=== PATIENT | female | born 1950 | race African-American/Black ===

== ENCOUNTER 2019-04-12 15:33 | Observation (INO) | payer OTHER, SELFPAY ==
--- NOTE | ~2019-04-12 | MR_ITS ---
EXAMINATION: MR brain/brain stem wo/w con EXAM DATE: 04/13/2019 15:36 INDICATION: Unresponsive episodes, slurred speech. TECHNIQUE: Magnetic resonance imaging (MRI) of the brain/brain stem obtained without contrast. Sagit ronda T1, axial diffusion, gradient echo (T2*), T1, T2, FLAIR sequences obtained. Patient was then inj ected with 13 cc intravenous Multihance contrast. Axial and coronal postcontrast T1 weighted sequence s obtained. Comparison is made to prior examination from 09/29/2017. FINDINGS: There are no areas of restricted diffusion to suggest acute infarction. There is no acute hemorrhage seen on the T2*, a hemosiderin sensitive sequence. No intraparenchymal brain mass lesion. There is mild periventricular and subcortical T2/FLAIR signal hyperintensity, nonspecific but probab ly related to small vessel ischemic disease (microangiopathy). There is mild prominence of the sulc i and ventricles related to cerebral atrophy. There are no extra-axial collections. Flow voids are seen in the cerebral arteries on the T2-weighted sequences consistent with their expected patency. The orbits are unremarkable. Soft tissue is unremarkable. IMPRESSION: 1. No acute intracranial findings. 2. Mild age related findings. Reviewed, dictated and finalized at location A.
--- NOTE | ~2019-04-12 | XR_ITS ---
EXAMINATION: XR chest 1V portable EXAM DATE: 04/12/2019 17:54 INDICATION: Cough. TECHNIQUE: Portable AP frontal chest x-ray was obtained. Comparison is made to prior examination from 05/27/2015. FINDINGS: There is some right-sided volume loss with well-defined increased density in the right lowe r lung zone, airspace disease or collapse of the right middle lobe. Please clinically correlate. Can patient stand for PA/lateral projections? This is new compared to 2016. Left lung is clear. No pneumo thorax or pleural effusion. Cardiomediastinal silhouette is normal. There are bony degenerative rizo es. IMPRESSION: New well-defined right basilar density with clear interface to normal lung, could indica te consolidation and/or atelectasis of the right middle lobe. Clinical correlation. Consider PA/later al chest x-ray if possible. Reviewed, dictated and finalized at location A. ENRICHMENT MANAGER IMPRESSION: New well-defined right basilar density with clear interface to nor mal lung, could indicate consolidation and/or atelectasis of the right middle l obe. Clinical correlation. Consider PA/lateral chest x-ray if possible.
--- NOTE | ~2019-04-12 | XR_ITS ---
EXAMINATION: XR ankle LT min 3V EXAM DATE: 04/12/2019 16:43 INDICATION: No known recent injury provided at this time. Pain of the left ankle. TECHNIQUE: Left ankle frontal, lateral and oblique projections obtained and reviewed. There is no pr ior study for comparison. FINDINGS: The left ankle mortise appears intact. Bones are osteopenic. There are no acute fracture s or dislocations identified. There is no subcutaneous gas. Probable small joint effusion. There a re no radiopaque foreign bodies. There is soft tissue swelling over the ankle. IMPRESSION: Left ankle small joint effusion and soft tissue swelling. Osteopenia. Reviewed, dictated and finalized at location A. GROUND MONITOR IMPRESSION: Left ankle small joint effusion and soft tissue swelling. Fausto todd
--- NOTE | ~2019-04-12 | CT_ITS ---
EXAMINATION: CT brain wo con EXAM DATE: 04/12/2019 18:01 INDICATION: Slurred speech. TECHNIQUE: Spiral CT of the head was performed without contrast. Axial, coronal and sagittal images were reviewed. The dose-length product (DLP) for this examination was 605.33 mGy-cm. The exposure w as tailored according to patient size, and iterative reconstruction (ASIR) was used as additional dos e reduction technique. Comparison is made to prior examination from 09/29/2017. FINDINGS: There is no acute intraparenchymal hemorrhage. No evidence of intraparenchymal brain mass lesion. No evidence of acute infarction. Please note that initial head CT has limited sensitivity f or small or acute infarctions. There is mild periventricular and subcortical hypodensity, nonspecific but probably related to small vessel ischemic disease. There is moderate prominence of the sulci a nd ventricles related to cerebral atrophy. There is intracranial carotid arteriosclerosis. There a re no extra-axial collections. There is no mass effect or midline shift. The orbits are unremarkabl e. Soft tissue is unremarkable. Small left sphenoid mucous retention cyst. IMPRESSION: 1. No acute intracranial findings. 2. Chronic age related findings. Reviewed, dictated and finalized at location A. CAR WHACKER
[2019-04-12 15:41] VITALS: BP 113/93; PULSE 104; RESP 18; TEMP 36.7; O2SAT 100
--- NOTE | 2019-04-12 17:37 | ED.GENADULT ---
HPI - General Adult General Chief complaint: Unspecified Stated complaint: slurring, leaning to the right for unknown time Time Seen by Provider: 04/12/19 17:34 Source: patient and family Mode of arrival: ambulatory Limitations: no limitations History of Present Illness HPI narrative: The pt is a 68 y/o female who presents to the ED c/o mobility issues onset 2 months ago. Pt's family states that her mobility has been declining for the past couple of months, with her having difficulty walking at all. Pt states that she has experienced LLE pain for the past two days. Pt notes that the pain is in the lower leg. Her family states that when she was getting ready to take the pt from her halfway to her home to spend the night, the pain was so bad that she was yelling while her shoes were put on. She also notes that the pt has been listing to the right, as well as slurring her speech. MD complaint: Mobility issues Onset (ago): month(s) (2) Location: lower extremity Associated symptoms: other (LLE pain (lower leg), listing to the right, slurred speech, difficulty walking ) Related Data Home Medications Medication Instructions Recorded Confirmed Unable to Obtain Home Medications 04/12/19 04/12/19 Allergies Allergy/AdvReac Type Severity Reaction Status Date / Time No Known Allergies Allergy Verified 04/12/19 18:16 Review of Systems Review of Systems: All systems reviewed & are unremarkable except as noted in HPI and below Musculoskeletal: Musculoskeletal: Reports other (LLE pain (Lower leg), difficulty walking ) Neurologic: Reports Abnormal speech present (Slurred speech) and Reports other (Listing to the right) [facility] Past Medical History Medical History (Updated 04/12/19 @ 21:18 by Rick Russo DO) Anemia Angina at rest Anxiety Arthritis Bipolar disorder CVA (cerebral vascular accident) Depression Diabetes Finger fracture, left Finger fracture, right GERD (gastroesophageal reflux disease) HLD (hyperlipidemia) HTN (hypertension) Left cataract Leg fracture, left Pneumonia Surgical History Surgical History (Updated 04/12/19 @ 18:22 by Quan Wang) No history of previous surgery Social History Social History (Updated 04/12/19 @ 18:23 by Quan Wang) Smoking status: Never smoker Exam Narrative: Exam Narrative: APPEARANCE: No acute distress, nontoxic, resting in bed EYES: PERRL HEENT: Normocephalic, atraumatic, OMM RESPIRATORY: No respiratory distress Clear to auscultation bilaterally with no rhonchi wheezing or rales. CARDIOVASCULAR: Regular rate and rhythm without murmurs rubs or gallops. ABDOMINAL: Soft, nontender, nondistended, no rebound or guarding MUSCULOSKELETAl: No clubbing, cyanosis nontender to the right lower extremity, the left lower extremity has no tenderness in the left hip or knee left ankle is diffusely tender to palpation with mild swelling there is no overlying erythema or ecchymosis, no tenderness of the foot dorsalis pedis pulse 2+, neurovascular intact. NEURO: Awake and alert x 2. Following commands, speech normal, no focal deficits muscle strength 5 out of 5 in the bilateral upper extremities and 5 out of 5 in the right lower extremity 4 out of 5 in the left lower extremity SKIN:: Warm, dry. No rashes lesions or abrasions PSYCHIATRIC: Normal affect/mood, Course Course Emergency Course: Daughter is present states patient has been leaning to the right as well as having some slurred speech over the past day. No known trauma to the ankle. : Discussed Dr. Fulton chest x-ray. At this time states possible pneumonia. The. Patient is currently asymptomatic with no cough and no white count. I discussed with CARA Barger and at this time will hold antibiotics Discussed with patient and family results of workup and diagnosis. Discussed need for admission. Patient and family understand and agree to current treatment plan Consultations Consultation #1: Discussed case with David
--- NOTE | 2019-04-12 17:46 | ECG_ITS ---
Measurements Intervals [place] Rate: 94 P: 51 NH: 124 QRS: 124 QRSD: 90 T: 31 QT: 370 QTc: 465 Interpretive Statements SINUS RHYTHM RIGHT AXIS DEVIATION LOW QRS VOLTAGE IN PRECORDIAL LEADS BASELINE ARTIFACT- V5 BORDERLINE ECG Electronically Signed On 04-13-2019 8:19:53 CDT by Skinny Dumont D.O.
[2019-04-12 18:45] LABS: Basophils Percent Auto 0.4 % (0.2-1.2); Eosinophils Absolute Auto 0.3 K/mm3 (0-0.3); Eosinophils Percent Auto 4.9 % (0-4.4); Hematocrit 32.3 % (37.0-47.0); Hemoglobin 9.9 g/dL (12.0-15.0); Immature Granulocyte Absolute 0.03 K/mm3 (0.00-0.031); Immature Granulocyte Percent A 0.5 % (0-0.5); Lymphocytes Absolute Auto 2.53 K/mm3 (0.9-3.2); Lymphocytes Percent Auto 44.5 % (18.3-44.2); Mean Corpuscular HGB Conc 30.7 g/dl (32-36); Mean Corpuscular Hemoglobin 27.8 pg (26-34); Mean Corpuscular Volume 90.7 fl (80-100); Mean Platelet Volume 9.6 fl (7.4-10.4); Monocytes Absolute Auto 0.4 K/mm3 (0.1-0.6); Monocytes Percent Auto 7.2 % (2.6-8.5); Neutrophils Absolute Auto 2.4 K/mm3 (1.3-6.7); Neutrophils Percent Auto 42.5 % (45.5-73.1); Platelet Count Result 297 k/mm3 (150-375); Red Blood Count 3.56 M/mm3 (4.2-5.4); Red Cell Distribution Width 13.5 % (11.5-14.5); White Blood Count 5.7 K/mm3 (4.5-10.0)
[2019-04-12 18:54] LABS: Prothrombin Time 13.3 Seconds (11.1-14.7)
[2019-04-12 18:55] LABS: Partial Thromboplastin Time 26.4 SECONDS (22.3-36.8)
[2019-04-12 18:58] VITALS: BP 127/67; PULSE 95; RESP 17; O2SAT 100
[2019-04-12 18:59] LABS: Alanine Aminotransferase 13 U/L (4-35); Albumin Level 4.1 g/dL (3.5-5.1); Alkaline Phosphatase 73 U/L (38-126); Aspartate Amino Transferase 19 U/L (14-36); Bilirubin,Total 0.2 mg/dL (0.2-1.3); Blood Urea Nitrogen 6 mg/dL (7-17); CRP 1.4 mg/dL (<1.0); Carbon Dioxide 25 mmol/L (22-30); Chloride 103 mmol/L (98-107); Estimated CRCL calculation 88 ml/min; Estimated Glomerular Filt Rate > 60; Glucose 97 mg/dL (65-105); Potassium 3.8 mmol/L (3.4-5.0); Sodium 139 mmol/L (137-145); Uric Acid 3.4 mg/dL (2.5-7.5)
[2019-04-12 19:08] LABS: Troponin I < 0.012 ng/mL (0.000-0.034)
[2019-04-12 19:09] LABS: Erythrocyte Sedimentation Rate 24 mm/hr (0-20)
[2019-04-12 19:20] LABS: Add Urine Microscopic? YES; Appearance Urine Cloudy (Clear); Bacteria Urine 3+ /hpf; Bilirubin Urine Negative (Negative); Blood Urine Negative (Negative); Color Urine Yellow (Yellow); Glucose Urine UA Negative (Negative); Ketones Urine Trace mg/dL (Negative); Leukocyte Esterase Ur 1+ LEU/UL (Negative); Mucus Urine Heavy /lpf; Nitrate Urine Negative (Negative); Protein Urine 1+ mg/dL (Negative); RBC Urine 0-2 /hpf (0-2); Squamous Epithelial Cell Urine Few /hpf (Few); WBC Urine 21-30 /hpf
[2019-04-12 20:06] VITALS: BP 129/76; PULSE 100; RESP 18; O2SAT 97
[2019-04-12 20:20] VITALS: BP 128/60; PULSE 98; RESP 16; TEMP 36.3; O2SAT 100; BMI 28.8
--- NOTE | 2019-04-12 21:34 | ADMGEN ---
This patient, Paxton Altman, was admitted to [facility] Surg Room 323-02. Patient/family oriented to hospital policies and general routines including ID bracelet, bed and alarms, visiting hours, pain management, procedures, bathroom and other care routines, personal items, smoking policy, room service/diet, and visiting hours. Valuables list has been completed. Information on how to activate the Rapid Response Team has been discussed. Patient/Family are encouraged to report perceived risks to care and to ask questions if they do not understand what they are told or what they should do.
[2019-04-12] MEDS: SODIUM CHLORIDE 0.9% IV 1,000 ML 80 ML IV CONT (21:37)
[2019-04-12 22:00] VITALS: BP 115/61; PULSE 88; RESP 14; TEMP 35.9; O2SAT 99
[2019-04-12 22:10] LABS: Alveolar/Arterial O2 Gradient 17.1 mmHg; Base Excess ABG 0.4 mEq/l (+/-2.0); Fractional Inspired Oxygen 21 %; HCO3 ABG 25.6 mEq/l (22.0-26.0); Oxygen Content ABG 13.6 %vol (16.0-22.0); Oxygen Saturation ABG 95.7 % (95.0-100.0); Oxyhemoglobin 93.1 % THb (90.0-100.0); PCO2 ABG 43.8 mmHg (35.0-45.0); PO2 ABG 80.2 mmHg (80.0-100.0); PO2 FiO2 Ratio Arterial Blood 3.82 %; Total Hemoglobin 10.3 g/dL (12.0-18.0); pH ABG 7.385 (7.350-7.450)
[2019-04-12 22:11] LABS: Modified Allen's Test Pass; Site Drawn LEFT RADIAL
[2019-04-12 22:12] LABS: Device ROOM AIR
[2019-04-12 22:12] LABS: Glucose Point of Care 103 (65-105)
[2019-04-12 22:14] LABS: Troponin I < 0.012 ng/mL (0.000-0.034)
[2019-04-12 22:15] VITALS: BP 136/68; PULSE 82; RESP 16; O2SAT 99
--- NOTE | 2019-04-12 23:52 | PM.IMHP ---
H&P: HPI History of Present Illness Chief complaint: Metabolic encephalopathy, UTI, Slurred speech Narrative: Paxton Altman is a 68-year-old female with history of stroke with residual right-sided weakness and gait instability, hypertension, diabetes, DVT, and history of polio as a child who presented to the emergency department earlier this evening because she was ?not acting right.? I 1st see the patient after rapid response was called shortly after she was brought up to the floor. She was unresponsive when I walked into the room, even to deep sternal rub. Vital signs and glucose were stable. Within a couple of minutes, she did open her eyes and attempt to talk and follow commands. She does not however talk in full sentences nor she able to provide much of a history. As such, most of this history is obtained via a review of her electronic medical records. Reportedly her mobility has been declining over the last several months, much worse over the past 2 days in which she has been complaining of left leg pain. Family members were bring her home to spend the night with them today, when she began screaming in pain while staff or putting her shoes on. They then decided to bring her into the emergency department for evaluation. As an aside, daughter also notes that the patient seems to be leaning to the right and her speech is more slurred. Apparently this has been ongoing for the entire day, far > 3 hours. Lab studies emergency department were relatively unremarkable. Chest x-ray showed a new well-defined right basilar density which could be a consolidation and/or atelectasis in the right middle lobe. Family members deny that the patient has had any symptoms of pneumonia. The patient herself has no complaints at the time my evaluation, but again is just coming to after an unresponsive episode. 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 Depression GERD (gastroesophageal reflux disease) History of DVT (deep vein thrombosis) HLD (hyperlipidemia) HTN (hypertension) Insulin dependent type 2 diabetes mellitus Polio Patient had polio as a child that is left her with left lower leg weakness. Surgical History Surgical History No history of previous surgery Family History Family History (Updated 04/13/19 @ 00:05 by Karoline Barger PA-C) Other Acute myocardial infarction Congestive heart failure Diabetes mellitus Hypertension Social History Social History (Updated 04/13/19 @ 00:06 by Karoline Barger PA-C) Social History: Apparently she is currently at a senior living. She ambulates with a walker. No alcohol, tobacco, or drug abuse. Daughter Portia Altman is her emergency contact and she is listed as a full code. Smoking status: Never smoker Alcohol intake: never Substance use: never Gender identity (if verbalized by the patient): Female Spiritual care concerns: No Agree to blood products: Yes Meds Home Medications and Allergies Home Medications Medication Instructions Recorded Confirmed Type Basaglar KwikPen U-100 Insulin 15 unit SUBCUT BID 04/13/19 04/13/19 History acetaminophen [Tylenol] 650 mg PO Q6H PRN 04/13/19 04/13/19 History amlodipine 10 mg PO DAILY 04/13/19 04/13/19 History atorvastatin 40 mg PO HS 04/13/19 04/13/19 History benztropine 1 mg PO BID 04/13/19 04/13/19 History clopidogrel 75 mg PO DAILY 04/13/19 04/13/19 History divalproex [Depakote ER] 250 mg PO BID 04/13/19 04/13/19 History haloperidol 5 mg PO BID 04/13/19 04/13/19 History insulin lispro [
[2019-04-13] VITALS (7 sets, daily range): BP systolic 120–135; BP diastolic 65–74; PULSE 87–886; RESP 16; TEMP 36.6–36.7; O2SAT 96–100
[2019-04-13 03:01] LABS: Troponin I < 0.012 ng/mL (0.000-0.034)
--- NOTE | 2019-04-13 03:41 | PC.NURSE ---
Daylight Savings Time For Daylight Savings Time Ending in the Fall - Clocks are moved back. For Daylight Savings Time Beginning in the Spring - Clocks are moved ahead. For [facility], the time of change occurs at 0200 hrs. Time is taken from the service observer chief. This entry on the patient's chart recognizes the change in time reflected during documentation. Example: 2 entries for vital signs may be charted for 0200 hrs.
[2019-04-13 06:44] LABS: Basophils Percent Auto 0.4 % (0.2-1.2); Eosinophils Absolute Auto 0.3 K/mm3 (0-0.3); Eosinophils Percent Auto 6.4 % (0-4.4); Hematocrit 32.1 % (37.0-47.0); Hemoglobin 9.8 g/dL (12.0-15.0); Immature Granulocyte Absolute 0.01 K/mm3 (0.00-0.031); Immature Granulocyte Percent A 0.2 % (0-0.5); Lymphocytes Absolute Auto 2.03 K/mm3 (0.9-3.2); Lymphocytes Percent Auto 45.1 % (18.3-44.2); Mean Corpuscular HGB Conc 30.5 g/dl (32-36); Mean Corpuscular Hemoglobin 27.5 pg (26-34); Mean Corpuscular Volume 89.9 fl (80-100); Mean Platelet Volume 9.4 fl (7.4-10.4); Monocytes Absolute Auto 0.3 K/mm3 (0.1-0.6); Monocytes Percent Auto 7.1 % (2.6-8.5); Neutrophils Absolute Auto 1.8 K/mm3 (1.3-6.7); Neutrophils Percent Auto 40.8 % (45.5-73.1); Platelet Count Result 293 k/mm3 (150-375); Red Blood Count 3.57 M/mm3 (4.2-5.4); Red Cell Distribution Width 13.4 % (11.5-14.5); White Blood Count 4.5 K/mm3 (4.5-10.0)
[2019-04-13 07:07] LABS: Uric Acid 3.4 mg/dL (2.5-7.5)
[2019-04-13 07:08] LABS: Blood Urea Nitrogen 5 mg/dL (7-17); Calcium 8.7 mg/dL (8.4-10.2); Carbon Dioxide 26 mmol/L (22-30); Chloride 106 mmol/L (98-107); Estimated CRCL calculation 91 ml/min; Estimated Glomerular Filt Rate > 60; Glucose 102 mg/dL (65-105); Potassium 3.7 mmol/L (3.4-5.0); Sodium 140 mmol/L (137-145)
[2019-04-13 08:22] LABS: Glucose Point of Care 114 (65-105)
[2019-04-13] MEDS: SODIUM CHLORIDE 0.9% IV 1,000 ML 80 ML IV CONT (12:14)
[2019-04-13 12:35] LABS: Glucose Point of Care 139 (65-105)
[2019-04-13] MEDS: INSULIN ASPART (*BKC) 100 UNITS/ML SUB-Q (17:56)
[2019-04-13 18:29] LABS: Glucose Point of Care 255 (65-105)
--- NOTE | 2019-04-13 19:01 | PM.IMPN ---
Progress Note: A&P Assessment and Plan (1) UTI (urinary tract infection): Qualifiers: Urinary tract infection type: site unspecified Hematuria presence: without hematuria Qualified Code(s): N39.0 - Urinary tract infection, site not specified Code(s): N39.0 - Urinary tract infection, site not specified Status: Acute Assessment and Plan: Day 2 ceftriaxone c/s pending (2) Acute metabolic encephalopathy: Code(s): G93.41 - Metabolic encephalopathy Status: Acute Assessment and Plan: Likely due to UTI Resolved (3) Acute left ankle pain: Code(s): M25.572 - Pain in left ankle and joints of left foot Status: Acute Assessment and Plan: Due to LLE weakness post stroke Would likely benefit from brace Subjective Date/time seen: 04/13/19 19:01 Interval history: Feels much better. Ate well at supper. Review of Systems Review of Systems: Narrative: hx unreliable ROS unobtainable: unobtainable due to mental status Exam Narrative: Exam Narrative: HEENT: EOMI, PERRL, sclerae nonicteric, pharyngeal mucosa pink and intact NECK: No JVD, adenopathy, or thyromegaly CHEST: Clear to auscultation. Normal effort. HEART: NL S1/S2, regular, no murmur ABDOMEN: BS+, soft, nontender, no mass, no bruits EXTREMITIES: No cyanosis, edema, or clubbing. Softening of left heel. NEUROLOGIC: CN intact and symmetric to inspection. MUSCULOSKELETAL: Tone and strength symmetric. Left leg with muscle wasting, foot drop PSYCH: Alert. Oriented to person, not to place, thought year was 2001. Objective Data Vital Signs Vital Signs: Vital Signs - 24 hr 04/12/19 18:58 04/12/19 20:06 04/12/19 20:20 Temperature 97.4 F L Pulse Rate 95 100 98 Respiratory Rate 17 18 16 Blood Pressure 127/67 129/76 128/60 Pulse Oximetry 100 97 100 04/12/19 22:00 04/12/19 22:15 04/13/19 00:00 Temperature 96.7 F L Pulse Rate 88 82 886 H Respiratory Rate 14 16 Blood Pressure 115/61 136/68 Pulse Oximetry 99 99 04/13/19 04:00 04/13/19 06:00 04/13/19 08:00 Temperature 97.9 F Pulse Rate 89 97 94 Respiratory Rate 16 Blood Pressure 125/71 Pulse Oximetry 100 04/13/19 12:00 04/13/19 14:00 Temperature 98.1 F Pulse Rate 92 92 Respiratory Rate 16 Blood Pressure 135/74 Pulse Oximetry 97 Intake/Output Intake/Output: Intake & Output 04/10/19 04/11/19 04/12/19 04/14/19 23:59 23:59 23:59 00:59 Intake Total 50 2640 Output Total 900 Balance 50 1740 Meds/Results Medications: Active Medications Generic Name Dose Route Start Last Admin Trade Name Freq PRN Reason Stop Dose Admin Acetaminophen 650 mg 04/13/19 18:53 Tylenol Tablet PO Q6H PRN Pain Amlodipine Besylate 10 mg 04/14/19 09:00 Norvasc PO DAILY [facility] Atorvastatin Calcium 40 mg 04/13/19 21:00 Lipitor PO HS [facility] Benztropine Mesylate 1 mg 04/14/19 09:00 Benztropine Mesylate PO BID [facility] Clopidogrel Bisulfate 75 mg 04/14/19 09:00 Plavix PO DAILY [facility] Dextrose 12.5 gm 04/13/19 00:15 Dextrose 50% Syringe IV PUSH PRN PRN Hypoglycemia Protocol Divalproex Sodium 250 mg 04/14/19 09:00 Depakote Er PO BID [facility] Glucagon 1 mg 04/13/19 00:15 Glucagon For Inj IM PRN PRN Hypoglycemia Protocol Glucose 15 gm 04/13/19 00:15 Glutose 15 PO PRN PRN Hypoglycemia Protocol Haloperidol 5 mg 04/14/19 09:00 Haldol Tablet PO BID [facility] Ceftriaxone Sodium/Dextrose 1 gm in 50 mls @ 100 mls/hr 04/13/19 18:00 04/13/19 17:56 Rocephin 1 Gm/D5w 50 Ml IVPB 100 mls/hr QPM SERGIO Administration Sodium Chloride 1,000 mls @ 80 mls/hr 04/12/19 19:30 04/13/19 12:14 Normal Saline Iv IV CONT 80 mls/hr .[id number] SERGIO Administration Dextrose 1,000 mls @ 100 mls/hr 04/13/19 00:15 Dextrose 5% 1,000 Ml IVPB PRN PRN Hypoglycemia Protocol Insulin Aspart
[2019-04-13] MEDS: INSULIN GLARGINE (*BKC) 100 UNITS/ML 17 UNITS SUB-Q (21:58)
[2019-04-13] MEDS: ATORVASTATIN 40 MG TABLET PO (22:06)
[2019-04-13] MEDS: DIVALPROEX SODIUM 250 MG TABEC PO (22:07)
[2019-04-13] MEDS: BENZTROPINE MESYLATE 1 MG TABLET PO (22:07)
[2019-04-13] MEDS: HALOPERIDOL 5 MG TABLET PO (22:08)
[2019-04-13] MEDS: QUEtiapine FUMARATE 100 MG TABLET PO (22:09)
[2019-04-13 22:56] LABS: Glucose Point of Care 103 (65-105)
[2019-04-14] MEDS: QUEtiapine FUMARATE 100 MG TABLET PO (05:30)
[2019-04-14 06:00] VITALS: BP 136/63; PULSE 81; RESP 16; TEMP 36.2; O2SAT 99
[2019-04-14 06:42] LABS: Hematocrit 31.4 % (37.0-47.0); Hemoglobin 9.6 g/dL (12.0-15.0); Immature Reticulocyte Fraction 23.4 % (3.0-15.9); Mean Corpuscular HGB Conc 30.6 g/dl (32-36); Mean Corpuscular Hemoglobin 27.7 pg (26-34); Mean Corpuscular Volume 90.5 fl (80-100); Mean Platelet Volume 9.5 fl (7.4-10.4); Platelet Count Result 282 k/mm3 (150-375); Red Blood Count 3.47 M/mm3 (4.2-5.4); Red Cell Distribution Width 13.7 % (11.5-14.5); Reticulocyte Hemoglobin Conten 30.6 pg (28.2-35.7); Reticulocyte Percent 1.81 % (0.7-4.3); Reticulocytes Absolute 0.06 B/L (32.2-175.7); White Blood Count 4.1 K/mm3 (4.5-10.0)
[2019-04-14 07:09] LABS: Blood Urea Nitrogen 4 mg/dL (7-17); Calcium 8.8 mg/dL (8.4-10.2); Carbon Dioxide 25 mmol/L (22-30); Chloride 107 mmol/L (98-107); Estimated CRCL calculation 91 ml/min; Estimated Glomerular Filt Rate > 60; Glucose 94 mg/dL (65-105); Potassium 3.8 mmol/L (3.4-5.0); Sodium 139 mmol/L (137-145)
[2019-04-14 07:48] LABS: Iron 74 ug/dL (37-170)
[2019-04-14 07:56] LABS: Percent Iron Saturation 25 % (20-50)
[2019-04-14 08:10] LABS: Folic Acid 9.2 ng/mL (2.76->20)
[2019-04-14 08:21] LABS: Glucose Point of Care 96 (65-105)
[2019-04-14] MEDS: metFORMIN HCL 500 MG TABLET 1000 MG PO (10:50)
[2019-04-14] MEDS: DIVALPROEX SODIUM 250 MG TABEC PO (10:50)
[2019-04-14] MEDS: CLOPIDOGREL BISULFATE 75 MG TABLET PO (10:51)
[2019-04-14] MEDS: LOSARTAN POTASSIUM 50 MG TABLET PO (10:51)
[2019-04-14] MEDS: POTASSIUM CHLORIDE 20 MEQ TABLET.ER PO (10:51)
[2019-04-14] MEDS: HALOPERIDOL 5 MG TABLET PO (10:51)
[2019-04-14] MEDS: AMLODIPINE BESYLATE 5 MG TABLET 10 MG PO (10:51)
[2019-04-14] MEDS: BENZTROPINE MESYLATE 1 MG TABLET PO (10:52)
[2019-04-14 13:19] LABS: Glucose Point of Care 145 (65-105)
[2019-04-14 14:15] VITALS: BP 145/72; PULSE 92; RESP 16; TEMP 36.4; O2SAT 98
--- NOTE | 2019-04-14 16:37 | PM.DS ---
DS: Diagnosis Admitting Diagnosis Admitting Diagnosis: Urinary tract infection, site not specified Discharge Diagnosis (1) UTI (urinary tract infection): Qualifiers: Hematuria presence: without hematuria Urinary tract infection type: site unspecified Qualified Code(s): N39.0 - Urinary tract infection, site not specified Code(s): N39.0 - Urinary tract infection, site not specified Status: Acute Assessment and Plan: Day 3 ceftriaxone c/s with e coli Back to [place] to complete 5 days nitrofurantoin (2) Acute metabolic encephalopathy: Code(s): G93.41 - Metabolic encephalopathy Status: Acute Assessment and Plan: Likely due to UTI Resolved (3) Acute left ankle pain: Code(s): M25.572 - Pain in left ankle and joints of left foot Status: Acute Assessment and Plan: Due to LLE weakness post stroke Would likely benefit from brace DS: Summary Hospital Course Reason for hospitalization: Confusion Hospital Course: Patient was lethargic confused at group home. Presented emergency department by EMS. Found to have urinary infection. Treated empirically ceftriaxone. Cultures grew E coli. Patient mental status returned to baseline within 24 hours. She was tolerating her diet. Vital signs stable. Alert oriented to person but not place or time. Pleasant cooperative. Return to group home in stable condition. Nonambulatory at baseline. Status at Discharge Overall status at discharge: patient is back to baseline Time Spent with Patient Time attestation: Total time spent providing and/or coordinating discharge services: Exam Narrative: Exam Narrative: HEENT: EOMI, PERRL, sclerae nonicteric, pharyngeal mucosa pink and intact NECK: No JVD, adenopathy, or thyromegaly CHEST: Clear to auscultation. Normal effort. HEART: NL S1/S2, regular, no murmur ABDOMEN: BS+, soft, nontender, no mass, no bruits EXTREMITIES: No cyanosis, edema, or clubbing. Softening of left heel. NEUROLOGIC: CN intact and symmetric to inspection. MUSCULOSKELETAL: Tone and strength symmetric. Left leg with muscle wasting, foot drop PSYCH: Alert. Oriented to person, not to place, thought year was 2001. DS: Data Data Completed and Pending Labs on day of discharge: Labs from last 24 hours 04/14/19 04/14/19 04/14/19 12:57 07:43 06:32 WBC RBC Hgb Hct MCV MCH MCHC RDW Plt Count MPV Absolute Retic Percent Retic Immature Retic Fraction Retic Hgb Content Sodium Potassium Chloride Carbon Dioxide BUN Creatinine Estim Creat Clear Calc Estimated GFR Glucose POC Capillary Glucose 145 H 96 Calcium Iron 74 TIBC 298 % Saturation 25 Vitamin B12 Folate 04/14/19 04/14/19 04/13/19 06:31 06:31 22:05 WBC 4.1 L RBC 3.47 L Hgb 9.6 L Hct 31.4 L MCV 90.5 MCH 27.7 MCHC 30.6 L RDW 13.7 Plt Count 282 MPV 9.5 Absolute Retic 0.06 L Percent Retic 1.81 Immature Retic Fraction 23.4 H Retic Hgb Content 30.6 Sodium 139 Potassium 3.8 Chloride 107 Carbon Dioxide 25 BUN 4 L Creatinine 0.40 L Estim Creat Clear Calc 91 Estimated GFR > 60 Glucose 94 POC Capillary Glucose 103 Calcium 8.8 Iron TIBC % Saturation Vitamin B12 866.0 Folate 9.2 04/13/19 17:41 WBC RBC Hgb Hct MCV MCH MCHC RDW Plt Count MPV Absolute Retic Percent Retic Immature Retic Fraction Retic Hgb Content Sodium Potassium Chloride Carbon Dioxide BUN Creatinine Estim Creat Clear Calc Estimated GFR Glucose POC Capillary Glucose 255 H Calcium Iron TIBC % Saturation Vitamin B12 Folate Preliminary micro results at discharge 04/12/19 18:36 Blood Culture - Preliminary Blood 04/12/19 18:36 Blood Culture - Preliminary Blood 04/12/19 19:10 Urine Culture - Preliminary Urine Clean C
== END 2019-04-14 19:06 ==
LOC: ANHED 17:42 → ANH3MEDSUR 20:17
PROVIDERS: Physician Assistant; Admitting Provider Internal Medicine; Emergency Provider Emergency Medicine; Visit Provider Internal Medicine
DX: N39.0 Urinary tract infection, site not specified (principal); B96.20 Unspecified Escherichia coli [E. coli] as the cause of diseases classified elsewhere; G93.41 Metabolic encephalopathy; M25.572 Pain in left ankle and joints of left foot; R29.90 Unspecified symptoms and signs involving the nervous system; E11.9 Type 2 diabetes mellitus without complications; F31.9 Bipolar disorder, unspecified; K21.9 Gastro-esophageal reflux disease without esophagitis; E78.5 Hyperlipidemia, unspecified; I10 Essential (primary) hypertension; I69.351 Hemiplegia and hemiparesis following cerebral infarction affecting right dominant side; R26.81 Unsteadiness on feet; R29.898 Other symptoms and signs involving the musculoskeletal system; B91 Sequelae of poliomyelitis; Z79.4 Long term (current) use of insulin; Z79.899 Other long term (current) drug therapy; Z86.718 Personal history of other venous thrombosis and embolism
CPT/HCPCS: 36415; 36600; 70450; 70553; 71045; 73610; 80048; 80053; 81001; 82607; 82746; 82805; 83540; 83550; 84484; 84550; 85025; 85027; 85046; 85610; 85652; 85730; 86140; 87040; 87077; 87081; 87086; 87088; 87186; 93005; 96360; 96361; 96365; 99285; A9270; A9577; G0378; G0379; J0696; J1815; J7030

== ENCOUNTER 2023-09-30 21:21 | Inpatient (IN) | payer OTHER, SELFPAY ==
--- NOTE | ~2023-09-30 | CT_ITS ---
CT of the Abdomen and Pelvis: Indication: Abdominal pain Technique: 2.5 mm axial scans were obtained through the abdomen and pelvis following intravenous adm inistration of 100 cc of Omnipaque 350. Dose reduction technique was used on this scan by utilizing a utomated exposure control and iterative reconstruction technique. The dose-length product (DLP) was 4 98.07 mGy-cm. Findings: Scans through the lung bases are unremarkable. The liver, spleen, pancreas, gallbladder, adrenals and kidneys are within normal limits. No evidence of aortic aneurysm. No retroperitoneal lymphadenopathy. There are probable circumferential wall thickening at the proximal ascending colon. There is an adjac ent 2.3 x 2.0 cm lymph node in the right lower quadrant (axial image 90). Additional shotty right low er quadrant lymph nodes are present. Images through the pelvis were performed. Urinary bladder unremarkable. No adnexal mass evident. Susp ected thrombus in the right external iliac vein (axial images 125-134). No ascites. Impression: Probable circumferential wall thickening of the proximal descending colon with adjacent lymphadenopat hy, as detailed above. Findings could reflect colonic neoplasm with local ranjeet metastatic disease. F ocal colitis with reactive lymphadenopathy would be a potential alternative consideration, though thi s is felt to be less likely given relative lack of adjacent inflammatory changes. Colonoscopy should be considered to further evaluate. Probable area of thrombus in the right external iliac vein, as detailed above. Reviewed, dictated and finalized at [facility]. Impression: Probable circumferential wall thickening of the proximal descending colon with adjacent lymphadenopathy, as detailed above. Findings could reflect colonic lamine plasm with local ranjeet metastatic disease. Focal colitis with reactive lymphade nopathy would be a potential alternative consideration, though this is felt to be less likely given relative lack of adjacent inflammatory changes. Colonoscop y should be considered to further evaluate. Probable area of thrombus in the right external iliac vein, as detailed above.
--- NOTE | ~2023-09-30 | CT_ITS ---
Clinical Indication: Colon cancer CT Scan of the Chest with Contrast: Technique: Contiguous sections were acquired throughout the chest after intravenous administration of 75 cc of Omnipaque 350. Dose reduction technique was used on this scan by utilizing automated exposu re control and iterative reconstruction technique. The dose-length product (DLP) was 316.35 mGy-cm. Findings: There is no evidence of any significant mediastinal, hilar or axillary lymphadenopathy. There is no f illing defect in the pulmonary arterial tree to suggest pulmonary embolus. There is no evidence of ao rtic dissection or aneurysm. There is no evidence of pleural or pericardial effusion. 12 mm opacity present in the superior segment left lower lobe (axial image 41). No other pulmonary no dule/consolidation seen. Images through the upper abdomen reveal no abnormalities. Impression: 12 mm opacity in the superior segment left lower lobe. Appearance is most suggestive of focal atelect asis or pneumonitis, less likely soft tissue nodule. Metastasis not completely excluded given history of colon cancer, though felt to be less likely. Consider continued follow-up/repeat exam, PET/CT, or tissue sampling as indicated. Reviewed, dictated and finalized at [facility]. Impression: 12 mm opacity in the superior segment left lower lobe. Appearance is most sugge stive of focal atelectasis or pneumonitis, less likely soft tissue nodule. [place] stasis not completely excluded given history of colon cancer, though felt to be less likely. Consider continued follow-up/repeat exam, PET/CT, or tissue sampl ing as indicated.
[2023-09-30 21:31] VITALS: BP 159/50; PULSE 103; RESP 16; O2SAT 100
[2023-10-01] VITALS (48 sets, daily range): BP systolic 105–167; BP diastolic 40–88; PULSE 88–108; RESP 13–28; TEMP 36.6–37.7; O2SAT 97–100; BMI 26.9
[2023-10-01 00:40] LABS: Basophils Absolute Auto 0.1 K/mm3 (0.0-0.1); Basophils Percent Auto 0.8 % (0.2-1.2); Eosinophils Absolute Auto 0.7 K/mm3 (0-0.3); Eosinophils Percent Auto 8.5 % (0-4.4); Immature Granulocyte Absolute 0.12 K/mm3 (0.00-0.031); Immature Granulocyte Percent A 1.4 % (0-0.5); Lymphocytes Absolute Auto 1.93 K/mm3 (0.9-3.2); Lymphocytes Percent Auto 23.1 % (18.3-44.2); Mean Corpuscular HGB Conc 23.6 g/dl (32-36); Mean Corpuscular Hemoglobin 15.2 pg (26-34); Mean Corpuscular Volume 64.4 fl (80-100); Mean Platelet Volume 8.9 fl (7.4-10.4); Monocytes Absolute Auto 0.5 K/mm3 (0.1-0.6); Monocytes Percent Auto 5.7 % (2.6-8.5); Neutrophils Percent Auto 60.5 % (45.5-73.1); Platelet Count Result 624 k/mm3 (150-375); Red Blood Count 3.03 M/mm3 (4.2-5.4); Red Cell Distribution Width 22.7 % (11.5-14.5); White Blood Count 8.4 K/mm3 (4.5-10.0)
[2023-10-01 00:45] LABS: Alanine Aminotransferase 11 U/L (6-35); Alkaline Phosphatase 153 U/L (38-126); Anion Gap 11 mmol/L (4-12); Aspartate Amino Transferase 20 U/L (14-36); Bilirubin,Total < 0.1 mg/dL (0.2-1.3); Blood Urea Nitrogen 9 mg/dL (7-17); Calcium 9.9 mg/dL (8.4-10.2); Carbon Dioxide 26 mmol/L (22-30); Chloride 100 mmol/L (98-107); Estimated CRCL calculation 59 ml/min; Estimated Glomerular Filt Rate > 60; Glucose 91 mg/dL (65-110); Lipase 44 U/L (23-300); Magnesium 1.6 mg/dL (1.6-2.3); Potassium 3.8 mmol/L (3.4-5.0); Sodium 137 mmol/L (137-145)
[2023-10-01 00:54] LABS: Hematocrit 19.5 % (37.0-47.0); Hemoglobin 4.6 g/dL (12.0-15.0)
[2023-10-01 01:04] LABS: Platelet Estimate Increased (Adequate); Poikilocytosis 2+
[2023-10-01 01:05] LABS: Anisocytosis 2+; Hypochromasia 3+; Ovalocytes 2+; Target Cells 1+
[2023-10-01 01:07] LABS: Schistocytes None Seen
--- NOTE | 2023-10-01 01:59 | PC.NURSE ---
Patients rosa maria Russell gives phone number of [phone].
[2023-10-01 02:16] LABS: Lactic Acid Reflex 2.3 mmol/L (0.7-2.0)
--- NOTE | 2023-10-01 02:48 | ED.ABDPAIN ---
HPI - Abdominal Pain General Chief Complaint: Abdominal Pain Stated Complaint: abd pain x7 days Time Seen by Provider: 10/01/23 02:06 History of Present Illness HPI narrative: Patient is a 72-year-old female who presents the emergency department this evening complaining of generalized abdominal pain on and off for the past week. Patient describes it as a constant ache throughout her entire abdomen, nonlocalized to a specific region. Patient also admits to mild nausea but denies any vomiting episodes. Denies any diarrhea, melena or hematochezia. No fevers or chills at home. No additional symptoms or concerns at this time. Related Data Home Medications Medication Instructions Recorded Confirmed acetaminophen 325 mg tablet 650 mg PO Q6H PRN Pain 04/13/19 04/13/19 (Tylenol) amlodipine 10 mg tablet 10 mg PO DAILY 04/13/19 04/13/19 atorvastatin 40 mg tablet 40 mg PO HS 04/13/19 04/13/19 benztropine 1 mg tablet 1 mg PO BID 04/13/19 04/13/19 clopidogrel 75 mg tablet 75 mg PO DAILY 04/13/19 04/13/19 divalproex 250 mg tablet,extended 250 mg PO BID 04/13/19 04/13/19 release 24 hr (Depakote ER) haloperidol 5 mg tablet 5 mg PO BID 04/13/19 04/13/19 insulin glargine 100 unit/mL (3 15 unit subcut BID 04/13/19 04/13/19 mL) subcutaneous pen (Basaglar KwikPen U-100 Insulin) insulin lispro 100 unit/mL 1 sliding scale dose subcut 04/13/19 04/13/19 subcutaneous solution (Admelog USEASDIRECTD U-100 Insulin lispro) losartan 50 mg tablet 50 mg PO DAILY 04/13/19 04/13/19 metformin 1,000 mg tablet 1,000 mg PO BID 04/13/19 04/13/19 potassium chloride 20 mEq 20 meq PO DAILY 04/13/19 04/13/19 tablet,extended release quetiapine 100 mg tablet (Seroquel) 100 mg PO TID 04/13/19 04/13/19 trazodone 50 mg tablet 75 mg PO HS 04/13/19 04/13/19 Allergies Allergy/AdvReac Type Severity Reaction Status Date / Time latex Allergy Unknown Verified 09/30/23 21:30 Review of Systems Review of Systems: All systems are reviewed and are negative unless stated otherwise in the HPI. 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 Depression GERD (gastroesophageal reflux disease) History of DVT (deep vein thrombosis) HLD (hyperlipidemia) HTN (hypertension) Insulin dependent type 2 diabetes mellitus Polio Patient had polio as a child that is left her with left lower leg weakness. Surgical History Surgical History No history of previous surgery Family History Family History Other Acute myocardial infarction Congestive heart failure Diabetes mellitus Hypertension Social History Social History Social History: Apparently she is currently at a long term. She ambulates with a walker. No alcohol, tobacco, or drug abuse. Daughter Portia Altman is her emergency contact and she is listed as a full code. Smoking status: Never smoker Alcohol intake: never Substance use: never Gender identity (if verbalized by the patient): Female Spiritual care concerns: No Agree to blood products: Yes Exam Narrative: General: Alert, awake, afebrile, in no acute distress. HEENT: PERRL, no rhinorrhea, no post nasal drip, oropharynx clear. Cardiovascular: Regular rate and rhythm, no murmurs, rubs or gallops, no peripheral edema. Respiratory: Clear to auscultation bilaterally, no tachypnea, no wheezing, no rhonchi, no rubs, no respiratory distress. Abdomen: Soft, nontender, nondistended, no rebound, no guarding, no peritoneal signs. Rectal: Exam performed with presence of female nurse jt
--- NOTE | 2023-10-01 04:47 | PC.NURSE ---
Message left for Pavel Altman to confirm pharmacy and home medication list. RN unable to complete documentation at present time.
[2023-10-01 05:00] LABS: Reflex Lactic Acid Yes or No Add Lactic
[2023-10-01] MEDS: SODIUM CHLORIDE 0.9% IV 250 ML 30 ML IV CONT (05:33)
[2023-10-01] MEDS: TUBING, BLOOD PLUM PUMP TUBING 1 EACH XX (05:33)
--- NOTE | 2023-10-01 07:29 | PM.IMHP ---
H&P: HPI History of Present Illness Date/Time: 10/01/23 07:29 Chief Complaint: Abdomen pain Narrative: 72 years old gentleman with history of hypertension, hyperlipidemia, diabetes, CVA, anxiety, present ED with chief complaint of abdomen pain. Patient has been having intermittent abdomen pain past 1 week, diffuse abdomen pain, associated with nausea and vomiting. Patient denies chest pain, headache, focal weakness, fever, chills, dysuria. Patient denies black emesis, right blood per rectum or black stools. Patient came to ED for evaluation treatment. Upon arrival to the ED, patient is afebrile, patient has a tachycardia, blood pressure stable, no O2 desaturation on room air, like showed hemoglobin of 4.6. Patient's last hemoglobin documented in our chart was from 2019 and was noted to be in 9. CT abdomen and pelvis with IV contrast revealing an abnormal in nodular thickening ascending colon suspicious for neoplasm recommending colonoscopy. Patient received 2 pack RBC in the ED, ER physician consulted conservation science teacher Dr. Ramirez, he agreed to evaluate the patient. We admit patient for further evaluation treatment. 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 Depression GERD (gastroesophageal reflux disease) History of DVT (deep vein thrombosis) HLD (hyperlipidemia) HTN (hypertension) Insulin dependent type 2 diabetes mellitus Polio Patient had polio as a child that is left her with left lower leg weakness. Surgical History Surgical History No history of previous surgery Family History Family History Other Acute myocardial infarction Congestive heart failure Diabetes mellitus Hypertension Social History Social History Social History: Apparently she is currently at a halfway. She ambulates with a walker. No alcohol, tobacco, or drug abuse. Daughter Portia Altman is her emergency contact and she is listed as a full code. Smoking status: Never smoker Alcohol intake: never Substance use: never Do You Feel Safe in your Home?: Yes Lack of Transportation: No Lack of Food: Never True Current Housing: I Have Housing Concerned About Future Housing: YES Difficulty Paying Gas/Electric Bills: No Difficulty Paying for Meds: YES Currently Unemployed: YES Education: High School Diploma/GED Difficulty w/ Childcare or Family Care: YES Gender identity (if verbalized by the patient): Female Spiritual care concerns: No Agree to blood products: Yes Meds Home Medications and Allergies Home Medications Medication Instructions Recorded Confirmed Type acetaminophen 325 mg tablet 650 mg PO Q6H PRN Pain 04/13/19 04/13/19 History (Tylenol) amlodipine 10 mg tablet 10 mg PO DAILY 04/13/19 04/13/19 History atorvastatin 40 mg tablet 40 mg PO HS 04/13/19 04/13/19 History benztropine 1 mg tablet 1 mg PO BID 04/13/19 04/13/19 History clopidogrel 75 mg tablet 75 mg PO DAILY 04/13/19 04/13/19 History divalproex 250 mg tablet,extended 250 mg PO BID 04/13/19 04/13/19 History release 24 hr (Depakote ER) haloperidol 5 mg tablet 5 mg PO BID 04/13/19 04/13/19 History insulin glargine 100 unit/mL (3 15 unit subcut BID 04/13/19 04/13/19 History mL) subcutaneous pen (Basaglar KwikPen U-100 Insulin) insulin lispro 100 unit/mL 1 sliding scale dose subcut 04/13/19 04/13/19 History subcutaneous solution (Admelog USEASDIRECTD U-100 Insulin lispro) losartan 50 mg ta
--- NOTE | 2023-10-01 08:26 | P.CONGI_ITS ---
I, Damon Miller MD, have provided a substantive portion of the care of this patient and discussed the patient with my Nurse Practitioner. I have reviewed any new relevant radiographic and laboratory results including medications. I agree with her documentation as noted below.?I personally performed the medical decision making and much of the history and exam for this encounter. briefly, here with diffuse abdominal pain and nausea, also symptomatic anemia. CT scan noted enlarged colon concerning for malignancy, hgb 5 and admitted to hospital, given blood transfusion. Plan is egd/colonoscopy, probably will need oncology consult. Keep hgb>7 Assessment and Plan Assessment and plan (1) GI bleed: Qualifiers: GI bleed type/associated pathology: unspecified gastrointestinal hemorrhage type Qualified Code(s): K92.2 - Gastrointestinal hemorrhage, unspecified Code(s): K92.2 - Gastrointestinal hemorrhage, unspecified Status: Acute (2) Severe anemia: Code(s): D64.9 - Anemia, unspecified Status: Acute (3) Generalized abdominal pain: Code(s): R10.84 - Generalized abdominal pain Status: Acute (4) Nausea and vomiting: Qualifiers: Vomiting type: unspecified Qualified Code(s): R11.2 - Nausea with vomiting, unspecified Code(s): R11.2 - Nausea with vomiting, unspecified Status: Acute (5) Abnormal digestive system diagnostic imaging: Code(s): R93.3 - Abnormal findings on diagnostic imaging of other parts of digestive tract Status: Acute Plan 1. Generalized abdominal pain/Nausea/Vomiting/abnormal imaging digestive: No recent EGD or colonoscopy available. LFTs normal except elevated alkaline ph osphatase at 153. Lipase 44. Patient reports 4-day history of generalized abdominal pain, improving with eating. Experiencing nausea and vomiting prior to admission, denies hematemesis or coffee-ground emesis. CT shows probable circumferential wall thickening of proximal descending colon with adjacent lymphadenopathy, concerning for colonic neoplasm vs. focal colitis. Patient denies any hematochezia or melena but is a somewhat poor historian and has incontinence and typically uses adult diapers. Daughter believes that the patient was on Plavix [employer] OFFIC[employer] but date of last dose is unknown. DDX: Colonic neoplasm VS Focal colitis VS ulceration * Plan for upper and lower endoscopy tomorrow * Start PPI once daily * Start bowel prep this evening * Clear liquids today * NPO after midnight * Care with NSAIDs, aspirin, or anticoagulants * Further recs to follow endoscopy 2. Severe acute blood loss anemia: On admission HGB 5, HCT 20, MCV 64. Patient denies visible blood in stool, but unable to confirm absence of melena and hematochezia. Two units PRBC's ordered. * Primary care team to continue monitoring H/H and transfuse as needed to keep Hgb >7 * Patient will need to be hemodynamically stable prior to proceeding with endoscopic evaluation tomorrow Thank you very much for allowing me to share in the care of this very nice patient. This report may have been done utilizing a voice recognition system. Attempts have been made to correct errors. However, there may be uncorrected grammatical, spelling, and recognition errors present. GI Consult Note Consult date/time: 10/01/23 08:26 Reason for consult: GI bleed HPI: This is a pleasant 72-year-old female with a past medical surgical history of HTN, HLD, diabetes, CVA, anxiety, polio as a child, GERD, bipolar disorder, and chronic anemia.
--- NOTE | 2023-10-01 08:26 | WPDGICN ---
Assessment and Plan Assessment and plan (1) GI bleed: Qualifiers: GI bleed type/associated pathology: unspecified gastrointestinal hemorrhage type Qualified Code(s): K92.2 - Gastrointestinal hemorrhage, unspecified Code(s): K92.2 - Gastrointestinal hemorrhage, unspecified Status: Acute (2) Severe anemia: Code(s): D64.9 - Anemia, unspecified Status: Acute (3) Generalized abdominal pain: Code(s): R10.84 - Generalized abdominal pain Status: Acute (4) Nausea and vomiting: Qualifiers: Vomiting type: unspecified Qualified Code(s): R11.2 - Nausea with vomiting, unspecified Code(s): R11.2 - Nausea with vomiting, unspecified Status: Acute (5) Abnormal digestive system diagnostic imaging: Code(s): R93.3 - Abnormal findings on diagnostic imaging of other parts of digestive tract Status: Acute Plan 1. Generalized abdominal pain/Nausea/Vomiting/abnormal imaging digestive: No recent EGD or colonoscopy available. LFTs normal except elevated alkaline phosphatase at 153. Lipase 44. Patient reports 4-day history of generalized abdominal pain, improving with eating. Experiencing nausea and vomiting prior to admission, denies hematemesis or coffee-ground emesis. CT shows probable circumferential wall thickening of proximal descending colon with adjacent lymphadenopathy, concerning for colonic neoplasm vs. focal colitis. Patient denies any hematochezia or melena but is a somewhat poor historian and has incontinence and typically uses adult diapers. Daughter believes that the patient was on Plavix [employer] but date of last dose is unknown. DDX: Colonic neoplasm VS Focal colitis VS ulceration Plan for upper and lower endoscopy tomorrow Start PPI once daily Start bowel prep this evening Clear liquids today NPO after midnight Care with NSAIDs, aspirin, or anticoagulants Further recs to follow endoscopy 2. Severe acute blood loss anemia: On admission HGB 5, HCT 20, MCV 64. Patient denies visible blood in stool, but unable to confirm absence of melena and hematochezia. Two units PRBC's ordered. Primary care team to continue monitoring H/H and transfuse as needed to keep Hgb >7 Patient will need to be hemodynamically stable prior to proceeding with endoscopic evaluation tomorrow Thank you very much for allowing me to share in the care of this very nice patient. This report may have been done utilizing a voice recognition system. Attempts have been made to correct errors. However, there may be uncorrected grammatical, spelling, and recognition errors present. GI Consult Note Consult date/time: 10/01/23 08:26 Reason for consult: GI bleed HPI: This is a pleasant 72-year-old female with a past medical surgical history of HTN, HLD, diabetes, CVA, anxiety, polio as a child, GERD, bipolar disorder, and chronic anemia. She presented to the ER room 10/01/2023 with complaints of generalized abdominal pain. GI consulted for GI bleed. Patient was accompanied by her daughter Hailee throughout the entire visit. She reports generalized abdominal pain for 4 days, located in the middle and top of the abdomen near the belly button. Pain improves with eating. She has been experiencing nausea and vomiting for the past few days but no episodes since admission. Denies appetite loss and early satiety and no known weight loss. Denies dysphagia or choking while eating. No heartburn reported. Patient reports that she does not have bowel movements but daughter denies any known Hx of chronic constipation or diarrhea but patient is incontinent and use an adult diaper at the [facility]. Denies blood in stool or straining to defecate. No history of colonoscopy. Patient resides in a [facility] where she has been for more than 6 years. Denies history of abdominal surgeries, hysterectomy, or . No smoking or alcohol use. Family history unknown. ENDOSCOPY HI
--- NOTE | 2023-10-01 08:53 | ADMGEN ---
This patient, Paxton Altman, was admitted to Intensive Care Unit-8. Patient/family oriented to hospital policies and general routines including ID bracelet, bed and alarms, visiting hours, pain management, procedures, bathroom and other care routines, personal items, smoking policy, room service/diet, and visiting hours. Information on how to activate the Rapid Response Team has been discussed. Patient/Family are encouraged to report perceived risks to care and to ask questions if they do not understand what they are told or what they should do.
[2023-10-01 10:21] LABS: Add Urine Microscopic? YES; Appearance Urine Clear (Clear); Bacteria Urine 2+ /hpf; Bilirubin Urine Negative (Negative); Blood Urine Negative (Negative); Color Urine Yellow (Yellow); Glucose Urine UA Negative (Negative); Ketones Urine Negative (Negative); Leukocyte Esterase Ur 2+ LEU/UL (Negative); Nitrate Urine Negative (Negative); Non Pathogenic Casts 0-2; Protein Urine Negative (Negative); RBC Urine 0-2 /hpf (0-2); Specific Grav Ur 1.017 (1.001-1.035); Squamous Epithelial Cell Urine None Seen /hpf (Few); Urobilinogen Urine 0.2 mg/dL (<2.0); pH Urine 7.5 (5.0-9.0)
[2023-10-01] MEDS: BISACODYL 5 MG TABLET EC 20 MG PO (11:08)
[2023-10-01] MEDS: oxyCODONE/ACETAMINOPHEN (*CRX) 5-325 MG TABLET 1 TABLET PO (11:10)
[2023-10-01 12:18] LABS: Glucose Point of Care 55 mg/dl (65-105)
[2023-10-01 12:18] LABS: Glucose Point of Care 63 mg/dl (65-105)
[2023-10-01 12:41] LABS: Glucose Point of Care 126 mg/dl (65-105)
[2023-10-01] MEDS: PANTOPRAZOLE SODIUM IV 40 MG VIAL IV PUSH (13:21)
[2023-10-01] MEDS: SODIUM CHLORIDE 0.9% IV 1,000 ML 100 ML IV CONT (13:21)
[2023-10-01 14:49] LABS: Hematocrit 28.3 % (37.0-47.0); Hemoglobin 7.8 g/dL (12.0-15.0)
[2023-10-01 15:30] LABS: Iron 138 ug/dL (37-170)
[2023-10-01 15:41] LABS: Immature Reticulocyte Fraction 7.4 % (3.0-15.9); Percent Iron Saturation 36 % (20-50); Reticulocyte Hemoglobin Conten 17.6 pg (28.2-36.6); Reticulocyte Percent 0.41 % (0.7-4.3); Reticulocytes Absolute 0.02 10^6/uL (0.02-0.10)
--- NOTE | 2023-10-01 15:45 | PCPTNOTE ---
On 10/01/23, the student, [Desiree Alexander], provided care and completed [facility] documentation on this patient. I have reviewed the student's documentation and agree with the findings.
[2023-10-01 16:08] LABS: Ferritin 4.93 ng/mL (11.1-264)
[2023-10-01 16:30] LABS: Glucose Point of Care 119 mg/dl (65-105)
[2023-10-01] MEDS: polyethylene glycoL 3350 238 GM BOTTLE PO (16:51)
[2023-10-01 20:17] LABS: Hematocrit 31.3 % (37.0-47.0); Hemoglobin 8.7 g/dL (12.0-15.0)
[2023-10-01] MEDS: ONDANSETRON INJ 4 MG/2 ML VIAL IV PUSH (21:00)
[2023-10-02] VITALS (19 sets, daily range): BP systolic 118–171; BP diastolic 51–74; PULSE 80–120; RESP 12–24; TEMP 36.2–37.4; O2SAT 92–100; BMI 27.5
[2023-10-02 00:41] LABS: Glucose Point of Care 392 mg/dl (65-105)
--- NOTE | 2023-10-02 01:27 | PC.NURSE ---
This RN taking of care. Report received from Caren MCCLENDON at 0120
[2023-10-02] MEDS: INSULIN HUMAN REGULAR (*BKC) 100 UNITS/ML 6 UNITS SUB-Q (01:50)
[2023-10-02] MEDS: MAGNESIUM CITRATE 300 ML BTL PO (02:28)
[2023-10-02 02:56] LABS: Hematocrit 32.7 % (37.0-47.0); Hemoglobin 8.2 g/dL (12.0-15.0)
--- NOTE | 2023-10-02 03:58 | PC.NURSE ---
Transferring patient to IMU room 202. This RN gave report to Rosa MCCLENDON at 0350.
--- NOTE | 2023-10-02 04:28 | PC.NURSE ---
Pt. moved to [place] [id number] at 0420.
[2023-10-02 04:33] LABS: IFOB Positive Control Positive; Immunochemical Fecal Occult Bl Positive (N)
[2023-10-02] MEDS: SODIUM CHLORIDE 0.9% IV 1,000 ML 100 ML IV CONT (04:54)
[2023-10-02 07:57] LABS: Glucose Point of Care 92 mg/dl (65-105)
[2023-10-02] MEDS: PANTOPRAZOLE SODIUM IV 40 MG VIAL IV PUSH (08:19)
--- NOTE | 2023-10-02 09:00 | PM.IMPN ---
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) Status: Acute (3) GI bleed: Qualifiers: GI bleed type/associated pathology: unspecified gastrointestinal hemorrhage type Qualified Code(s): K92.2 - Gastrointestinal hemorrhage, unspecified Code(s): K92.2 - Gastrointestinal hemorrhage, unspecified Status: Acute (4) Colon cancer: Code(s): C18.9 - Malignant neoplasm of colon, unspecified Status: Acute (5) Bipolar disorder: Code(s): F31.9 - Bipolar disorder, unspecified Status: Acute Plan Severe anemia, possible chronic blood-loss anemia and possible colon cancer Patient has been having intermittent abdomen pain diffuse in possible week, patient is found have severe anemia, hemoglobin is 4.6, CT suggest possible ascending colon cancer Patient received 2 pack RBC hemoglobin stable 8.2 today Follow hemoglobin q.6 hours, transfuse p.r.n. Follow-up stool guaiac positive of bleeding, iron panel, ferritin level Start normal saline IV Start Protonix 40 mg IV daily GI is consulted, appreciate GI consultation, plans EGD colonoscopy today Essential hypertension Hold oral medications during p.o. risk of hypotension Start hydralazine 10 mg q.4 hours p.r.n. with parameters History of CVA No new focal deficit Hold Plavix, resume Plavix when it is okay for GI Type 2 diabetes Hold Home metformin, patient has lactic acidosis Start insulin sliding scale a.c. q.h.s. Psychiatric disorder Stable Hold oral medications during p.o. Patient may stay more than 2 midnights in the hospital based on the evaluation of patient's conditions and assessment plans Subjective Date/time seen: 10/02/23 09:00 Interval history: I saw examined the patient. Patient feels better today, hemoglobin stable, hemoglobin 8.2 today Patient denies abdomen pain, nausea vomiting chest pain Exam Narrative: GENERAL: Pleasant, in no acute distress. Well-nourished. - EYES: EOMI. Anicteric. - HENT: Moist mucous membranes. - LUNGS: Clear to auscultation bilaterally, no wheezing, rhonchi, or rales. - CARDIOVASCULAR: Regular rate and rhythm. No murmur. No JVD. - ABDOMEN: Soft, diffuse abdominal tender and non-distended. No palpable masses. - EXTREMITIES: No edema. Peripheral pulses 2+. Non-tender. - NEUROLOGIC: No focal neurological deficits. CN II-XII grossly intact. - PSYCHIATRIC: Awake, Alert and oriented x 3. Appropriate mood and affect. - SKIN: No rashes or lesions. Warm. - LYMPH: No cervical lymphadenopathy. General weakness Objective Data Vital Signs Vital Signs: Vital Signs - 24 hr 10/01/23 09:46 10/01/23 10:03 10/01/23 10:00 Temperature 98.9 F 99 F Pulse Rate 100 96 96 Respiratory Rate 19 20 Blood Pressure 105/77 155/88 H Pulse Oximetry 97 100 Oxygen Delivery 10/01/23 12:00 10/01/23 12:00 10/01/23 12:00 Temperature 99.9 F H Pulse Rate 90 90 Respiratory Rate 18 Blood Pressure 157/61 H Pulse Oximetry 100 Oxygen Delivery Room Air 10/01/23 11:00 10/01/23 12:00 10/01/23 13:00 Temperature 99.9 F H 99.9 F H 99.8 F H Pulse Rate 96 93 96 Respiratory Rate 15 18 17 Blood Pressure 157/78 H 157/61 H 150/65 H Pulse Oximetry 100 100 100 Oxygen Delivery 10/01/23 13:09 10/01/23 14:00 10/01/23 18:00 Temperature 99.9 F H Pulse Rate 97 96 97 Respiratory Rate 20 Blood Pressure 137/53 L Pulse Oximetry 100 Oxygen Delivery 10/01/23 16:00 10/01/23 16:00 10/01/23 20:00 Temperature 99.1 F Pulse Rate 91 92 95 Respiratory Rate 16 Blood Pressure 119/52 L Pulse Oximetry 100 Oxygen Delivery 10/01/23 20:00 10/01/23 23:28 10/01/23 20:00 Temperature 99.7 F H Pulse Rate 99 Respiratory Rate 23 H Blood Pressure 167/82 H Pulse Ox
[2023-10-02 11:52] LABS: Glucose Point of Care 111 mg/dl (65-105)
[2023-10-02 12:08] LABS: Basophils Absolute Auto 0.1 K/mm3 (0.0-0.1); Basophils Percent Auto 0.6 % (0.2-1.2); Eosinophils Absolute Auto 0.8 K/mm3 (0-0.3); Eosinophils Percent Auto 9.6 % (0-4.4); Hematocrit 30.8 % (37.0-47.0); Hemoglobin 8.4 g/dL (12.0-15.0); Immature Granulocyte Absolute 0.03 K/mm3 (0.00-0.031); Immature Granulocyte Percent A 0.4 % (0-0.5); Lymphocytes Percent Auto 21.1 % (18.3-44.2); Mean Corpuscular HGB Conc 27.3 g/dl (32-36); Mean Corpuscular Hemoglobin 20.5 pg (26-34); Mean Corpuscular Volume 75.3 fl (80-100); Mean Platelet Volume 9.2 fl (7.4-10.4); Monocytes Absolute Auto 0.5 K/mm3 (0.1-0.6); Monocytes Percent Auto 5.7 % (2.6-8.5); Neutrophils Absolute Auto 5.4 K/mm3 (1.3-6.7); Neutrophils Percent Auto 62.6 % (45.5-73.1); Platelet Count Result 538 k/mm3 (150-375); Red Blood Count 4.09 M/mm3 (4.2-5.4); Red Cell Distribution Width 25.7 % (11.5-14.5); White Blood Count 8.6 K/mm3 (4.5-10.0)
[2023-10-02 12:19] LABS: Anion Gap 12 mmol/L (4-12); Blood Urea Nitrogen 3 mg/dL (7-17); Calcium 8.7 mg/dL (8.4-10.2); Carbon Dioxide 22 mmol/L (22-30); Chloride 107 mmol/L (98-107); Estimated CRCL calculation 69 ml/min; Estimated Glomerular Filt Rate > 60; Glucose 115 mg/dL (65-110); Potassium 3.8 mmol/L (3.4-5.0); Sodium 141 mmol/L (137-145)
[2023-10-02 12:33] LABS: Anisocytosis 2+; Hypochromasia 2+; Microcytosis 1+ (NORMAL); Platelet Estimate Increased (Adequate); Schistocytes None Seen
[2023-10-02 14:26] LABS: Glucose Point of Care 122 mg/dl (65-105)
[2023-10-02] MEDS: LACTATED RINGERS 1,000 ML 150 ML IV CONT (14:29)
--- NOTE | 2023-10-02 14:55 | WPDANESEPPF ---
Anes - Initial Pre Proc Eval Procedure: Operation Date: 10/02/23 16:30 Proposed Procedures p Esophagogastroduodenoscopy & Colonoscopy - Damon Miller MD Date/Time: 10/02/23 14:55 Surgeon: Kiko Wellington MD Pre Op Diagnosis: GI bleed / malignancy Patient Data Age: 72 Gender: F Height: 1.52 m Weight: 63.9 kg Last Vital Signs Temp 97.4 F L 10/02/23 14:31 Pulse 93 10/02/23 14:31 Resp 18 10/02/23 14:31 BP 141/58 H 10/02/23 14:31 Pulse Ox 97 10/02/23 14:31 O2 Del Method Room Air 10/02/23 14:31 Allergies Allergy/AdvReac Type Severity Reaction Status Date / Time latex Allergy Unknown Verified 10/01/23 04:45 Home Medications Medication Instructions Recorded Confirmed Type amlodipine 10 mg tablet 10 mg PO DAILY 04/13/19 10/01/23 History atorvastatin 40 mg tablet 40 mg PO HS 04/13/19 10/01/23 History benztropine 1 mg tablet 1 mg PO BID 04/13/19 10/01/23 History divalproex 250 mg tablet,extended 250 mg PO BID 04/13/19 10/01/23 History release 24 hr (Depakote ER) losartan 50 mg tablet 50 mg PO DAILY 04/13/19 10/01/23 History metformin 1,000 mg tablet 500 mg PO BID 04/13/19 10/01/23 History trazodone 50 mg tablet 25 mg PO HS 04/13/19 10/01/23 History cranberry 500 mg capsule 500 mg PO BID 10/01/23 10/01/23 History ferrous sulfate 325 mg (65 mg 325 mg PO DAILY 10/01/23 10/01/23 History iron) tablet insulin glargine 100 unit/mL 40 unit subcut QPM 10/01/23 10/01/23 History subcutaneous solution (Lantus U-100 Insulin) insulin glargine 100 unit/mL 42 unit subcut DAILY 10/01/23 10/01/23 History subcutaneous solution (Lantus U-100 Insulin) insulin lispro 100 unit/mL 15 unit subcut TIDWM 10/01/23 10/01/23 History subcutaneous solution (Humalog U-100 Insulin) levetiracetam 500 mg tablet 500 mg PO BID 10/01/23 10/01/23 History (Keppra) meloxicam 7.5 mg tablet 7.5 mg PO DAILY 10/01/23 10/01/23 History mirtazapine 7.5 mg tablet 7.5 mg PO DAILY 10/01/23 10/01/23 History polyethylene glycol 3350 17 gram 17 g PO DAILY PRN Constipation 10/01/23 10/01/23 History oral powder packet (Miralax) risperidone 1 mg tablet (Risperdal) 1 mg PO BID 10/01/23 10/01/23 History venlafaxine 75 mg capsule,extended 225 mg PO DAILY 10/01/23 10/01/23 History release 24 hr (Effexor XR) Laboratory Tests 10/01/23 10/01/23 10/01/23 14:43 16:28 20:10 WBC RBC Hgb 7.8 L D g/dL 8.7 L g/dL (12.0-15.0) (12.0-15.0) Hct 28.3 L % 31.3 L % (37.0-47.0) (37.0-47.0) MCV MCH MCHC RDW Plt Count MPV Immature Gran % (Auto) Neut % (Auto) Lymph % (Auto) Snyder % (Auto) Eos % (Auto) Baso % (Auto) Lymph # (Auto) Snyder # (Auto) Eos # (Auto) Baso # (Auto) Abs Immat Gran (auto) Absolute Neuts (auto) Absolute Nucleated RBC Nucleated RBC % Platelet Estimate Hypochromasia Anisocytosis Microcytosis Schistocytes Absolute Retic 0.02 10^6/uL (0.02-0.10) Percent Retic 0.41 L % (0.7-4.3) Immature Retic Fraction 7.4 % (3.0-15.9) Retic Hgb Content 17.6 L pg (28.2-36.6) Sodium Potassium Chloride Carbon Dioxide Anion Gap BUN Creatinine Estim Creat Clear Calc Estimated GFR Glucose POC Capillary Glucose 119 H mg/dl (65-105) Calcium Iron 138 ug/dL (37-170) TIBC 382 ug/dL (261-462) % Saturation 36 % (20-50) Ferritin 4.93 L ng/mL (11.1-264) Stl Occult Blood (IFOB) 10/02/23 10/02/23 10/02/23 00:38 0
--- NOTE | 2023-10-02 15:22 | SUR.OPER ---
EGD end time: 1516, Colonoscopy start time: 152
[2023-10-02 15:55] LABS: Glucose Point of Care 143 mg/dl (65-105)
[2023-10-02 16:35] LABS: Glucose Point of Care 144 mg/dl (65-105)
--- NOTE | 2023-10-02 18:12 | PM.CNGS ---
Assessment and Plan Assessment and plan (1) Colon cancer: Code(s): C18.9 - Malignant neoplasm of colon, unspecified Status: Acute (2) HTN (hypertension): Code(s): I10 - Essential (primary) hypertension Status: Acute (3) Bipolar disorder: Code(s): F31.9 - Bipolar disorder, unspecified Status: Acute (4) Insulin dependent type 2 diabetes mellitus: Code(s): E11.9 - Type 2 diabetes mellitus without complications; Z79.4 - assisted (current) use of insulin Status: Acute Plan I have reviewed the CT and discussed the findings with the patient and her daughter. She has a malignant-appearing mass in her ascending colon. CT of her abdomen and pelvis did not show any evidence of distant metastatic spread but possible enlarged lymph nodes. I discussed that this does not appear to be stage IV colon cancer, but could be stage III which would require surgical resection and chemotherapy for treatment. I have discussed proceeding with hand-assisted laparoscopic right hemicolectomy sometime soon to prevent continued blood loss and anemia. Will get CEA level and CT chest with contrast tomorrow morning. Will then look at proper timing for surgery based on OR schedule and patient's hemoglobin levels. History of Present Illness Consult details Consult date: 10/02/23 Reason for consult: other (Ascending colon mass) Requesting physician: Damon Miller MD Narrative: This is a 72-year-old woman who I am asked to see for a new finding an ascending colon mass. She presented to the emergency department yesterday with generalized abdominal pain that started about 1 week ago. She denied any hematochezia or melena.She was found to have evidence of significant anemia with a hemoglobin of 4.7. A CT of her abdomen and pelvis was performed which showed evidence of an ascending colon mass. GI was consulted and she underwent colonoscopy today. A large malignant-appearing mass was identified in the ascending colon consistent with adenocarcinoma. Patient is able to give some basic history but it is difficult to obtain full history from patient. Chart was reviewed, and I discussed the colonoscopy findings and treatment options with the patient's daughter Cher. Patient currently is denying any pain or hematochezia. She did receive 2 units of packed red blood cells in the emergency department. Her hemoglobin has been stable since the transfusion. Patient is also on clopidogrel but it is unclear when she last took this. 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 Depression GERD (gastroesophageal reflux disease) History of DVT (deep vein thrombosis) HLD (hyperlipidemia) HTN (hypertension) Insulin dependent type 2 diabetes mellitus Polio Patient had polio as a child that is left her with left lower leg weakness. Surgical History Surgical History No history of previous surgery Family History Family History Other Acute myocardial infarction Congestive heart failure Diabetes mellitus Hypertension Social History Social History Social History: Apparently she is currently at a long term. She ambulates with a walker. No alcohol, tobacco, or drug abuse. Daughter Portia Altman is her emergency contact and she is listed as a full code. Smoking status: Never smoker Alcohol intake: never Substance use: never Do You Feel Safe in your Home?: Y
[2023-10-02 20:26] LABS: Glucose Point of Care 235 mg/dl (65-105)
[2023-10-02] MEDS: INSULIN ASPART (*BKC) 100 UNITS/ML SUB-Q (20:48)
--- NOTE | 2023-10-02 21:21 | PC.NURSE ---
Attempted to call pt's daughter to obtain consent for chest CT. No answer and unable to leave voice message.
--- NOTE | 2023-10-02 22:12 | PC.NURSE ---
Notified Dr. Wellington that pt's IV infiltrated. Staff unable to obtain new IV. Ultrasound unavailable at this time. Dr. Wellington wants ultrasound notified in the morning.
[2023-10-03] VITALS (9 sets, daily range): BP systolic 148–171; BP diastolic 55–73; PULSE 91–101; RESP 16–18; TEMP 36.3–36.6; O2SAT 94–100
[2023-10-03 04:33] LABS: Basophils Absolute Auto 0.1 K/mm3 (0.0-0.1); Basophils Percent Auto 0.7 % (0.2-1.2); Eosinophils Absolute Auto 0.7 K/mm3 (0-0.3); Eosinophils Percent Auto 6.7 % (0-4.4); Immature Granulocyte Absolute 0.03 K/mm3 (0.00-0.031); Immature Granulocyte Percent A 0.3 % (0-0.5); Lymphocytes Absolute Auto 1.63 K/mm3 (0.9-3.2); Lymphocytes Percent Auto 16.2 % (18.3-44.2); Mean Corpuscular HGB Conc 27.6 g/dl (32-36); Mean Corpuscular Hemoglobin 20.5 pg (26-34); Mean Corpuscular Volume 74.4 fl (80-100); Mean Platelet Volume 9.1 fl (7.4-10.4); Monocytes Absolute Auto 0.5 K/mm3 (0.1-0.6); Neutrophils Absolute Auto 7.2 K/mm3 (1.3-6.7); Neutrophils Percent Auto 71.1 % (45.5-73.1); Platelet Count Result 475 k/mm3 (150-375); Red Cell Distribution Width 26.5 % (11.5-14.5); White Blood Count 10.1 K/mm3 (4.5-10.0)
[2023-10-03 04:43] LABS: Anion Gap 9 mmol/L (4-12); Blood Urea Nitrogen 6 mg/dL (7-17); Calcium 8.4 mg/dL (8.4-10.2); Carbon Dioxide 24 mmol/L (22-30); Chloride 105 mmol/L (98-107); Estimated CRCL calculation 69 ml/min; Estimated Glomerular Filt Rate > 60; Glucose 194 mg/dL (65-110); Potassium 3.8 mmol/L (3.4-5.0); Sodium 138 mmol/L (137-145)
[2023-10-03 05:04] LABS: Anisocytosis 2+; Hypochromasia 2+; Microcytosis 1+ (NORMAL); Platelet Estimate Increased (Adequate); Schistocytes None Seen
[2023-10-03 05:12] LABS: Carcinoembryonic Antigen 6.5 ng/mL (0.0-3.0)
[2023-10-03 05:43] LABS: Glucose Point of Care 210 mg/dl (65-105)
--- NOTE | 2023-10-03 08:56 | PM.IMPN ---
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) Status: Acute (3) GI bleed: Qualifiers: GI bleed type/associated pathology: unspecified gastrointestinal hemorrhage type Qualified Code(s): K92.2 - Gastrointestinal hemorrhage, unspecified Code(s): K92.2 - Gastrointestinal hemorrhage, unspecified Status: Acute (4) Colon cancer: Code(s): C18.9 - Malignant neoplasm of colon, unspecified Status: Acute (5) Bipolar disorder: Code(s): F31.9 - Bipolar disorder, unspecified Status: Acute Plan Severe anemia, possible chronic blood-loss anemia and possible colon cancer Patient has been having intermittent abdomen pain diffuse in possible week, patient is found have severe anemia, hemoglobin is 4.6, CT suggest possible ascending colon cancer Patient received 2 pack RBC hemoglobin stable 8.2 today Follow hemoglobin q.6 hours, transfuse p.r.n. Follow-up stool guaiac positive of bleeding, iron panel, ferritin level Start normal saline IV Start Protonix 40 mg IV daily GI is consulted, appreciate GI consultation, colonoscopy : Colonic masses and ascending colon Appreciate general surgical consultation, Appreciate general surgical consultation, plans surgical treatment Essential hypertension Hold oral medications during p.o. risk of hypotension Start hydralazine 10 mg q.4 hours p.r.n. with parameters History of CVA No new focal deficit Hold Plavix, resume Plavix when it is okay for GI Type 2 diabetes Hold Home metformin, patient has lactic acidosis Start insulin sliding scale a.c. q.h.s. Psychiatric disorder Stable Hold oral medications during p.o. Consult PT OT child care lead teacher for evaluation and assisting placement Subjective Date/time seen: 10/03/23 08:56 Interval history: I saw examined the patient. Patient feels better today, hemoglobin stable, hemoglobin 8 today Patient denies abdomen pain, nausea vomiting chest pain. Colonoscopy revealed ascending colon cancer Exam Narrative: GENERAL: Pleasant, in no acute distress. Well-nourished. - EYES: EOMI. Anicteric. - HENT: Moist mucous membranes. - LUNGS: Clear to auscultation bilaterally, no wheezing, rhonchi, or rales. - CARDIOVASCULAR: Regular rate and rhythm. No murmur. No JVD. - ABDOMEN: Soft, diffuse abdominal tender and non-distended. No palpable masses. - EXTREMITIES: No edema. Peripheral pulses 2+. Non-tender. - NEUROLOGIC: No focal neurological deficits. CN II-XII grossly intact. - PSYCHIATRIC: Awake, Alert and oriented x 3. Appropriate mood and affect. - SKIN: No rashes or lesions. Warm. - LYMPH: No cervical lymphadenopathy. General weakness Objective Data Vital Signs Vital Signs: Vital Signs - 24 hr 10/02/23 09:50 10/02/23 12:00 10/02/23 12:00 Temperature 99.4 F Pulse Rate 90 93 93 Respiratory Rate 16 Blood Pressure 150/56 H Pulse Oximetry 100 Oxygen Delivery Oxygen Flow Rate 10/02/23 12:00 10/02/23 13:50 10/02/23 14:31 Temperature 97.4 F L Pulse Rate 93 93 Respiratory Rate 18 Blood Pressure 141/58 H Pulse Oximetry 97 Oxygen Delivery Room Air Room Air Oxygen Flow Rate 10/02/23 15:35 10/02/23 15:45 10/02/23 15:55 Temperature Pulse Rate 120 H 98 98 Respiratory Rate 24 H 20 20 Blood Pressure 171/54 H 128/51 L 136/57 L Pulse Oximetry 92 98 98 Oxygen Delivery Nasal Cannula Nasal Cannula Room Air Oxygen Flow Rate 2 2 10/02/23 16:00 10/02/23 17:53 10/02/23 20:34 Temperature 98.0 F 97.8 F Pulse Rate 92 91 88 Respiratory Rate 16 16 Blood Pressure 118/51 L 156/56 H Pulse Oximetry 97 100 Oxygen Delivery Oxygen Flow Rate 10/02/23 20:00 10/02/23 20:00 10/02/23 22:00 Temperature Pulse Rate 88 90 Respiratory Rate Bl
[2023-10-03] MEDS: INSULIN ASPART (*BKC) 100 UNITS/ML SUB-Q ×4 (09:30→20:33)
--- NOTE | 2023-10-03 11:59 | PC.NURSE ---
Patient's family member phone number has changed and is currently [phone]. Admitting was updated at this time and stated that they would change the number in the computer.
--- NOTE | 2023-10-03 12:07 | PC.NURSE ---
Patient is not always cooperative. Refused medications this morning but then agreed to allow me to give insulin as blood glucose level is high. Family states that she is more with it then she is showing. She will only answer orientation questions at times, it took time for her to tell this RN her name when asked. She closed her eyes and was withdrawn. No acute distress noted at this time.
--- NOTE | 2023-10-03 12:52 | PC.NURSE ---
Patient transferred to room 315 bed 2 via wheelchair.
[2023-10-03 13:11] LABS: Glucose Point of Care 247 mg/dl (65-105)
--- NOTE | 2023-10-03 15:44 | PM.PNGS ---
Progress Note: A&P Assessment and Plan (1) Colon cancer: Qualifiers: Colon location: ascending Qualified Code(s): C18.2 - Malignant neoplasm of ascending colon Code(s): C18.9 - Malignant neoplasm of colon, unspecified Status: Acute Assessment and Plan: CT Chest shows small pulmonary nodule but unable to clearly identify as metastasis. Patient still agreeable to proceeding with surgery. Will plan for surgery during this admission unless Oncology needs this to be delayed for further testing. Will plan for bowel prep and clear liquid diet tomorrow, followed by hand-assisted laparoscopic right hemicolectomy Sunday. 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 Tolerating regular diet. No abdominal pain. Exam GI: Inspection: non-distended GI Palp: Yes Soft to palpation, No Tenderness to palpation present (GI) and No Guarding due to palpation present (GI) Auscultation: normal bowel sounds Objective Data Vital Signs Vital Signs: Vital Signs - 24 hr 10/02/23 15:45 10/02/23 15:55 10/02/23 16:00 Temperature 36.7 C Pulse Rate 98 98 92 Respiratory Rate 20 20 16 Blood Pressure 128/51 L 136/57 L 118/51 L Pulse Oximetry 98 98 97 Oxygen Delivery Nasal Cannula Room Air Oxygen Flow Rate 2 10/02/23 17:53 10/02/23 20:34 10/02/23 20:00 Temperature 36.6 C Pulse Rate 91 88 88 Respiratory Rate 16 Blood Pressure 156/56 H Pulse Oximetry 100 Oxygen Delivery Oxygen Flow Rate 10/02/23 20:00 10/02/23 22:00 10/03/23 00:00 Temperature 36.6 C Pulse Rate 90 99 Respiratory Rate 16 Blood Pressure 162/58 H Pulse Oximetry 94 Oxygen Delivery Room Air Oxygen Flow Rate 10/03/23 00:00 10/03/23 00:00 10/03/23 02:00 Temperature Pulse Rate 97 101 H Respiratory Rate Blood Pressure Pulse Oximetry Oxygen Delivery Room Air Oxygen Flow Rate 10/03/23 04:05 10/03/23 04:00 10/03/23 04:00 Temperature 36.4 C Pulse Rate 97 99 Respiratory Rate 16 Blood Pressure 148/55 H Pulse Oximetry 94 Oxygen Delivery Room Air Oxygen Flow Rate 10/03/23 07:49 10/03/23 08:00 10/03/23 08:00 Temperature 36.3 C L Pulse Rate 93 91 91 Respiratory Rate 18 18 Blood Pressure 163/67 H Pulse Oximetry 100 100 Oxygen Delivery Room Air Oxygen Flow Rate 10/03/23 10:00 10/03/23 12:16 Temperature 36.6 C Pulse Rate 91 94 Respiratory Rate 18 Blood Pressure 171/73 H Pulse Oximetry 99 Oxygen Delivery Oxygen Flow Rate Intake/Output Intake/Output: Intake & Output 09/30/23 10/01/23 10/02/23 10/03/23 23:59 23:59 23:59 23:59 Intake Total 3770 1755 240 Output Total 1300 3650 650 Balance 5111 -3845 -075 Meds/Results Medications: Active Medications Generic Name Dose Route Start Last Admin Trade Name Freq PRN Reason Stop Dose Admin Dextrose 12.5 gm 10/01/23 07:47 Dextrose 50% 25 Gm/50 Ml Syringe IV PUSH PRN PRN Hypoglycemia Protocol Glucagon 1 mg 10/01/23 07:47 Glucagon For Inj 1 Mg Vial IM PRN PRN Hypoglycemia Protocol Glucose 15 gm 10/01/23 07:47 Glucose Oral Gel 15 Gm Of Glucse In 37.5 Gm Tube PO PRN PRN Hypoglycemia Protocol Hydromorphone HCl 0.3 mg 10/01/23 09:38 Hydromorphone Hcl Inj (*Crx) 1 Mg/Ml Syr IV PUSH Q4H PRN Pain Rated 6 or Greater Sodium Chloride 1,000 mls @ 1
[2023-10-03 16:46] LABS: Glucose Point of Care 260 mg/dl (65-105)
[2023-10-03] MEDS: SODIUM CHLORIDE 0.9% IV 1,000 ML 100 ML IV CONT (16:50)
--- NOTE | 2023-10-03 16:59 | WPDGIPROGNO ---
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) Status: Acute Assessment and Plan: from malignancy monitor (3) Insulin dependent type 2 diabetes mellitus: Code(s): E11.9 - Type 2 diabetes mellitus without complications; Z79.4 - shelter (current) use of insulin Status: Acute (4) CVA (cerebral vascular accident): Code(s): I63.9 - Cerebral infarction, unspecified Status: Acute (5) Generalized abdominal pain: Code(s): R10.84 - Generalized abdominal pain Status: Acute Assessment and Plan: stable Subjective Date/time seen: 10/03/23 16:59 Interval history: colonoscopy yesterday with large mass in ascending no major changes Review of Systems Review of Systems: All systems reviewed & are unremarkable except as noted in HPI and below Exam Const: General: comfortable HENMT: Face/Nose/Sinus: Normal nares present Eyes: Sclera: sclerae normal Neck: Neck: supple Resp: Effort & Inspection: normal respiratory effort Cardio: Rate: regular rate GI: Inspection: non-distended GI Palp: Yes Soft to palpation, No Tenderness to palpation present (GI) and No Guarding due to palpation present (GI) Auscultation: normal bowel sounds Skin: General skin exam: normal color Neuro: Speech: normal speech Other: awake and alert but seems confused, poor insight Extrem: General: normal to inspection Objective Data Vital Signs Vital Signs: Vital Signs - 24 hr 10/02/23 17:53 10/02/23 20:34 10/02/23 20:00 Temperature 97.8 F Pulse Rate 91 88 88 Respiratory Rate 16 Blood Pressure 156/56 H Pulse Oximetry 100 Oxygen Delivery 10/02/23 20:00 10/02/23 22:00 10/03/23 00:00 Temperature 97.9 F Pulse Rate 90 99 Respiratory Rate 16 Blood Pressure 162/58 H Pulse Oximetry 94 Oxygen Delivery Room Air 10/03/23 00:00 10/03/23 00:00 10/03/23 02:00 Temperature Pulse Rate 97 101 H Respiratory Rate Blood Pressure Pulse Oximetry Oxygen Delivery Room Air 10/03/23 04:05 10/03/23 04:00 10/03/23 04:00 Temperature 97.6 F Pulse Rate 97 99 Respiratory Rate 16 Blood Pressure 148/55 H Pulse Oximetry 94 Oxygen Delivery Room Air 10/03/23 07:49 10/03/23 08:00 10/03/23 08:00 Temperature 97.4 F L Pulse Rate 93 91 91 Respiratory Rate 18 18 Blood Pressure 163/67 H Pulse Oximetry 100 100 Oxygen Delivery Room Air 10/03/23 10:00 10/03/23 12:16 Temperature 97.8 F Pulse Rate 91 94 Respiratory Rate 18 Blood Pressure 171/73 H Pulse Oximetry 99 Oxygen Delivery Intake/Output Intake/Output: Intake & Output 09/30/23 10/01/23 10/02/23 10/03/23 23:59 23:59 23:59 23:59 Intake Total 3770 1755 240 Output Total 1300 3650 650 Balance 5217 -6902 -552 Meds/Results Medications: Active Medications Generic Name Dose Route Start Last Admin Trade Name Freq PRN Reason Stop Dose Admin Dextrose 12.5 gm 10/01/23 07:47 Dextrose 50% 25 Gm/50 Ml Syringe IV PUSH PRN PRN Hypoglycemia Protocol Glucagon 1 mg 10/01/23 07:47 Glucagon For Inj 1 Mg Vial IM PRN PRN Hypoglycemia Protocol Glucose 15 gm 10/01/23 07:47 Glucose Oral Gel 15 Gm Of Glucse In 37.5 Gm Tube PO PRN PRN Hypoglycemia Protocol Hydromorphone HCl 0.3 mg 10/01/23 09:38 Hydromorphone Hcl Inj (*Crx) 1 Mg/Ml Syr IV PUSH Q4H PRN Pain Rated 6 or Greater Sodium Chloride 1,000 mls @ 100 mls/hr 10/01/23 07:50 10/03/23 16:50 Normal Saline Iv IV CONT 100 mls
[2023-10-03 20:35] LABS: Glucose Point of Care 230 mg/dl (65-105)
[2023-10-04 07:42] LABS: Glucose Point of Care 205 mg/dl (65-105)
--- NOTE | 2023-10-04 07:49 | PM.IMPN ---
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) Status: Acute (3) GI bleed: Qualifiers: GI bleed type/associated pathology: unspecified gastrointestinal hemorrhage type Qualified Code(s): K92.2 - Gastrointestinal hemorrhage, unspecified Code(s): K92.2 - Gastrointestinal hemorrhage, unspecified Status: Acute (4) Colon cancer: Qualifiers: Colon location: ascending Qualified Code(s): C18.2 - Malignant neoplasm of ascending colon Code(s): C18.9 - Malignant neoplasm of colon, unspecified Status: Acute (5) Bipolar disorder: Code(s): F31.9 - Bipolar disorder, unspecified Status: Acute Plan Severe anemia, possible chronic blood-loss anemia and possible colon cancer Patient has been having intermittent abdomen pain diffuse in possible week, patient is found have severe anemia, hemoglobin is 4.6, CT suggest possible ascending colon cancer Patient received 2 pack RBC hemoglobin stable 8.2 today Follow hemoglobin q.6 hours, transfuse p.r.n. Follow-up stool guaiac positive of bleeding, iron panel, ferritin level Start normal saline IV Start Protonix 40 mg IV daily GI is consulted, appreciate GI consultation, colonoscopy : Colonic masses and ascending colon Appreciate general surgical consultation, Appreciate general surgical consultation, plans surgical treatment on Sunday Essential hypertension Hold oral medications during p.o. risk of hypotension Start hydralazine 10 mg q.4 hours p.r.n. with parameters History of CVA No new focal deficit Hold Plavix, resume Plavix when it is okay for GI Type 2 diabetes Hold Home metformin, patient has lactic acidosis Start insulin sliding scale a.c. q.h.s. Psychiatric disorder Stable Hold oral medications during p.o. Consult PT OT patient care technician for evaluation and assisting placement Subjective Date/time seen: 10/04/23 07:49 Interval history: I saw examined the patient. Patient has no new issue events over the night, hemoglobin stable, hemoglobin 8.4 today Patient denies abdomen pain, nausea vomiting chest pain. Afebrile, blood pressure stable over the night Exam Narrative: GENERAL: Pleasant, in no acute distress. Well-nourished. - EYES: EOMI. Anicteric. - HENT: Moist mucous membranes. - LUNGS: Clear to auscultation bilaterally, no wheezing, rhonchi, or rales. - CARDIOVASCULAR: Regular rate and rhythm. No murmur. No JVD. - ABDOMEN: Soft, diffuse abdominal tender and non-distended. No palpable masses. - EXTREMITIES: No edema. Peripheral pulses 2+. Non-tender. - NEUROLOGIC: No focal neurological deficits. CN II-XII grossly intact. - PSYCHIATRIC: Awake, Alert and oriented x 3. Appropriate mood and affect. - SKIN: No rashes or lesions. Warm. - LYMPH: No cervical lymphadenopathy. General weakness Objective Data Vital Signs Vital Signs: Vital Signs - 24 hr 10/03/23 08:00 10/03/23 08:00 10/03/23 10:00 Temperature Pulse Rate 91 91 91 Respiratory Rate 18 Blood Pressure Pulse Oximetry 100 Oxygen Delivery Room Air 10/03/23 12:16 10/03/23 20:10 10/03/23 22:17 Temperature 97.8 F Pulse Rate 94 Respiratory Rate 18 Blood Pressure 171/73 H Pulse Oximetry 99 99 Oxygen Delivery Room Air Room Air Intake/Output Intake/Output: Intake & Output 10/01/23 10/02/23 10/03/23 10/04/23 23:59 23:59 23:59 23:59 Intake Total 3770 1755 1070 1000 Output Total 1300 3650 650 1200 Balance 8230 -8063 420 -200 Meds/Results Medications: Active Medications Generic Name Dose Route Start Last Admin Trade Name Freq PRN Reason Stop Dose Admin Dextrose 12.5 gm 10/01/23 07:47 Dextrose 50% 25 Gm/50 Ml Syringe IV PUSH PRN PRN Hypoglycemia Protocol Glucagon
[2023-10-04 08:00] VITALS: PULSE 94; RESP 18; O2SAT 99
[2023-10-04 08:39] LABS: Basophils Absolute Auto 0.1 K/mm3 (0.0-0.1); Basophils Percent Auto 0.6 % (0.2-1.2); Eosinophils Absolute Auto 0.8 K/mm3 (0-0.3); Eosinophils Percent Auto 8.1 % (0-4.4); Hematocrit 30.6 % (37.0-47.0); Hemoglobin 8.4 g/dL (12.0-15.0); Immature Granulocyte Absolute 0.04 K/mm3 (0.00-0.031); Immature Granulocyte Percent A 0.4 % (0-0.5); Lymphocytes Absolute Auto 2.09 K/mm3 (0.9-3.2); Lymphocytes Percent Auto 21.5 % (18.3-44.2); Mean Corpuscular HGB Conc 27.5 g/dl (32-36); Mean Corpuscular Hemoglobin 20.3 pg (26-34); Mean Corpuscular Volume 74.1 fl (80-100); Mean Platelet Volume 8.5 fl (7.4-10.4); Monocytes Absolute Auto 0.4 K/mm3 (0.1-0.6); Monocytes Percent Auto 4.5 % (2.6-8.5); Neutrophils Absolute Auto 6.3 K/mm3 (1.3-6.7); Neutrophils Percent Auto 64.9 % (45.5-73.1); Platelet Count Result 444 k/mm3 (150-375); Red Blood Count 4.13 M/mm3 (4.2-5.4); Red Cell Distribution Width 26.5 % (11.5-14.5); White Blood Count 9.7 K/mm3 (4.5-10.0)
[2023-10-04 09:03] LABS: Anisocytosis 1+; Hypochromasia 3+; Platelet Estimate Adequate (Adequate); Poikilocytosis 1+; Schistocytes None Seen
--- NOTE | 2023-10-04 09:34 | PCNFU ---
Nutrition Follow-Up Complete: Inadequate energy intake related to NPO status as evidenced by current diet orders Goal: Diet order Tolerance PO intake greater than 50% of meals *Pt was progressing towards goal Pt current nutrition is Clear liquids again today. Nutrition recommendation: resume diet when appropriate Last recorded weight is 63.2 kg. Bowel Motility: +BM 10/03 Labs Reviewed: Hgb:8.4, HCT:30.6 Meds Noted: novolog, protonix, zofran Skin: WNL Additional Notes: Pt had been upgraded to a diabetic diet, now back to clear liquids today, NPO tomorrow. Intake was 25-50% on diabetic consistent carb. Monitor for diet orders, intake, tolerance, wt, labs. Follow up in 3 days.
[2023-10-04 09:46] LABS: Anion Gap 11 mmol/L (4-12); Blood Urea Nitrogen 9 mg/dL (7-17); Calcium 8.6 mg/dL (8.4-10.2); Carbon Dioxide 23 mmol/L (22-30); Chloride 104 mmol/L (98-107); Estimated CRCL calculation 68 ml/min; Estimated Glomerular Filt Rate > 60; Glucose 212 mg/dL (65-110); Sodium 138 mmol/L (137-145)
[2023-10-04 11:50] LABS: Hemoglobin A1C 5.7 % (<5.7)
[2023-10-04 11:51] LABS: Glucose Point of Care 268 mg/dl (65-105)
--- NOTE | 2023-10-04 13:20 | PM.PNGS ---
Progress Note: A&P Assessment and Plan (1) Colon cancer: Qualifiers: Colon location: ascending Qualified Code(s): C18.2 - Malignant neoplasm of ascending colon Code(s): C18.9 - Malignant neoplasm of colon, unspecified Status: Acute Assessment and Plan: H/H stable. No signs of active bleeding. Will begin bowel prep today. Plan for hand assisted laparoscopic right hemicolectomy tomorrow. I have discussed the procedure, risks, benefits, and alternatives. Questions were answered. (2) Chronic blood loss anemia: Code(s): D50.0 - Iron deficiency anemia secondary to blood loss (chronic) Status: Acute (3) Insulin dependent type 2 diabetes mellitus: Code(s): E11.9 - Type 2 diabetes mellitus without complications; Z79.4 - correction (current) use of insulin Status: Acute (4) HTN (hypertension): Code(s): I10 - Essential (primary) hypertension Status: Acute (5) Bipolar disorder: Code(s): F31.9 - Bipolar disorder, unspecified Status: Acute Subjective Subjective Date/Time Seen: 10/04/23 13:20 Interval history: Tolerating clear liquids today. No signs of GI bleed and no abdominal pain. Exam GI: Inspection: non-distended GI Palp: Yes Soft to palpation, No Tenderness to palpation present (GI) and No Guarding due to palpation present (GI) Auscultation: normal bowel sounds Objective Data Vital Signs Vital Signs: Vital Signs - 24 hr 10/03/23 20:10 10/03/23 22:17 10/04/23 08:00 Pulse Rate 94 Respiratory Rate 18 Pulse Oximetry 99 99 Oxygen Delivery Room Air Room Air Room Air Intake/Output Intake/Output: Intake & Output 10/01/23 10/02/23 10/03/23 10/04/23 23:59 23:59 23:59 23:59 Intake Total 3770 1755 1070 1462 Output Total 1300 3650 650 1200 Balance 4000 -189 420 262 Meds/Results Medications: Active Medications Generic Name Dose Route Start Last Admin Trade Name Freq PRN Reason Stop Dose Admin Dextrose 12.5 gm 10/01/23 07:47 Dextrose 50% 25 Gm/50 Ml Syringe IV PUSH PRN PRN Hypoglycemia Protocol Erythromycin 1,000 mg 10/04/23 12:00 Erythromycin 250 Mg Tablet PO 10/04/23 21:01 TID@12,13,21 [facility] Glucagon 1 mg 10/01/23 07:47 Glucagon For Inj 1 Mg Vial IM PRN PRN Hypoglycemia Protocol Glucose 15 gm 10/01/23 07:47 Glucose Oral Gel 15 Gm Of Glucse In 37.5 Gm Tube PO PRN PRN Hypoglycemia Protocol Hydralazine HCl 10 mg 10/04/23 10:03 Hydralazine Hcl 20 Mg/Ml Vial IV PUSH Q8H PRN Blood Pressure - High Hydromorphone HCl 0.3 mg 10/01/23 09:38 Hydromorphone Hcl Inj (*Crx) 1 Mg/Ml Syr IV PUSH Q4H PRN Pain Rated 6 or Greater Sodium Chloride 1,000 mls @ 100 mls/hr 10/01/23 07:50 10/04/23 10:39 Normal Saline Iv IV CONT Not Given .Q10H SERGIO Dextrose 1,000 mls @ 100 mls/hr 10/01/23 07:47 Dextrose 5% 1,000 Ml IVPB PRN PRN Hypoglycemia Protocol Cefazolin Sodium 2 gm in 50 mls @ 100 mls/hr 10/05/23 11:00 Ancef 2 Gm/D5w 50 Ml IVPB 10/05/23 11:29 ONCE ONE Metronidazole 500 mg in 100 mls @ 100 mls/hr 10/05/23 11:00 Flagyl 500 Mg/Iso Soln 100 Ml IVPB 10/05/23 11:59 ONCE ONE Insulin Aspart 3 - 6 units 10/01/23 08:00 10/04/23 09:42 Insulin Aspart (*Bkc) 100 Units/Ml SUB-Q Not Given TIDWM [facility] Protocol Insulin Aspart 2 - 4 units 10/01/23 21:00 10/03/23 20:33 Insulin Aspart (*Bkc) 100 Units/Ml SUB-Q 2 units HS [facility] Administration Protocol Neomycin Sulfate 1,000 mg 10/04/23 12:00 Neomycin Sulfate 500 Mg Tab PO 10/04/23 21:01 TID@12,13,21 [facility] Ondansetron HCl 4 mg 10/01/23 23:32 10/01/23 21:00 Ondansetron Inj 4 Mg/2 Ml Vial IV PUSH 4 mg Q6H PRN Administration Nausea And Vomiting Oxycodone/Acetaminophen 1 tablet 10/01/23 09:37 08/26/24 11:10 Oxycodone/Acetaminophen (*Crx) 5-325 Mg Tablet PO 1 tablet Q4H PRN Ad
[2023-10-04 13:48] VITALS: BP 173/48; PULSE 94; RESP 24; TEMP 36.8; O2SAT 100
[2023-10-04] MEDS: NEOMYCIN SULFATE 500 MG TAB 1000 MG PO ×3 (13:48→20:05)
[2023-10-04] MEDS: ERYTHROMYCIN 250 MG TABLET 1000 MG PO ×3 (13:49→20:07)
[2023-10-04] MEDS: INSULIN ASPART (*BKC) 100 UNITS/ML SUB-Q (13:50)
[2023-10-04] MEDS: BISACODYL 5 MG TABLET EC 10 MG PO (17:24)
[2023-10-04] MEDS: polyethylene glycoL 3350 238 GM BOTTLE PO (17:25)
--- NOTE | 2023-10-04 18:04 | PDONCCN ---
HPI - Date of Consult Date/Time: 10/04/23 18:04 Requesting Physician: Kiko Wellington MD Primary Care Provider: [facility] SPECIALIST PHYSICIAN - Consult Narrative Reason for consult: Colon cancer. Narrative: Paxton Altman is a 72 year old female with history of hypertension, hyperlipidemia, diabetes, stroke and anxiety came into the ER with complain of lower and upper abdominal discomfort with intermittent nausea and vomiting. She is a poor historian. Discomfort has been going on for last 1 week duration. She denies any melena hematochezia. No diarrhea CT scan of abdomen and pelvis was performed that showed nodular thickening of the ascending colon suspicious for neoplasm. Colonoscopy was done that showed malignant appearing ascending colon mass and biopsies were taken. EGD showed hiatal hernia. The labs showed anemia with hemoglobin of 7.8 and elevated CEA of 6.5. Iron studies showed ferritin of 4.9. She has been evaluated by surgery is noted for tomorrow. 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 Depression GERD (gastroesophageal reflux disease) History of DVT (deep vein thrombosis) HLD (hyperlipidemia) HTN (hypertension) Insulin dependent type 2 diabetes mellitus Polio Patient had polio as a child that is left her with left lower leg weakness. Surgical History: Surgical History (Last Reviewed 10/01/23 @ 04:03 by Jeannette Harris MD) No history of previous surgery Family History: Family History (Last Reviewed 10/01/23 @ 04:03 by Jeannette Harris MD) Other Acute myocardial infarction Congestive heart failure Diabetes mellitus Hypertension - Social History Social History: Social History (Last Reviewed 10/01/23 @ 04:03 by Jeannette Harris MD) Gender Identity: Gender identity (if verbalized by the patient): Female Alcohol Use: Alcohol intake: never Substance Use: Substance use: never Others: Spiritual care concerns: No Agree to blood products: Yes Smoking Status: Smoking status: Never smoker Social Determinants of Health: Do You Feel Safe in your Home?: Yes Has the Lack of Transportation Kept You From Medical Appointments or From Getting Medications?: No Within the Past 12 Months, Were You Worried Whether Your Food Would Run Out Before You Got Money to Buy More?: Never True What is Your Housing Situation Today?: I Have Housing Are You Worried That in the Next 2 Months, You May Not Have Your Own Housing to Live In?: Yes Do You Have Trouble Paying Your Heating Or Electricity Bill?: No Do You Have Trouble Paying For Medicines?: Yes Are You Currently Unemployed and Looking for Work?: Yes Highest Level of Education Completed: High School Diploma/GED Do You Have Trouble With Childcare or the Care of a Family Member?: Yes Exam - Vital Signs Vital Signs - 24 hr 10/03/23 20:10 10/03/23 22:17 10/04/23 08:00 Temperature Pulse Rate 94 Respiratory Rate 18 Blood Pressure Pulse Oximetry 99 99 Oxygen Delivery Room Air Room Air Room Air 10/04/23 13:48 Temperature 36.8 C Pulse Rate 94 Respiratory Rate 24 H Blood Pressure 173/48 H Pulse Oximetry 100 Oxygen Delivery - Exam HEENT: EOMI Lungs: clear to auscultation, normal air movement Heart: no murmurs, gallops, or rubs, regular rhythm Abdomen: abdomen soft, non-distended, normal bowel sounds Extremities: normal pulses Integumentary: no abnormalities Neurological: normal speech Psychological
[2023-10-04] MEDS: ONDANSETRON INJ 4 MG/2 ML VIAL IV PUSH (19:58)
[2023-10-04] MEDS: IRON SUCROSE COMPLEX 400 MG, IRON SUCROSE COMPLEX 100 MG in SODIUM CHLORIDE 0.9% IV 250 ML 78.57 MG IVPB (19:59)
[2023-10-04] MEDS: SODIUM CHLORIDE 0.9% IV 1,000 ML 100 ML IV CONT (20:07)
--- NOTE | 2023-10-04 20:45 | PC.NURSE ---
patient aware she needs to drink bowel prep. patient drank some with her pills, and this RN has been making frequent rounding encouraging patient to drink. patient stated that's enough and swatted the cup away. BM is not clear at this time.
[2023-10-04 21:09] VITALS: BP 146/55; PULSE 80; RESP 13; TEMP 36.5; O2SAT 99
[2023-10-04 21:48] LABS: Glucose Point of Care 183 mg/dl (65-105)
--- NOTE | 2023-10-04 22:25 | PC.NURSE ---
called hospitalist to inform patient is refusing to drink bowel prep
[2023-10-04 22:39] LABS: Glucose Point of Care 186 mg/dl (65-105)
[2023-10-05] VITALS (12 sets, daily range): BP systolic 137–159; BP diastolic 41–82; PULSE 76–97; RESP 14–21; TEMP 36.4–37.9; O2SAT 94–100
[2023-10-05 05:44] LABS: Glucose Point of Care 183 mg/dl (65-105)
[2023-10-05] MEDS: ONDANSETRON INJ 4 MG/2 ML VIAL IV PUSH ×2 (06:30→14:39)
--- NOTE | 2023-10-05 07:29 | WPDANESEPPF ---
Anes - Initial Pre Proc Eval Procedure: Operation Date: 10/05/23 12:30 Proposed Procedures p Hand Assisted Laparoscopic Right Hemicolectomy - Jcarlos Bardales DO Date/Time: 10/05/23 07:29 Surgeon: Kiko Wellington MD Pre Op Diagnosis: GI bleed / malignancy Patient Data Age: 72 Gender: F Height: 1.52 m Weight: 57 kg Last Vital Signs Temp 36.7 C 10/05/23 05:57 Pulse 76 10/05/23 05:57 Resp 14 10/05/23 05:57 BP 141/41 H 10/05/23 05:57 Pulse Ox 99 10/05/23 05:57 O2 Del Method Room Air 10/04/23 20:00 O2 Flow Rate 2 10/02/23 15:45 Allergies Allergy/AdvReac Type Severity Reaction Status Date / Time latex Allergy Unknown Verified 10/01/23 04:45 Home Medications Medication Instructions Recorded Confirmed Type amlodipine 10 mg tablet 10 mg PO DAILY 04/13/19 10/01/23 History atorvastatin 40 mg tablet 40 mg PO HS 04/13/19 10/01/23 History benztropine 1 mg tablet 1 mg PO BID 04/13/19 10/01/23 History divalproex 250 mg tablet,extended 250 mg PO BID 04/13/19 10/01/23 History release 24 hr (Depakote ER) losartan 50 mg tablet 50 mg PO DAILY 04/13/19 10/01/23 History metformin 1,000 mg tablet 500 mg PO BID 04/13/19 10/01/23 History trazodone 50 mg tablet 25 mg PO HS 04/13/19 10/01/23 History cranberry 500 mg capsule 500 mg PO BID 10/01/23 10/01/23 History ferrous sulfate 325 mg (65 mg 325 mg PO DAILY 10/01/23 10/01/23 History iron) tablet insulin glargine 100 unit/mL 40 unit subcut QPM 10/01/23 10/01/23 History subcutaneous solution (Lantus U-100 Insulin) insulin glargine 100 unit/mL 42 unit subcut DAILY 10/01/23 10/01/23 History subcutaneous solution (Lantus U-100 Insulin) insulin lispro 100 unit/mL 15 unit subcut TIDWM 10/01/23 10/01/23 History subcutaneous solution (Humalog U-100 Insulin) levetiracetam 500 mg tablet 500 mg PO BID 10/01/23 10/01/23 History (Keppra) meloxicam 7.5 mg tablet 7.5 mg PO DAILY 10/01/23 10/01/23 History mirtazapine 7.5 mg tablet 7.5 mg PO DAILY 10/01/23 10/01/23 History polyethylene glycol 3350 17 gram 17 g PO DAILY PRN Constipation 10/01/23 10/01/23 History oral powder packet (Miralax) risperidone 1 mg tablet (Risperdal) 1 mg PO BID 10/01/23 10/01/23 History venlafaxine 75 mg capsule,extended 225 mg PO DAILY 10/01/23 10/01/23 History release 24 hr (Effexor XR) Laboratory Tests 10/04/23 10/04/23 10/04/23 07:40 08:25 11:48 WBC 9.7 K/mm3 (4.5-10.0) RBC 4.13 L M/mm3 (4.2-5.4) Hgb 8.4 L g/dL (12.0-15.0) Hct 30.6 L % (37.0-47.0) MCV 74.1 L fl (80-100) MCH 20.3 L pg (26-34) MCHC 27.5 L g/dl (32-36) RDW 26.5 H % (11.5-14.5) Plt Count 444 H k/mm3 (150-375) MPV 8.5 fl (7.4-10.4) Immature Gran % (Auto) 0.4 % (0-0.5) Neut % (Auto) 64.9 % (45.5-73.1) Lymph % (Auto) 21.5 % (18.3-44.2) [place] % (Auto) 4.5 % (2.6-8.5) Eos % (Auto) 8.1 H % (0-4.4) Baso % (Auto) 0.6 % (0.2-1.2) Lymph # (Auto) 2.09 K/mm3 (0.9-3.2) [place] # (Auto) 0.4 K/mm3 (0.1-0.6) Eos # (Auto) 0.8 H K/mm3 (0-0.3) Baso # (Auto) 0.1 K/mm3 (0.0-0.1) Abs Immat Gran (auto) 0.04 H K/mm3 (0.00-0.031) Absolute Neuts (auto) 6.3 K/mm3 (1.3-6.7) Absolute Nucleated RBC 0.000 K/mm3 (0.0-0.012) Nucleated RBC % 0.0 % (0.0-0.2) Platelet Estimate Adequate (Adequate) Hypochromasia 3+ Poikilocytosis 1+ Anisocytosis 1+ Schistocytes None seen Sodium 138 mmol/L (137-145) Potassium 4.0 mmol/L (3.4-5.0) Chloride 104 mmol/L (98-107) Carbon Dioxide 23 mmol/L (22-30) Anion Gap 11 mmol/L (4-12) BUN 9 mg/dL (7-17) Creatinine 0.50 L mg/dL (0.7-1.0) Estim Creat Qiana
--- NOTE | 2023-10-05 07:37 | PM.IMPN ---
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) Status: Acute (3) GI bleed: Qualifiers: GI bleed type/associated pathology: unspecified gastrointestinal hemorrhage type Qualified Code(s): K92.2 - Gastrointestinal hemorrhage, unspecified Code(s): K92.2 - Gastrointestinal hemorrhage, unspecified Status: Acute (4) Colon cancer: Qualifiers: Colon location: ascending Qualified Code(s): C18.2 - Malignant neoplasm of ascending colon Code(s): C18.9 - Malignant neoplasm of colon, unspecified Status: Acute (5) Bipolar disorder: Code(s): F31.9 - Bipolar disorder, unspecified Status: Acute Plan Severe anemia, possible chronic blood-loss anemia and possible colon cancer Patient has been having intermittent abdomen pain diffuse in possible week, patient is found have severe anemia, hemoglobin is 4.6, CT suggest possible ascending colon cancer Patient received 2 pack RBC hemoglobin stable 8.2 today Follow hemoglobin q.6 hours, transfuse p.r.n. Follow-up stool guaiac positive of bleeding, iron panel, ferritin level Start normal saline IV Start Protonix 40 mg IV daily GI is consulted, appreciate GI consultation, colonoscopy : Colonic masses and ascending colon Appreciate general surgical consultation, Appreciate general surgical consultation, plans surgical treatment today Essential hypertension Hold oral medications during p.o. risk of hypotension Start hydralazine 10 mg q.4 hours p.r.n. with parameters History of CVA No new focal deficit Hold Plavix, resume Plavix when it is okay for GI Type 2 diabetes Hold Home metformin, patient has lactic acidosis Start insulin sliding scale a.c. q.h.s. Psychiatric disorder Stable Hold oral medications during p.o. Consult PT OT director day care center for evaluation and assisting placement Subjective Date/time seen: 10/05/23 07:37 Interval history: Patient has no new issue events over the night, hemoglobin stable, hemoglobin 8.4 today Patient denies abdomen pain, nausea vomiting chest pain. Afebrile, blood pressure stable over the night Exam Narrative: GENERAL: Pleasant, in no acute distress. Well-nourished. - EYES: EOMI. Anicteric. - HENT: Moist mucous membranes. - LUNGS: Clear to auscultation bilaterally, no wheezing, rhonchi, or rales. - CARDIOVASCULAR: Regular rate and rhythm. No murmur. No JVD. - ABDOMEN: Soft, diffuse abdominal tender and non-distended. No palpable masses. - EXTREMITIES: No edema. Peripheral pulses 2+. Non-tender. - NEUROLOGIC: No focal neurological deficits. CN II-XII grossly intact. - PSYCHIATRIC: Awake, Alert and oriented x 3. Appropriate mood and affect. - SKIN: No rashes or lesions. Warm. - LYMPH: No cervical lymphadenopathy. General weakness Objective Data Vital Signs Vital Signs: Vital Signs - 24 hr 10/04/23 08:00 10/04/23 13:48 10/04/23 21:09 Temperature 98.2 F 97.7 F Pulse Rate 94 94 80 Respiratory Rate 18 24 H 13 Blood Pressure 173/48 H 146/55 H Pulse Oximetry 99 100 99 Oxygen Delivery Room Air 10/04/23 20:00 10/05/23 05:57 Temperature 98.0 F Pulse Rate 76 Respiratory Rate 14 Blood Pressure 141/41 H Pulse Oximetry 99 Oxygen Delivery Room Air Intake/Output Intake/Output: Intake & Output 10/02/23 10/03/23 10/04/23 10/05/23 23:59 23:59 23:59 23:59 Intake Total 1755 1070 1462 700 Output Total 3650 650 1600 1400 Balance -1895 963 -929 -226 Meds/Results Medications: Active Medications Generic Name Dose Route Start Last Admin Trade Name Freq PRN Reason Stop Dose Admin Dextrose 12.5 gm 10/01/23 07:47 Dextrose 50% 25 Gm/50 Ml Syringe IV PUSH PRN PRN Hypoglycemia Protocol Glucagon 1 mg 10/01/23 07:47 G
[2023-10-05 08:58] LABS: Basophils Absolute Auto 0.1 K/mm3 (0.0-0.1); Basophils Percent Auto 0.8 % (0.2-1.2); Eosinophils Absolute Auto 0.8 K/mm3 (0-0.3); Eosinophils Percent Auto 11.2 % (0-4.4); Hematocrit 28.6 % (37.0-47.0); Hemoglobin 7.8 g/dL (12.0-15.0); Immature Granulocyte Absolute 0.03 K/mm3 (0.00-0.031); Immature Granulocyte Percent A 0.4 % (0-0.5); Lymphocytes Absolute Auto 1.36 K/mm3 (0.9-3.2); Lymphocytes Percent Auto 18.3 % (18.3-44.2); Mean Corpuscular HGB Conc 27.3 g/dl (32-36); Mean Corpuscular Hemoglobin 20.7 pg (26-34); Mean Corpuscular Volume 75.9 fl (80-100); Mean Platelet Volume 8.9 fl (7.4-10.4); Monocytes Absolute Auto 0.5 K/mm3 (0.1-0.6); Monocytes Percent Auto 6.5 % (2.6-8.5); Neutrophils Absolute Auto 4.7 K/mm3 (1.3-6.7); Neutrophils Percent Auto 62.8 % (45.5-73.1); Platelet Count Result 401 k/mm3 (150-375); Red Blood Count 3.77 M/mm3 (4.2-5.4); Red Cell Distribution Width 26.4 % (11.5-14.5); White Blood Count 7.4 K/mm3 (4.5-10.0)
[2023-10-05] MEDS: PANTOPRAZOLE SODIUM IV 40 MG VIAL IV PUSH (09:07)
[2023-10-05 09:23] LABS: Alanine Aminotransferase 8 U/L (6-35); Albumin Level 3.3 g/dL (3.5-5.1); Alkaline Phosphatase 134 U/L (38-126); Anion Gap 11 mmol/L (4-12); Aspartate Amino Transferase 19 U/L (14-36); Bilirubin,Total 0.2 mg/dL (0.2-1.3); Blood Urea Nitrogen 6 mg/dL (7-17); Calcium 7.8 mg/dL (8.4-10.2); Carbon Dioxide 20 mmol/L (22-30); Chloride 110 mmol/L (98-107); Estimated CRCL calculation 59 ml/min; Estimated Glomerular Filt Rate > 60; Glucose 188 mg/dL (65-110); Potassium 3.5 mmol/L (3.4-5.0); Sodium 141 mmol/L (137-145)
[2023-10-05 09:38] LABS: Platelet Estimate Adequate (Adequate)
[2023-10-05 09:39] LABS: Anisocytosis 2+; Hypochromasia 2+; Ovalocytes 2+; Poikilocytosis 2+; Schistocytes None Seen; Target Cells 1+
--- NOTE | 2023-10-05 11:15 | PCNFU ---
Nutrition Follow-Up Complete: Inadequate energy intake related to NPO status as evidenced by current diet orders Diet order _NPO today for procedure Tolerance - tolerated diet on Previous PO intake greater than 50% of meals - not meeting goal because of NPO Goal: Pt current nutrition is NPO today because of R hemicolectomy s/t colon mass. Nutrition recommendation: Diet advancement per MD Last recorded weight is 57 kg. Bowel Motility: +2 BM yesterday 10/04/23 Labs Reviewed: Hgb 7.8, Hct 28.6, Alb 3.3, BUN 6, Cre 0.5 Meds Noted: Novolog, Protonix, Zofran Skin: No pressure Additional Notes: Pt had colon prep yesterday for hemicolectomy today for colon masses. Advance diet per MD and continue monitoring. Monitor for diet orders, intake, tolerance, wt, labs. Follow up in 3 days.
[2023-10-05] MEDS: LACTATED RINGERS 1,000 ML 30 ML IV CONT ×2 (11:30→14:16)
--- NOTE | 2023-10-05 11:32 | WPDHPUPDATE1 ---
History and Physical Update Update Date/Time: 10/05/23 11:32 History and Physical has been reviewed, including an updated exam of the patient. There are NO changes in the patient's condition. Risks, benefits, and alternatives have been discussed and questions answered. Patient agrees to proceed with procedure.
[2023-10-05 12:10] LABS: Glucose Point of Care 146 mg/dl (65-105)
[2023-10-05] MEDS: BUPIVACAINE/EPINEPHRINE 0.5% 10 ML VIAL 30 ML INFILTRATE (12:28)
[2023-10-05] MEDS: ceFAZolin 2 GM/D5W 50 ML 2 GM/50 ML BAG IVPB (12:28)
[2023-10-05] MEDS: metroNIDAZOLE 500 MG/ISO 100ML 500 MG/100 ML BAG 100 MG IVPB (12:42)
--- NOTE | 2023-10-05 14:13 | W.PM.PROC2 ---
Procedure Note - Detailed Date of Procedure 10/05/23 Pre-op Diagnosis Ascending colon adenocarcinoma Post-op Diagnosis Same Procedure Performed Hand assisted laparoscopic right hemicolectomy with ileocolic anastomosis Surgeon Jcarlos Bardales, DO Anesthesia General and Local (Exparel) Indications This is a 72-year-old woman who presented to the emergency department several days ago with anemia and abdominal pain. She had a CT at that time which showed an ascending colon mass. She then was seen by GI and underwent colonoscopy. A malignant-appearing mass was identified and tattooed in the ascending colon. Biopsies showed evidence of adenocarcinoma. Discussions were made with the patient and her daughter about treatment options. Decision was made to proceed with hand assisted laparoscopic right hemicolectomy. Findings Hand assisted laparoscopic right hemicolectomy was performed. The mass and tattooed region was identified just beyond the cecum in the proximal ascending colon. There also appeared to be some enlarged lymph nodes within the mesocolon. The proximal and distal bowel appeared healthy and viable. No other intra-abdominal abnormalities were noted. Right hemicolectomy was performed with a [id number] stapled anastomosis. The specimen was then sent to the lab for pathology. Description of Procedure Procedure as well as risks benefits and alternatives were explained to the patient. Written consent was obtained and placed in chart prior to procedure. Patient was brought back to surgical suite. She was placed supine on operating table. Time-out was done to confirm patient procedure. She was then intubated by the anesthesia department. Her abdomen was prepped and draped in sterile fashion using chlorhexidine prep. A 7 centimeter vertical incision was made just superior to the umbilicus using a 15 blade scalpel. Electrocautery was used for hemostasis and for dissection down through Darling's fascia. The linea alba was identified, and incised using electrocautery. Two Bryan clamps were used to lift the fascia anteriorly, and the peritoneum was then entered using electrocautery. The abdomen was inspected and no acute abnormalities were noted. The wound protector was placed at this incision, and the GelPort was applied with a 5 millimeter port placed through it. Carbon dioxide insufflation was used to create a pneumoperitoneum. The camera was inserted and the abdominal cavity was inspected. The tattooed region was identified on the proximal ascending colon, and no other abnormalities were noted. The patient was placed in Trendelenburg position and rotated slightly to the left. A 5 millimeter incision was made in the lower midline and a 5 millimeter trocar was inserted under direct visualization. Another 5 millimeter incision was made in the left lower quadrant, and a 5 millimeter trocar was inserted under direct visualization. A transversus abdominis plane block with Exparel was performed under laparoscopic visualization bilaterally. After carefully inspecting the abdominal cavity, I began my dissection from a medial to lateral direction along the ileocolic pedicle. The cecum was tented anteriorly and laterally and this allowed me to visualize the ileocolic pedicle. The medial side and inferior side of the peritoneum was scored using hook electrocautery and the retroperitoneal plane was entered. Careful dissection was performed using hook electrocautery in this relatively avascular plane. The duodenum was identified and swept posteriorly. I then continued to dissect proximally along the ileocolic pedicle. I isolated the ileocolic vein and artery individually and performed a high ligation using bipolar cautery. Hemostasis appeared adequate. I then continued the medial to lateral dissection maintaining this avascular plane. I also dissected along the transverse colon to the right side all the way to the level of the hepatic flexure. The termi
[2023-10-05 14:27] LABS: Glucose Point of Care 186 mg/dl (65-105)
[2023-10-05] MEDS: fentaNYL CITRATE INJ (*CRX) 100 MCG/2 ML VIAL 25 MCG IV PUSH ×4 (14:38→14:50)
[2023-10-05] MEDS: FUROSEMIDE INJ 40 MG/4 ML VIAL IV PUSH (16:00)
[2023-10-05] MEDS: oxyCODONE HCL (*CRX) 2.5 MG TAB IR PO (17:06)
[2023-10-05 17:08] LABS: Glucose Point of Care 205 mg/dl (65-105)
[2023-10-05] MEDS: risperiDONE 1 MG TABLET PO (17:39)
[2023-10-05] MEDS: DIVALPROEX SODIUM ER 250 MG TAB.24H PO (17:39)
[2023-10-05] MEDS: levETIRAcetam 500 MG TABLET PO (17:40)
[2023-10-05] MEDS: ACETAMINOPHEN 325 MG TABLET 650 MG PO (17:40)
[2023-10-05] MEDS: INSULIN ASPART (*BKC) 100 UNITS/ML SUB-Q (17:40)
[2023-10-05] MEDS: BENZTROPINE MESYLATE 1 MG TABLET PO (17:41)
[2023-10-05] MEDS: LACTATED RINGERS 1,000 ML 75 ML IV CONT (17:50)
[2023-10-05 19:48] LABS: Glucose Point of Care 162 mg/dl (65-105)
[2023-10-05] MEDS: traZODone HCL 25 MG TABLET PO (20:33)
[2023-10-06 01:05] VITALS: BP 153/48; PULSE 94; RESP 14; TEMP 37.1; O2SAT 99
[2023-10-06 05:05] VITALS: BP 167/53; PULSE 95; RESP 12; TEMP 36.7; O2SAT 98
[2023-10-06] MEDS: ACETAMINOPHEN 325 MG TABLET 650 MG PO ×3 (05:17→17:07)
[2023-10-06] MEDS: LACTATED RINGERS 1,000 ML 75 ML IV CONT ×2 (06:13→22:56)
[2023-10-06 06:55] LABS: Basophils Absolute Auto 0.1 K/mm3 (0.0-0.1); Basophils Percent Auto 0.4 % (0.2-1.2); Eosinophils Absolute Auto 0.1 K/mm3 (0-0.3); Eosinophils Percent Auto 1.2 % (0-4.4); Hematocrit 28.7 % (37.0-47.0); Hemoglobin 7.9 g/dL (12.0-15.0); Immature Granulocyte Absolute 0.06 K/mm3 (0.00-0.031); Immature Granulocyte Percent A 0.5 % (0-0.5); Lymphocytes Percent Auto 10.2 % (18.3-44.2); Mean Corpuscular HGB Conc 27.5 g/dl (32-36); Mean Corpuscular Hemoglobin 20.6 pg (26-34); Mean Corpuscular Volume 74.9 fl (80-100); Mean Platelet Volume 8.8 fl (7.4-10.4); Monocytes Absolute Auto 0.4 K/mm3 (0.1-0.6); Monocytes Percent Auto 3.4 % (2.6-8.5); Neutrophils Absolute Auto 9.9 K/mm3 (1.3-6.7); Neutrophils Percent Auto 84.3 % (45.5-73.1); Platelet Count Result 382 k/mm3 (150-375); Red Blood Count 3.83 M/mm3 (4.2-5.4); Red Cell Distribution Width 26.8 % (11.5-14.5); White Blood Count 11.7 K/mm3 (4.5-10.0)
[2023-10-06 07:08] LABS: Anion Gap 9 mmol/L (4-12); Blood Urea Nitrogen 3 mg/dL (7-17); Calcium 8.4 mg/dL (8.4-10.2); Carbon Dioxide 25 mmol/L (22-30); Chloride 104 mmol/L (98-107); Estimated CRCL calculation 50 ml/min; Estimated Glomerular Filt Rate > 60; Glucose 221 mg/dL (65-110); Potassium 3.2 mmol/L (3.4-5.0); Sodium 138 mmol/L (137-145)
[2023-10-06 07:32] LABS: Platelet Estimate Adequate (Adequate)
[2023-10-06 07:33] LABS: Anisocytosis 2+; Macrocytosis 2+ (NORMAL); Ovalocytes 1+; Poikilocytosis 1+; Polychromasia 1+; Target Cells 1+
[2023-10-06 07:34] LABS: Hypochromasia 3+; Schistocytes None Seen
[2023-10-06] MEDS: BENZTROPINE MESYLATE 1 MG TABLET PO ×2 (08:16→17:07)
[2023-10-06] MEDS: amLODIPine BESYLATE 10 MG TABLET PO (08:16)
[2023-10-06] MEDS: VENLAFAXINE HCL XR 75 MG CAP.ER.24H 225 MG PO (08:16)
[2023-10-06] MEDS: risperiDONE 1 MG TABLET PO ×2 (08:16→17:07)
[2023-10-06] MEDS: PANTOPRAZOLE SODIUM IV 40 MG VIAL IV PUSH (08:16)
[2023-10-06] MEDS: ENOXAPARIN 40 MG/0.4 ML SYRINGE SUB-Q (08:16)
[2023-10-06] MEDS: levETIRAcetam 500 MG TABLET PO ×2 (08:16→17:07)
[2023-10-06] MEDS: MIRTAZAPINE 7.5 MG TABLET PO (08:16)
[2023-10-06] MEDS: DIVALPROEX SODIUM ER 250 MG TAB.24H PO ×2 (08:16→17:07)
[2023-10-06 08:17] LABS: Glucose Point of Care 219 mg/dl (65-105)
[2023-10-06 09:05] VITALS: BP 164/54; PULSE 94; RESP 20; TEMP 36.5; O2SAT 97
[2023-10-06 11:36] LABS: Glucose Point of Care 216 mg/dl (65-105)
[2023-10-06 13:05] VITALS: BP 138/52; PULSE 83; RESP 16; TEMP 36.4; O2SAT 99
--- NOTE | 2023-10-06 13:58 | PM.IMPN ---
Progress Note: A&P Assessment and Plan (1) Severe anemia: Code(s): D64.9 - Anemia, unspecified Status: Acute Assessment and Plan: Stable, s/p right hemicolectomy (2) Chronic blood loss anemia: Code(s): D50.0 - Iron deficiency anemia secondary to blood loss (chronic) Status: Acute Assessment and Plan: Stable, will monitor closely (3) Colon cancer: Qualifiers: Colon location: ascending Qualified Code(s): C18.2 - Malignant neoplasm of ascending colon Code(s): C18.9 - Malignant neoplasm of colon, unspecified Status: Acute Assessment and Plan: S/p surgery stable (4) Bipolar disorder: Code(s): F31.9 - Bipolar disorder, unspecified Status: Acute Assessment and Plan: Stable on current meds Plan 10/06/2023 Day 1, s/p right hemicolectomy, will continue current treatment and monitor closely. Repeat cbc and cmp in am. Severe anemia, possible chronic blood-loss anemia and possible colon cancer Patient has been having intermittent abdomen pain diffuse in possible week, patient is found have severe anemia, hemoglobin is 4.6, CT suggest possible ascending colon cancer Patient received 2 pack RBC hemoglobin stable 8.2 today Follow hemoglobin q.6 hours, transfuse p.r.n. Follow-up stool guaiac positive of bleeding, iron panel, ferritin level Start normal saline IV Start Protonix 40 mg IV daily GI is consulted, appreciate GI consultation, colonoscopy : Colonic masses and ascending colon Appreciate general surgical consultation, Appreciate general surgical consultation, plans surgical treatment today Essential hypertension Hold oral medications during p.o. risk of hypotension Start hydralazine 10 mg q.4 hours p.r.n. with parameters History of CVA No new focal deficit Hold Plavix, resume Plavix when it is okay for GI Type 2 diabetes Hold Home metformin, patient has lactic acidosis Start insulin sliding scale a.c. q.h.s. Psychiatric disorder Stable Hold oral medications during p.o. Consult PT OT care management coordinator for evaluation and assisting placement Subjective Date/time seen: 10/06/23 13:58 Interval history: Patient was seen during the morning rounds today. No sob or chest pain Pain controlled. Review of Systems Review of Systems: All ROS are negative except those that are noted in the history and physical examination Exam Narrative: GENERAL: Pleasant, in no acute distress. Well-nourished. - EYES: EOMI. Anicteric. - HENT: Moist mucous membranes. - LUNGS: Clear to auscultation bilaterally, no wheezing, rhonchi, or rales. - CARDIOVASCULAR: Regular rate and rhythm. No murmur. No JVD. - ABDOMEN: Soft, diffuse abdominal tender and non-distended. s/p hemicolectomy - EXTREMITIES: No edema. Peripheral pulses 2+. Non-tender. - NEUROLOGIC: No focal neurological deficits. CN II-XII grossly intact. - PSYCHIATRIC: Awake, Alert and oriented x 3. Appropriate mood and affect. - SKIN: No rashes or lesions. Warm. - LYMPH: No cervical lymphadenopathy. General weakness Objective Data Vital Signs Vital Signs: Vital Signs - 24 hr 10/05/23 14:16 10/05/23 14:30 10/05/23 14:45 Temperature 37.1 C Pulse Rate 78 90 87 Respiratory Rate 21 H 20 20 Blood Pressure 153/59 H 158/58 H 159/67 H Pulse Oximetry 99 100 100 Oxygen Delivery Simple Face Mask Non-Rebreather Mask Nasal Cannula Oxygen Flow Rate 8 2 2 10/05/23 15:00 10/05/23 15:15 10/05/23 15:35 Temperature 36.5 C Pulse Rate 88 90 94 Respiratory Rate 18 16 18 Blood Pressure 151/76 H 149/74 H 144/82 H Pulse Oximetry 100 100 100 Oxygen Delivery Nasal Cannula Nasal Cannula Oxygen Flow Rate 2 2 10/05/23 15:50 10/05/23 16:20 10/05/23 17:20 Temperature 36.7 C 37.1 C 37.2 C Pulse Rate 87 88 96 Respiratory Rate 18 18 16 Blood Pressure 150/62 H 139/50 L 157/51 H Pulse Oximetry 100 97 94 Oxygen Delivery Oxygen Flow Rate
--- NOTE | 2023-10-06 14:00 | PM.PNGS ---
Progress Note: A&P Assessment and Plan (1) Colon cancer: Qualifiers: Colon location: ascending Qualified Code(s): C18.2 - Malignant neoplasm of ascending colon Code(s): C18.9 - Malignant neoplasm of colon, unspecified Status: Acute Assessment and Plan: s/p R colectomy, doing well, ADAT, encourage OOB/IS Subjective Subjective Date/Time Seen: 10/06/23 14:00 Interval history: feels ok, some incisional soreness, jenae clears Review of Systems Review of Systems: All systems reviewed & are unremarkable except as noted in HPI and below Exam Const: General: cooperative, comfortable and no acute distress Resp: Auscultation: clear to auscultation bilaterally Cardio: Rate: regular rate Rhythm: regular rhythm GI: Inspection: normal to inspection, distended and incision GI Palp: Yes abdominal tenderness and Yes Soft to palpation Objective Data Vital Signs Vital Signs: Vital Signs - 24 hr 10/05/23 14:16 10/05/23 14:30 10/05/23 14:45 Temperature 37.1 C Pulse Rate 78 90 87 Respiratory Rate 21 H 20 20 Blood Pressure 153/59 H 158/58 H 159/67 H Pulse Oximetry 99 100 100 Oxygen Delivery Simple Face Mask Non-Rebreather Mask Nasal Cannula Oxygen Flow Rate 8 2 2 10/05/23 15:00 10/05/23 15:15 10/05/23 15:35 Temperature 36.5 C Pulse Rate 88 90 94 Respiratory Rate 18 16 18 Blood Pressure 151/76 H 149/74 H 144/82 H Pulse Oximetry 100 100 100 Oxygen Delivery Nasal Cannula Nasal Cannula Oxygen Flow Rate 2 2 10/05/23 15:50 10/05/23 16:20 10/05/23 17:20 Temperature 36.7 C 37.1 C 37.2 C Pulse Rate 87 88 96 Respiratory Rate 18 18 16 Blood Pressure 150/62 H 139/50 L 157/51 H Pulse Oximetry 100 97 94 Oxygen Delivery Oxygen Flow Rate 10/05/23 21:05 10/05/23 20:00 10/06/23 01:05 Temperature 37.9 C H 37.1 C Pulse Rate 97 94 Respiratory Rate 17 14 Blood Pressure 137/58 L 153/48 H Pulse Oximetry 98 99 Oxygen Delivery Room Air Oxygen Flow Rate 10/06/23 05:05 10/06/23 08:00 10/06/23 09:05 Temperature 36.7 C 36.5 C Pulse Rate 95 94 Respiratory Rate 12 20 Blood Pressure 167/53 H 164/54 H Pulse Oximetry 98 97 Oxygen Delivery Room Air Oxygen Flow Rate 10/06/23 11:09 10/06/23 13:05 Temperature 36.4 C Pulse Rate 83 Respiratory Rate 16 Blood Pressure 138/52 L Pulse Oximetry 99 Oxygen Delivery Room Air Oxygen Flow Rate Intake/Output Intake/Output: Intake & Output 10/03/23 10/04/23 10/05/23 10/06/23 23:59 23:59 23:59 23:59 Intake Total 1070 1462 1000 1334.7 Output Total 650 1600 2495 1300 Balance 246 -890 -5449 34.7 Meds/Results Medications: Active Medications Generic Name Dose Route Start Last Admin Trade Name Freq PRN Reason Stop Dose Admin Acetaminophen 650 mg 10/05/23 18:00 10/06/23 11:47 Acetaminophen 325 Mg Tablet PO 650 mg Q6HR SERGIO Administration Amlodipine Besylate 10 mg 10/06/23 09:00 10/06/23 08:16 Amlodipine Besylate 10 Mg Tablet PO 10 mg DAILY SERGIO Administration Benztropine Mesylate 1 mg 10/05/23 17:00 10/06/23 08:16 Benztropine Mesylate 1 Mg Tablet PO 1 mg BID SERGIO Administration Dextrose 12.5 gm 10/01/23 07:47 Dextrose 50% 25 Gm/50 Ml Syringe IV PUSH PRN PRN Hypoglycemia Protocol Divalproex Sodium 250 mg 10/05/23 17:00 10/06/23 08:16 Divalproex Sodium Er 250 Mg Tab.24h PO 250 mg BID SERGIO Administration Enoxaparin Sodium 40 mg 10/06/23 09:00 10/06/23 08:16 Enoxaparin 40 Mg/0.4 Ml Syringe SUB-Q 40 mg DAILY SERGIO Administration Glucagon 1 mg 10/01/23 07:47 Glucagon For Inj 1 Mg Vial IM PRN PRN Hypoglycemia Protocol Glucose 15 gm 10/01/23 07:47 Glucose Oral Gel 15 Gm Of Glucse In 37.5 Gm Tube PO PRN PRN Hypoglycemia Protocol Hydralazine HCl 10 mg 10/04/23 10:03 Hydralazine Hcl 20 Mg/Ml Vial IV PUSH Q8H PRN Blood Pressure - High Hydromorphone HCl 1 mg 10/05/23 15:
[2023-10-06 16:43] LABS: Glucose Point of Care 207 mg/dl (65-105)
[2023-10-06 17:05] VITALS: BP 151/55; PULSE 80; RESP 16; TEMP 36.4; O2SAT 98
[2023-10-06] MEDS: INSULIN ASPART (*BKC) 100 UNITS/ML SUB-Q (18:01)
[2023-10-06] MEDS: traZODone HCL 25 MG TABLET PO (19:36)
--- NOTE | 2023-10-06 19:58 | WPDANESPN ---
Anes - Prog Note Post-Op Date/Time: 10/06/23 19:58 Cardiovascular status: normal Respiratory status: normal Airway patency: baseline Mental status: baseline Post-Op hydration status: normal Vital Signs: Last Vital Signs Temp 36.4 C 10/06/23 17:05 Pulse 80 10/06/23 17:05 Resp 16 10/06/23 17:05 BP 151/55 H 10/06/23 17:05 Pulse Ox 98 10/06/23 17:05 O2 Del Method Room Air 10/06/23 11:09 O2 Flow Rate 2 10/05/23 15:15 Pain Score (VAS): unable to wake patient while rounding. She was resting comfortably 0 I/O: Intake & Output 10/06/23 10/06/23 10/06/23 07:59 15:59 23:59 Intake Total 1078.7 256 0 Output Total 1300 550 Balance -221.3 256 -550 Laboratory Tests 10/06/23 06:45 10/06/23 06:45 10/06/23 10/06/23 10/06/23 06:45 08:08 11:33 WBC 11.7 H RBC 3.83 L Hgb 7.9 L Hct 28.7 L MCV 74.9 L MCH 20.6 L MCHC 27.5 L RDW 26.8 H Plt Count 382 H MPV 8.8 Immature Gran % (Auto) 0.5 Neut % (Auto) 84.3 H Lymph % (Auto) 10.2 L Graham % (Auto) 3.4 Eos % (Auto) 1.2 Baso % (Auto) 0.4 Lymph # (Auto) 1.20 Graham # (Auto) 0.4 Eos # (Auto) 0.1 Baso # (Auto) 0.1 Abs Immat Gran (auto) 0.06 H Absolute Neuts (auto) 9.9 H Absolute Nucleated RBC 0.000 Nucleated RBC % 0.0 Platelet Estimate Adequate Polychromasia 1+ Hypochromasia 3+ Poikilocytosis 1+ Anisocytosis 2+ Macrocytosis 2+ Target Cells 1+ Ovalocytes 1+ Schistocytes None seen Sodium 138 Potassium 3.2 L Chloride 104 Carbon Dioxide 25 Anion Gap 9 BUN 3 L Creatinine 0.60 L Estim Creat Clear Calc 50 Estimated GFR > 60 Glucose 221 H POC Capillary Glucose 219 H 216 H Calcium 8.4 10/06/23 16:37 WBC RBC Hgb Hct MCV MCH MCHC RDW Plt Count MPV Immature Gran % (Auto) Neut % (Auto) Lymph % (Auto) Graham % (Auto) Eos % (Auto) Baso % (Auto) Lymph # (Auto) Graham # (Auto) Eos # (Auto) Baso # (Auto) Abs Immat Gran (auto) Absolute Neuts (auto) Absolute Nucleated RBC Nucleated RBC % Platelet Estimate Polychromasia Hypochromasia Poikilocytosis Anisocytosis Macrocytosis Target Cells Ovalocytes Schistocytes Sodium Potassium Chloride Carbon Dioxide Anion Gap BUN Creatinine Estim Creat Clear Calc Estimated GFR Glucose POC Capillary Glucose 207 H Calcium Post-procedural complaints: none Patient Feedback: Patient satisfied with anesthetic care.
[2023-10-06 20:00] VITALS: BP 125/54; PULSE 73; RESP 20; TEMP 36.3; O2SAT 99
[2023-10-06 20:24] LABS: Glucose Point of Care 135 mg/dl (65-105)
[2023-10-07] MEDS: ACETAMINOPHEN 325 MG TABLET 650 MG PO ×2 (05:09→11:37)
[2023-10-07 05:51] VITALS: BP 158/76; PULSE 86; RESP 18; TEMP 36.2; O2SAT 100
[2023-10-07 08:28] LABS: Hematocrit 28.7 % (37.0-47.0); Mean Corpuscular HGB Conc 27.9 g/dl (32-36); Mean Corpuscular Hemoglobin 20.7 pg (26-34); Mean Corpuscular Volume 74.4 fl (80-100); Mean Platelet Volume 9.1 fl (7.4-10.4); Platelet Count Result 374 k/mm3 (150-375); Red Blood Count 3.86 M/mm3 (4.2-5.4); Red Cell Distribution Width 26.5 % (11.5-14.5); White Blood Count 7.7 K/mm3 (4.5-10.0)
[2023-10-07] MEDS: ENOXAPARIN 40 MG/0.4 ML SYRINGE SUB-Q (08:34)
[2023-10-07] MEDS: VENLAFAXINE HCL XR 75 MG CAP.ER.24H 225 MG PO (08:35)
[2023-10-07] MEDS: DIVALPROEX SODIUM ER 250 MG TAB.24H PO (08:35)
[2023-10-07] MEDS: amLODIPine BESYLATE 10 MG TABLET PO (08:35)
[2023-10-07] MEDS: MIRTAZAPINE 7.5 MG TABLET PO (08:35)
[2023-10-07] MEDS: PANTOPRAZOLE SODIUM IV 40 MG VIAL IV PUSH (08:35)
[2023-10-07] MEDS: risperiDONE 1 MG TABLET PO (08:35)
[2023-10-07] MEDS: BENZTROPINE MESYLATE 1 MG TABLET PO (08:35)
[2023-10-07] MEDS: levETIRAcetam 500 MG TABLET PO (08:35)
[2023-10-07 08:39] LABS: Anion Gap 8 mmol/L (4-12); Calcium 8.6 mg/dL (8.4-10.2); Carbon Dioxide 27 mmol/L (22-30); Chloride 102 mmol/L (98-107); Estimated CRCL calculation 59 ml/min; Estimated Glomerular Filt Rate > 60; Glucose 167 mg/dL (65-110); Potassium 3.2 mmol/L (3.4-5.0); Sodium 137 mmol/L (137-145)
[2023-10-07 08:49] LABS: Blood Urea Nitrogen < 2 mg/dL (7-17)
--- NOTE | 2023-10-07 10:10 | PM.PNGS ---
Progress Note: A&P Assessment and Plan (1) Colon cancer: Qualifiers: Colon location: ascending Qualified Code(s): C18.2 - Malignant neoplasm of ascending colon Code(s): C18.9 - Malignant neoplasm of colon, unspecified Status: Acute Assessment and Plan: doing well, cont routine postop care, jenae diabetic diet and having flatus, encourage OOB/IS, ok to dc home from surgical standpoint if doing well later today Subjective Subjective Date/Time Seen: 10/07/23 10:10 Interval history: feels good, jenae diet, +flatus, wants to go home Review of Systems Review of Systems: All systems reviewed & are unremarkable except as noted in HPI and below Exam Const: General: cooperative, comfortable and no acute distress Resp: Auscultation: clear to auscultation bilaterally Cardio: Rate: regular rate Rhythm: regular rhythm GI: Inspection: normal to inspection, non-distended and incision GI Palp: Yes abdominal tenderness, Yes Soft to palpation, Yes Tenderness to palpation present (GI), No Guarding due to palpation present (GI) and No Rigid due to palpation Objective Data Vital Signs Vital Signs: Vital Signs - 24 hr 10/06/23 11:09 10/06/23 13:05 10/06/23 17:05 Temperature 36.4 C 36.4 C Pulse Rate 83 80 Respiratory Rate 16 16 Blood Pressure 138/52 L 151/55 H Pulse Oximetry 99 98 Oxygen Delivery Room Air 10/06/23 20:00 10/06/23 20:00 10/07/23 05:51 Temperature 36.3 C L 36.2 C L Pulse Rate 73 86 Respiratory Rate 20 18 Blood Pressure 125/54 L 158/76 H Pulse Oximetry 99 100 Oxygen Delivery Room Air Intake/Output Intake/Output: Intake & Output 10/04/23 10/05/23 10/06/23 10/07/23 23:59 23:59 23:59 23:59 Intake Total 1462 1000 2334.7 340 Output Total 1600 2495 1850 1400 Balance -138 -1495 484.7 -1060 Meds/Results Medications: Active Medications Generic Name Dose Route Start Last Admin Trade Name Freq PRN Reason Stop Dose Admin Acetaminophen 650 mg 10/05/23 18:00 10/07/23 05:09 Acetaminophen 325 Mg Tablet PO 650 mg Q6HR SERGIO Administration Amlodipine Besylate 10 mg 10/06/23 09:00 10/07/23 08:35 Amlodipine Besylate 10 Mg Tablet PO 10 mg DAILY SERGIO Administration Benztropine Mesylate 1 mg 10/05/23 17:00 10/07/23 08:35 Benztropine Mesylate 1 Mg Tablet PO 1 mg BID SERGIO Administration Dextrose 12.5 gm 10/01/23 07:47 Dextrose 50% 25 Gm/50 Ml Syringe IV PUSH PRN PRN Hypoglycemia Protocol Divalproex Sodium 250 mg 10/05/23 17:00 10/07/23 08:35 Divalproex Sodium Er 250 Mg Tab.24h PO 250 mg BID SERGIO Administration Enoxaparin Sodium 40 mg 10/06/23 09:00 10/07/23 08:34 Enoxaparin 40 Mg/0.4 Ml Syringe SUB-Q 40 mg DAILY SERGIO Administration Glucagon 1 mg 10/01/23 07:47 Glucagon For Inj 1 Mg Vial IM PRN PRN Hypoglycemia Protocol Glucose 15 gm 10/01/23 07:47 Glucose Oral Gel 15 Gm Of Glucse In 37.5 Gm Tube PO PRN PRN Hypoglycemia Protocol Hydralazine HCl 10 mg 10/04/23 10:03 Hydralazine Hcl 20 Mg/Ml Vial IV PUSH Q8H PRN Blood Pressure - High Hydromorphone HCl 1 mg 10/05/23 15:20 Hydromorphone Hcl Inj (*Crx) 1 Mg/Ml Syr IV PUSH Q2H PRN Breakthrough Pain Rated 7-10 or NPO Hydromorphone HCl 0.5 mg 10/05/23 15:20 Hydromorphone Hcl Inj (*Crx) 1 Mg/Ml Syr IV PUSH Q2H PRN Breakthrough Pain Rated 4-6 or NPO Dextrose 1,000 mls @ 100 mls/hr 10/01/23 07:47 Dextrose 5% 1,000 Ml IVPB PRN PRN Hypoglycemia Protocol Lactated Ringer's 1,000 mls @ 75 mls/hr 10/05/23 15:20 10/06/23 22:56 Lr - Lactated Ringers Iv IV CONT 75 mls/hr .[id number] SERGIO Administration Insulin Aspart 3 - 6 units 10/01/23 08:00 10/07/23 08:35 Insulin Aspart (*Bkc) 100 Units/Ml SUB-Q Not Given TIDWM SERGIO Protocol Insulin Aspart 2 - 4 units 10/01/23 21:00 10/06/23 20:55 Insulin Aspart (*Bk) 100 Units/Ml
--- NOTE | 2023-10-07 10:31 | PM.IMPN ---
Progress Note: A&P Assessment and Plan (1) Severe anemia: Code(s): D64.9 - Anemia, unspecified Status: Acute Assessment and Plan: Stable, s/p right hemicolectomy. Hemoglobin is stable. Will monitor closely. 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 Repeat cbc and cmp in am. 10/07/2023 No new overnight complaints. Pain is controlled. Hemoglobin is stable. Plan is to continue current treatment monitor closely. Potassium was low will replace and monitor closely. Severe anemia, possible chronic blood-loss anemia and possible colon cancer Patient has been having intermittent abdomen pain diffuse in possible week, patient is found have severe anemia, hemoglobin is 4.6, CT suggest possible ascending colon cancer Patient received 2 pack RBC hemoglobin stable 8.2 today Follow hemoglobin q.6 hours, transfuse p.r.n. Follow-up stool guaiac positive of bleeding, iron panel, ferritin level Start normal saline IV Start Protonix 40 mg IV daily GI is consulted, appreciate GI consultation, colonoscopy : Colonic masses and ascending colon Appreciate general surgical consultation, Appreciate general surgical consultation, plans surgical treatment today Essential hypertension Hold oral medications during p.o. risk of hypotension Start hydralazine 10 mg q.4 hours p.r.n. with parameters History of CVA No new focal deficit Hold Plavix, resume Plavix when it is okay for GI Type 2 diabetes Hold Home metformin, patient has lactic acidosis Start insulin sliding scale a.c. q.h.s. Psychiatric disorder Stable Hold oral medications during p.o. Consult PT OT urgent care physician for evaluation and assisting placement Subjective Date/time seen: 10/07/23 10:31 Interval history: Patient was seen during the morning rounds today. No new overnight complaints. No sob or chest pain Pain controlled. Review of Systems Review of Systems: All ROS are negative except those that are noted in the history and physical examination Exam Narrative: GENERAL: Pleasant, in no acute distress. Well-nourished. - EYES: EOMI. Anicteric. - HENT: Moist mucous membranes. - LUNGS: Clear to auscultation bilaterally, no wheezing, rhonchi, or rales. - CARDIOVASCULAR: Regular rate and rhythm. No murmur. No JVD. - ABDOMEN: Soft, diffuse abdominal tender and non-distended. s/p hemicolectomy - EXTREMITIES: No edema. Peripheral pulses 2+. Non-tender. - NEUROLOGIC: No focal neurological deficits. CN II-XII grossly intact. - PSYCHIATRIC: Awake, Alert and oriented x 3. Appropriate mood and affect. - SKIN: No rashes or lesions. Warm. - LYMPH: No cervical lymphadenopathy. General weakness Objective Data Vital Signs Vital Signs: Vital Signs - 24 hr 10/06/23 11:09 10/06/23 13:05 10/06/23 17:05 Temperature 36.4 C 36.4 C Pulse Rate 83 80 Respiratory Rate 16 16 Blood Pressure 138/52 L 151/55 H Pulse Oximetry 99 98 Oxygen Delivery Room Air 10/06/23 20:00 10/06/23 20:00 10/07/23 05:51 Temperature 36.3 C L 36.2 C L Pulse Rate 73 86 Respiratory Rate 20 18 Blood Pressure 125/54 L 158/76 H Pulse Oximetry 99 100 Oxygen Delivery Room Air 10/07/23 08:00 Temperature Pulse Rate Respiratory Rate Blood Pressure Pulse O
[2023-10-07 11:37] LABS: Glucose Point of Care 154 mg/dl (65-105)
[2023-10-07] MEDS: POTASSIUM CHLORIDE INJ 40 MEQ in SODIUM CHLORIDE 0.9% IV 500 ML 80 MEQ IVPB (11:37)
[2023-10-07 14:00] VITALS: BP 136/58; PULSE 84; RESP 18; TEMP 36.9; O2SAT 100
[2023-10-07 16:46] LABS: Glucose Point of Care 120 mg/dl (65-105)
[2023-10-07 21:05] VITALS: BP 152/66; PULSE 82; RESP 18; TEMP 36.2; O2SAT 90
[2023-10-07] MEDS: LACTATED RINGERS 1,000 ML 75 ML IV CONT (21:39)
[2023-10-08 04:18] LABS: Glucose Point of Care 133 mg/dl (65-105)
[2023-10-08 05:14] VITALS: BP 148/68; PULSE 81; RESP 18; TEMP 36; O2SAT 97
[2023-10-08 05:49] LABS: Basophils Absolute Auto 0.1 K/mm3 (0.0-0.1); Basophils Percent Auto 0.8 % (0.2-1.2); Eosinophils Absolute Auto 0.4 K/mm3 (0-0.3); Eosinophils Percent Auto 7.1 % (0-4.4); Hematocrit 30.9 % (37.0-47.0); Hemoglobin 8.5 g/dL (12.0-15.0); Immature Granulocyte Absolute 0.03 K/mm3 (0.00-0.031); Immature Granulocyte Percent A 0.5 % (0-0.5); Lymphocytes Absolute Auto 1.64 K/mm3 (0.9-3.2); Lymphocytes Percent Auto 27.7 % (18.3-44.2); Mean Corpuscular HGB Conc 27.5 g/dl (32-36); Mean Corpuscular Hemoglobin 20.6 pg (26-34); Mean Platelet Volume 8.7 fl (7.4-10.4); Monocytes Absolute Auto 0.2 K/mm3 (0.1-0.6); Monocytes Percent Auto 4.1 % (2.6-8.5); Neutrophils Absolute Auto 3.5 K/mm3 (1.3-6.7); Neutrophils Percent Auto 59.8 % (45.5-73.1); Platelet Count Result 390 k/mm3 (150-375); Red Blood Count 4.12 M/mm3 (4.2-5.4); Red Cell Distribution Width 26.7 % (11.5-14.5); White Blood Count 5.9 K/mm3 (4.5-10.0)
[2023-10-08] MEDS: ACETAMINOPHEN 325 MG TABLET 650 MG PO (05:50)
[2023-10-08 06:07] LABS: Alanine Aminotransferase 9 U/L (6-35); Albumin Level 3.7 g/dL (3.5-5.1); Alkaline Phosphatase 125 U/L (38-126); Anion Gap 10 mmol/L (4-12); Aspartate Amino Transferase 21 U/L (14-36); Bilirubin,Total 0.2 mg/dL (0.2-1.3); Carbon Dioxide 27 mmol/L (22-30); Chloride 102 mmol/L (98-107); Estimated CRCL calculation 59 ml/min; Estimated Glomerular Filt Rate > 60; Glucose 123 mg/dL (65-110); Potassium 3.3 mmol/L (3.4-5.0); Sodium 139 mmol/L (137-145)
[2023-10-08 06:52] LABS: Blood Urea Nitrogen < 2 mg/dL (7-17)
[2023-10-08] MEDS: levETIRAcetam 500 MG TABLET PO (07:36)
[2023-10-08] MEDS: risperiDONE 1 MG TABLET PO (07:36)
[2023-10-08] MEDS: MIRTAZAPINE 7.5 MG TABLET PO (07:36)
[2023-10-08] MEDS: PANTOPRAZOLE SODIUM IV 40 MG VIAL IV PUSH (07:36)
[2023-10-08] MEDS: ENOXAPARIN 40 MG/0.4 ML SYRINGE SUB-Q (07:36)
[2023-10-08] MEDS: DIVALPROEX SODIUM ER 250 MG TAB.24H PO (07:36)
[2023-10-08] MEDS: amLODIPine BESYLATE 10 MG TABLET PO (07:36)
[2023-10-08] MEDS: VENLAFAXINE HCL XR 75 MG CAP.ER.24H 225 MG PO (07:36)
[2023-10-08] MEDS: BENZTROPINE MESYLATE 1 MG TABLET PO (07:36)
[2023-10-08 07:55] LABS: Glucose Point of Care 121 mg/dl (65-105)
[2023-10-08 08:09] LABS: Anisocytosis 2+; Hypochromasia 2+; Poikilocytosis 1+; Schistocytes None Seen; Target Cells 1+
[2023-10-08 08:10] LABS: Platelet Estimate Adequate (Adequate)
[2023-10-08] MEDS: POTASSIUM CHLORIDE 20 MEQ PACKET (FOR LIQUID) 40 MEQ PO (09:18)
--- NOTE | 2023-10-08 09:31 | PM.PNGS ---
Progress Note: A&P Assessment and Plan (1) Colon cancer: Qualifiers: Colon location: ascending Qualified Code(s): C18.2 - Malignant neoplasm of ascending colon Code(s): C18.9 - Malignant neoplasm of colon, unspecified Status: Acute Assessment and Plan: doing well, exam benign, jenae diet and having bowel fxn, ok to dc home c routine postop care and po analgesia, f/u 2 wks, replace K Subjective Subjective Date/Time Seen: 10/08/23 09:31 Interval history: feels good, jenae diet, +bowel fxn Review of Systems Review of Systems: All systems reviewed & are unremarkable except as noted in HPI and below Exam Const: General: cooperative, comfortable and no acute distress Resp: Auscultation: clear to auscultation bilaterally Cardio: Rate: regular rate Rhythm: regular rhythm GI: Inspection: normal to inspection and incision GI Palp: Yes abdominal tenderness and Yes Soft to palpation Objective Data Vital Signs Vital Signs: Vital Signs - 24 hr 10/07/23 14:00 10/07/23 21:05 10/07/23 20:00 Temperature 36.9 C 36.2 C L Pulse Rate 84 82 Respiratory Rate 18 18 Blood Pressure 136/58 L 152/66 H Pulse Oximetry 100 90 Oxygen Delivery Room Air 10/08/23 05:14 10/08/23 08:00 Temperature 36.0 C L Pulse Rate 81 Respiratory Rate 18 Blood Pressure 148/68 H Pulse Oximetry 97 Oxygen Delivery Room Air Intake/Output Intake/Output: Intake & Output 10/05/23 10/06/23 10/07/23 10/08/23 23:59 23:59 23:59 23:59 Intake Total 1000 2334.7 1860 222 Output Total 2495 1850 2300 1800 Balance -[facility]5 484.7 -440 -1578 Meds/Results Medications: Active Medications Generic Name Dose Route Start Last Admin Trade Name Freq PRN Reason Stop Dose Admin Acetaminophen 650 mg 10/05/23 18:00 10/08/23 05:50 Acetaminophen 325 Mg Tablet PO 650 mg Q6HR SERGIO Administration Amlodipine Besylate 10 mg 10/06/23 09:00 10/08/23 07:36 Amlodipine Besylate 10 Mg Tablet PO 10 mg DAILY SERGIO Administration Benztropine Mesylate 1 mg 10/05/23 17:00 10/08/23 07:36 Benztropine Mesylate 1 Mg Tablet PO 1 mg BID SERGIO Administration Dextrose 12.5 gm 10/01/23 07:47 Dextrose 50% 25 Gm/50 Ml Syringe IV PUSH PRN PRN Hypoglycemia Protocol Divalproex Sodium 250 mg 10/05/23 17:00 10/08/23 07:36 Divalproex Sodium Er 250 Mg Tab.24h PO 250 mg BID SERGIO Administration Enoxaparin Sodium 40 mg 10/06/23 09:00 10/08/23 07:36 Enoxaparin 40 Mg/0.4 Ml Syringe SUB-Q 40 mg DAILY SERGIO Administration Glucagon 1 mg 10/01/23 07:47 Glucagon For Inj 1 Mg Vial IM PRN PRN Hypoglycemia Protocol Glucose 15 gm 10/01/23 07:47 Glucose Oral Gel 15 Gm Of Glucse In 37.5 Gm Tube PO PRN PRN Hypoglycemia Protocol Hydralazine HCl 10 mg 10/04/23 10:03 Hydralazine Hcl 20 Mg/Ml Vial IV PUSH Q8H PRN Blood Pressure - High Hydromorphone HCl 1 mg 10/05/23 15:20 Hydromorphone Hcl Inj (*Crx) 1 Mg/Ml Syr IV PUSH Q2H PRN Breakthrough Pain Rated 7-10 or NPO Hydromorphone HCl 0.5 mg 10/05/23 15:20 Hydromorphone Hcl Inj (*Crx) 1 Mg/Ml Syr IV PUSH Q2H PRN Breakthrough Pain Rated 4-6 or NPO Dextrose 1,000 mls @ 100 mls/hr 10/01/23 07:47 Dextrose 5% 1,000 Ml IVPB PRN PRN Hypoglycemia Protocol Insulin Aspart 3 - 6 units 10/01/23 08:00 10/08/23 07:35 Insulin Aspart (*Bkc) 100 Units/Ml SUB-Q Not Given TIDWM [facility] Protocol Insulin Aspart 2 - 4 units 10/01/23 21:00 10/07/23 21:44 Insulin Aspart (*Bkc) 100 Units/Ml SUB-Q Not Given HS [facility] Protocol Levetiracetam 500 mg 10/05/23 17:00 10/08/23 07:36 Levetiracetam 500 Mg Tablet PO 500 mg BID SERGIO Administration Mirtazapine 7.5 mg 10/06/23 09:00 10/08/23 07:36 Mirtazapine 7.5 Mg Tablet PO 7.5 mg DAILY SERIGO Administration Ondansetron HCl 4 mg 10/05/23 15:20 Ondansetron Inj 4 Mg/2 Ml V
[2023-10-08] MEDS: KCL 20 MEQ/SW 100 ML 100 ML 50 MEQ IVPB (10:06)
--- NOTE | 2023-10-08 11:04 | PM.DS ---
DS: Admitting Diagnosis Discharge Date 10/08/2023 Admitting Diagnosis Severe anemia DS: Discharge Diagnosis Discharge Diagnosis (1) Severe anemia: Code(s): D64.9 - Anemia, unspecified Status: Acute Assessment and Plan: Stable, s/p right hemicolectomy. Hemoglobin is stable. Will monitor closely. 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 Repeat cbc and cmp in am. 10/07/2023 No new overnight complaints. Pain is controlled. Hemoglobin is stable. Plan is to continue current treatment monitor closely. Potassium was low will replace and monitor closely. Severe anemia, possible chronic blood-loss anemia and possible colon cancer Patient has been having intermittent abdomen pain diffuse in possible week, patient is found have severe anemia, hemoglobin is 4.6, CT suggest possible ascending colon cancer Patient received 2 pack RBC hemoglobin stable 8.2 today Follow hemoglobin q.6 hours, transfuse p.r.n. Follow-up stool guaiac positive of bleeding, iron panel, ferritin level Start normal saline IV Start Protonix 40 mg IV daily GI is consulted, appreciate GI consultation, colonoscopy : Colonic masses and ascending colon Appreciate general surgical consultation, Appreciate general surgical consultation, plans surgical treatment today Essential hypertension Hold oral medications during p.o. risk of hypotension Start hydralazine 10 mg q.4 hours p.r.n. with parameters History of CVA No new focal deficit Hold Plavix, resume Plavix when it is okay for GI Type 2 diabetes Hold Home metformin, patient has lactic acidosis Start insulin sliding scale a.c. q.h.s. Psychiatric disorder Stable Hold oral medications during p.o. Consult PT OT healthcare social worker for evaluation and assisting placement DS: Summary Hospital Course Reason for hospitalization: Severe anemia Hospital Course: 72 years old female was admitted for severe anemia patient was found to have adenocarcinoma of the colon. Patient has not right hemicolectomy. Patient electrolytes were replaced and monitored. Patient hemoglobin was monitor. Patient did not have any complication during the stay in the hospital. Today patient feeling better better discharged home stable condition follow-up with surgery and primary care schedule. Status at Discharge Cognitive/behavioral status at discharge: Stable Time Spent with Patient Time attestation: Total time spent providing and/or coordinating discharge services: 30 minutes Exam Narrative: GENERAL: Pleasant, in no acute distress. Well-nourished. - EYES: EOMI. Anicteric. - HENT: Moist mucous membranes. - LUNGS: Clear to auscultation bilaterally, no wheezing, rhonchi, or rales. - CARDIOVASCULAR: Regular rate and rhythm. No murmur. No JVD. - ABDOMEN: Soft, diffuse abdominal tender and non-distended. s/p hemicolectomy - EXTREMITIES: No edema. Peripheral pulses 2+. Non-tender. - NEUROLOGIC: No focal neurological deficits. CN II-XII grossly intact. - PSYCHIATRIC: Awake, Alert and oriented x 3. Appropriate mood and affect. - SKIN: No rashes or lesions. Warm. - LYMPH: No cervical lymphadenopathy. General weakness DS: Data Data Completed and Pending Completed studies during hospitalization: Pending at dis
[2023-10-08 11:33] LABS: Glucose Point of Care 121 mg/dl (65-105)
[2023-10-08 13:25] LABS: Anion Gap 10 mmol/L (4-12); Calcium 9.3 mg/dL (8.4-10.2); Carbon Dioxide 24 mmol/L (22-30); Chloride 104 mmol/L (98-107); Estimated CRCL calculation 59 ml/min; Estimated Glomerular Filt Rate > 60; Glucose 146 mg/dL (65-110); Potassium 3.6 mmol/L (3.4-5.0); Sodium 138 mmol/L (137-145)
[2023-10-08 13:26] LABS: Blood Urea Nitrogen < 2 mg/dL (7-17)
[2023-10-08 14:00] VITALS: BP 157/68; PULSE 86; RESP 18; TEMP 37; O2SAT 97
== END 2023-10-08 15:10 | DRG 231 ==
LOC: ANHED 10-01 04:00 → ANHIMU 10-01 04:04 → ANHICU 10-01 08:33 → ANHIMU 10-02 04:23 → ANH3MEDSUR 10-03 12:48
PROVIDERS: Hospitalist; Internal Medicine Gastroenterology; Surgery; Admitting Provider Internal Medicine; Emergency Provider Emergency Medicine; Visit Provider Internal Medicine
PROC: 0DJ08ZZ Inspection of Upper Intestinal Tract, Via Natural or Artificial Opening Endoscopic (ICD-10-PCS; CPT 43235; principal; 2023-10-02 16:30)
PROC: 0DTF4ZZ Resection of Right Large Intestine, Percutaneous Endoscopic Approach (ICD-10-PCS; CPT 44204; principal; 2023-10-05 12:30)
DX: C18.2 Malignant neoplasm of ascending colon (principal); D63.0 Anemia in neoplastic disease; D50.0 Iron deficiency anemia secondary to blood loss (chronic); K44.9 Diaphragmatic hernia without obstruction or gangrene; K57.30 Diverticulosis of large intestine without perforation or abscess without bleeding; F31.9 Bipolar disorder, unspecified; I10 Essential (primary) hypertension; E11.9 Type 2 diabetes mellitus without complications; K21.9 Gastro-esophageal reflux disease without esophagitis; E78.5 Hyperlipidemia, unspecified; M19.90 Unspecified osteoarthritis, unspecified site; Z86.718 Personal history of other venous thrombosis and embolism; Z79.4 Long term (current) use of insulin; Z86.73 Personal history of transient ischemic attack (TIA), and cerebral infarction without residual deficits; Z86.12 Personal history of poliomyelitis
CPT/HCPCS: 36415; 36430; 71260; 74177; 80048; 80053; 81001; 82274; 82378; 82728; 82948; 83036; 83540; 83550; 83605; 83690; 83735; 85014; 85018; 85025; 85027; 85046; 86850; 86900; 86901; 86923; 87086; 87088; 88305; 88309; 88342; 97161; 97165; 99285; A9270; J0690; J1170; J1650; J1756; J1815; J1836; J1940; J2001; J2405; J2470; J2704; J3010; J3480; J7030; J7040; J7050; J7120; P9016; Q9967

== ENCOUNTER 2023-12-20 09:11 | Outpatient (CLI) | payer OTHER, SELFPAY ==
--- NOTE | ~2023-12-20 | PE_ITS ---
EXAMINATION: PET skull to mid thigh DATE: 12/20/2023 11:13 INDICATION: Malignant neoplasm of colon. TECHNIQUE: Blood glucose level was 119 mg/dL. 10.078 mCi of 18-fluorodeoxyglucose (18-FDG) was admini stered i.v. Low dose computed tomography (CT) images were acquired from the base of the brain to the proximal thighs for attenuation correction and anatomic localization. Automated exposure control was employed. Dose-length product (DLP) was 797 mGy-cm. Positron emission tomography (PET) images were ac quired in the same distribution. COMPARISON: Chest CT 10/03/2023, CT abdomen and pelvis 10/01/2023 FINDINGS: Head/neck: There are no pathologically enlarged lymph nodes. There is a left internal jugular port wi th tip in left brachiocephalic vein. Chest: The lungs demonstrate mild atelectasis. There is a 10 mm nodule in left lower lobe without inc reased activity. No pleural effusion. The heart size is normal. There are coronary artery calcificati ons. No pericardial effusion. There are no pathologically enlarged lymph nodes. Abdomen/pelvis/proximal thighs: The liver, gallbladder, spleen, pancreas, adrenal glands, and kidneys are normal. There are no dilated loops of bowel. There is diverticulosis of the colon without eviden ce of diverticulitis. There are changes of right hemicolectomy. There are no pathologically enlarged lymph nodes. There is no free intraperitoneal fluid. IMPRESSION: 1. 10 mm nodule in left lung lower lobe without increased activity, probably benign. Noncontrast low- dose chest CT is recommended in 6 months. Reviewed, dictated and finalized at location [facility] [employer] IMPRESSION: 1. 10 mm nodule in left lung lower lobe without increased activity, probably be nign. Noncontrast low-dose chest CT is recommended in 6 months.
[2023-12-20 09:45] LABS: Glucose Point of Care 119 mg/dl (65-105)
== END 2023-12-20 09:12 | disposition home or self-care (01) ==
PROVIDERS: PCP Internal Medicine; Visit Provider Internal Medicine Hematology & Oncology
DX: C18.9 Malignant neoplasm of colon, unspecified (principal); R91.1 Solitary pulmonary nodule
CPT/HCPCS: 78815; A9552

== ENCOUNTER 2023-12-28 10:57 | Outpatient (CLI) | payer OTHER, SELFPAY ==
--- NOTE | ~2023-12-28 | XR_ITS ---
EXAMINATION: XR fl port a cath w contrast ORDER COMPLETED DATE: 12/28/2023 12:23 INDICATION: Nonfunctional left-sided port catheter TECHNIQUE: The procedure including the risks and benefits was discussed with the patient. Risks discussed includ ed bleeding, infection, nerve injury and allergic reaction. The patient understood the risks and agreed to proceed. A time-out was performed to verify the patient's name, date of , and procedure to be performed . The skin overlying the left anterior chest wall was prepped and draped in usual sterile fashion. A robotics systems engineer image was obtained. Positioning on robotics systems engineer image is unchanged from original placement on 12/13/2023. A Vasques needle was then advanced into the reservoir for the left internal jugular vein port catheter and aspiration was performed. No blood return was observed The tip of the catheter projected over the manubrium, to the left of midline. Contrast injection demonstrated the catheter opacifying a small circuitous branch which extended post eriorly, likely receiving blood return from the left paraspinous musculature. Reflux of contrast was visualized into the left brachiocephalic vein, and entering the superior vena cava. The port catheter was then flushed with heparin, the Vasques needle removed and a sterile dressing appl ied. The needle was removed and the entry site was cleaned and dressed. There were no immediate complications. A total of 26 fluoroscopic images were recorded. Fluoroscopy exposure time was 0.3 minutes. 5 mL of Omnipaque 240 was utilized. IMPRESSION: Technically successful left internal jugular vein Port-A-Cath interrogation. The catheter is in inadequate position for further usage given the small caliber of the vessel it can nulated. Catheter removal/revision is recommended. Reviewed, dictated and finalized at location A. LEADER/CONTROL ROOM OPERATOR IMPRESSION: Technically successful left internal jugular vein Port-A-Cath interrogation. The catheter is in inadequate position for further usage given the small calibe r of the vessel it cannulated. Catheter removal/revision is recommended.
== END 2023-12-28 10:58 | disposition home or self-care (01) ==
LOC: ANHIMG 11:03
PROVIDERS: PCP Internal Medicine; Visit Provider Internal Medicine Hematology & Oncology
DX: C18.9 Malignant neoplasm of colon, unspecified (principal)
CPT/HCPCS: 36598; 99202; G0463; Q9966

== ENCOUNTER 2024-01-09 01:06 | Emergency (ER) | payer OTHER, SELFPAY ==
--- NOTE | ~2024-01-09 | CT_ITS ---
CT head without contrast Indication: Dizziness Technique: Serial scans were obtained through the brain without the administration of contrast. Dose reduction technique was used on this scan by utilizing automated exposure control and iterative recon struction technique. The dose-length product (DLP) was 681.00 mGy-cm. Findings: There is no evidence of intracranial hemorrhage, mass lesion, or acute infarct. The ventri cles and subarachnoid spaces are dilated, consistent with mild to moderate atrophy. Low attenuation regions are seen within the periventricular white matter bilaterally, likely representing changes fro m chronic microvascular ischemic disease. There is no evidence of edema, mass effect or midline shif t. The visualized paranasal sinuses and mastoid air cells are clear. Impression: No intracranial hemorrhage, mass, or acute infarct. Atrophy and chronic white matter changes, as above. Reviewed, dictated and finalized at location M. GER LAB Impression: No intracranial hemorrhage, mass, or acute infarct. Atrophy and chronic white matter changes, as above.
--- NOTE | ~2024-01-09 | XR_ITS ---
Portable chest x-ray Comparison: 12/13/2023 Clinical History: Weakness Findings: Stable left-sided Mediport. Lungs are clear, without focal consolidation or pleural effusi on. Cardiomediastinal silhouette is stable. Bones and soft tissues are unremarkable. Impression: Clear lungs. Stable left-sided Mediport. Reviewed, dictated and finalized at location . FOREMAN Impression: Clear lungs. Stable left-sided Mediport.
[2024-01-09 01:10] VITALS: BP 158/78; PULSE 85; RESP 19; TEMP 36.3; O2SAT 100
[2024-01-09 02:43] VITALS: BP 169/73; PULSE 84; RESP 16; O2SAT 98
--- NOTE | 2024-01-09 03:24 | ECG_ITS ---
Test Date: 2024-01-09 03:53:06 Measurements Intervals [place] Rate: 85 P: 65 AR: 141 QRS: 11 QRSD: 87 T: 30 QT: 367 QTc: 438 Interpretive Statements SINUS RHYTHM MODERATE VOLTAGE CRITERIA FOR LVH, CONSIDER NORMAL VARIANT [MEETS CRITERIA IN ONE OF: R(aVL), S(V1), R(V5), R(V5/V6)+S(V1)] NONSPECIFIC T-WAVE ABNORMALITY ABNORMAL ECG No previous ECG available for comparison Electronically Signed On 01-09-2024 10:57:25 NEUROCRITICAL CARE PHYSICIAN by Aly Garrett M.D.
--- NOTE | 2024-01-09 03:53 | ED.GENADULT ---
HPI - General Adult General Chief complaint: Unspecified <Cameron Perez MD - Last Filed: 01/09/24 03:56> Stated complaint: liu into head while laying down <Cameron Perez MD - Last Filed: 01/09/24 03:56> Time Seen by Provider: 01/09/24 03:18 <Cameron Perez MD - Last Filed: 01/09/24 03:56> History of Present Illness HPI narrative: Patient is a 53-year-old female who presents emergency department chief complaint of dizziness. Patient reports she recently had a port placed for chemotherapy for colon cancer the patient reports that she has been having episodes is feeling as though her head is spinning and feels as though things are going black whenever she tries to fall asleep <Cameron Perez MD - Last Filed: 01/09/24 03:56> Patient is a 53-year-old female who presents to the emergency department chief complaint of dizziness. Patient reports she recently had a port placed for chemotherapy for colon cancer the patient reports that she has been having episodes is feeling as though her head is spinning and feels as though things are going black whenever she tries to fall asleep <Ari Mi MD - Last Filed: 01/09/24 18:22> Related Data Home medications: Home Medications Medication Instructions Recorded Confirmed amlodipine 10 mg tablet 10 mg PO DAILY 04/13/19 12/12/23 atorvastatin 40 mg tablet 40 mg PO HS 04/13/19 12/12/23 benztropine 1 mg tablet 1 mg PO BID 04/13/19 12/12/23 divalproex 250 mg tablet,extended 250 mg PO BID 04/13/19 12/12/23 release 24 hr (Depakote ER) losartan 50 mg tablet 50 mg PO DAILY 04/13/19 12/12/23 metformin 1,000 mg tablet 500 mg PO BID 04/13/19 12/12/23 trazodone 50 mg tablet 25 mg PO HS 04/13/19 12/12/23 cranberry 500 mg capsule 500 mg PO BID 10/01/23 12/12/23 ferrous sulfate 325 mg (65 mg 325 mg PO DAILY 10/01/23 12/12/23 iron) tablet insulin glargine 100 unit/mL 40 unit subcut QPM 10/01/23 12/12/23 subcutaneous solution (Lantus U-100 Insulin) insulin glargine 100 unit/mL 42 unit subcut DAILY 10/01/23 12/12/23 subcutaneous solution (Lantus U-100 Insulin) insulin lispro 100 unit/mL 15 unit subcut TIDWM 10/01/23 12/12/23 subcutaneous solution (Humalog U-100 Insulin) levetiracetam 500 mg tablet 500 mg PO BID 10/01/23 12/12/23 (Keppra) meloxicam 7.5 mg tablet 7.5 mg PO DAILY 10/01/23 12/12/23 mirtazapine 7.5 mg tablet 7.5 mg PO DAILY 10/01/23 12/12/23 polyethylene glycol 3350 17 gram 17 g PO DAILY PRN Constipation 10/01/23 12/12/23 oral powder packet (Miralax) risperidone 1 mg tablet (Risperdal) 1 mg PO BID 10/01/23 12/12/23 venlafaxine 75 mg capsule,extended 225 mg PO DAILY 10/01/23 12/12/23 release 24 hr (Effexor XR) <Cameron Perez MD - Last Filed: 01/09/24 03:56> Allergies/adverse reactions: Allergies Allergy/AdvReac Type Severity Reaction Status Date / Time latex Allergy Unknown Verified 01/09/24 01:07 <Cameron Perez MD - Last Filed: 01/09/24 03:56> Review of Systems Review of Systems: A 10 system review of systems was completed on the patient and is negative except for what is stated in the HPI. Nursing and ancillary documentation was reviewed. 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 Depression GERD (gastroesophageal reflux disease) History of DVT (deep vein thrombosis) HLD (hyperlipidemia) HTN (hypertension) Insulin dependent type 2 diabetes mellitus Polio Patient had polio as a child that is left her with left lower leg weakness. Wheelchair dependence <Cameron Perez MD - Last Filed: 01/09/24 03:56> Surgical History Surgical History: Surgical History No history of previous surgery <Cameron Perez MD - Last Filed: 01/09/24 03:56> Family History Family History: Family History Other Acute myocardial infarction Congestive heart failure Diabetes mellitus Hypertension <Cameron Perez MD - Last Filed: 01/09/24 03:56> Social History Social History: Social History Social History: Apparently she is currently at a alf. She ambulates with a walker. No alcohol, tobacco, or drug abuse. Daughter Portia Altman is her emergency contact and she is listed as a full code. Smoking status: Never smoker Alcohol intake: never Substance use: never Do You Feel Safe in your Home?: Yes Lack of Transportation: No Lack of Food: Never True Current Housing: I Have Housing Concerned About Future Housing: YES Difficulty Paying Gas/Electric Bills: No Difficulty Paying for Meds: YES Currently Unemployed: YES Education: High School Diploma/GED Difficulty w/ Childcare or Family Care: YES Living arrangements: alf Additional living arrangements comments: [facility] last few months Rebeca MCCLENDON phn [phone] Gender identity (if verbalized by the patient): Female Spiritual care concerns: No Agree to blood products: Yes <Cameron Perez MD - Last Filed: 01/09/24 03:56> Exam Narrative: GENERAL: Well-appearing, well-nourished, and in no acute distress. HEAD: Normocephalic, atraumatic. EYES: PERRLA and EOMI. ENT: Nares clear, no rhinorrhea or epistaxis. Mucous membranes moist. NECK: Supple. CHEST: Clear to auscultation. No respiratory distress. HEART: Regular rate and rhythm. No murmur heard. Normal peripheral pulses. ABDOMEN: Soft, nontender, nondistended, normal active bowel sounds. EXTREMITIES: Normal range of motion. No edema. SKIN: Warm, dry, no rash. NEURO: No focal deficits. Alert and oriented x3. PSYCH: Normal mood and affect. <Cameron Perez MD - Last Filed: 01/09/24 03:56> Course Vital Signs Vital signs: Vital Signs Temperature 97.4 F L 01/09/24 01:10 Pulse Rate 85 01/09/24 01:10 Respiratory Rate 19 01/09/24 01:10 Blood Pressure 158/78 H 01/09/24 01:10 Pulse Oximetry 100 01/09/24 01:10 Oxygen Delivery Room Air 01/09/24 01:10 Temperature 97.4 F L 01/09/24 01:10 Pulse Rate 76 01/09/24 09:00 Respiratory Rate 16 01/09/24 09:00 Blood Pressure 161/73 H 01/09/24 09:00 Pulse Oximetry 98 01/09/24 09:00 Oxygen Delivery Room Air 01/09/24 01:10 <Cameron Perez MD - Last Filed: 01/09/24 03:56> Vital Signs Temperature 97.4 F L 01/09/24 01:10 Pulse Rate 85 01/09/24 01:10 Respiratory Rate 19 01/09/24 01:10 Blood Pressure 158/78 H 01/09/24 01:10 Pulse Oximetry 100 01/09/24 01:10 Oxygen Delivery Room Air 01/09/24 01:10 Temperature 97.4 F L 01/09/24 01:10 Pulse Rate 76 01/09/24 09:00 Respiratory Rate 16 01/09/24 09:00 Blood Pressure 161/73 H 01/09/24 09:00 Pulse Oximetry 98 01/09/24 09:00 Oxygen Delivery Room Air 01/09/24 01:10 <Ari Mi MD - Last Filed: 01/09/24 18:22> Medical Decision Making MDM Narrative Medical decision making narrative: fady- 73-year-old female presented to the emergency department for evaluation for not feeling well. Patient care was signed out to me by the overnight physician. At time of sign-out labs are pending. Patient is afebrile with no leukocytosis and hemoglobin of 9.1 which is similar to her baseline patient had negative serial troponins. UA was negative for infection, chest x-ray shows her stable MediPort and head CT shows no acute intracranial abnormality. On re-evaluation patient does feel improved. Patient was comfortable plan for discharge home. <Ari Mi MD - Last Filed: 01/09/24 18:22> Differential Diagnosis Differential Diagnosis: COVID, RSV, influenza, intracranial abnormality, pneumonia <Ari Mi MD - Last Filed: 01/09/24 18:22> Vital Signs Vital Signs: Vital Signs Temperature 97.4 F L 01/09/24 01:10 Pulse Rate 85 01/09/24 01:10 Respiratory Rate 19 01/09/24 01:10 Blood Pressure 158/78 H 01/09/24 01:10 Pulse Oximetry 100 01/09/24 01:10 Oxygen Delivery Room Air 01/09/24 01:10 Temperature 97.4 F L 01/09/24 01:10 Pulse Rate 76 01/09/24 09:00 Respiratory Rate 16 01/09/24 09:00 Blood Pressure 161/73 H 01/09/24 09:00 Pulse Oximetry 98 01/09/24 09:00 Oxygen Delivery Room Air 01/09/24 01:10 <Cameron Perez MD - Last Filed: 01/09/24 03:56> Vital Signs Temperature 97.4 F L 01/09/24 01:10 Pulse Rate 85 01/09/24 01:10 Respiratory Rate 19 01/09/24 01:10 Blood Pressure 158/78 H 01/09/24 01:10 Pulse Oximetry 100 01/09/24 01:10 Oxygen Delivery Room Air 01/09/24 01:10 Temperature 97.4 F L 01/09/24 01:10 Pulse Rate 76 01/09/24 09:00 Respiratory Rate 16 01/09/24 09:00 Blood Pressure 161/73 H 01/09/24 09:00 Pulse Oximetry 98 01/09/24 09:00 Oxygen Delivery Room Air 01/09/24 01:10 <Ari Mi MD - Last Filed: 01/09/24 18:22> Lab Data Result diagrams: 01/09/24 06:35 01/09/24 06:35 <Cameron Perez MD - Last Filed: 01/09/24 03:56> Labs: Lab Results 01/09/24 01/09/24 Range/Units 05:07 06:35 WBC 5.2 (4.5-10.0) K/mm3 RBC 3.28 L (4.2-5.4) M/mm3 Hgb 9.1 L (12.0-15.0) g/dL Hct 29.7 L (37.0-47.0) % MCV 90.5 (80-100) fl MCH 27.7 (26-34) pg MCHC 30.6 L (32-36) g/dl RDW 14.6 H (11.5-14.5) % Plt Count 254 (150-375) k/mm3 MPV 9.3 (7.4-10.4) fl Immature Gran % (Auto) 0.6 H (0-0.5) % Neut % (Auto) 59.6 (45.5-73.1) % Lymph % (Auto) 26.1 (18.3-44.2) % [place] % (Auto) 8.3 (2.6-8.5) % Eos % (Auto) 4.8 H (0-4.4) % Baso % (Auto) 0.6 (0.2-1.2) % Lymph # (Auto) 1.35 (0.9-3.2) K/mm3 [place] # (Auto) 0.4 (0.1-0.6) K/mm3 Eos # (Auto) 0.3 (0-0.3) K/mm3 Baso # (Auto) 0.0 (0.0-0.1) K/mm3 Abs Immat Gran (auto) 0.03 (0.00-0.031) K/mm3 Absolute Neuts (auto) 3.1 (1.3-6.7) K/mm3 Absolute Nucleated RBC 0.000 (0.0-0.012) K/mm3 Nucleated RBC % 0.0 (0.0-0.2) % Sodium 139 (137-145) mmol/L Potassium 4.0 (3.4-5.0) mmol/L Chloride 108 H (98-107) mmol/L Carbon Dioxide 25 (22-30) mmol/L Anion Gap 6 (4-12) mmol/L BUN 8 D (7-17) mg/dL Creatinine 0.40 L (0.7-1.0) mg/dL Estim Creat Clear Calc 82 ml/min Estimated GFR > 60 (59 - ) Glucose 153 H (65-110) mg/dL Lactic Acid 1.3 (0.7-2.0) mmol/L Calcium 8.7 (8.4-10.2) mg/dL Magnesium 1.3 L (1.6-2.3) mg/dL Total Bilirubin 0.4 (0.2-1.3) mg/dL AST 21 (14-36) U/L ALT 51 H (6-35) U/L Alkaline Phosphatase 146 H (38-126) U/L Troponin I < 0.012 (0.000-0.034) ng/mL Total Protein 8.0 (6.3-8.2) g/dL Albumin 3.9 (3.5-5.1) g/dL Procalcitonin 0.1 ng/mL Urine Color Yellow (Yellow) Urine Appearance Clear (Clear) Urine pH 8.0 (5.0-9.0) Ur Specific [place] 1.013 (1.001-1.035) Urine Protein Negative (Negative) mg/dL Urine Glucose (UA) Negative (Negative) mg/dL Urine Ketones Negative (Negative) mg/dL Ur Blood (Man) Negative (Negative) Urine Nitrate Negative (Negative) Urine Bilirubin Negative (Negative) Urine Urobilinogen 1.0 (<2.0) mg/dL Leukocyte Esterase Rfl Negative (Negative) HARRISON/UL <Cameron Perez MD - Last Filed: 01/09/24 03:56> Lab Results 01/09/24 01/09/24 Range/Units 05:07 06:35 WBC 5.2 (4.5-10.0) K/mm3 RBC 3.28 L (4.2-5.4) M/mm3 Hgb 9.1 L (12.0-15.0) g/dL Hct 29.7 L (37.0-47.0) % MCV 90.5 (80-100) fl MCH 27.7 (26-34) pg MCHC 30.6 L (32-36) g/dl RDW 14.6 H (11.5-14.5) % Plt Count 254 (150-375) k/mm3 MPV 9.3 (7.4-10.4) fl Immature Gran % (Auto) 0.6 H (0-0.5) % Neut % (Auto) 59.6 (45.5-73.1) % Lymph % (Auto) 26.1 (18.3-44.2) % [place] % (Auto) 8.3 (2.6-8.5) % Eos % (Auto) 4.8 H (0-4.4) % Baso % (Auto) 0.6 (0.2-1.2) % Lymph # (Auto) 1.35 (0.9-3.2) K/mm3 [place] # (Auto) 0.4 (0.1-0.6) K/mm3 Eos # (Auto) 0.3 (0-0.3) K/mm3 Baso # (Auto) 0.0 (0.0-0.1) K/mm3 Abs Immat Gran (auto) 0.03 (0.00-0.031) K/mm3 Absolute Neuts (auto) 3.1 (1.3-6.7) K/mm3 Absolute Nucleated RBC 0.000 (0.0-0.012) K/mm3 Nucleated RBC % 0.0 (0.0-0.2) % Sodium 139 (137-145) mmol/L Potassium 4.0 (3.4-5.0) mmol/L Chloride 108 H (98-107) mmol/L Carbon Dioxide 25 (22-30) mmol/L Anion Gap 6 (4-12) mmol/L BUN 8 D (7-17) mg/dL Creatinine 0.40 L (0.7-1.0) mg/dL Estim Creat Clear Calc 82 ml/min Estimated GFR > 60 (59 - ) Glucose 153 H (65-110) mg/dL Lactic Acid 1.3 (0.7-2.0) mmol/L Calcium 8.7 (8.4-10.2) mg/dL Magnesium 1.3 L (1.6-2.3) mg/dL Total Bilirubin 0.4 (0.2-1.3) mg/dL AST 21 (14-36) U/L ALT 51 H (6-35) U/L Alkaline Phosphatase 146 H (38-126) U/L Troponin I < 0.012 (0.000-0.034) ng/mL Total Protein 8.0 (6.3-8.2) g/dL Albumin 3.9 (3.5-5.1) g/dL Procalcitonin 0.1 ng/mL Urine Color Yellow (Yellow) Urine Appearance Clear (Clear) Urine pH 8.0 (5.0-9.0) Ur Specific [place] 1.013 (1.001-1.035) Urine Protein Negative (Negative) mg/dL Urine Glucose (UA) Negative (Negative) mg/dL Urine Ketones Negative (Negative) mg/dL Ur Blood (Man) Negative (Negative) Urine Nitrate Negative (Negative) Urine Bilirubin Negative (Negative) Urine Urobilinogen 1.0 (<2.0) mg/dL Leukocyte Esterase Rfl Negative (Negative) HARRISON/UL <Ari Mi MD - Last Filed: 01/09/24 18:22> Discharge Plan Discharge Clinical Impression: Viral illness, Weakness <Cameron Perez MD - Last Filed: 01/09/24 03:56> Patient Disposition: NH Care Home/Asst Living <Cameron Perez MD - Last Filed: 01/09/24 03:56> Condition: Stable <Cameron Perez MD - Last Filed: 01/09/24 03:56> Instructions: Antibiotic Form <Cameron Perez MD - Last Filed: 01/09/24 03:56> Additional Instructions: Have close follow-up with your primary care physician if you have any worsening symptoms then please call or return to the emergency department. <Cameron Perez MD - Last Filed: 01/09/24 03:56> Prescriptions: No Action losartan 50 mg Tablet 50 mg PO DAILY atorvastatin 40 mg Tablet 40 mg PO HS amlodipine 10 mg Tablet 10 mg PO DAILY metformin 1,000 mg Tablet 500 mg PO BID benztropine 1 mg Tablet 1 mg PO BID divalproex [Depakote ER] 250 mg Tablet Extended Release 24 Hr 250 mg PO BID trazodone 50 mg Tablet 25 mg PO HS cranberry 500 mg Capsule 500 mg PO BID Rx Instructions: administer with meals insulin glargine [Lantus U-100 Insulin] 100 unit/mL Solution 42 unit SUBCUT DAILY insulin glargine [Lantus U-100 Insulin] 100 unit/mL Solution 40 unit SUBCUT QPM venlafaxine [Effexor XR] 75 mg Capsule,Extended Release 24hr 225 mg PO DAILY levetiracetam [Keppra] 500 mg Tablet 500 mg PO BID ferrous sulfate 325 mg (65 mg iron) Tablet 325 mg PO DAILY insulin lispro [Humalog U-100 Insulin] 100 unit/mL Solution 15 unit SUBCUT TIDWM meloxicam 7.5 mg tablet 7.5 mg PO DAILY polyethylene glycol 3350 [Miralax] 17 gram Powder In Packet 17 g PO DAILY PRN (Reason: Constipation) risperidone [Risperdal] 1 mg Tablet 1 mg PO BID mirtazapine 7.5 mg Tablet 7.5 mg PO DAILY docusate sodium [Colace] 100 mg capsule 100 mg PO BID Qty: 20 0RF potassium chloride 10 mEq packet 10 meq PO DAILY Qty: 3 0RF <Cameron Perez MD - Last Filed: 01/09/24 03:56> Follow-up/Referrals: Lynsey,MD Rodrigo [Primary Care Provider] - <Cameron Perez MD - Last Filed: 01/09/24 03:56>
[2024-01-09] MEDS: SODIUM CHLORIDE 0.9% IV 1,000 ML 999 ML IV CONT (03:58)
[2024-01-09 04:00] VITALS: BP 160/80; PULSE 84; RESP 18; O2SAT 97
--- NOTE | 2024-01-09 04:42 | PC.NURSE ---
Patient has had multiple IV attempts between this RN, [place] RN in ED with ultrasound, and an MINE EXPLORATION ENGINEER with ultrasound. Unable to get blood. Charge nurse and MD made aware and phlebotomy has been called.
[2024-01-09 05:00] VITALS: BP 154/68; PULSE 82; RESP 20; O2SAT 98
[2024-01-09 05:13] LABS: Add Urine Microscopic? NO; Appearance Urine Clear (Clear); Bilirubin Urine Negative (Negative); Blood Urine Negative (Negative); Color Urine Yellow (Yellow); Glucose Urine UA Negative (Negative); Ketones Urine Negative (Negative); Leukocyte Esterase Ur Negative LEU/UL (Negative); Nitrate Urine Negative (Negative); Protein Urine Negative (Negative); Specific Grav Ur 1.013 (1.001-1.035)
[2024-01-09] MEDS: MORPHINE SULFATE (*CRX) 4 MG/ML INJ 2 MG IV PUSH (05:33)
[2024-01-09 06:51] LABS: Basophils Percent Auto 0.6 % (0.2-1.2); Eosinophils Absolute Auto 0.3 K/mm3 (0-0.3); Eosinophils Percent Auto 4.8 % (0-4.4); Hematocrit 29.7 % (37.0-47.0); Hemoglobin 9.1 g/dL (12.0-15.0); Immature Granulocyte Absolute 0.03 K/mm3 (0.00-0.031); Immature Granulocyte Percent A 0.6 % (0-0.5); Lymphocytes Absolute Auto 1.35 K/mm3 (0.9-3.2); Lymphocytes Percent Auto 26.1 % (18.3-44.2); Mean Corpuscular HGB Conc 30.6 g/dl (32-36); Mean Corpuscular Hemoglobin 27.7 pg (26-34); Mean Corpuscular Volume 90.5 fl (80-100); Mean Platelet Volume 9.3 fl (7.4-10.4); Monocytes Absolute Auto 0.4 K/mm3 (0.1-0.6); Monocytes Percent Auto 8.3 % (2.6-8.5); Neutrophils Absolute Auto 3.1 K/mm3 (1.3-6.7); Neutrophils Percent Auto 59.6 % (45.5-73.1); Platelet Count Result 254 k/mm3 (150-375); Red Blood Count 3.28 M/mm3 (4.2-5.4); Red Cell Distribution Width 14.6 % (11.5-14.5); White Blood Count 5.2 K/mm3 (4.5-10.0)
[2024-01-09 07:03] LABS: Lactic Acid Reflex 1.3 mmol/L (0.7-2.0)
[2024-01-09 07:04] LABS: Alanine Aminotransferase 51 U/L (6-35); Albumin Level 3.9 g/dL (3.5-5.1); Alkaline Phosphatase 146 U/L (38-126); Anion Gap 6 mmol/L (4-12); Aspartate Amino Transferase 21 U/L (14-36); Bilirubin,Total 0.4 mg/dL (0.2-1.3); Blood Urea Nitrogen 8 mg/dL (7-17); Calcium 8.7 mg/dL (8.4-10.2); Carbon Dioxide 25 mmol/L (22-30); Chloride 108 mmol/L (98-107); Estimated CRCL calculation 82 ml/min; Estimated Glomerular Filt Rate > 60; Glucose 153 mg/dL (65-110); Magnesium 1.3 mg/dL (1.6-2.3); Sodium 139 mmol/L (137-145)
[2024-01-09 07:15] LABS: Troponin I < 0.012 ng/mL (0.000-0.034)
[2024-01-09 07:24] LABS: Procalcitonin 0.1 ng/mL
[2024-01-09 08:00] VITALS: BP 159/67; PULSE 76; RESP 20; O2SAT 97
[2024-01-09] MEDS: MAGNESIUM SULF 1 GM/D5W 100 ML 1 GM/100 ML BAG IVPB (08:17)
[2024-01-09 09:00] VITALS: BP 161/73; PULSE 76; RESP 16; O2SAT 98
== END 2024-01-09 09:26 ==
PROVIDERS: Emergency Provider Emergency Medicine; PCP Internal Medicine
DX: B34.9 Viral infection, unspecified (principal); R53.1 Weakness; C18.9 Malignant neoplasm of colon, unspecified; I10 Essential (primary) hypertension; I69.398 Other sequelae of cerebral infarction; I69.392 Facial weakness following cerebral infarction; R26.89 Other abnormalities of gait and mobility; E78.5 Hyperlipidemia, unspecified; E11.9 Type 2 diabetes mellitus without complications; K21.9 Gastro-esophageal reflux disease without esophagitis; D64.9 Anemia, unspecified; F31.9 Bipolar disorder, unspecified; Z86.12 Personal history of poliomyelitis; Z86.718 Personal history of other venous thrombosis and embolism; Z79.899 Other long term (current) drug therapy; Z79.4 Long term (current) use of insulin; Z79.84 Long term (current) use of oral hypoglycemic drugs; Z79.60 Long term (current) use of unspecified immunomodulators and immunosuppressants; R94.31 Abnormal electrocardiogram [ECG] [EKG]
CPT/HCPCS: 36415; 70450; 71045; 80053; 81003; 83605; 83735; 84145; 84484; 85025; 93005; 96361; 96365; 96375; 99284; J2270; J3475; J7030

== ENCOUNTER 2024-01-25 02:00 | Day surgery (SDC) | payer OTHER, SELFPAY ==
[2024-01-16 13:27] VITALS: BMI 35.2
--- NOTE | 2024-01-17 12:01 | PC.NURSE ---
Report to the Outpatient Waiting Room, entrance under the green pavilion located off [facility], at time ___7:30AM____ on date ___01/25/24____. Planned Procedure Time: __9:30AM .? Time changes happen often and if your time is changed the preop area will call you the afternoon before. - You and your visitor will be asked to self-screen and do not enter if you have any COVID symptoms. Please call surgeon if you need to reschedule. - A mask is optional within the hospital at this time. Patients may have clear liquids (water, carbonated beverages, clear teas, apple juice) until 3 hours prior to surgery with a maximum of 20 ounces. - No food from midnight until time of surgery and no smoking. This includes no chewing gum, candy or mints. Take only the following medications with a SIP of water on the morning of surgery: AMLODIPINE, BENZTROPINE, DEPAKOTE, KEPPRA, RISPERDAL, VENLAFAXINE. MAY TAKE ONDANSETRON NEEDED. DO NOT STOP ANY OF YOUR OTHER PRESCRIPTION MEDICATIONS PRIOR TO SURGERY EXCEPT THE FOLLOWING Medications to discontinue per physician ___NONE Date to take last dose Please no make-up, nail slovak, hairspray, perfume, deodorant, or body powder the day of surgery.? No jewelry (including any body piercings) or valuables the day of surgery, leave them at home.? Please take a shower or bath the night before, or the morning of, surgery with an antibacterial soap.? Wear comfortable, loose fitting clothing.? Children are encouraged to wear pajamas. - Jewelry must be removed prior to entering the operating room.? Rings and piercings that are not removed may be cut off. - The hospital will not accept responsibility for valuables.? - Please leave all valuables, including medications, at home the day of surgery. If you are going home after surgery, a licensed ambulance driver must drive you home.? - NO public transportation without another adult if you receive anesthesia. - We recommend that an adult stay with you for 24 hours following discharge. - We also recommend that you do not drive, make important decision, drink alcoholic beverages, or take any drugs that were not prescribed by your health care provider for at least 24 hours after your discharge time. Follow any additional instructions given to you from your surgeon. Telephone instructions given to ____NURSING HOME and asked if any additional questions and then verbalized understanding. Patient advised to call surgeon office or pre surgery nurse liaison [phone] if any additional questions.
[2024-01-25] VITALS (7 sets, daily range): BP systolic 103–155; BP diastolic 43–78; PULSE 76–100; RESP 15–18; TEMP 36.2; O2SAT 93–100
--- NOTE | ~2024-01-25 | XR_ITS ---
XR chest port-a-cath/central, XR fl guide central line place 01/25/2024 10:35 (accession [id number]), 01/25/2024 10:34 (accession [id number]) Indication: Portacatheter placement Procedure: Fluoroscopy provided for clinical service for portacatheter placement. 22 seconds of fluor oscopy. Subsequent AP portable chest performed. Comparison: Comparison to multiple prior studies sequentially, with oldest reviewed study dated 08/2023. Findings: Right sided grisel catheter, tip in the SVC. Heart size normal. No focal air space disease, pulmonary edema, pleural effusion or suspected pneumothorax. No acute osseous abnormality. Impression: 1: Portacatheter tip in the SVC. Reviewed, dictated and finalized at location B. [place] Impression: 1: Portacatheter tip in the SVC. Impression: 1: Portacatheter tip in the SVC.
--- NOTE | 2024-01-25 07:25 | P.HP_ITS ---
H&P: HPI History of Present Illness Date/Time: 01/25/24 07:25 Chief Complaint: Malfunctioning portacatheter Narrative: Pt had left IJ port placed about 6 weeks ago. Catheter tip has pulled back into left brachiocephalic vein. She is being treated for colon CA and her first infusion with chemo was problematic as the catheter did not infuse well. She presents for removal of the left sided malfunctioning port and placement of a new port, likely on the right side. Review of Systems Review of Systems: The remainder of the review of systems to include constitutional, HEENT, cardiovascular, respiratory, GI, , integumentary, musculoskeletal, endocrine, immunologic, hematologic, psychiatric, and neurologic are all negative except for which is mentioned above in the HPI. [facility] Past Medical History Medical History Wheelchair dependence Chronic anemia History of DVT (deep vein thrombosis) Insulin dependent type 2 diabetes mellitus Polio Patient had polio as a child that is left her with left lower leg weakness. 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 Surgical History Surgical History No history of previous surgery Family History Family History Other Acute myocardial infarction Congestive heart failure Diabetes mellitus Hypertension Social History Social History Social History: Apparently she is currently at a senior care. She ambulates with a walker. No alcohol, tobacco, or drug abuse. Daughter Portia Altman is her emergency contact and she is listed as a full code. Smoking status: Never smoker Alcohol intake: never Substance use: never Do You Feel Safe in your Home?: Yes Lack of Transportation: No Lack of Food: Never True Current Housing: I Have Housing Concerned About Future Housing: YES Difficulty Paying Gas/Electric Bills: No Difficulty Paying for Meds: YES Currently Unemployed: YES Education: High School Diploma/GED Difficulty w/ Childcare or Family Care: YES Living arrangements: senior care Additional living arrangements comments: [facility] last few months Rebeca MCCLENDON phn [phone] Gender identity (if verbalized by the patient): Female Spiritual care concerns: No Agree to blood products: Yes Meds Home Medications and Allergies Home Medications ?Medication ?Instructions ?Recorded ?Confirmed ?Type amlodipine 10 mg tablet 10 mg PO DAILY 04/13/19 01/16/24 History atorvastatin 40 mg tablet 40 mg PO HS 04/13/19 01/16/24 History benztropine 1 mg tablet 1 mg PO BID 04/13/19 01/16/24 History divalproex 250 mg tablet,extended 250 mg PO BID 04/13/19 01/16/24 History release 24 hr (Depakote ER) losartan 50 mg tablet 50 mg PO DAILY 04/13/19 01/16/24 History trazodone 50 mg tablet 25 mg PO HS 04/13/19 01/16/24 History cranberry 500 mg capsule 500 mg PO BID 10/01/23 01/16/24 History ferrous sulfate 325 mg (65 mg 325 mg PO DAILY 10/01/23 01/16/24 History iron) tablet insulin glargine 100 unit/mL 40 unit subcut QPM 10/01/23 01/16/24 History subcutaneous solution (Lantus U-100 Insulin) insulin glargine 100 unit/mL 42 unit subcut DAILY 10/01/23 01/16/24 History subcutaneous solution (Lantus U-100 Insulin) levetiracetam 500 mg tablet 500 mg PO BID 10/01/23 01/16/24 History (Keppra) meloxicam 7.5 mg tablet 7.5 mg PO DAILY 10/01/23 01/16/24 History mirtazapine 7.5 mg tablet 7.5 mg PO DAILY 10/01/23 01/16/24 History polyethylene glycol 3350 17 gram 17 g PO DAILY PRN Constipation 10/01/23 01/16/24 History oral powder packet (Miralax) risperidone 1 mg tablet (Risperdal) 1 mg PO BID 10/01/23 01/16/24 History venlafaxine 75 mg capsule,extended 225 mg PO DAILY 10/01/23 01/16/24 History release 24 hr (Effexor XR) docusate sodium 100 mg capsule 100 mg PO BID #20 caps 10/07/23 01/16/24 Rx (Colace) lidocaine-prilocaine 2.5 %-2.5 % 1 applic topical ONCE 01/17/24 01/17/24 History topical kit (Anodyne LPT) metformin 1,000 mg tablet 1,000 mg PO BID 01/17/24 01/17/24 History ondansetron 8 mg disintegrating 8 mg PO Q8H PRN nausea and vomiting 01/17/24 01/17/24 History tablet potassium chloride 10 mEq 30 meq PO DAILY 01/17/24 01/17/24 History tablet,extended release Allergies Allergy/AdvReac Type Severity Reaction Status Date / Time latex Allergy Unknown Verified 01/16/24 13:42 Exam Const: General: comfortable and no acute distress HENMT: Ears: TM's normal bilaterally Face/Nose/Sinus: Normal nares present Mouth: Yes moist mucous membranes Eyes: General: appearance normal, both eyes and all related structures Sclera: sclerae normal Pupils: Equal, round and reactive pupils present EOM: EOMs intact bilaterally Neck: Neck: supple and no JVD Chest: Other: Left anterior chest port in place, no redness or infection. Right anterior chest no rash or wounds. Resp: Effort & Inspection: normal respiratory effort Auscultation: clear to auscultation bilaterally Cardio: Rate: regular rate Rhythm: regular rhythm GI: GI Palp: Yes Soft to palpation, No Firmness to palpation present (GI), No Tenderness to palpation present (GI), No Guarding due to palpation present (GI) and No Hernia present Skin: General skin exam: normal color and no rashes or lesions noted Neuro: Speech: normal speech Extrem: General: normal to inspection Psych: Mental Status: mental status grossly normal Affect: normal affect Assessment and Plan Assessment and plan (1) Port-A-Cath in place: Code(s): Z95.828 - Presence of other vascular implants and grafts Status: Acute Assessment and Plan: Existing left IJ port is not functioning properly to administer chemo tx. Will place new right side port and remove the malfunctioning left IJ port. Risks, benefits, indications, and expected outcomes were discussed in detail with the patient and/or family. They understand and I have answered all other questions. They wished to proceed with surgery as outlined above. Specific risk of bleeding needing blood transfusion or iatrogenic pneumothorax requiring chest tube placement discussed. She understands and wants to proceed.
--- NOTE | 2024-01-25 07:31 | WPDHPUPDATE1 ---
History and Physical Update Update Date/Time: 01/25/24 07:31 History and Physical has been reviewed, including an updated exam of the patient. There are NO changes in the patient's condition. Risks, benefits, and alternatives have been discussed and questions answered. Patient agrees to proceed with procedure.
[2024-01-25] MEDS: LACTATED RINGERS 1,000 ML 30 ML IV CONT (08:10)
[2024-01-25 08:15] LABS: Glucose Point of Care 124 mg/dl (65-105)
--- NOTE | 2024-01-25 08:36 | WPDANESEPPF ---
Anes - Initial Pre Proc Eval Procedure: Operation Date: 01/25/24 09:30 Proposed Procedures p Port Removal with Insertion Nilesh Cath - Jona Thurman MD Date/Time: 01/25/24 08:36 Surgeon: Jona Thurman MD Pre Op Diagnosis: Malig Neoplasm of Colon Patient Data Age: 73 Gender: F Height: 1.52 m Weight: 66.1 kg Last Vital Signs Temp 36.2 C L 01/25/24 07:26 Pulse 77 01/25/24 07:26 Resp 18 01/25/24 07:26 BP 143/51 H 01/25/24 07:26 Pulse Ox 100 01/25/24 07:26 O2 Del Method Room Air 01/25/24 07:26 Allergies Allergy/AdvReac Type Severity Reaction Status Date / Time latex Allergy Unknown Verified 01/25/24 08:20 Home Medications ?Medication ?Instructions ?Recorded ?Confirmed ?Type amlodipine 10 mg tablet 10 mg PO DAILY 04/13/19 01/16/24 History atorvastatin 40 mg tablet 40 mg PO HS 04/13/19 01/16/24 History benztropine 1 mg tablet 1 mg PO BID 04/13/19 01/16/24 History divalproex 250 mg tablet,extended 250 mg PO BID 04/13/19 01/16/24 History release 24 hr (Depakote ER) losartan 50 mg tablet 50 mg PO DAILY 04/13/19 01/16/24 History trazodone 50 mg tablet 25 mg PO HS 04/13/19 01/16/24 History cranberry 500 mg capsule 500 mg PO BID 10/01/23 01/16/24 History ferrous sulfate 325 mg (65 mg 325 mg PO DAILY 10/01/23 01/16/24 History iron) tablet insulin glargine 100 unit/mL 40 unit subcut QPM 10/01/23 01/16/24 History subcutaneous solution (Lantus U-100 Insulin) insulin glargine 100 unit/mL 42 unit subcut DAILY 10/01/23 01/16/24 History subcutaneous solution (Lantus U-100 Insulin) levetiracetam 500 mg tablet 500 mg PO BID 10/01/23 01/16/24 History (Keppra) meloxicam 7.5 mg tablet 7.5 mg PO DAILY 10/01/23 01/16/24 History mirtazapine 7.5 mg tablet 7.5 mg PO DAILY 10/01/23 01/16/24 History polyethylene glycol 3350 17 gram 17 g PO DAILY PRN Constipation 10/01/23 01/16/24 History oral powder packet (Miralax) risperidone 1 mg tablet (Risperdal) 1 mg PO BID 10/01/23 01/16/24 History venlafaxine 75 mg capsule,extended 225 mg PO DAILY 10/01/23 01/16/24 History release 24 hr (Effexor XR) docusate sodium 100 mg capsule 100 mg PO BID #20 caps 10/07/23 01/16/24 Rx (Colace) lidocaine-prilocaine 2.5 %-2.5 % 1 applic topical ONCE 01/17/24 01/17/24 History topical kit (Anodyne LPT) metformin 1,000 mg tablet 1,000 mg PO BID 01/17/24 01/17/24 History ondansetron 8 mg disintegrating 8 mg PO Q8H PRN nausea and vomiting 01/17/24 01/17/24 History tablet potassium chloride 10 mEq 30 meq PO DAILY 01/17/24 01/17/24 History tablet,extended release Laboratory Tests 01/25/24 08:12 POC Capillary Glucose 124 H mg/dl (65-105) Patient hx anesthesia problems: none Family hx anesthesia problems: none Results Review: All pre-operative results and documents have been reviewed as part of the pre-operative evaluation. COUNTS INCLUDE 234 BEDS AT THE [facility] Past Medical History Medical History Wheelchair dependence Chronic anemia History of DVT (deep vein thrombosis) Insulin dependent type 2 diabetes mellitus Polio Patient had polio as a child that is left her with left lower leg weakness. 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 Surgical History Surgical History No history of previous surgery Family History Family History Other Acute myocardial infarction Congestive heart failure Diabetes mellitus Hypertension Social History Social History Social History: Apparently she is currently at a skilled nursing. She ambulates with a walker. No alcohol, tobacco, or drug abuse. Daughter Portia Altman is her emergency contact and she is listed as a full code. Smoking status: Never smoker Alcohol intake: never Substance use: never Do You Feel Safe in your Home?: Yes Lack of Transportation: No Lack of Food: Never True Current Housing: I Have Housing Concerned About Future Housing: YES Difficulty Paying Gas/Electric Bills: No Difficulty Paying for Meds: YES Currently Unemployed: YES Education: High School Diploma/GED Difficulty w/ Childcare or Family Care: YES Living arrangements: skilled nursing Additional living arrangements comments: [facility] last few months Rebeca MCCLENDON phn [phone] Gender identity (if verbalized by the patient): Female Spiritual care concerns: No Agree to blood products: Yes Anes - Eval Final PreProcedure Day of Procedure 01/25/24 08:36 Patient weight: overweight Heart: regular rate and rhythm Lungs: clear to auscultation Airway: Mallampati scale class III and special considerations poor dentition Neurological: alert and oriented Last oral intake: >/= 8 hours ASA classification: IV Emergent: no Anesthetic plan: proceed Anesthesia type and monitoring: general GIVS and standard monitoring Results Review: All pre-operative results and documents have been reviewed as part of the pre-operative evaluation. Informed Consent: The patient's anesthetic plan and its attendant risks and benefits were discussed with the patient/family/POA. Questions were solicited and answers provided to the satisfaction of the patient/family/POA.
[2024-01-25] MEDS: ceFAZolin 2 GM/D5W 50 ML 2 GM/50 ML BAG IVPB (08:53)
[2024-01-25] MEDS: LIDO 1%/EPINEPHRINE 1:100,000 20 ML VIAL 30 ML INFILTRATE (09:19)
[2024-01-25] MEDS: HEPARIN SODIUM 5,000 UNITS/ML VIAL 5000 UNITS IRRIGATION (09:42)
--- NOTE | 2024-01-25 10:23 | W.PM.PROC2 ---
Procedure Note - Detailed Date of Procedure 01/25/24 Pre-op Diagnosis Malig Neoplasm of Colon, malfunctioning Port-A-Cath Post-op Diagnosis Same Procedure Performed Placement of right subclavian vein single-lumen port a catheter with intraoperative fluoroscopy. Removal of malfunctioning left internal jugular vein grisel catheter. Surgeon Jona Thurman MD Candle Molder Machine Justino Stokes, FINISH PHOTOGRAPHER Anesthesia MAC Indications Patient has any 3-year-old female who unfortunately has colon cancer. She had a grisel catheter placed via the left internal jugular vein about 6 weeks ago. The catheter has come out positioned and the catheter is malfunctioning. She needs a grisel catheter placed so that she can receive her chemotherapy treatments and needs to have the old port catheter removed. She presents now for placement of a right-sided new grisel catheter removed the old malfunctioning left-sided grisel catheter. Findings On fluoroscopy the left internal jugular vein grisel catheter tip was located in the brachiocephalic vein. A new right subclavian grisel catheter was placed with the tip of the catheter in the distal superior vena cava. Description of Procedure After informed consent was obtained patient brought to the operating room she was placed supine position and IV sedation was administered by anesthesia. The bilateral upper anterior neck and chest was then prepped and draped usual sterile fashion. Time-out was then performed correctly identifying the patient as well as procedure to be performed. She was given perioperative IV antibiotics. I 1st started by having the patient placed in the Trendelenburg position and approaching the right upper anterior chest region. 1% lidocaine mixed with 0.5% Marcaine was injected just below the medial 3rd of the right clavicle. A transverse incision was then made just below the medial right clavicle and dissection was carried down through the subcutaneous tissues. I then created a subcutaneous port pocket just below the incision utilizing a combination of electrocautery and blunt finger dissection. Needed to use a long 18gauge spinal needle to percutaneously cannulate right subclavian vein. A guidewire was advanced through the needle into the right subclavian vein after aspiration of venous appearing blood. The needle was then removed and then intraoperative fluoroscopy was used to visualize the tip of the guidewire. The guidewire was in the superior vena cava. The tip of the old left internal jugular vein grisel catheter was in the brachial cephalic vein. I then proceeded to pass a sterile blue towel over the guidewire after I secured it to the drapes. I then approached removal of the left internal jugular vein grisel catheter. The same local anesthetic mixture was injected around the port and then a incision was made through the old scar. Dissection carried down through the subcutaneous tissues until the hub of the port was encountered. I then dissected out the port from the surrounding subcutaneous tissues. Since the port was only in place for about 6 weeks the catheter was not well incorporated so easily slid out of the subcutaneous tunnel and the left internal jugular vein was of small amount of traction. Pressure was then held on the area the left internal jugular vein for hemostasis. The port was then removed from the subcu port pocket utilized electrocautery and the securing sutures were cut. The port and the catheter were passed off table and discarded. Hemostasis was good the left internal jugular vein. I then irrigated out the incision sterile saline solution and closed incision utilizing interrupted 3-0 Vicryl sutures in the subcutaneous tissues. This is a of followed by another layer of interrupted 3-0 Vicryl sutures in the deep dermal layer. The skin edges were approximated utilizing a running subcuticular 4 Monocryl suture. I then return to place the catheter and the right subclavian vein. I changed gloves and then advance a dilator breakaway sheath over the guidewire. The guidewire and dilator were removed leaving the sheath in place. A 9.6 Kyrgyz single-lumen silastic catheter was then advanced through the sheath into the right subclavian vein subsequent down into the right atrium of the heart. Intraoperative fluoroscopy was then used to visualize the tip of the catheter then I pulled back on the catheter externals the chest wall until the tip was in the distal superior vena cava. The catheter was then cut to the appropriate length at the skin level and attached to the titanium Smart Port. The port was then secured the subcu port pocket on 3 sides utilizing 3-0 Prolene sutures. The port was then accessed with a Vasques needle and it aspirated blood easily and was flushed with heparinized saline solution. I then irrigated out the incision sterile saline solution. Hemostasis was good. I then close incision utilizing 2 layers of interrupted 3-0 Vicryl sutures in the subcutaneous tissues. The skin edges were approximated utilizing a running subcuticular 4-0 Monocryl suture. I then accessed the port percutaneously with a Vasques needle and again aspirated and robert back blood easily. It was then flushed with 5000units of heparin. Both incisions were then cleaned and then skin glue was applied. The patient tolerated the procedure well no complications. All sponges, needles, and instrument counts were correct at the end procedure. EBL was _40__cc. The patient was awakened and taken to recovery in stable and satisfactory condition. Implants 9.6 Kyrgyz catheter attached to titanium Smart Port placed in the right subclavian vein. Estimated Blood Loss 40 Drains No Packing No Pathology None sent Complications No immediate complications Condition Stable Disposition PACU [facility] Billing Surgery - Charge Forward: Surgery Billing
[2024-01-25] MEDS: HEPARIN SODIUM 5,000 UNITS/ML VIAL 1000 UNITS IRRIGATION (10:38)
== END 2024-01-25 12:19 | disposition home or self-care (01) ==
PROVIDERS: PCP Internal Medicine; Visit Provider Surgery
PROC: (CPT 36561; principal; 2024-01-25 09:30)
DX: T82.524A Displacement of infusion catheter, initial encounter (principal); C18.9 Malignant neoplasm of colon, unspecified; Y83.8 Other surgical procedures as the cause of abnormal reaction of the patient, or of later complication, without mention of misadventure at the time of the procedure; E11.9 Type 2 diabetes mellitus without complications; Z79.4 Long term (current) use of insulin
CPT/HCPCS: 36561; 36590; 77001; 82948; C1788; J0690; J1644; J2003; J2004; J2704; J3010; J7030; J7120

== ENCOUNTER 2024-02-12 11:30 | Outpatient (CLI) | payer OTHER, SELFPAY ==
--- NOTE | ~2024-02-12 | XR_ITS ---
EXAMINATION: XR fl port a cath w contrast DATE: 02/12/2024 12:39 INDICATION: Port malfunction. Malignant neoplasm of colon. TECHNIQUE: Contrast was injected into the port while I performed fluoroscopy of the chest. 150 images were obtained. The fluoroscopy exposure time was 0.1 minutes. COMPARISON: Chest radiograph 01/25/2024 FINDINGS: There is a right-sided port with tip at superior cavoatrial junction. The port injects norm ally. There is blood return with the patient supine. IMPRESSION: 1. Normal port position and function. Reviewed, dictated and finalized at location A. TRY BONER
--- OUTSIDE RECORDS SUMMARY | 2024-02-19 13:34 | XMS_ITS | Encounter Summary ---
Author Organization [facility] Address [address] [place] [address] Care Team Providers Care Bilingual Branch Manager Name Role Phone Unavailable Primary Care Provider Unavailabl e Encounter Details Date Type Department Care Team ([facility] Contact Info) Description 12/17/2023 Abstract [facility] Oncology and Hematology - Tre [address] [place] [address] Adrian Rothman MD [address] [place] [address] [place] [phone] Social History Tobacco Use Types Packs/Day Years Used Date Smoking Tobacco: Never Smokeless Tobacco: Never Alcohol Use Standard Drinks/Week Comments Not Currently 0 (1 standard drink = 0.6 oz pure alcohol) More then socially back in the day Sex and Gender Information Value Date Recorded Sex Assigned at Not on file Gender Identity Not on file Sexual Orientation Not on file documented as of this encounter Plan of Treatment Upcoming Encounters Date Type Department Care Team (Late Contact Info) Description 03/04/2024 9:30 AM PHOTOGRAPH RETOUCHER Office Visit [facility] Oncology and Hematology - Tre [address] [place] [phone] [place] [address] [place] [address] [place] [phone] documented as of this encounter Visit Diagnoses Not on filedocumented in this encounter
--- OUTSIDE RECORDS SUMMARY | 2024-02-19 13:34 | XMS_ITS | Encounter Summary ---
Author Organization [facility] Address [address] [place] [address] Care Team Providers Care Candy Maker Name Role Phone Unavailable Primary Care Provider Unavailabl e Encounter Details Date Type Department Care Team (Late Contact Info) Description 02/04/2024 Orders Only [facility] Oncology [facility] Hematology [facility] [address] [place] [id number] Adrian Rothman MD [address] [place] [address] [employer] [address] [place] [phone] Malignant neoplasm of colon, unspecified part of colon Social History Tobacco Use Types Packs/Day Years [...] (Late Contact Info) Description 03/04/2024 9:30 AM GOLF TOURNAMENT CONSULTANT Office Visit [facility] Oncology [facility] Hematology [facility] [address] [place] [phone] [place] [address] [place] [address] [employer] [address] [place] [phone] documented as of this encounter Visit Diagnoses Diagnosis Malignant neoplasm of colon, unspecified part of colon documented in this encounter
--- OUTSIDE RECORDS SUMMARY | 2024-02-19 13:34 | XMS_ITS | Encounter Summary ---
Author Organization [facility] Address [address] [place] [address] Care Team Providers Care Tumbler Drier Operator Name Role Phone Unavailable Primary Care Provider Unavailabl e Encounter Details Date Type Department Care Team ([facility] Contact Info) Description 12/17/[address] [facility] Oncology and Hematology - Tre [address] [place] [address] Adrian Rothman MD [address] [place] [address] [place] [phone] Social History Tobacco Use Types Packs/Day [...] (Late Contact Info) Description 03/04/2024 9:30 AM SUPERVISOR CLOTH WINDING Office Visit [facility] Oncology and Hematology - Tre [address] [place] [phone] [place] [address] [place] [address] [place] [phone] documented as of this encounter Visit Diagnoses Not on filedocumented in this encounter
--- OUTSIDE RECORDS SUMMARY | 2024-02-19 13:34 | XMS_ITS | Encounter Summary ---
Author Organization [facility] ERMA Brewer [facility] Address [address] [place] [address] Care Team Providers Care Crm System Administrator Name Role Phone Unavailable Primary Care Provider Unavailabl e Encounter Details Date Type Department Care Team ([facility] Contact Info) Description 12/20/2023 Orders Only [facility] Oncology and Hematology [address] [place] [address] Adrian Rothman MD [address] [place] [address] [place] [phone] Social History Tobacco Use Types Packs/Day [...] Upcoming Encounters Date Type Department Care Team ([facility] Contact Info) Description 03/04/2024 9:[address] RAILWAY LINE INSTALLER Office Visit [facility] Oncology and Hematology - Tre [address] [place] [address] [place] [address] [place] [address] [employer] [address] [place] [phone] documented as of this encounter Procedures Procedure Name Priority Date/Time Associated Diagnosis Comments GLUCOSE LEVEL Routine 12/20/2023 4:[address] RAILWAY LINE INSTALLER documented in this encounter Results * GLUCOSE LEVEL (12/20/2023 4:[address] RAILWAY LINE INSTALLER) Blood Adrian Rothman MD CHEMISTRY ORDERABLES documented in this encounter Visit Diagnoses Not on filedocumented in this encounter
--- OUTSIDE RECORDS SUMMARY | 2024-02-19 13:34 | XMS_ITS | Encounter Summary ---
Author Organization [facility] ERMA Brewer [facility] Address [address] [place] [address] Care Team Providers Care Thaw Shed Heater Tender Name Role Phone Unavailable Primary Care Provider Unavailabl e Encounter Details Date Type Department Care Team ([facility] Contact Info) Description 12/12/2023 Orders Only [facility] Oncology and Hematology [facility] [address] [place] [phone] Adrian Rothman MD [address] [place] [address] [employer] [address] [place] [phone] Malignant neoplasm of colon, unspecified part of colon (Primary Dx) Social History Tobacco Use Types Packs/Day Years [...] (Late Contact Info) Description 03/04/2024 9:30 AM AIR BRAKE OPERATOR Office Visit [facility] Oncology [facility] Hematology [address] [place] [phone] [place] [address] [place] [address] [employer] [address] [place] [phone] documented as of this encounter Visit Diagnoses Diagnosis Malignant neoplasm of colon, unspecified part of colon- Primary documented in this encounter
--- OUTSIDE RECORDS SUMMARY | 2024-02-19 13:34 | XMS_ITS | Encounter Summary ---
Author Organization [facility] ERMA Brewer [facility] Address [address] [place] [address] Care Team Providers Care Artist'S Model Name Role Phone Unavailable Primary Care Provider Unavailabl e Encounter Details Date Type Department Care Team ([facility] Contact Info) Description 12/27/2023 Orders Only [facility] Oncology and Hematology [facility] [address] [place] [phone] Adrian Rothman MD [address] [place] [address] [place] [phone] Social History Tobacco Use Types Packs/Day [...] Upcoming Encounters Date Type Department Care Team ([facility] Contact Info) Description 03/04/2024 9:30 AM BLEACH BOILER PULLER Office Visit [facility] Oncology and Hematology [address] [place] [address] [place] [address] [place] [address] [employer] [address] [place] [phone] documented as of this encounter Procedures Procedure Name Priority Date/Time Associated Diagnosis Comments COMPREHENSIVE METABOLIC PANEL Routine 12/25/2023 3:11 PM BLEACH BOILER PULLER BASIC METABOLIC PANEL Routine 12/25/2023 2:27 PM BLEACH BOILER PULLER documented in this encounter Results * COMPREHENSIVE METABOLIC PANEL (12/25/2023 3:11 PM BLEACH BOILER PULLER) Blood Adrian Rothman MD CHEMISTRY ORDERABLES * BASIC METABOLIC PANEL (12/25/2023 2:27 PM BLEACH BOILER PULLER) Blood Adrian Rothman MD CHEMISTRY ORDERABLES documented in this encounter Visit Diagnoses Not on filedocumented in this encounter
--- OUTSIDE RECORDS SUMMARY | 2024-02-19 13:34 | XMS_ITS | Encounter Summary ---
Author Organization [facility] ERMA Brewer [facility] Address [address] [place] [address] Care Team Providers Care Deputy Chief Magistrate Name Role Phone Unavailable Primary Care Provider Unavailabl e Encounter Details Date Type Department Care Team ([facility] Contact Info) Description 12/24/2023 Orders Only [facility] Oncology and Hematology [facility] [address] [place] [phone] Adrian Rothman MD [address] [place] [address] [employer] [address] [place] [phone] Malignant neoplasm of colon, unspecified part of [...] (Late Contact Info) Description 03/04/2024 9:30 AM SHIFT BOSS Office Visit [facility] Oncology [facility] Hematology [facility] [address] [place] [address] Adrian Rothman MD [address] [place], [place] [address] [facility] [employer] [address] [place] [phone] Scheduled Orders Name Type Priority Associated Diagnoses Orde r Schedule CBC WITH DIFFERENTIAL Lab Routine Malignant neoplasm of colon, unspecified part of colon Every Two Weeks for 99 Occurrences starting 12/24/2023 until 12/23/2024 COMPREHENSIVE METABOLIC PANEL Lab Routine Malignant neoplasm of colon, unspecified part of colon Every Two Weeks for 99 Occurrences starting 12/24/2023 until 12/23/2024 BASIC METABOLIC PANEL Lab Routine Malignant neoplasm of colon, unspecified part of colon Every Two Weeks for 99 Occurrences starting 12/24/2023 until 12/23/2024 documented as of this encounter Visit Diagnoses Diagnosis Malignant neoplasm of colon, unspecified part of colon- Primary documented in this encounter
--- OUTSIDE RECORDS SUMMARY | 2024-02-19 13:34 | XMS_ITS | Encounter Summary ---
Author Organization [facility] Address [address] [place] [address] Care Team Providers Care Cuff Maker Name Role Phone Unavailable Primary Care Provider Unavailabl e Reason for Referral * Eval and Treat (Routine) - Closed Specialty Diagnoses / Procedures Referred By Marcelina duenas Referred To Contact Oncology Diagnoses Malignant neoplasm of colon, unspecified part of colon Procedures MN OFFICE/OUTPATIENT ESTABLISHED MOD MDM 30 MIN MN OFFICE/OUTPATIENT NEW MODERATE MDM 45 MINUTES Adrian Rothman MD [email or web address] [place] [phone] Referral ID Status Reason Start Date Expiration Date V isits Requested Visits Authorized [id number] Closed [facility] 11/15/2023 11/15/2024 1 1 * Eval and Treat (Routine) - Closed Specialty Diagnoses / Procedures Referred By Marcelina duenas Referred To Contact Surgery Diagnoses Malignant neoplasm of colon, unspecified part of colon Procedures MN OFFICE/OUTPATIENT ESTABLISHED MOD MDM 30 MIN MN OFFICE/OUTPATIENT NEW MODERATE MDM 45 MINUTES Adrian Rothman MD [email or web address] [place] [phone] Jcarlos Bardales DO [address] [facility] [address] [facility] [address] [place] [address] Referral ID Status Reason Start Date Expiration Date V isits Requested Visits Authorized [id number] Closed [facility] 11/15/2023 11/14/2024 1 1 * PET Scan (Routine) - Closed Specialty Diagnoses / Procedures Referred By Marcelina t Referred To Contact Radiology Diagnoses Malignant neoplasm of colon, unspecified part of colon Procedures PET TUMOR IMG W CT SKB Adrian Worley MD [email or web address] [place] [address] [place] [address] Referral ID Status Reason Start Date Expiration Date V isits Requested Visits Authorized [id number] Closed [facility] CTS 11/15/2023 12/15/2024 1 1 Reason for Visit * Reason Comments Establish Care Cancer Encounter Details Date Type Department Care Team (Late st Contact Info) Description 11/15/2023 3:00 PM CDT Office Visit [facility] Oncology and Hematology [facility] [address] [place] [address] [facility] [address] [place] [address] Adrian Rothman MD [email or web address] [place] [address] Malignant neoplasm of colon, unspecified part of colon (Primary Dx); Chronic anemia Social History Tobacco Use Types Packs/Day Years Used Date Smoking Tobacco: Never Smokeless Tobacco: Never Tobacco Cessation:Counseling Given: Not Answered Alcohol Use Standard Drinks/Week Comments Not Currently 0 (1 standard drink = 0.6 oz pure alcohol) More then socially back in the day Sex and Gender Information Value Date Recorded Sex Assigned at Not on file Gender Identity Not on file Sexual Orientation Not on file documented as of this encounter Last Filed Vital Signs Vital Sign Reading Time Taken Comments Blood Pressure 155/72 11/15/2023 3:00 PM CDT Pulse 86 11/15/2023 2:54 PM CDT Temperature 36.8 ??C (98.2 ??F) 11/15/2023 2:54 PM CD T Respiratory Rate 16 11/15/2023 2:54 PM CDT Oxygen Saturation 95% 11/15/2023 2:54 PM CDT Inhaled Oxygen Concentration - - Weight 59.9 kg (132 lb) 11/15/2023 2:54 PM CDT Height 152.4 cm (5') 11/15/2023 2:54 PM CDT Body Mass Index 25.78 11/15/2023 2:54 PM CDT documented in this encounter Progress Notes * Adrian Rothman MD - 11/15/2023 3:30 PM CDT Hematology-oncology consult Note Requesting Physician Primary Care Physician No primary care provider on file. Problem list There is no problem list on file for this patient. Previous TREATMENT ? Measurable Disease ? Reason for Visit Paxton Altman is a 72 y.o. female who was referred for consultation for colon cancer. History of present illness This is a pleasant 72-year-old -Domin[place] female with history of hypertension, hyperlipidemia, diabetes and stroke came into the hospital with lower and upper abdominal discomfort along with nausea vomiting. Patient is a poor historian. Patient lives in a assisted living. She has some dementia. She had CT scan abdomen and pelvis done that showed nodular thickening of the ascending colon suspicious for neoplasm. Colonoscopy showed malignant appearing ascending colon mass. Patient also had hiatal hernia on the EGD. Her CEA was 6.5. Patient had right-sided hemicolectomy done on October 01, 2023. Pathology showed T3 N1 disease with 1 out of 25 lymph node positive for malignancy. Patient also had CT scan of the chest done on October 02 that showed 12 mm opacity in the left lower lobe and metastasis disease cannot be excluded. She denies any other new complaint. She has recovered well from the surgery. Past Medical History Past Medical History: Diagnosis Date Depression Diabetes mellitus Hyperlipidemia Hypertension Malignant neoplasm Stroke Surgical History No past surgical history on file. Medications Current Outpatient Medications Medication Sig Dispense Refill metoprolol succinate (TOPROL XL) 25 mg Extended Release 24 hour tablet Take 25 mg by mouth daily. divalproex (DEPAKOTE) 250 mg Delayed Release tablet Take 250 mg by mouth 2 times daily. insulin lispro (HumaLOG,ADMELOG) 100 unit/mL pen syringe losartan (COZAAR) 25 mg tablet metFORMIN (GLUCOPHAGE) 500 mg tablet Take 500 mg by mouth daily with breakfast. mirtazapine (REMERON) 7.5 mg tablet Take 7.5 mg by mouth daily at bedtime. potassium chloride (KLOR-CON) 10 mEq Extended Release tablet Take 10 mEq by mouth one time only. risperiDONE (RisperDAL) 0.5 mg tablet Take 0.5 mg by mouth 2 times daily. atorvastatin (LIPITOR) 40 mg tablet Take 40 mg by mouth daily at bedtime. amLODIPine (NORVASC) 10 mg tablet Take 10 mg by mouth daily. venlafaxine (EFFEXOR XR) 150 mg Extended Release 24 hour capsule Take 150 mg by mouth daily. No current facility-administered medications for this visit. Allergies No Known Allergies Immunizations: There is no immunization history on file for this patient. Family History Family History Problem Relation Name Age of Onset Heart Disease Father Heart Disease Mother Prostate Cancer Brother 6 brothers Breast Cancer Sister 6 sisters Diabetes Sister 6 sisters No Known Problems Child No Known Problems Child No Known Problems Child No Known Problems Child Social History Social History Tobacco Use Smoking status: Never Smokeless tobacco: Never Substance Use Topics Alcohol use: Not Currently Comment: More then socially back in the day Review of Systems Constitutional: Patient did not mention fever; no night sweats; no anorexia; no weight loss; no fatique NEENT: Patient did not mention headache; no change in vision; no change in hearing; no sore throat;no dysphagia Respiratory: Patient did not mention shortness of breath; no pleuritic chest pain; no cough; no hemoptysis Cardiac: Patient did not mention cardiac-like chest pain; no palpitations; no orthopnea; no PND; noDOE Breasts: Patient did not mention tenderness; no masses GI: Patient did not mention abdominal pain; no nausea; no vomiting; no diarrhea; no hematochezia; no melena : Patient did not mention dysuria; no frequency; no hesitancy; no hematuria SHINE WORKER: Musculosketetal: Patient did not mention bone pain; no arthralgia; no joint swelling; no myalgia; Skin: Patient did not mention pruritis; no rash; no petechiae; no ecchymoses Endocrine: Patient did not mention polydipsia; no polyuria; no unusual weight gain Neuro: Patient did not mention headache; no change in vision; no sensory changes; no muscle weakness; no confusion; no seizures Psych: Patient did not mention anxiety; no depression; Physical Exam Vitals: As per nursing note Constitutional: Well developed, well nourished, no acute distress, non-toxic appearance Teeth and gum. No signs of infection or swelling. Eyes: PERRL, conjunctiva normal HEENT: Atraumatic, external ears normal, nose normal, oropharynx moist, no pharyngeal exudates. no sinus tenderness Neck- normal range of motion, no tenderness, supple Respiratory: No respiratory distress, normal breath sounds, no rales, no wheezing Cardiovascular: Normal rate, normal rhythm, no murmurs, no gallops, no rubs GI: Soft, nondistended, normal bowel sounds, nontender, no splenomegaly, no hepatomegaly, no mass, no rebound, no guarding : No costovertebral angle tenderness Musculoskeletal: No edema, no tenderness, no deformities. Back- no tenderness Integument: Well hydrated, no rash, Digits and nails inspection normal Lymphatic: No lymphadenopathy noted Neurologic: Alert & oriented x 3, CN 2-12 normal, normal motor function, normal sensory function, no focal deficits noted Psychiatric: Speech and behavior appropriate ? labs No results found for this or any previous visit (from the past 24 hour(s)). Pathology ? Imaging & Other Studies Performance Status? ECOG performance status 1 Assessment / Plan: ? T3 N1 M0 stage III stage IIIB moderately differentiated adenocarcinoma of the colon status post right-sided hemicolectomy done on October 05, 2023. Pathology showed 1 out of 25 lymph node positive formalignancy. CT chest done on October 02 showed 12 mm opacity in the left lower lobe suspicious for malignancy. CT abdomen and pelvis from September 30 showed thickening of the proximal descending colon with adjacent lymphadenopathy. I have discussed the pathology report and imaging studies finding with patient and the daughter in detail. Will order PET scan. I would recommend adjuvant chemotherapy. Patient will be referred for chemotherapy teaching. We will refer her for Mediport placement and chemotherapy teaching for FOLFOX regimen for 6 cycles. I have answered all her questions to patient and family satisfaction. Anemia. I will check iron studies and vitamin B12 level today. Will also check CEA today. Type 2 diabetes. Patient is on insulin and metformin. Hypertension. Patient is on losartan and amlodipine. Thank you very much for allowing me to participate in Paxton Altman's evaluation and management. Please feel free to contact if I can be of any further assistance in your patient???s care requiringhematology or oncology evaluation. Sincerely, ? ? Adrian Rothman M.D. cell TOBACCO COUNSELING She is not a tobacco/nicotine user. Adrian Rothman MD ,11/15/2023 3:30 PM ? Total time spent 60 minutes, two third of the total time spent counseling patient [id number]. CC:? documented in this encounter Plan of Treatment Upcoming Encounters Date Type Department Care Team (Late st Contact Info) Description 03/04/2024 9:30 AM BACON SKINNER Office Visit [facility] Oncology and Hematology - Tre [address] [facility] [address] [place] [address] Adrian Rothman MD [address] [facility] [address] [place] [address] Scheduled Orders Name Type Priority Associated Diagnoses Orde r Schedule PET TUMOR IMG W CT SKB MDTH Imaging Routine Malignant neoplasm of colon, unspecified part of colon 1 Occurrences starting 11/15/2023 until 11/14/2024 FERRITIN Lab Routine Chronic anemia Expected: 11/15/2023, Expires: 11/14/2024 IRON, TIBC, AND PERCENT SATURATION Lab Routine Chronic anemia Expected: 11/15/2023, Expires: 11/14/2024 CEA Lab Routine Malignant neoplasm of colon, unspecified part of colon Expected: 11/15/2023, Expires: 11/14/2024 Scheduled Referrals Name Type Priority Associated Diagnoses Orde r Schedule AMB REFERRAL TO COLORECTAL SURGERY Outpatient Referral Routine Malignant neoplasm of colon, unspecified part of colon Ordered: 11/15/2023 AMB REFERRAL TO CHEMO TEACHING Outpatient Referral Routine Malignant neoplasm of colon, unspecified part of colon Ordered: 11/15/2023 documented as of this encounter Visit Diagnoses Diagnosis Malignant neoplasm of colon, unspecified part of colon- Primary Chronic anemia Anemia, unspecified documented in this encounter
--- OUTSIDE RECORDS SUMMARY | 2024-02-19 13:34 | XMS_ITS | Encounter Summary ---
Author Organization [facility] ERMA Brewer [facility] Address [address] [place] [address] Care Team Providers Care Educator Senior Clinical Name Role Phone Unavailable Primary Care Provider Unavailabl e Encounter Details Date Type Department Care Team ([facility] Contact Info) Description 12/25/2023 Orders Only [facility] Oncology and Hematology [place] [address] [address] [place] [phone] Adrian Rothman MD [address] [place] [address] [employer] [address] [place] [phone] Malignant neoplasm of colon, unspecified part [...] (Late Contact Info) Description 03/04/2024 9:30 AM DEAN OF FACULTY Office Visit [facility] Oncology [facility] Hematology [facility] [address] [place] [phone] Adrian Rothman MD [address] [place] [address] [employer] [address] [place] [phone] documented as of this encounter Procedures Procedure Name Priority Date/Time Associated Diagnosis Comments CBC WITH DIFFERENTIAL Routine 12/25/2023 4:20 PM DEAN OF FACULTY documented in this encounter Results * CBC WITH DIFFERENTIAL (12/25/2023 4:20 PM DEAN OF FACULTY) Blood Adrian Rothman MD HEMATOLOGY ORDERABLE S documented in this encounter Visit Diagnoses Diagnosis Malignant neoplasm of colon, unspecified part of colon- Primary documented in this encounter
--- OUTSIDE RECORDS SUMMARY | 2024-02-19 13:34 | XMS_ITS | Clinical Summary ---
Author Organization [facility] [facility] Address [address] [place] [address] Care Team Providers Care Youth Care Specialist Name Role Phone Unavailable Primary Care Provider Unavailabl e Allergies No known active allergies Medications Medication Sig Dispensed Refills Start Date End Date Status atorvastatin (LIPITOR) 40 mg tablet Take 40 mg by mouth daily at bedtime. Active amLODIPine (NORVASC) 10 mg tablet Take 10 mg by mouth daily. Active metoprolol succinate (TOPROL XL) 25 mg Extended Release 24 hour tablet Take 25 mg by mouth daily. Active divalproex (DEPAKOTE) 250 mg Delayed Release tablet Take 250 mg by mouth 2 times daily. 11/03/2023 Active insulin lispro (HumaLOG,ADMELOG) 100 unit/mL pen syringe 09/10/2023 Active losartan (COZAAR) 25 mg tablet 10/09/2023 Active metFORMIN (GLUCOPHAGE) 500 mg tablet Take 500 mg by mouth daily with breakfast. 10/09/2023 Active mirtazapine (REMERON) 7.5 mg tablet Take 7.5 mg by mouth daily at bedtime. 11/05/2023 Active potassium chloride (KLOR-CON) 10 mEq Extended Release tablet Take 10 mEq by mouth one time only. 10/08/2023 Active risperiDONE (RisperDAL) 0.5 mg tablet Take 0.5 mg by mouth 2 times daily. 10/09/2023 Active venlafaxine (EFFEXOR XR) 150 mg Extended Release 24 hour capsule Take 150 mg by mouth daily. Active ondansetron (ZOFRAN ODT) 8 mg Tablet, Rapid Dissolve Dissolve 1 tablet on top of tongue then swallow with saliva every 8 hours as needed for nausea or vomiting 30 Tablet 1 12/13/2023 Active lidocaine-prilocaine (EMLA) 2.5-2.5 % Cream Apply to port site 30 minutes before access. 30 Gram 1 12/13/2023 Active Active Problems No known active problems Encounters Date Type Department Care Team Description 02/18/2024 Orders Only [facility] Oncology and Hematology - Tre [address] Adrian Rothman MD Malignant neoplasm of colon, unspecified part of colon 02/14/2024 Orders Only [facility] Oncology and Hematology - Tre [address] [place] [phone] Adrian Rothman MD 02/12/2024 Orders Only [facility] Oncology and Hematology - Tre [address] Adrian Rothman MD Malignant neoplasm of colon, unspecified part of colon (Primary Dx) 02/04/2024 Orders Only [facility] Oncology and Hematology - Tre [address] [place] [phone] Adrian Rothman MD Malignant neoplasm of colon, unspecified part of colon 01/21/2024 Orders Only [facility] Oncology and Hematology - Tre Jessica [address] [place] [phone] Adrian Rothman MD Malignant neoplasm of colon, unspecified part of colon 01/08/2024 External Device Data STL ABSTRACTION Provider, Abstract 01/07/2024 Telephone [facility] Oncology [facility] Hematology [facility] [address] [place] [phone] Adrian Rothman MD Port Replacement 01/07/2024 Orders Only [facility] Oncology and Hematology [facility] Jessica [address] [place] [phone] Adrian Rothman MD Malignant neoplasm of colon, unspecified part of colon 01/01/2024 Orders Only [facility] Oncology and Hematology - Tre Jabier [address] Adrian Rothman MD 12/27/2023 [facility] Oncology and Hematology - Tre [address] [place] [phone] Adrian Rothman MD 12/25/2023 [facility] Oncology and Hematology - Tre [address] [place] [phone] Adrian Rothman MD Malignant neoplasm of colon, unspecified part of colon (Primary Dx) 12/24/2023 Orders Only [facility] Oncology and Hematology - Tre [address] Adrian Rothman MD Malignant neoplasm of colon, unspecified part of colon (Primary Dx) 12/21/2023 Orders Only [facility] Oncology and Hematology - Tre [address] [place] [address] Adrian Rothman MD 12/20/2023 Orders Only [facility] Oncology and Hematology - Tre [address] Adrian Rothman MD 12/17/2023 Abstract [facility] Oncology and Hematology - Tre [address] [place] [phone] Adrian Rothman MD 12/17/2023 Abstract [facility] Oncology and Hematology - Tre [address] [place] [address] Adrian Rothman MD 12/13/2023 Telephone [facility] Oncology and Hematology - Tre [address] [place] [phone] Adrian Rothman MD residential/Chemo pump 12/12/2023 Orders Only [facility] Oncology and Hematology - Tre [address] [place] [phone] Adrian Rothman MD Malignant neoplasm of colon, unspecified part of colon (Primary Dx) 11/20/2023 External Device Data STL ABSTRACTION Provider, Abstract from Last 3 Months Family History Medical History Relation Name Comments Prostate Cancer Brother 6 brothers No Known Problems Child 1 No Known Problems Child 2 No Known Problems Child 3 No Known Problems Child 4 Heart Disease Father Heart Disease Mother Breast Cancer Sister 6 sisters Diabetes Sister 6 sisters Relation Name Status Comments Brother 6 brothers Child 1 Alive Child 2 Alive Child 3 Alive Child 4 Alive Father Mother Sister 6 sisters Social History Tobacco Use Types Packs/Day Years [...] on file Sexual Orientation Not on file Last Filed Vital Signs Vital Sign Reading [...] Mass Index 25.78 11/15/2023 2:54 PM CDT Plan of Treatment Upcoming Encounters Date Type Department Care Team (Late st Contact Info) Description 03/04/2024 9:30 AM WOOL FLEECE SORTER Office Visit [facility] Oncology and Hematology - Tre [address] [place] [address] Adrian Rothman MD [address] [facility] [address] [place] [address] Health Maintenance Due Date Last Done Comments PNEUMOCOCCAL VACCINE 65+ YEARS (1 of 2 - PCV) 12/26/18 53 DIABETES ANNUAL FOOT EXAM 1966 DIABETES ANNUAL RETINAL EXAM 1966 DIABETES MICROALBUMIN ANNUAL SCREEN 1966 LDL CHOLESTEROL ANNUAL 1966 DTAP/TDAP/TD VACCINES (1 - Tdap) 12/27/1967 ZOSTER VACCINE (1 of 2) 1998 OSTEOPOROSIS SCREENING 2013 DIABETES HBA1C Q 6 MONTHS 05/12/2022 11/11/2021 INFLUENZA VACCINE (#1) 2023 RSV VACCINE (60+ or ) (1 - 1-dose 75+ series) 12/27/2023 Procedures Procedure Name Priority Date/Time Associated Diagnosis Comments XR PORT CONTRAST INJECT W FLUORO Routine 02/12/2024 1:18 PM WOOL FLEECE SORTER XR PORT CONTRAST INJECT W FLUORO Routine 12/28/2023 11:03 AM WOOL FLEECE SORTER CBC WITH DIFFERENTIAL Routine 12/25/2023 4:20 PM WOOL FLEECE SORTER COMPREHENSIVE METABOLIC PANEL Routine 12/25/2023 3:11 PM WOOL FLEECE SORTER BASIC METABOLIC PANEL Routine 12/25/2023 2:27 PM WOOL FLEECE SORTER GLUCOSE LEVEL Routine 12/20/2023 4:18 PM WOOL FLEECE SORTER PET BONE IMG W CT SKL BSE MID THG Routine 12/20/2023 12:02 PM WOOL FLEECE SORTER from Last 3 Months Results * XR PORT CONTRAST INJECT W FLUORO (02/12/2024 1:18 PM WOOL FLEECE SORTER) Only the most recent of2 resultswithin the time period is included. Anatomical Region Laterality Modality Other Adrian Rothman MD DIAGNOSTIC IMAGING O RDERABLES * CBC WITH DIFFERENTIAL (12/25/2023 4:20 PM WOOL FLEECE SORTER) Blood Adrian Rothman MD HEMATOLOGY ORDERABLE S * COMPREHENSIVE METABOLIC PANEL (12/25/2023 3:11 PM WOOL FLEECE SORTER) Blood Adrian Rothman MD CHEMISTRY ORDERABLES * BASIC METABOLIC PANEL (12/25/2023 2:27 PM WOOL FLEECE SORTER) Blood Adrian Rothman MD CHEMISTRY ORDERABLES * GLUCOSE LEVEL (12/20/2023 4:18 PM WOOL FLEECE SORTER) Blood Adrian Rothman MD CHEMISTRY ORDERABLES * PET BONE IMG W CT SKB MDTH (12/20/2023 12:02 PM WOOL FLEECE SORTER) Anatomical Region Laterality Modality Other Adrian Rothman MD PE ORDERABLES from Last [address] [place] [address]
--- OUTSIDE RECORDS SUMMARY | 2024-02-19 13:34 | XMS_ITS | Encounter Summary ---
Author Organization [facility] Address [address] [place] [address] Care Team Providers Care Decorator Street And Building Name Role Phone Unavailable Primary Care Provider Unavailabl e Reason for Visit * Reason Onset Date Comments alf/Chemo pump 12/13/2023 Encounter Details Date Type Department Care Team (Late st Contact Info) Description 12/13/2023 Telephone [facility] Oncology and Hematology - Tre [address] [facility] 200 [place] [address] Adrian Rothman MD [address] [facility] [address] [place] [address] alf/Chemo pump Social History Tobacco Use Types Packs/Day Years [...] on file documented as of this encounter Miscellaneous Notes * Telephone Encounter - Rebeca Garcia Yadi - 12/13/2023 8:33 AM CST Called the [place] [facility] today and spoke with Pat RN to make sure that they were ok with patient coming back to the facility with a chemotherapy pump on. They said as long as they did not have to connect it or disconnect it that there is no issue with it. They will try and keep her from messing withit. Also her medications will need to be sent to the [place] [facility] pharmacy. They use [facility]. LAGE FRAMER documented in this encounter Plan of Treatment Upcoming Encounters Date Type Department Care Team (Late st Contact Info) Description 03/04/2024 9:30 AM FUSELAGE FRAMER Office Visit [facility] Oncology and Hematology - Tre [address] [facility] 200 [place] [address] Adrian Rothman MD [address] [facility] [address] [place] [address] documented as of this encounter Visit Diagnoses Not on filedocumented in this encounter
--- OUTSIDE RECORDS SUMMARY | 2024-02-19 13:34 | XMS_ITS | Encounter Summary ---
Author Organization [facility] ERMA Brewer [facility] Address [address] [place] [address] Care Team Providers Care Deployment Engineer Name Role Phone Unavailable Primary Care Provider Unavailabl e Reason for Referral * Eval and Treat (Routine) - Closed Specialty Diagnoses / Procedures Referred By Marcelina t Referred To Contact Surgery Diagnoses Malignant neoplasm of colon, unspecified part of colon Procedures IN OFFICE/OUTPATIENT ESTABLISHED MOD MDM 30 MIN IN OFFICE/OUTPATIENT NEW MODERATE MDM 45 MINUTES Adrian Rothman MD [address] [place] [phone] [place] [address] Referral ID Status Reason Start Date Expiration Date V isits Requested Visits Authorized [id number] Closed STL CTS 01/07/2024 01/06/2025 1 1 RT MANAGER Reason for Visit * Reason Onset Date Comments Port Replacement 01/07/2024 Encounter Details Date Type Department Care Team (Late st Contact Info) Description 01/07/2024 Telephone [facility] Oncology and Hematology [facility] [address] [place] [address] Adrian Rothman MD [address] [place] [address] Port Replacement Social History Tobacco Use Types Packs/Day Years [...] Notes * Telephone Encounter - Rebeca Garcia - 01/07/2024 9:59 AM CST Patient had dye study done on port and will need to have the port replaced as the catheter is to short. Orders places, referral sent, and daughter aware of recommendations. RT MANAGER documented in this encounter Plan of Treatment Upcoming Encounters Date Type Department Care Team (Late st Contact Info) Description 03/04/2024 9:30 AM RESORT MANAGER Office Visit [facility]3] Oncology and Hematology - Tre [address] [facility] 200 [place] [address] Adrian Rothman MD [address] [facility] [address] [place] [address] Scheduled Referrals Name Type Priority Associated Diagnoses Orde r Schedule AMB REFERRAL TO GENERAL SURGERY Outpatient Referral Routine Malignant neoplasm of colon, unspecified part of colon Ordered: 01/07/2024 documented as of this encounter Visit Diagnoses Diagnosis Malignant neoplasm of colon, unspecified part of colon- Primary documented in this encounter
--- OUTSIDE RECORDS SUMMARY | 2024-02-19 13:34 | XMS_ITS | Encounter Summary ---
Author Organization [facility] Address [address] [place] [address] Care Team Providers Care Customer Experience Analyst Name Role Phone Unavailable Primary Care Provider Unavailabl e Encounter Details Date Type Department Care Team (Late st Contact Info) Description 11/20/2023 External Device Data STL ABSTRACTION Provider, Abstract NO ADDRESS ON FILE Social History Tobacco Use Types Packs/Day Years [...] st Contact Info) Description 03/04/2024 9:30 AM DIESEL ENGINE ERECTOR Office Visit [facility] Oncology and Hematology - Tre [address] [facility] 200 [place] [address] Adrian Rothman MD [address] [facility] [address] [place] [address] documented as of this encounter Visit Diagnoses Not on filedocumented in this encounter
--- OUTSIDE RECORDS SUMMARY | 2024-02-19 13:34 | XMS_ITS | Encounter Summary ---
Author Organization [facility] ERMA Brewer [facility] Address [address] [place] [address] Care Team Providers Care Per Diem Physical Therapist Name Role Phone Unavailable Primary Care Provider Unavailabl e Encounter Details Date Type Department Care Team ([facility] Contact Info) Description 01/01/2024 Orders Only [facility] Oncology and Hematology [facility] Gisell [address] [place] [address] Adrian Rothman MD [address] [place] [address] [place] [address] Social History Tobacco Use Types Packs/Day [...] Upcoming Encounters Date Type Department Care Team ([facility] Contact Info) Description 03/04/2024 9:30 AM LAMP SHADE JOINER Office Visit [facility] Oncology and Hematology [facility] [address] [place] [address] [place] [address] [place] [address] [place] [address] documented as of this encounter Procedures Procedure Name Priority Date/Time Associated Diagnosis Comments XR PORT CONTRAST INJECT W FLUORO Routine 12/28/2023 11:03 AM LAMP SHADE JOINER documented in this encounter Results * XR PORT CONTRAST INJECT W FLUORO (12/28/2023 11:03 AM LAMP SHADE JOINER) Anatomical Region Laterality Modality Other Adrian Rothman MD DIAGNOSTIC IMAGING O RDERABLES documented in this encounter Visit Diagnoses Not on filedocumented in this encounter
--- OUTSIDE RECORDS SUMMARY | 2024-02-19 13:34 | XMS_ITS | Encounter Summary ---
Author Organization [facility] ERMA Brewer [facility] Address [address] [place] [address] Care Team Providers Care Fitness Instructor Name Role Phone Unavailable Primary Care Provider Unavailabl e Reason for Referral * Radiology Services (Urgent) - Open Specialty Diagnoses / Procedures Referred By Marcelina t Referred To Contact Diagnoses Malignant neoplasm of colon, unspecified part of colon Procedures XR PORT CONTRAST INJECT W FLUORO Adrian Rothman MD [address] [place] [phone] [place] [address] Referral ID Status Reason Start Date Expiration Date V isits Requested Visits Authorized [id number] Open STL CTS 02/12/2024 03/14/2025 1 1 EKEEPING STAFF Encounter Details Date Type Department Care Team (Late st Contact Info) Description 02/12/2024 Orders Only [facility] Oncology and Hematology [facility] [address] [facility] 200 [place] [address] Adrian Rothman MD [address] [place] [address] Malignant neoplasm of colon, unspecified [...] st Contact Info) Description 03/04/2024 9:30 AM HOUSEKEEPING STAFF Office Visit [facility] Oncology and Hematology - Tre [address] [facility] [address] [place] [address] Adrian Rothman MD [address] [facility] [address] [place] [address] Scheduled Orders Name Type Priority Associated Diagnoses Orde r Schedule XR PORT CONTRAST INJECT W FLUORO Imaging Stat Malignant neoplasm of colon, unspecified part of colon Expected: 02/12/2024, Expires: 02/11/2025 documented as of this encounter Visit Diagnoses Diagnosis Malignant neoplasm of colon, unspecified part of colon- Primary documented in this encounter
--- OUTSIDE RECORDS SUMMARY | 2024-02-19 13:34 | XMS_ITS ---
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) (E11.9 - ICD-10-CM) ACTIVE 12/21/2017 GENERALIZED ANXIETY DISORDER (F41.1 - ICD-10-CM) ACTIV E 01/01/2018 ESSENTIAL (PRIMARY) HYPERTENSION (I10 - ICD-10-CM) ACT SNEHAL 12/21/2017 MAJOR DEPRESSIVE DISORDER, S MOE EPISODE, UNSPECIFIED (F32.9 - ICD-10-CM) ACTIVE 12/21/2017 UNSPECIFIED URINARY INCONTINENCE (R32 - ICD-10-CM) ACT SNEHAL 12/21/2017 HYPERLIPIDEMIA, UNSPECIFIED (E78.5 - ICD-10-CM) ACTIVE 12/21/2017 GASTRO-ESOPHAGEAL REFLUX DIS EASE WITHOUT ESOPHAGITIS (K21.9 - ICD-10-CM) ACTIVE 12/21/2017 OTHER SEASONAL ALLERGIC RHINITIS (J30.2 - ICD-10-CM) A CTIVE 12/21/2017 TINNITUS, BILATERAL (H93.13 - ICD-10-CM) ACTIVE 12/21/2017 MUSCLE WEAKNESS (GENERALIZED) (M62.81 - ICD-10-CM) ACT SNEHAL 12/21/2017 CEREBRAL INFARCTION, UNSPECIFIED (I63.9 - ICD-10-CM) A CTIVE 12/21/2017 UNSPECIFIED DEMENTIA WITH BE HAVIORAL DISTURBANCE (F03.91 - ICD-10-CM) ACTIVE 12/21/2017 STRESS INCONTINENCE (FEMALE) (MALE) (N39.3 - ICD-10-CM ) ACTIVE 12/21/2017 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) ACTIVE 12/21/2017 INSOMNIA, UNSPECIFIED (G47.00 - ICD-10-CM) ACTIVE 12/21/2017 PERSONAL HISTORY OF POLIOMYELITIS (Z86.12 - ICD-10-CM) ACTIVE 12/21/2017 Results * Individual Tests: FERRITIN / FOLATE (FOLIC ACID) / VITAMIN B12 / TSH 3-UL / T4, FREE / VITAMIN D 25-OH TOTAL Performed by: [place] [id number] Component Value Range Date FOLIC ACID 12.2 SEE BELOW 03/02/2018 02:0 0 pm EST VITAMIN D, 25-OH TOTAL 11 SEE BELOW 03/02 02:00 pm EST T4, FREE 0.68 ng/dL 0.60-1.60 03/02/2018 02:0 0 pm EST FERRITIN 22 ng/mL 10-291 03/02/2018 02:0 0 pm EST VITAMIN B12 997 pg/mL 211-911 03/02/2018 02:0 0 pm EST TSH 3-UL 1.166 uIU/mL 0.340-5.600 03/02/2018 02:0 0 pm EST * CBC W/DIFF Performed by: [place] [id number] Component Value Range Date MCH 26.7 pg 26.0-35.0 12/24/2017 07:0 0 pm EST * CMP-COMPREHENSIVE METABOLIC PNL Performed by: [place] [id number] Component Value Range Date GLUCOSE 268 12/24/2017 07:0 0 pm EST BUN/CREATININE RATIO 20 6-34 018 07:00 pm EST A/G RATIO 1.3 0.8-2.0 12/24/2017 07:0 0 pm EST * LIPID PROFILE w/calc LDL Performed by: [place] [id number] Component Value Range Date LDLc/HDL RATIO 2.0 <4:1 12/24/2017 07 :00 pm EST * CBC W/DIFF Performed by: [place] [id number] Component Value Range Date HEMATOCRIT 33.9 % 36.0-48.0 12/24/2017 07:0 0 pm EST RDW 14.1 % 11.0-16.0 12/24/2017 07:0 0 pm EST * GLYCO-HGBA1C Performed by: [place] [id number] Component Value Range Date GLYCOHEMOGLOBIN-HGBA1C 10.1 % 4.1-6.1 12/24 07:00 pm EST * CBC W/DIFF Performed by: [place] [id number] Component Value Range Date NEUTROPHILS 47.0 % 40.0-80.0 12/24/2017 07:0 0 pm EST LYMPHS 38.7 % 13.0-48.0 12/24/2017 07:0 0 pm EST MONOCYTES 8.6 % 2.0-12.0 12/24/2017 07:0 0 pm EST EOS 4.6 % 0.0-8.0 12/24/2017 07:0 0 pm EST BASO 1.1 % 0.0-2.0 12/24/2017 07:0 0 pm EST MCV 85.6 fL 80.0-100.0 12/24/2017 07:0 0 pm EST MPV 8.5 fL 6.5-12.0 12/24/2017 07:0 0 pm EST MCHC 31.2 g/dL 31.0-36.5 12/24/2017 07:0 0 pm EST HEMOGLOBIN 10.6 g/dL 12.0-16.0 12/24/2017 07:0 0 pm EST * CMP-COMPREHENSIVE METABOLIC PNL Performed by: [place] [id number] Component Value Range Date PROTEIN, TOTAL 6.7 g/dL 6.0-8.3 12/24/2017 07 :00 pm EST ALBUMIN 3.8 g/dL 3.5-5.5 12/24/2017 07:0 0 pm EST ALKALINE PHOS 99 IU/L 34-136 12/24/2017 07: 00 pm EST AST (SGOT) 12 IU/L 4-40 12/24/2017 07:0 0 pm EST ALT (SGPT) 11 IU/L 4-55 12/24/2017 07:0 0 pm EST * CBC W/DIFF Performed by: [place] [id number] Component Value Range Date WBC 4.9 K/cmm 4.5-10.8 12/24/2017 07:0 0 pm EST PLATELET 251 K/cmm 150-450 12/24/2017 07:0 0 pm EST NEUTS (ABSOLUTE) 2.30 K/uL 1.50-7.60 12/24/2017 07:00 pm EST LYMPHS (ABSOLUTE) 1.90 K/uL 0.90-5.50 12/24/2017 07:00 pm EST MONOCYTES (ABSOLUTE) 0.40 K/uL 0.15-1.10 018 07:00 pm EST EOS (ABSOLUTE) 0.20 K/uL 0.20-0.80 12/24/2017 07 :00 pm EST BASO (ABSOLUTE) 0.10 K/uL 0.00-0.30 12/24/2017 0 7:00 pm EST RBC 3.96 M/cmm 3.90-5.40 12/24/2017 07:0 0 pm EST * CMP-COMPREHENSIVE METABOLIC PNL Performed by: [place] [id number] Component Value Range Date SODIUM 141 mEq/L 135-145 12/24/2017 07:0 0 pm EST POTASSIUM 4.0 mEq/L 3.5-5.3 12/24/2017 07:0 0 pm EST CHLORIDE 105 mEq/L 96-110 12/24/2017 07:0 0 pm EST CARBON DIOXIDE (CO2) 24 mEq/L 21-33 07:00 pm EST BUN (UREA NITROGEN) 8 mg/dL 7-25 12/25/19 18 07:00 pm EST CREATININE 0.4 mg/dL 0.6-1.3 12/24/2017 07:0 0 pm EST BILIRUBIN, TOTAL 0.4 mg/dL 0.2-1.2 12/24/2017 07:00 pm EST * LIPID PROFILE w/calc LDL Performed by: [place] [id number] Component Value Range Date CHOLESTEROL 165 mg/dL <200 12/24/2017 07:0 0 pm EST TRIGLYCERIDE 141 mg/dL <150 12/24/2017 07:0 0 pm EST HDL 45 mg/dL >50 12/24/2017 07:0 0 pm EST LDL CALCULATED 92 mg/dL <100 12/24/2017 07 :00 pm EST * CMP-COMPREHENSIVE METABOLIC PNL Performed by: [place] [id number] Component Value Range Date CALCIUM 8.7 mg/dL 8.4-10.2 12/24/2017 07:0 0 pm EST * GLYCO-HGBA1C Performed by: [place] [id number] Component Value Range Date eAG (Mean Glucose) 243 mg/dL <136 8 07:00 pm EST * LIPID PROFILE w/calc LDL Performed by: [place] [id number] Component Value Range Date VLDLc 28 mg/dL 5-40 12/24/2017 07:0 0 pm EST * CMP-COMPREHENSIVE METABOLIC PNL Performed by: [place] [id number] Component Value Range Date GFR- 192 mL/min/1.73 m2 >60 1 02/23/2017 07:00 pm EST WLL-CNC-QNFHHSI 159 mL/min/1.73 m2 >60 12/24/2017 07:00 pm EST Encounters Encounter Performer Performer Role Encounter Diagnoses Location Date Discharge - Discharged / [facility] 12/21/2017 01:55 pm EST - 03/01/2018 05:15 pm EST Immunizations Vaccine Date Influenza 01/10/2018 01:00 am EST TB 2 Step [place]oux Skin Test 01/08/2018 0 1:00 am EST TB 2 Step [place] Skin Test 12/21/2017 0 1:00 am EST Pneumovax 23 Prevnar 13 Social History
--- OUTSIDE RECORDS SUMMARY | 2024-02-19 13:34 | XMS_ITS | Encounter Summary ---
Author Organization [facility] ([facility] ERMA Brewer [facility] Address [address] [place] [address] Care Team Providers Care Couture Dressmaker Name Role Phone Unavailable Primary Care Provider Unavailabl e Encounter Details Date Type Department Care Team (Late Contact Info) Description 01/07/2024 Orders Only [facility] H[facility]ology [facility] Jessica Lara [address] [place] [phone] Adrian Rothman MD [address] [place] [address] [employer] [address] [place] [phone] Malignant neoplasm of colon, unspecified part of [...] (Late Contact Info) Description 03/04/2024 9:30 AM PACK OUT OPERATOR Office Visit [facility] Hematology [facility] Jessica Lara [address] [place] [address] [place] [address] [place] [address] [employer] [address] [place] [phone] documented as of this encounter Visit Diagnoses Diagnosis Malignant neoplasm of colon, unspecified part of colon documented in this encounter
--- OUTSIDE RECORDS SUMMARY | 2024-02-19 13:34 | XMS_ITS | Encounter Summary ---
Author Organization [facility] ERMA Brewer [facility] Address [address] [place] [address] Care Team Providers Care Business Education Instructor Name Role Phone Unavailable Primary Care Provider Unavailabl e Encounter Details Date Type Department Care Team ([facility] Contact Info) Description 12/21/2023 Orders Only [facility] Oncology and Hematology [facility] Gisell Lara [address] [place] [phone] Adrian Rothman MD [address] [place] [address] [place] [phone] Social History Tobacco Use Types Packs/Day [...] Upcoming Encounters Date Type Department Care Team ([facility] Contact Info) Description 03/04/2024 9:30 AM POST PARTUM NURSE Office Visit [facility] Oncology and Hematology - Tre [address] Gisell Lara [address] [place] [phone] [place] [address] [place] [address] [place] [phone] documented as of this encounter Procedures Procedure Name Priority Date/Time Associated Diagnosis Comments PET BONE IMG W CT SKL BSE MID THG Routine 12/20/2023 12:02 PM POST PARTUM NURSE documented in this encounter Results * PET BONE IMG W CT SKB (12/20/2023 12:02 PM POST PARTUM NURSE) Anatomical Region Laterality Modality Other Adrian Rothman MD PE ORDERABLES documented in this encounter Visit Diagnoses Not on filedocumented in this encounter
--- OUTSIDE RECORDS SUMMARY | 2024-02-19 13:34 | XMS_ITS | Encounter Summary ---
Author Organization [facility] ERMA Brewer [facility] Address [address] [place] [address] Care Team Providers Care Credit Negotiator Name Role Phone Unavailable Primary Care Provider Unavailabl e Encounter Details Date Type Department Care Team (Late Contact Info) Description 01/21/2024 Orders Only [facility] Hematology [facility] [address] Gisell Lara [address] [place] [phone] Adrian Rothman MD [address] [place] [address] [employer] [address] [place] [phone] Malignant neoplasm of colon, unspecified part of [...] (Late Contact Info) Description 03/04/2024 9:30 AM PCB DESIGNER Office Visit [facility] Hematology [facility] Jessica Lara [address] [place] [phone] [place] [address] [place] [address] [employer] [address] [place] [phone] documented as of this encounter Visit Diagnoses Diagnosis Malignant neoplasm of colon, unspecified part of colon documented in this encounter
--- OUTSIDE RECORDS SUMMARY | 2024-02-19 13:34 | XMS_ITS | Encounter Summary ---
Author Organization [facility] Address [address] [place] [address] Care Team Providers Care Tabulating Supervisor Name Role Phone Unavailable Primary Care Provider Unavailabl e Encounter Details Date Type Department Care Team (Late st Contact Info) Description 01/08/2024 External Device Data STL ABSTRACTION Provider, [...] st Contact Info) Description 03/04/2024 9:30 AM HEMODIALYSIS CHARGE NURSE Office Visit [facility] Oncology and Hematology - Tre [address] [facility] [address] [place] [address] Adrian Rothman MD [address] [facility] [address] [place] [address] documented as of this encounter Visit Diagnoses Not on filedocumented in this encounter
== END 2024-02-12 11:31 | disposition home or self-care (01) ==
PROVIDERS: PCP Internal Medicine; Visit Provider Internal Medicine Hematology & Oncology
DX: C18.9 Malignant neoplasm of colon, unspecified (principal)
CPT/HCPCS: 36598; 99212; G0463

== ENCOUNTER 2024-03-03 23:45 | Emergency (ER) | payer OTHER, SELFPAY ==
--- NOTE | ~2024-03-03 | XR_ITS ---
Portable chest x-ray Comparison: 01/25/2024 Clinical History: Shortness of breath Findings: Right-sided Mediport in place. Lungs are clear, without focal consolidation or pleural eff usion. Cardiomediastinal silhouette is stable. Bones and soft tissues are unremarkable. Impression: Clear lungs. Stable Mediport. Reviewed, dictated and finalized at location . [place] FORMER Impression: Clear lungs. Stable Mediport.
--- NOTE | ~2024-03-03 | CT_ITS ---
Clinical Indication: Shortness of breath CT Scan of the Chest with Contrast: Technique: Contiguous sections were acquired throughout the chest after intravenous administration of 100 cc of Omnipaque 350. Dose reduction technique was used on this scan by utilizing automated expos ure control and iterative reconstruction technique. The dose-length product (DLP) was 633.31 mGy-cm. COMPARISON: 10/03/2023 Findings: There is no evidence of any significant mediastinal, hilar or axillary lymphadenopathy. There is no f illing defect in the pulmonary arterial tree to suggest pulmonary embolus. There is no evidence of ao rtic dissection or aneurysm. No pericardial effusion. Small right pleural effusion present. There is mild bibasilar atelectatic change. Stable 11 mm nodula r opacity in the posterior left upper lobe (axial image 46). Images through the upper abdomen reveal no abnormalities. Impression: No evidence of pulmonary embolus, aortic dissection, or aortic aneurysm. Stable 11 mm nodule in the posterior left upper lobe. This lesion is indeterminate. Small right pleural effusion with mild bibasilar atelectatic change. Reviewed, dictated and finalized at [facility]. ER ASSOCIATE Impression: No evidence of pulmonary embolus, aortic dissection, or aortic aneurysm. Stable 11 mm nodule in the posterior left upper lobe. This lesion is indetermin ate. Small right pleural effusion with mild bibasilar atelectatic change.
[2024-03-03 23:46] VITALS: BP 139/73; PULSE 89; RESP 17; TEMP 36.9; O2SAT 98
--- OUTSIDE RECORDS SUMMARY | 2024-03-03 23:46 | XMS_ITS | Encounter Summary ---
Author Organization [facility] Address [address] [place] [address] Care Team Providers Care Machine Tack Puller Name Role Phone Unavailable Primary Care Provider Unavailabl e Encounter Details Date Type Department Care Team (Late st Contact Info) Description 02/28/2024 External Device Data STL ABSTRACTION Provider, Abstract NO ADDRESS ON FILE Social History Tobacco Use Types Packs/Day Years Used Date Smoking Tobacco: Never Smokeless Tobacco: Never Alcohol Use Standard Drinks/Week Comments Not Currently 0 (1 standard drink = 0.6 oz pure alcohol) More then socially back in the day Comments Unknown Sex and Gender Information Value Date Recorded Sex Assigned at Not on file Legal Sex Female 1:12 PM CDT Gender Identity Not on file Sexual Orientation Not on file documented as of this encounter Plan of Treatment Upcoming Encounters Date Type Department Care Team (Late st Contact Info) Description 03/18/2024 8:45 AM PRESCHOOL ASSISTANT TEACHER Office Visit [facility] Oncology and Hematology - Tre [address] [facility] [address] [place] [address] Adrian Rothman MD [address] [facility] [address] [place] [address] documented as of this encounter Visit Diagnoses Not on filedocumented in this encounter
--- OUTSIDE RECORDS SUMMARY | 2024-03-03 23:46 | XMS_ITS | Encounter Summary ---
Author Organization [facility] ERMA Brewer [facility] Address [address] [place] [address] Care Team Providers Care Parts Sales Associate Name Role Phone Unavailable Primary Care Provider Unavailabl e Encounter Details Date Type Department Care Team ([facility] Contact Info) Description 03/03/2024 Orders Only [facility] Oncology and Hematology Tre [address] Gisell Lara [address] [place] [address] Adrian Rothman MD [address] [place] [address] [employer] [address] [place] [phone] Malignant neoplasm of colon, unspecified part of colon (CMS/HCC) Social History Tobacco Use Types Packs/Day Years [...] Department Care Team (Late Contact Info) Description 03/18/2024 8:45 AM OVEN LOADER Office Visit [facility] Oncology and Hematology - Tre [address] Gisell Lara [address] [place] [address] Adrian Rothman MD [address] [place] [address] [employer] [address] [place] [phone] documented as of this encounter Visit Diagnoses Diagnosis Malignant neoplasm of colon, unspecified part of colon (CMS/HCC) documented in this encounter
--- OUTSIDE RECORDS SUMMARY | 2024-03-03 23:46 | XMS_ITS | Clinical Summary ---
Author Organization [facility] Address [address] [place] [address] Care Team Providers Care Photograph Enlarger Name Role Phone Unavailable Primary Care Provider Unavailabl e Allergies No known active allergies Medications atorvastatin (LIPITOR) 40 mg tablet Take 40 mg by mouth daily at bedtime. Active amLODIPine (NORVASC) 10 mg tablet Take 10 mg by mouth daily. Active metoprolol succinate (TOPROL XL) 25 mg Extended Release 24 hour tablet Take 25 mg by mouth daily. Active divalproex (DEPAKOTE) 250 mg Delayed Release tablet Take 250 mg by mouth 2 times daily. 11/03/2023 Active insulin lispro (HumaLOG,ADMELO G) 100 unit/mL pen syringe 09/10/2023 Active losartan [...] or vomiting 30 Tablet 1 12/13/2023 Active lidocaine-prilo earl (EMLA) 2.5-2.5 % Cream Apply to port site 30 minutes before access. 30 Gram 1 12/13/2023 Active Active Problems No known active problems Encounters Date Type Department Care Team Description 03/03/2024 Orders Only [facility] Oncology and Hematology - Tre 222Jessica Lara [address] [place] [phone] Adrian Rothman MD Malignant neoplasm of colon, unspecified part of colon (CMS/HCC) 02/28/2024 External Device Data STL ABSTRACTION Provider, Abstract 02/26/2024 Telephone [facility] Oncology and Hematology - Tre Angeline Lara [address] [place] [phone] Adrian Rothman MD Dye Study 02/18/2024 Orders Only [facility] Oncology and Hematology - Tre Jessica Lara [address] [place] [phone] Adrian Rothman MD Malignant neoplasm of colon, unspecified part of colon (CMS/HCC) 02/14/2024 Orders Only [facility] Oncology and Hematology - Tre 222Jessica Lara [address] [place] [phone] Adrian Rothman MD 02/12/2024 Orders Only [facility] Oncology and Hematology - Tre Jabier Lara [address] [place] [address] Adrian Rothman MD Malignant neoplasm of colon, unspecified part of colon (CMS/HCC) (Primary Dx) 02/04/2024 Orders Only [facility] Oncology and Hematology - Tre Jabier Lara [address] [place] [address] Adrian Rothman MD Malignant neoplasm of colon, unspecified part of colon (CMS/HCC) 01/21/2024 Orders Only [facility] Oncology and Hematology - Tre Jabier Lara [address] [place] [address] Adrian Rothman MD Malignant neoplasm of colon, unspecified part of colon (CMS/HCC) 01/08/2024 External Device Data STL ABSTRACTION Provider, Abstract 01/07/2024 Telephone [facility] Oncology and Hematology - Tre 222Jessica Lara [address] [place] [address] Adrian Rothman MD Port Replacement 01/07/2024 [facility] Oncology and Hematology - Tre [address] Angeline Lara [address] [place] [address] Adrian Rothman MD Malignant neoplasm of colon, unspecified part of colon (CMS/HCC) 01/01/2024 Orders Only [facility] Oncology and Hematology - Tre [address] Angeline [address] [place] [address] Adrian Rothman MD 12/27/2023 Orders Only [facility] Oncology and Hematology - Tre [address] Angeline [address] [place] [address] Adrian Rothman MD 12/25/2023 Orders Only [facility] Oncology and Hematology - Tre 7 Angeline Lara [address] [place] [address] Adrian Rothman MD Malignant neoplasm of colon, unspecified part of colon (CMS/HCC) (Primary Dx) 12/24/2023 Orders Only [facility] Oncology and Hematology - Tre [address] Angeline [address] [place] [address] Adrian Rothman MD Malignant neoplasm of colon, unspecified part of colon (CMS/HCC) (Primary Dx) 12/21/2023 Orders Only [facility] Oncology and Hematology - Tre [address] Angeline [address] [place] [address] Adrian Rothman MD 12/20/2023 Orders Only [facility] Oncology and Hematology - Tre [address] Angeline [address] [place] [address] Adrian Rothman MD 12/17/2023 Abstract [facility] Oncology and Hematology - Tre [address] Angeline Lara [address] [place] [address] Adrian Rothman MD 12/17/2023 Abstract [facility] Oncology and [facility]ematology [facility] [address] Angeline [address] [place] [address] Adrian Rothman MD 12/13/2023 Telephone [facility] Oncology and Hematology - Tre [address] Ang[address] [place] [address] Adrian Rothman MD correction/Chemo pump 12/12/2023 Orders Only [facility] Oncology and Hematology - Tre [address] Angeline [address] [place] [address] Adrian Rothman MD Malignant neoplasm of colon, unspecified part of colon (CMS/HCC) (Primary Dx) from Last 3 Months Family History Medical [...] st Contact Info) Description 03/18/2024 8:45 AM IMMIGRATION PARALEGAL Office Visit [facility] Oncology and Hematology - Tre [address] [facility] Marco [address] [place] [address] Adrian Rothman MD [address] [facility] [address] [place] [address] Health Maintenance Due Date Last Done Comments DIABETES ANNUAL FOOT EXAM 1966 DIABETES ANNUAL RETINAL EXAM 1966 DIABETES MICROALBUMIN ANNUAL SCREEN 1966 LDL CHOLESTEROL ANNUAL 1966 DTAP/TDAP/TD VACCINES (1 - Tdap) 12/27/1967 PNEUMOCOCCAL VACCINE 65+ YEARS (1 of 2 - PCV) 12/26/18 68 Preventative Visit-Managed Medicaid 12/27/1967 ZOSTER VACCINE (1 of 2) 1998 OSTEOPOROSIS SCREENING 2013 DIABETES HBA1C Q 6 MONTHS 05/12/2022 11/11/2021 INFLUENZA VACCINE (#1) 2023 RSV VACCINE (60+ or ) (1 - 1-dose 75+ series) 12/27/2023 Procedures Procedure Name Priority Date/Time Associated Diagnosis Comments XR PORT CONTRAST INJECT W FLUORO Routine 02/12/2024 1:18 PM IMMIGRATION PARALEGAL XR PORT CONTRAST INJECT W FLUORO Routine 12/28/2023 11:03 AM IMMIGRATION PARALEGAL CBC WITH DIFFERENTIAL Routine 12/25/2023 4:20 PM IMMIGRATION PARALEGAL COMPREHENSIVE METABOLIC PANEL Routine 12/25/2023 3:11 PM IMMIGRATION PARALEGAL BASIC METABOLIC PANEL Routine 12/25/2023 2:27 PM IMMIGRATION PARALEGAL GLUCOSE LEVEL Routine 12/20/2023 4:18 PM IMMIGRATION PARALEGAL PET BONE IMG W CT SKL BSE MID THG Routine 12/20/2023 12:02 PM IMMIGRATION PARALEGAL from Last 3 Months Results * XR PORT CONTRAST INJECT W FLUORO (02/12/2024 1:18 PM IMMIGRATION PARALEGAL) Only the most recent of2 resultswithin the time period is included. Anatomical Region Laterality Modality Other us Adrian Rothman MD DIAGNOSTIC IMAGING ORDERABLES F inal Result * CBC WITH DIFFERENTIAL (12/25/2023 4:20 PM IMMIGRATION PARALEGAL) Blood us Adrian Rothman MD HEMATOLOGY ORDERABLES Final Res ult * COMPREHENSIVE METABOLIC PANEL (12/25/2023 3:11 PM IMMIGRATION PARALEGAL) Blood us Adrian Rothman MD CHEMISTRY ORDERABLES Final Resu lt * BASIC METABOLIC PANEL (12/25/2023 2:27 PM IMMIGRATION PARALEGAL) Blood us Adrian Rothman MD CHEMISTRY ORDERABLES Final Resu lt * GLUCOSE LEVEL (12/20/2023 4:18 PM IMMIGRATION PARALEGAL) Blood us Adrian Rothman MD CHEMISTRY ORDERABLES Final Resu lt * PET BONE IMG W CT SKB MDTH (12/20/2023 12:02 PM IMMIGRATION PARALEGAL) Anatomical Region Laterality Modality Other us Adrian Rothman MD PE ORDERABLES Final Result from Last 3 [place] [address] [place] [employer] [place]
--- NOTE | 2024-03-04 | ECG_ITS ---
Test Date: 2024-03-04 00:02:20 Measurements Intervals [place] Rate: 83 P: 50 UT: 140 QRS: 11 QRSD: 87 T: 44 QT: 373 QTc: 440 Interpretive Statements SINUS RHYTHM MODERATE VOLTAGE CRITERIA FOR LVH, CONSIDER NORMAL VARIANT [MEETS CRITERIA IN ONE OF: R(aVL), S(V1), R(V5), R(V5/V6)+S(V1)] NONSPECIFIC T-WAVE ABNORMALITY Compared to ECG 01/09/2024 03:53:06 No significant changes Electronically Signed On 03-04-2024 16:14:16 CCNP by Dakotah Cowan M.D.
[2024-03-04 00:35] VITALS: PULSE 84
--- NOTE | 2024-03-04 00:36 | PC.NURSE ---
dried stool removed from patient bottom pure wick placed new depend linens changed
--- OUTSIDE RECORDS SUMMARY | 2024-03-04 00:44 | XMS_ITS | Encounter Summary ---
Author Organization [facility] ERMA Brewer [facility] Address [address] [place] [address] Care Team Providers Care Pediatric Surgeon Name Role Phone Unavailable Primary Care Provider Unavailabl e Encounter Details Date Type Department Care Team ([facility] Contact Info) Description 03/03/2024 Orders Only [facility] Oncology and Hematology Tre [address] Gisell [address] [place] [address] Adrian Rothman MD [address] [place] [address] [employer] [address] [place] [phone] Malignant neoplasm of colon, unspecified part [...] (Late Contact Info) Description 03/18/2024 8:45 AM CLEAT LAYER Office Visit [facility] Oncology and Hematology - Tre [address] Gisell [address] [place] [address] Adrian Rothman MD [address] [place] [address] [employer] [address] [place] [phone] documented as of this encounter Visit Diagnoses Diagnosis Malignant neoplasm of colon, unspecified part of colon (CMS/HCC) documented in this encounter
--- OUTSIDE RECORDS SUMMARY | 2024-03-04 00:44 | XMS_ITS | Clinical Summary ---
Author Organization [facility] [place] [facility] Address [address] [place] [address] Care Team Providers Care Literary Agent Name Role Phone Unavailable Primary Care Provider [...] Department Care Team Description 03/03/2024 Orders Only [facility] Oncology and Hematology - Tre [address] [id number] Adrian Rothman MD Malignant neoplasm of colon, unspecified part of colon (CMS/HCC) 02/28/2024 External Device Data STL ABSTRACTION Provider, Abstract 02/26/2024 Telephone [facility]ematology - Tre Angeline L[address] [id number] Adrian Rothman MD Dye Study 02/18/2024 Orders Only [facility] - Tre Jessica [address] [place] [id number] Adrian Rothman MD Malignant neoplasm of colon, unspecified part of colon (CMS/HCC) 02/14/2024 Orders Only [facility] Hematology - Tre [address] [place] [id number] Adrian Rothman MD 02/12/2024 Orders Only [facility] Hematology - Tre Jabier [address] [place] [address] Adrian Rothman MD Malignant neoplasm of colon, unspecified part of colon (CMS/HCC) (Primary Dx) 02/04/2024 Orders Only [facility] Hematology - Tre Jabier [address] [place] [address] Adrian Rothman MD Malignant neoplasm of colon, unspecified part of colon (CMS/HCC) 01/21/2024 Orders Only [facility] Hematology - Tre Jabier [address] [place] [address] Adrian Rothman MD Malignant neoplasm of colon, unspecified part of colon (CMS/HCC) 01/08/2024 External Device Data STL ABSTRACTION Provider, Abstract 01/07/2024 Telephone [facility] Hematology - Tre [address] [place] [address] Adrian Rothman MD Port Replacement 01/07/2024 Orders Only [facility] On[facility] Hematology - Tre [address] [place] [address] Adrian Rothman MD Malignant neoplasm of colon, unspecified part of colon (CMS/HCC) 01/01/2024 Orders Only [facility] On[facility] Hematology - Tre [address] [place] [address] Adrian Rothman MD 12/27/2023 Orders Only [facility] On[facility] Hematology - Tre [address] [place] [address] Adrian Rothman MD 12/25/2023 Orders Only [facility] On[facility] Hematology - Tre [address] [place] [address] Adrian Rothman MD Malignant neoplasm of colon, unspecified part of colon (CMS/HCC) (Primary Dx) 12/24/2023 Orders Only [facility] Hematology - Tre [address] [place] [address] Adrian Rothman MD Malignant neoplasm of colon, unspecified part of colon (CMS/HCC) (Primary Dx) 12/21/2023 Orders Only [facility] Hematology - Tre [address] [place] [address] Adrian Rothman MD 12/20/2023 Orders Only [facility] Hematology - Tre [address] [place] [address] Adrian Rothman MD 12/17/2023 Abstract [facility] Hematology - Tre [address] [place] [address] Adrian Rothman MD 12/17/2023 Abstract [facility] H[facility]ology [facility] [address] [place] [address] Adrian Rothman MD 12/13/2023 Telephone [facility] On[facility] Hematology - Tre [address] [place] [address] Adrian Rothman MD prison/Chemo pump 12/12/2023 Orders Only [facility] Hematology - Tre [address] [place] [phone] Adrian Rothman MD Malignant neoplasm of colon, [...] st Contact Info) Description 03/18/2024 8:45 AM DIESEL ENGINE INSPECTOR Office Visit [facility] On[facility] Hematology - Tre [address] [facility] [address] [place] [address] Adrian Rothman MD [address] [facility] [address] [place] [address] Health Maintenance Due Date Last [...] INJECT W FLUORO Routine 02/12/2024 1:18 PM DIESEL ENGINE INSPECTOR XR PORT CONTRAST INJECT W FLUORO Routine 12/28/2023 11:03 AM DIESEL ENGINE INSPECTOR CBC WITH DIFFERENTIAL Routine 12/25/2023 4:20 PM DIESEL ENGINE INSPECTOR COMPREHENSIVE METABOLIC PANEL Routine 12/25/2023 3:11 PM DIESEL ENGINE INSPECTOR BASIC METABOLIC PANEL Routine 12/25/2023 2:27 PM DIESEL ENGINE INSPECTOR GLUCOSE LEVEL Routine 12/20/2023 4:18 PM DIESEL ENGINE INSPECTOR PET BONE IMG W CT SKL BSE MID THG Routine 12/20/2023 12:02 PM DIESEL ENGINE INSPECTOR from Last 3 Months Results * XR PORT CONTRAST INJECT W FLUORO (02/12/2024 1:18 PM DIESEL ENGINE INSPECTOR) Only the most recent of2 resultswithin the time period is included. Anatomical Region Laterality Modality Other us Adrian Rothman MD DIAGNOSTIC IMAGING ORDERABLES F inal Result * CBC WITH DIFFERENTIAL (12/25/2023 4:20 PM DIESEL ENGINE INSPECTOR) Blood us Adrian Rothman MD HEMATOLOGY ORDERABLES Final Res ult * COMPREHENSIVE METABOLIC PANEL (12/25/2023 3:11 PM DIESEL ENGINE INSPECTOR) Blood us Adrian Rothman MD CHEMISTRY ORDERABLES Final Resu lt * BASIC METABOLIC PANEL (12/25/2023 2:27 PM DIESEL ENGINE INSPECTOR) Blood us Adrian Rothman MD CHEMISTRY ORDERABLES Final Resu lt * GLUCOSE LEVEL (12/20/2023 4:18 PM DIESEL ENGINE INSPECTOR) Blood us Adrian Rothman MD CHEMISTRY ORDERABLES Final Resu lt * PET BONE IMG W CT SKB MDTH (12/20/2023 12:02 PM DIESEL ENGINE INSPECTOR) Anatomical Region Laterality Modality Other us Adrian Rothman MD PE ORDERABLES Final Result from Last 3 [place] [address] [employer] [place]
[2024-03-04 00:49] LABS: Basophils Percent Auto 0.5 % (0.2-1.2); Eosinophils Absolute Auto 0.3 K/mm3 (0-0.3); Eosinophils Percent Auto 5.6 % (0-4.4); Hematocrit 32.6 % (37.0-47.0); Hemoglobin 9.6 g/dL (12.0-15.0); Immature Granulocyte Absolute 0.02 K/mm3 (0.00-0.031); Immature Granulocyte Percent A 0.4 % (0-0.5); Lymphocytes Absolute Auto 1.68 K/mm3 (0.9-3.2); Lymphocytes Percent Auto 30.3 % (18.3-44.2); Mean Corpuscular HGB Conc 29.4 g/dl (32-36); Mean Corpuscular Hemoglobin 26.9 pg (26-34); Mean Corpuscular Volume 91.3 fl (80-100); Mean Platelet Volume 9.8 fl (7.4-10.4); Monocytes Absolute Auto 0.4 K/mm3 (0.1-0.6); Monocytes Percent Auto 7.9 % (2.6-8.5); Neutrophils Absolute Auto 3.1 K/mm3 (1.3-6.7); Neutrophils Percent Auto 55.3 % (45.5-73.1); Platelet Count Result 332 k/mm3 (150-375); Red Blood Count 3.57 M/mm3 (4.2-5.4); Red Cell Distribution Width 14.2 % (11.5-14.5); White Blood Count 5.6 K/mm3 (4.5-10.0)
[2024-03-04 00:54] LABS: Anisocytosis 1+; Hypochromasia 1+; Platelet Estimate Adequate (Adequate); Schistocytes None Seen
[2024-03-04 00:55] LABS: Alanine Aminotransferase 13 U/L (6-35); Albumin Level 4.2 g/dL (3.5-5.1); Alkaline Phosphatase 112 U/L (38-126); Anion Gap 13 mmol/L (4-12); Aspartate Amino Transferase 17 U/L (14-36); Bilirubin,Total 0.3 mg/dL (0.2-1.3); Blood Urea Nitrogen 18 mg/dL (7-17); Calcium 9.4 mg/dL (8.4-10.2); Carbon Dioxide 24 mmol/L (22-30); Chloride 104 mmol/L (98-107); Estimated Glomerular Filt Rate > 60; Glucose 154 mg/dL (65-110); Potassium 4.3 mmol/L (3.4-5.0); Sodium 141 mmol/L (137-145)
[2024-03-04 00:57] LABS: Partial Thromboplastin Time 27.2 Seconds (22.3-36.8); Prothrombin Time 13.6 Seconds (11.1-14.7)
[2024-03-04 01:06] LABS: NT Pro B Type Natriuretic Pept < 20 pg/mL (19.9-100); Troponin I < 0.012 ng/mL (0.000-0.034)
[2024-03-04 01:21] LABS: Influenza A QL RT-PCR Negative (Negative); Influenza B QL RT-PCR Negative (Negative); RSV RNA, RT-PCR Negative (Negative); SARS-CoV-2 RNA PCR Negative (Negative)
--- NOTE | 2024-03-04 02:09 | ED.SOB ---
HPI - SOB/Dyspnea General Chief Complaint: Shortness of Breath/Dyspnea <Ashley Cobos PA-C - Last Filed: 03/04/24 03:18> Stated Complaint: low O2 at home <HARRIS Gonzalez Last Filed: 03/04/24 03:18> Time Seen by Provider: 03/04/24 00:22 <HARRIS Gonzalez Last Filed: 03/04/24 03:18> Source: patient <HARRIS Gonzalez Last Filed: 03/04/24 03:18> Mode of arrival: EMS <HARRIS Gonzalez Last Filed: 03/04/24 03:18> Limitations: no limitations <HARRIS Gonzalez Last Filed: 03/04/24 03:18> History of Present Illness HPI Narrative: Patient is a 73-year-old female, with PMH of CVA, DM, polio, bipolar disorder, who presents to the ED via EMS with report of shortness of breath. Patient is a [facility]. Per nursing report, patient has had a cough recently and developed acute shortness breath after a coughing fit tonight. They reported her oxygen saturation to be low at 92%. She was placed on 2 L nasal cannula EMS was contacted to bring the patient here. Patient denies current shortness of breath. She does report some chest pain tonight. Denies known fevers. <HARRIS Gonzalez Last Filed: 03/04/24 03:18> Related Data Home Medications: Home Medications ?Medication ?Instructions ?Recorded ?Confirmed ?Last Taken ?Type amlodipine 10 mg tablet 10 mg PO DAILY 04/13/19 01/16/24 Unknown History atorvastatin 40 mg tablet 40 mg PO HS 04/13/19 01/16/24 Unknown History benztropine 1 mg tablet 1 mg PO BID 04/13/19 01/16/24 Unknown History divalproex 250 mg tablet,extended 250 mg PO BID 04/13/19 01/16/24 Unknown History release 24 hr (Depakote ER) losartan 50 mg tablet 50 mg PO DAILY 04/13/19 01/16/24 Unknown History trazodone 50 mg tablet 25 mg PO HS 04/13/19 01/16/24 Unknown History cranberry 500 mg capsule 500 mg PO BID 10/01/23 01/16/24 Unknown History ferrous sulfate 325 mg (65 mg 325 mg PO DAILY 10/01/23 01/16/24 Unknown History iron) tablet insulin glargine 100 unit/mL 40 unit subcut QPM 10/01/23 01/16/24 Unknown History subcutaneous solution (Lantus U-100 Insulin) insulin glargine 100 unit/mL 42 unit subcut DAILY 10/01/23 01/16/24 Unknown History subcutaneous solution (Lantus U-100 Insulin) levetiracetam 500 mg tablet 500 mg PO BID 10/01/23 01/16/24 Unknown History (Keppra) meloxicam 7.5 mg tablet 7.5 mg PO DAILY 10/01/23 01/16/24 Unknown History mirtazapine 7.5 mg tablet 7.5 mg PO DAILY 10/01/23 01/16/24 Unknown History polyethylene glycol 3350 17 gram 17 g PO DAILY PRN Constipation 10/01/23 01/16/24 Unknown History oral powder packet (Miralax) risperidone 1 mg tablet (Risperdal) 1 mg PO BID 10/01/23 01/16/24 Unknown History venlafaxine 75 mg capsule,extended 225 mg PO DAILY 10/01/23 01/16/24 Unknown History release 24 hr (Effexor XR) lidocaine-prilocaine 2.5 %-2.5 % 1 applic topical ONCE 01/17/24 01/17/24 Unknown History topical kit (Anodyne LPT) metformin 1,000 mg tablet 1,000 mg PO BID 01/17/24 01/17/24 Unknown History ondansetron 8 mg disintegrating 8 mg PO Q8H PRN nausea and vomiting 01/17/24 01/17/24 Unknown History tablet potassium chloride 10 mEq 30 meq PO DAILY 01/17/24 01/17/24 Unknown History tablet,extended release <Ashley Cobos PA-C - Last Filed: 03/04/24 03:18> Allergies/Adverse Reactions: Allergies Allergy/AdvReac Type Severity Reaction Status Date / Time latex Allergy Unknown Verified 03/03/24 23:51 <Ashley Cobos PA-C - Last Filed: 03/04/24 03:18> Review of Systems Review of Systems: All systems reviewed & are unremarkable except as noted in HPI. <Ashley Cobos PA-C - Last Filed: 03/04/24 03:18> All systems reviewed & are unremarkable except as noted in HPI and below <Ashley Cobos PA-C - Last Filed: 03/04/24 03:18> [facility] Past Medical History Medical History: Medical History Wheelchair dependence Chronic anemia History of DVT (deep vein thrombosis) Insulin dependent type 2 diabetes mellitus Polio Patient had polio as a child that is left her with left lower leg weakness. 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 <Ashley Cobos PA-C - Last Filed: 03/04/24 03:18> Surgical History Surgical History: Surgical History No history of previous surgery <Ashley Cobos PA-C - Last Filed: 03/04/24 03:18> Family History Family History: Family History Other Acute myocardial infarction Congestive heart failure Diabetes mellitus Hypertension <Ashley Cobos PA-C - Last Filed: 03/04/24 03:18> Social History Social History: Social History Social History: Apparently she is currently at a jail. She ambulates with a walker. No alcohol, tobacco, or drug abuse. Daughter Portia Altman is her emergency contact and she is listed as a full code. Smoking status: Never smoker Alcohol intake: never Substance use: never Do You Feel Safe in your Home?: Yes Lack of Transportation: No Lack of Food: Never True Current Housing: I Have Housing Concerned About Future Housing: YES Difficulty Paying Gas/Electric Bills: No Difficulty Paying for Meds: YES Currently Unemployed: YES Education: High School Diploma/GED Difficulty w/ Childcare or Family Care: YES Living arrangements: jail Additional living arrangements comments: [facility] last few months Rebeca MCCLENDON n [phone] Gender identity (if verbalized by the patient): Female Spiritual care concerns: No Agree to blood products: Yes <Ashley Cobos PA-C - Last Filed: 03/04/24 03:18> Exam Narrative: GENERAL: Elderly, well-nourished, non-toxic, in no acute distress. HEAD: Normocephalic, atraumatic. RESPIRATORY: Airway patent, respirations nonlabored. Clear to auscultation bilaterally, no rales, rhonchi, wheezing. Coarse lung sounds in bases bilaterally. No significant focal lung sounds. Frequent croup-like cough on exam. CARDIOVASCULAR: Regular rate and rhythm without murmurs, rubs, or gallops. MUSCULOSKELETAL: Moves all extremities. No gross deformities. Atrophy and chronic weakness to left lower extremity related to polio. SKIN: Warm, dry, normal color. NEURO: A&O X3. Speech clear. Cranial nerves II-XII grossly intact. Steady gait. No ataxic movements. PSYCHIATRIC: Appropriate mood and affect. Normal interaction. <Ashley Cobos PA-C - Last Filed: 03/04/24 03:18> Course Course Emergency Course: Patient signed out to me by previous provider at 3:[address] angiography. CT read came back with no pulmonary embolism, no aortic dissection or aneurysm. Trace effusion, atelectasis but no pneumonia. Patient was re-evaluated and remained hemodynamically stable here without any hypoxia. She is resting comfortably but did get a Tessalon Perle as she was having coughing earlier. Given her stable vital signs, lack of any hypoxia or need for oxygen supplementation and reassuring workup I believe she can be safely discharged home as per previous provider's sign-out. Patient was given his prescription for Tessalon Perle and sent home at this time via EMS. <Javier Badillo MD - Last Filed: 03/04/24 04:57> Vital Signs Vital signs: Vital Signs Temperature 36.9 C 03/03/24 23:46 Pulse Rate 89 03/03/24 23:46 Respiratory Rate 17 03/03/24 23:46 Blood Pressure 139/73 03/03/24 23:46 Pulse Oximetry 98 03/03/24 23:46 Temperature 36.9 C 03/03/24 23:46 Pulse Rate 84 03/04/24 00:35 Respiratory Rate 17 03/03/24 23:46 Blood Pressure 139/73 03/03/24 23:46 Pulse Oximetry 98 03/03/24 23:46 <Ashley Cobos PA-C - Last Filed: 03/04/24 03:18> Vital Signs Temperature 36.9 C 03/03/24 23:46 Pulse Rate 89 03/03/24 23:46 Respiratory Rate 17 03/03/24 23:46 Blood Pressure 139/73 03/03/24 23:46 Pulse Oximetry 98 03/03/24 23:46 Temperature 36.9 C 03/03/24 23:46 Pulse Rate 84 03/04/24 00:35 Respiratory Rate 17 03/03/24 23:46 Blood Pressure 139/73 03/03/24 23:46 Pulse Oximetry 98 03/03/24 23:46 <Javier Badillo MD - Last Filed: 03/04/24 04:57> MDM - SOB/Dyspnea MDM Narrative Medical decision making narrative: Patient presented to ED from local jail with report of cough, shortness of breath, borderline low oxygen saturation. Vital signs are stable upon arrival. Patient presented on 2 L nasal cannula. This was decreased to RA and patient's saturations are remaining stable. She did get as low as 90 briefly after a coughing fit, but recovered quickly that required supplemental oxygen. EKG with sinus rhythm, nonspecific ST changes. Baseline troponin is undetectable. Will obtain 3 hour troponin as patient was reporting chest pain tonight. BNP is within normal range. Chest x-ray is clear. Viral swabs are negative. D-dimer did result elevated at 1.16. CTA PE study obtained. Remainder basic laboratory studies are fairly unremarkable. No leukocytosis. Chronic anemia, consistent with previous records. Stable electrolytes. Stable kidney function. Care signed out to Dr. Badillo at shift change pending STAT RAD CT results. <Ashley Cobos PA-C - Last Filed: 03/04/24 03:18> Medical Records Attestation: I reviewed the patient's medical records. <Ashley Cobos PA-C - Last Filed: 03/04/24 03:18> Lab Data Attestation: I reviewed the patient's lab results. <Ashley Cobos PA-C - Last Filed: 03/04/24 03:18> Result diagrams: 03/04/24 00:40 03/04/24 00:40 <Ashley Cobos PA-C - Last Filed: 03/04/24 03:18> Labs: Lab Results 03/04/24 03/04/24 Range/Units 00:40 04:21 WBC 5.6 (4.5-10.0) K/mm3 RBC 3.57 L (4.2-5.4) M/mm3 Hgb 9.6 L (12.0-15.0) g/dL Hct 32.6 L (37.0-47.0) % MCV 91.3 (80-100) fl MCH 26.9 (26-34) pg MCHC 29.4 L (32-36) g/dl RDW 14.2 (11.5-14.5) % Plt Count 332 (150-375) k/mm3 MPV 9.8 (7.4-10.4) fl Immature Gran % (Auto) 0.4 (0-0.5) % Neut % (Auto) 55.3 (45.5-73.1) % Lymph % (Auto) 30.3 (18.3-44.2) % [place] % (Auto) 7.9 (2.6-8.5) % Eos % (Auto) 5.6 H (0-4.4) % Baso % (Auto) 0.5 (0.2-1.2) % Lymph # (Auto) 1.68 (0.9-3.2) K/mm3 [place] # (Auto) 0.4 (0.1-0.6) K/mm3 Eos # (Auto) 0.3 (0-0.3) K/mm3 Baso # (Auto) 0.0 (0.0-0.1) K/mm3 Abs Immat Gran (auto) 0.02 (0.00-0.031) K/mm3 Absolute Neuts (auto) 3.1 (1.3-6.7) K/mm3 Absolute Nucleated RBC 0.000 (0.0-0.012) K/mm3 Nucleated RBC % 0.0 (0.0-0.2) % Platelet Estimate Adequate (Adequate) Hypochromasia 1+ Anisocytosis 1+ Schistocytes None seen PT 13.6 (11.1-14.7) Seconds INR 1.0 APTT 27.2 (22.3-36.8) Seconds D-Dimer 1.16 H (<0.48) ug/mL Sodium 141 (137-145) mmol/L Potassium 4.3 (3.4-5.0) mmol/L Chloride 104 (98-107) mmol/L Carbon Dioxide 24 (22-30) mmol/L Anion Gap 13 H (4-12) mmol/L BUN 18 H D (7-17) mg/dL Creatinine 0.65 L (0.7-1.0) mg/dL Estim Creat Clear Calc Not Reportable Estimated GFR > 60 (59 - ) Glucose 154 H (65-110) mg/dL Calcium 9.4 (8.4-10.2) mg/dL Total Bilirubin 0.3 (0.2-1.3) mg/dL AST 17 (14-36) U/L ALT 13 (6-35) U/L Alkaline Phosphatase 112 (38-126) U/L Troponin I < 0.012 < 0.012 (0.000-0.034) ng/mL NT-Pro-B Natriuret Pep < 20 (19.9-100) pg/mL Total Protein 8.0 (6.3-8.2) g/dL Albumin 4.2 (3.5-5.1) g/dL Influenza A (RT-PCR) Negative (Negative) Influenza B (RT-PCR) Negative (Negative) RSV (RT-PCR) Negative (Negative) SARS-CoV-2 RNA (RT-PCR) Negative (Negative) <Ashley Cobos PA-C - Last Filed: 03/04/24 03:18> Lab Results 03/04/24 03/04/24 Range/Units 00:40 04:21 WBC 5.6 (4.5-10.0) K/mm3 RBC 3.57 L (4.2-5.4) M/mm3 Hgb 9.6 L (12.0-15.0) g/dL Hct 32.6 L (37.0-47.0) % MCV 91.3 (80-100) fl MCH 26.9 (26-34) pg MCHC 29.4 L (32-36) g/dl RDW 14.2 (11.5-14.5) % Plt Count 332 (150-375) k/mm3 MPV 9.8 (7.4-10.4) fl Immature Gran % (Auto) 0.4 (0-0.5) % Neut % (Auto) 55.3 (45.5-73.1) % Lymph % (Auto) 30.3 (18.3-44.2) % [place] % (Auto) 7.9 (2.6-8.5) % Eos % (Auto) 5.6 H (0-4.4) % Baso % (Auto) 0.5 (0.2-1.2) % Lymph # (Auto) 1.68 (0.9-3.2) K/mm3 [place] # (Auto) 0.4 (0.1-0.6) K/mm3 Eos # (Auto) 0.3 (0-0.3) K/mm3 Baso # (Auto) 0.0 (0.0-0.1) K/mm3 Abs Immat Gran (auto) 0.02 (0.00-0.031) K/mm3 Absolute Neuts (auto) 3.1 (1.3-6.7) K/mm3 Absolute Nucleated RBC 0.000 (0.0-0.012) K/mm3 Nucleated RBC % 0.0 (0.0-0.2) % Platelet Estimate Adequate (Adequate) Hypochromasia 1+ Anisocytosis 1+ Schistocytes None seen PT 13.6 (11.1-14.7) Seconds INR 1.0 APTT 27.2 (22.3-36.8) Seconds D-Dimer 1.16 H (<0.48) ug/mL Sodium 141 (137-145) mmol/L Potassium 4.3 (3.4-5.0) mmol/L Chloride 104 (98-107) mmol/L Carbon Dioxide 24 (22-30) mmol/L Anion Gap 13 H (4-12) mmol/L BUN 18 H D (7-17) mg/dL Creatinine 0.65 L (0.7-1.0) mg/dL Estim Creat Clear Calc Not Reportable Estimated GFR > 60 (59 - ) Glucose 154 H (65-110) mg/dL Calcium 9.4 (8.4-10.2) mg/dL Total Bilirubin 0.3 (0.2-1.3) mg/dL AST 17 (14-36) U/L ALT 13 (6-35) U/L Alkaline Phosphatase 112 (38-126) U/L Troponin I < 0.012 < 0.012 (0.000-0.034) ng/mL NT-Pro-B Natriuret Pep < 20 (19.9-100) pg/mL Total Protein 8.0 (6.3-8.2) g/dL Albumin 4.2 (3.5-5.1) g/dL Influenza A (RT-PCR) Negative (Negative) Influenza B (RT-PCR) Negative (Negative) RSV (RT-PCR) Negative (Negative) SARS-CoV-2 RNA (RT-PCR) Negative (Negative) <Javier Badillo MD - Last Filed: 03/04/24 04:57> Imaging Data Attestation: I personally reviewed and interpreted this imaging study as follows: <Ashley Cobos PA-C - Last Filed: 03/04/24 03:18> Radiologist's impression: STAT RAD CXR: No acute findings. <Ashley Cobos PA-C - Last Filed: 03/04/24 03:18> ECG Data EKG #1: Attestation: I personally reviewed and interpreted this ECG as follows: <Ashley Cobos PA-C - Last Filed: 03/04/24 03:18> ECG completion date: 03/04/24 <Ashley Cobos PA-C - Last Filed: 03/04/24 03:18> ECG completion time: 00:02 <HARRIS Gonzalez Last Filed: 03/04/24 03:18> EKG Interpretation: normal rate (83), sinus rhythm and non-specific ST changes <HARRIS Gonzalez Last Filed: 03/04/24 03:18> Discharge Plan Discharge Clinical Impression: Shortness of breath Upper respiratory infection Qualifiers: URI type: unspecified URI Qualified Code(s): J06.9 - Acute upper respiratory infection, unspecified <HARRIS Gonzalez Last Filed: 03/04/24 03:18> Patient Disposition: NH Longterm/Asst Living <HARRIS Gonzalez Last Filed: 03/04/24 03:18> Condition: Stable <HARRIS Gonzalez Last Filed: 03/04/24 03:18> Instructions: Antibiotic Form, Upper Respiratory Infection (ED), Cold Symptoms (ED) <HARRIS Gonzalez Last Filed: 03/04/24 03:18> Additional Instructions: Patient's testing for COVID, RSV, influenza were negative. Recommend Tessalon Perles as needed for cough. Recommend patient stay well-hydrated. Utilize Tylenol for discomfort and/or fevers. Recommend [id number] cough and cold medicines for symptom relief, Delsym, Mucinex, DayQuil, Robitussin, TheraFlu. Follow up with primary care doctor for further evaluation. Return to the ED if patient experiences worsening or severe chest pain or difficulty breathing, unable to keep down food or drink, severe pain, persistent fevers, pain or swelling in legs, or any other symptoms of concern. <HARRIS Gonzalez Last Filed: 03/04/24 03:18> Patient Language: Japanese <HARRIS Gonzalez Last Filed: 03/04/24 03:18> Prescriptions: New benzonatate 100 mg capsule 100 mg PO TID PRN (Reason: cough) Qty: 30 0RF No Action losartan 50 mg Tablet 50 mg PO DAILY atorvastatin 40 mg Tablet 40 mg PO HS amlodipine 10 mg Tablet 10 mg PO DAILY benztropine 1 mg Tablet 1 mg PO BID divalproex [Depakote ER] 250 mg Tablet Extended Release 24 Hr 250 mg PO BID trazodone 50 mg Tablet 25 mg PO HS cranberry 500 mg Capsule 500 mg PO BID Rx Instructions: administer with meals insulin glargine [Lantus U-100 Insulin] 100 unit/mL Solution 42 unit SUBCUT DAILY insulin glargine [Lantus U-100 Insulin] 100 unit/mL Solution 40 unit SUBCUT QPM venlafaxine [Effexor XR] 75 mg Capsule,Extended Release 24hr 225 mg PO DAILY levetiracetam [Keppra] 500 mg Tablet 500 mg PO BID ferrous sulfate 325 mg (65 mg iron) Tablet 325 mg PO DAILY meloxicam 7.5 mg tablet 7.5 mg PO DAILY polyethylene glycol 3350 [Miralax] 17 gram Powder In Packet 17 g PO DAILY PRN (Reason: Constipation) risperidone [Risperdal] 1 mg Tablet 1 mg PO BID mirtazapine 7.5 mg Tablet 7.5 mg PO DAILY docusate sodium [Colace] 100 mg capsule 100 mg PO BID Qty: 20 0RF potassium chloride 10 mEq tablet extended release 30 meq PO DAILY metformin 1,000 mg tablet 1,000 mg PO BID ondansetron 8 mg tablet,disintegrating 8 mg PO Q8H PRN (Reason: nausea and vomiting) lidocaine-prilocaine [Anodyne LPT] 2.5-2.5 % kit 1 applic topical ONCE Patient Comments: APPLY TOPICALLY TO PORT SITE 30 MINUTES BEFORE ACCESS Rx Instructions: as a single dose hydrocodone-acetaminophen 5-325 mg tablet 1 tablet PO Q4H PRN (Reason: pain) Qty: 10 0RF <Ashley Cobos PA-C - Last Filed: 03/04/24 03:18> Follow-up/Referrals: Lynsey,MD Rodrigo [Primary Care Provider] - <Ashley Cobos PA-C - Last Filed: 03/04/24 03:18> Stand Alone Forms: Senior Care Discharge <Ashley Cobos PA-C - Last Filed: 03/04/24 03:18> Time of Disposition: 04:56 <HARRIS Gonzalez Last Filed: 03/04/24 03:18> 04:56 <Javier Badillo MD - Last Filed: 03/04/24 04:57>
[2024-03-04 02:28] LABS: D Dimer 1.16 ug/mL (<0.48)
--- NOTE | 2024-03-04 03:40 | ECG_ITS ---
Test Date: 2024-03-04 04:21:17 Measurements Intervals [place] Rate: 81 P: 63 WV: 135 QRS: 16 QRSD: 90 T: 47 QT: 377 QTc: 439 Interpretive Statements SINUS RHYTHM NONSPECIFIC T-WAVE ABNORMALITY Compared to ECG 03/04/2024 00:02:20 No significant changes Electronically Signed On 03-04-2024 16:15:49 SWITCHING OPERATOR by Dakotah Cowan M.D.
[2024-03-04] MEDS: BENZONATATE 100 MG CAPSULE 200 MG PO (04:26)
[2024-03-04 04:52] LABS: Troponin I < 0.012 ng/mL (0.000-0.034)
[2024-03-04 07:17] VITALS: BP 123/65; PULSE 84; RESP 16; O2SAT 100
[2024-03-04 07:22] VITALS: BP 143/63; PULSE 85; RESP 14; TEMP 36.4; O2SAT 100
[2024-03-04 10:00] VITALS: BP 160/90; PULSE 104; RESP 20; O2SAT 98
== END 2024-03-04 10:11 ==
PROVIDERS: Student in an Organized Health Care Education/Training Program; Emergency Provider Physician Assistant; PCP Internal Medicine
DX: J06.9 Acute upper respiratory infection, unspecified (principal); R06.02 Shortness of breath; Z20.822 Contact with and (suspected) exposure to COVID-19; I69.398 Other sequelae of cerebral infarction; I69.392 Facial weakness following cerebral infarction; I69.351 Hemiplegia and hemiparesis following cerebral infarction affecting right dominant side; R26.89 Other abnormalities of gait and mobility; I10 Essential (primary) hypertension; E78.5 Hyperlipidemia, unspecified; D64.9 Anemia, unspecified; K21.9 Gastro-esophageal reflux disease without esophagitis; M19.90 Unspecified osteoarthritis, unspecified site; Z86.718 Personal history of other venous thrombosis and embolism; B91 Sequelae of poliomyelitis; M62.81 Muscle weakness (generalized); R94.31 Abnormal electrocardiogram [ECG] [EKG]; Z79.4 Long term (current) use of insulin; Z79.899 Other long term (current) drug therapy; Z79.84 Long term (current) use of oral hypoglycemic drugs
CPT/HCPCS: 36415; 71045; 71275; 80053; 83880; 84484; 85025; 85380; 85610; 85730; 87637; 93005; 99284; A9270; Q9967

== ENCOUNTER 2024-03-11 08:46 | Outpatient (CLI) | payer OTHER, SELFPAY ==
--- NOTE | ~2024-03-11 | CT_ITS ---
EXAMINATION: CT chest abdomen pelvis w con DATE: 03/11/2024 09:42 INDICATION: Malignant neoplasm of colon. TECHNIQUE: Computed tomography (CT) of the chest, abdomen, and pelvis was performed with 100 mL Omnip aque 350 intravenous contrast. Automated exposure control and iterative reconstruction technique were employed. The dose-length product was 1004.95 mGy-cm. COMPARISON: Chest CT 03/04/2024, 10/03/23, PET/CT 12/20/23 FINDINGS: CHEST CT: The lungs demonstrate mild atelectasis and mild chronic interstitial lung disease. There is a 12 mm n odule in left lower lobe. There is a stable 3 mm nodule in right upper lobe, likely benign. There are trace pleural effusions. The heart size is normal. There are coronary artery calcifications. No karely cardial effusion. There is a right chest port with tip in the posterior right pleural space. There is mild thoracic spondylosis. There is a chronic compression fracture of T3. ABDOMEN/PELVIS CT: The liver, gallbladder, spleen, pancreas, adrenal glands, and kidneys are normal. There is diverticul osis of the colon without evidence of diverticulitis. There are changes of right hemicolectomy. There are no dilated loops of bowel. There are no pathologically enlarged lymph nodes. There is no free in traperitoneal fluid. There is mild lumbar spondylosis. IMPRESSION: 1. 12 mm pulmonary nodule, stable from 10/03/2023 and without increased activity on PET on 12/20/23, p robably benign. Noncontrast low-dose chest CT is recommended in 6 months. Reviewed, dictated and finalized at location A. [place] IMPRESSION: 1. 12 mm pulmonary nodule, stable from 10/03/2023 and without increased activity on PET on 12/20/23, probably benign. Noncontrast low-dose chest CT is recommen ded in 6 months.
--- OUTSIDE RECORDS SUMMARY | 2024-03-11 09:01 | XMS_ITS | Clinical Summary ---
Author Organization [facility] Address [address] [place] [address] Care Team Providers Care Player Development Manager Name Role Phone Unavailable Primary Care [...] Encounters Date Type Department Care Team Description 03/05/2024 External Device Data STL ABSTRACTION Provider, Abstract 03/03/2024 Orders Only [facility] Oncology and Hematology - [place] [address]Jessica Lara [address] Adrian Rothman MD Malignant neoplasm of colon, unspecified part of colon (CMS/HCC) 02/28/2024 External Device Data STL ABSTRACTION Provider, Abstract 02/26/2024 Telephone [facility] Oncology and Hematology - [place] [address]Jessica Lara [address] Adrian Rothman MD Dye Study 02/18/2024 Orders Only [facility] Oncology and Hematology - [place] Jabier Lara [address] Adrian Rothman MD Malignant neoplasm of colon, unspecified part of colon (CMS/HCC) 02/14/2024 Orders Only [facility] Oncology and Hematology - [place] Jabier Lara [address] Adrian Rothman MD 02/12/2024 Orders Only [facility] Oncology and Hematology - [place] Jabier Lara [address] Adrian Rothman MD Malignant neoplasm of colon, unspecified part of colon (CMS/HCC) (Primary Dx) 02/04/2024 Orders Only [facility] Oncology and Hematology - [place] Jabier Lara [address] Adrian Rothman MD Malignant neoplasm of colon, unspecified part of colon (CMS/HCC) 01/21/2024 Orders Only [facility] Oncology and Hematology - [place] Jabier Lara [address] Adrian Rothman MD Malignant neoplasm of colon, unspecified part of colon (CMS/HCC) 01/08/2024 External Device Data STL ABSTRACTION Provider, Abstract 01/07/2024 Telephone [facility] Oncology and Hematology - [place] [address]Jessica Lara [address] Adrian Rothman MD Port Replacement 01/07/2024 Orders Only [facility] Oncology and Hematology - [place] [address]Jessica Lara [address] Adrian Rothman MD Malignant neoplasm of colon, unspecified part of colon (CMS/HCC) 01/01/2024 Orders Only [facility] Oncology and Hematology - [place] [address] Ang[address] Lara [address] Adrian Rothman MD 12/27/2023 Orders Only [facility] Oncology and Hematology - [place] [address] Adrian Rothman MD 12/25/2023 Orders Only [facility] Oncology and Hematology - [place] [address] Adrian Rothman MD Malignant neoplasm of colon, unspecified part of colon (CMS/HCC) (Primary Dx) 12/24/2023 Orders Only [facility] Oncology and Hematology - [place] [address] Ang[address] L[address] Adrian Rothman MD Malignant neoplasm of colon, unspecified part of colon (CMS/HCC) (Primary Dx) 12/21/2023 Orders Only [facility] Oncology and Hematology - [place] [address] Adrian Rothman MD 12/20/2023 Orders Only [facility] Oncology and Hematology - [place] 222Jessica Lara [address] Adrian Rothman MD 12/17/2023 Abstract [facility] Oncology and Hematology - [place] [address] [place] [address] Adrian Rothman MD 12/17/2023 Abstract [facility] Oncology and Hematology - [place] [address] [place] [address] Adrian Rothman MD 12/13/2023 Telephone [facility] Oncology and Hematology - [place] [address] [place] [phone] Adrian Rothman MD long-term/Chemo pump 12/12/2023 Orders Only [facility] Oncology and Hematology - [place] [address] [place] [address] Adrian Rothman MD Malignant neoplasm of colon, [...] st Contact Info) Description 03/18/2024 8:45 AM RAW CHEESE WORKER Office Visit [facility] Oncology and Hematology - [place] [address] [facility] [address] [place] [address] Adrian Rothman MD [address] [facility] [address] [place] [address] Health Maintenance Due Date Last [...] INJECT W FLUORO Routine 02/12/2024 1:18 PM RAW CHEESE WORKER XR PORT CONTRAST INJECT W FLUORO Routine 12/28/2023 11:03 AM RAW CHEESE WORKER CBC WITH DIFFERENTIAL Routine 12/25/2023 4:20 PM RAW CHEESE WORKER COMPREHENSIVE METABOLIC PANEL Routine 12/25/2023 3:11 PM RAW CHEESE WORKER BASIC METABOLIC PANEL Routine 12/25/2023 2:27 PM RAW CHEESE WORKER GLUCOSE LEVEL Routine 12/20/2023 4:18 PM RAW CHEESE WORKER PET BONE IMG W CT SKL BSE MID THG Routine 12/20/2023 12:02 PM RAW CHEESE WORKER from Last 3 Months Results * XR PORT CONTRAST INJECT W FLUORO (02/12/2024 1:18 PM RAW CHEESE WORKER) Only the most recent of2 resultswithin the time period is included. Anatomical Region Laterality Modality Other Result Manuel Rothman MD DIAGNOSTIC IMAGING ORDERABLES F inal Result * CBC WITH DIFFERENTIAL (12/25/2023 4:20 PM RAW CHEESE WORKER) Blood us Adrian Rothman MD HEMATOLOGY ORDERABLES Final Res ult * COMPREHENSIVE METABOLIC PANEL (12/25/2023 3:11 PM RAW CHEESE WORKER) Blood Result Manuel Rothman MD CHEMISTRY ORDERABLES Final Resu lt * BASIC METABOLIC PANEL (12/25/2023 2:27 PM RAW CHEESE WORKER) Blood Result [facility] us Adrian Rothman MD CHEMISTRY ORDERABLES Final Resu lt * GLUCOSE LEVEL (12/20/2023 4:18 PM RAW CHEESE WORKER) Blood Result [facility] us Adrian Rothman MD CHEMISTRY ORDERABLES Final Resu lt * PET BONE IMG W CT SKB MD (12/20/2023 12:02 PM RAW CHEESE WORKER) Anatomical Region Laterality Modality Other Result [facility] us Adrian Rothman MD PE ORDERABLES Final Result from Last 3 [place] [address] [employer] [employer] [place]
== END 2024-03-11 08:47 | disposition home or self-care (01) ==
PROVIDERS: PCP Internal Medicine; Visit Provider Internal Medicine Hematology & Oncology
DX: C18.9 Malignant neoplasm of colon, unspecified (principal); R91.1 Solitary pulmonary nodule
CPT/HCPCS: 71260; 74177; Q9967

== ENCOUNTER 2024-04-01 00:53 | Day surgery (SDC) | payer OTHER, SELFPAY ==
[2024-03-19 09:27] VITALS: BMI 27.1
--- NOTE | 2024-03-19 11:37 | PC.NURSE ---
Report to the Outpatient Waiting Room, entrance under the green pavilion located off [facility], at time ___12:00PM____ on date ___03/24/24____. Planned Procedure Time: ___2:00PM .? Time changes happen often and if your time is changed the preop area will call you the afternoon before. - You and your visitor will be asked to self-screen and do not enter if you have any COVID symptoms. Please call surgeon if you need to reschedule. - A mask is optional within the hospital at this time. Patients may have clear liquids (water, carbonated beverages, clear teas, apple juice) until 3 hours prior to surgery (11:00AM) with a maximum of 20 ounces. - No food from midnight until time of surgery and no smoking, or chewing tobacco (or any form of nicotine). No chewing gum, candy or mints. Take only the following medications with a SIP of water on the morning of surgery: __AMLODIPINE, BENZTROPINE, KEPPRA, MIRTAZAPINE, RISPERIDONE, VENLAFAXINE. INSULIN GLARGINE 1/2 DOSE (21 UNITS) MORNING OF SURGERY. MAY TAKE ACETAMINOPHEN AND ONDANSETRON NEEDED ON DAY OF SURGERY. DO NOT STOP ANY OF YOUR OTHER PRESCRIPTION MEDICATIONS PRIOR TO SURGERY EXCEPT THE FOLLOWING Hold all vitamins and supplements for 3 days per anesthesiologist.- LAST DOSE 03/20/24. Please no make-up, nail welsh, hairspray, perfume, deodorant, or body powder the day of surgery.? No jewelry (including any body piercings) or valuables the day of surgery, leave them at home.? Please take a shower or bath the night before, or the morning of, surgery with an antibacterial soap.? Wear comfortable, loose fitting clothing.? - Jewelry must be removed prior to entering the operating room.? Rings and piercings that are not removed may be cut off. - The hospital will not accept responsibility for valuables.? - Please leave all valuables, including medications, at home the day of surgery. If you are going home after surgery, a licensed electric pile driver operator must drive you home.? - NO public transportation without another adult if you receive anesthesia. - We recommend that an adult stay with you for 24 hours following discharge. - We also recommend that you do not drive, make important decision, drink alcoholic beverages, or take any drugs that were not prescribed by your health care provider for at least 24 hours after your discharge time. Follow any additional instructions given to you from your surgeon. Telephone instructions given to ___DAUGHTER/WRITTEN GIVEN TO NURSING HOME and asked if any additional questions and then verbalized understanding. Patient advised to call surgeon office or pre surgery nurse liaison [phone] if any additional questions.
--- OUTSIDE RECORDS SUMMARY | 2024-03-24 01:36 | XMS_ITS | Clinical Summary ---
Author Organization [facility] Address [address] [place] [address] Care Team Providers Care Assistant Director Of Nursing Name Role Phone Unavailable Primary Care Provider [...] Encounters Date Type Department Care Team Description 03/17/2024 Orders Only [facility] Oncology and Hematology - [place] Jabier Lara [address] [place] [address] Adrian Rothman MD Malignant neoplasm of colon, unspecified part of colon (CMS/HCC) 03/05/2024 External Device Data STL ABSTRACTION Provider, Abstract 03/03/2024 Orders Only [facility] Oncology and Hematology - [place] Jabier Lara [address] [place] [address] Adrian Rothman MD Malignant neoplasm of colon, unspecified part of colon (CMS/HCC) 02/28/2024 External Device Data STL ABSTRACTION Provider, Abstract 02/26/2024 Telephone [facility] Oncology and Hematology - [place] Jessica Lara 200 [place] [id number] Adrian Rothman MD Dye Study 02/18/2024 Orders Only [facility] Oncology and Hematology - [place] Jabier Lara [address] Adrian Rothman MD Malignant neoplasm of colon, unspecified part of colon (CMS/HCC) 02/14/2024 Orders Only [facility] Oncology and Hematology - [place] Jabier Lara [address] Adrian Rothman MD 02/12/2024 Orders Only [facility] Oncology and Hematology - [place] Jabier Lara [address] Adrian Rothman MD Malignant neoplasm of colon, unspecified part of colon (CMS/HCC) (Primary Dx) 02/04/2024 Orders Only [facility] Oncology and Hematology - [place] Jabier Lara [address] [place] [address] Adrian Rothman MD Malignant neoplasm of colon, unspecified part of colon (CMS/HCC) 01/21/2024 Orders Only [facility] Oncology and Hematology - [place] Jabier Lara [address] Adrian Rothman MD Malignant neoplasm of colon, unspecified part of colon (CMS/HCC) 01/08/2024 External Device Data STL ABSTRACTION Provider, Abstract 01/07/2024 Telephone [facility] Oncology and Hematology - [place] Jessica Lara 200 [place] [phone] Adrian Rothman MD Port Replacement 01/07/2024 Orders Only [facility] Oncology and Hematology - [place] 222Jessica Lara [address] Adrian Rothman MD Malignant neoplasm of colon, unspecified part of colon (CMS/HCC) 01/01/2024 Orders Only [facility] Oncology and Hematology - Tre Jabier Lara [address] [place] [phone] Adrian Rothman MD 12/27/2023 Orders Only [facility] Oncology and Hematology - [place] 222Jessica Lara 200 [place] [phone] Adrian Rothman MD 12/25/2023 Orders Only [facility] Oncology and Hematology - [place] [address] Angeline Lara [address] Adrian Rothman MD Malignant neoplasm of colon, unspecified part of colon (CMS/HCC) (Primary Dx) 12/24/2023 Orders Only [facility] Oncology and Hematology - [place] Jabier Lara [address] Adrian Rothman MD Malignant neoplasm of [...] 86 11/15/2023 2:54 PM CDT Temperature 36.8 C (98.2 F) 11/15/2023 2:54 PM CDT Respiratory Rate 16 11/15/2023 2:54 PM CDT Oxygen Saturation 95% 11/15/2023 2:54 PM CDT Inhaled Oxygen Concentration - - Weight 59.9 kg (132 lb) 11/15/2023 2:54 PM CDT Height 152.4 cm (5') 11/15/2023 2:54 PM CDT Body Mass Index 25.78 11/15/2023 2:54 PM CDT Plan of Treatment Upcoming Encounters Date Type Department Care Team (Late st Contact Info) Description 03/25/2024 8:30 AM PANELBOARD ASSEMBLER Office Visit [facility] Oncology and Hematology - [place] [address] [facility] 200 [place] [address] Adrian Rothman MD [address] [facility] [address] [place] [address] Health Maintenance Due Date Last [...] INJECT W FLUORO Routine 02/12/2024 1:18 PM PANELBOARD ASSEMBLER XR PORT CONTRAST INJECT W FLUORO Routine 12/28/2023 11:03 AM PANELBOARD ASSEMBLER CBC WITH DIFFERENTIAL Routine 12/25/2023 4:20 PM PANELBOARD ASSEMBLER COMPREHENSIVE METABOLIC PANEL Routine 12/25/2023 3:11 PM PANELBOARD ASSEMBLER BASIC METABOLIC PANEL Routine 12/25/2023 2:27 PM PANELBOARD ASSEMBLER from Last 3 Months Results * XR PORT CONTRAST INJECT W FLUORO (02/12/2024 1:18 PM PANELBOARD ASSEMBLER) Only the most recent of2 resultswithin the time period is included. Anatomical Region Laterality Modality Other us Adrian Rothman MD DIAGNOSTIC IMAGING ORDERABLES F inal Result * CBC WITH DIFFERENTIAL (12/25/2023 4:20 PM PANELBOARD ASSEMBLER) Blood us Adrian Rothman MD HEMATOLOGY ORDERABLES Final Res ult * COMPREHENSIVE METABOLIC PANEL (12/25/2023 3:11 PM PANELBOARD ASSEMBLER) Blood us Adrian Rothman MD CHEMISTRY ORDERABLES Final Resu lt * BASIC METABOLIC PANEL (12/25/2023 2:27 PM PANELBOARD ASSEMBLER) Blood us Adrian Rothman MD CHEMISTRY ORDERABLES Final Resu lt from Last 3 [place] [address] [employer] [employer] [place]
--- NOTE | 2024-03-25 08:51 | PC.NURSE ---
Report to the Outpatient Waiting Room, entrance under the green pavilion located off [facility], at time ___11:30am ____ on date ____04/01/24___. Planned Procedure Time: ___1:30pm .? Time changes happen often and if your time is changed the preop area will call you the afternoon before. - You and your visitor will be asked to self-screen and do not enter if you have any COVID symptoms. Please call surgeon if you need to reschedule. - A mask is optional within the hospital at this time. Patients may have clear liquids (water, carbonated beverages, clear teas, apple juice) until 3 hours prior to surgery with a maximum of 20 ounces. - No food from midnight until time of surgery (10:30am) and no smoking, or chewing tobacco (or any form of nicotine). No chewing gum, candy or mints. Take only the following medications with a SIP of water on the morning of surgery: __amlodipine, benztropine, keppra, mirtazapine, risperidone, venlafaxine_ __Give insulin glargine 1/2 dose (21 units) morning of surgery. DO NOT STOP ANY OF YOUR OTHER PRESCRIPTION MEDICATIONS PRIOR TO SURGERY EXCEPT THE FOLLOWING Hold all vitamins and supplements for 3 days per anesthesiologist.last dose 03/28/24. Please no make-up, nail amharic, hairspray, perfume, deodorant, or body powder the day of surgery.? No jewelry (including any body piercings) or valuables the day of surgery, leave them at home.? Please take a shower or bath the night before, or the morning of, surgery with an antibacterial soap.? Wear comfortable, loose fitting clothing.? - Jewelry must be removed prior to entering the operating room.? Rings and piercings that are not removed may be cut off. - The hospital will not accept responsibility for valuables.? - Please leave all valuables, including medications, at home the day of surgery. If you are going home after surgery, a licensed mobile lounge driver or operator must drive you home.? - NO public transportation without another adult if you receive anesthesia. - We recommend that an adult stay with you for 24 hours following discharge. - We also recommend that you do not drive, make important decision, drink alcoholic beverages, or take any drugs that were not prescribed by your health care provider for at least 24 hours after your discharge time. Follow any additional instructions given to you from your surgeon. Telephone instructions given to ____nursing home staff and asked if any additional questions and then verbalized understanding. Patient advised to call surgeon office or pre surgery nurse liaison [phone] if any additional questions.
--- NOTE | ~2024-04-01 | XR_ITS ---
EXAMINATION: XR chest port-a-cath/central DATE: 04/01/2024 15:29 INDICATION: Port placement. TECHNIQUE: A single frontal view of the chest was obtained. COMPARISON: Chest 2 views 03/10/2024 FINDINGS: There is mild atelectasis in right lower lung zone and left mid and lower lung zones. No pl eural effusion or pneumothorax. The heart size is normal. There is a right subclavian port with tip i n superior vena cava. There is a left subclavian port with tip at superior cavoatrial junction. There is an old healed fracture of left clavicle. IMPRESSION: 1. New left subclavian port with tip at superior cavoatrial junction. Reviewed, dictated and finalized at location A. OSOPHY SPECIALIST
--- NOTE | ~2024-04-01 | XR_ITS ---
INTRAOPERATIVE FLUOROSCOPY: CLINICAL HISTORY: 73 years old Female; KRISTIE CATH INSERTION PROCEDURE COMMENTS: Limited intraoperative fluoroscopy of the superior mediastinum was performed. CUMULATIVE DOSE: 11.4 mGy FLUOROSCOPY TIME: 51.2 seconds FINDINGS/IMPRESSION: Please refer to operative note for further details. Reviewed, dictated and finalized at location A. RISK CASE MANAGER
--- OUTSIDE RECORDS SUMMARY | 2024-04-01 00:57 | XMS_ITS | Clinical Summary ---
Author Organization [facility] Address [address] [place] [address] Care Team Providers Care Parish Visitor Name Role Phone Unavailable Primary Care Provider [...] Encounters Date Type Department Care Team Description 03/31/2024 Orders Only [facility] Oncology and Hematology - Tre Jabier Lara [address] [place] [phone] Adrian Rothman MD Malignant neoplasm of colon, unspecified part of colon ([facility]/HCC) 03/26/2024 External Device Data STL ABSTRACTION Provider, Abstract 03/24/2024 Telephone [facility] Oncology and Hematology - [place] Jabier Lara [address] [place] [address] Adrian Rothman MD Port Placement Concerns 03/17/2024 Orders Only [facility] Oncology and Hematology - Tre Jabier Lara [address] [place] [phone] Adrian Rothman MD Malignant neoplasm of colon, unspecified part of colon ([facility]/HCC) 03/05/2024 External Device Data STL ABSTRACTION Provider, Abstract 03/03/2024 Orders Only [facility] Oncology and Hematology - Tre Jabier Lara [address] [place] [address] Adrian Rothman MD Malignant neoplasm of colon, unspecified part of colon ([facility]/HCC) 02/28/2024 External Device Data STL ABSTRACTION Provider, Abstract 02/26/2024 Telephone [facility] Oncology and Hematology - [place] Jabier Lara [address] [place] [address] Adrian Rothman MD Dye Study 02/18/2024 Orders Only [facility] Oncology and Hematology [facility] Jabier Lara [address] [place] [address] Adrian Rothman MD Malignant neoplasm of colon, unspecified part of colon ([facility]/HCC) 02/14/2024 Orders Only [facility] Oncology and Hematology - Tre Jabier Lara [address] [place] [phone] Adrian Rothman MD 02/12/2024 Orders Only [facility] Oncology and Hematology - Tre 222Jessica Lara [address] [place] [phone] Adrian Rothman MD Malignant neoplasm of colon, unspecified part of colon (CMS/HCC) (Primary Dx) 02/04/2024 Orders Only [facility] Oncology and Hematology - Tre 222Jessica Lara [address] Adrian Rothman MD Malignant neoplasm of colon, unspecified part of colon (CMS/HCC) 01/21/2024 Orders Only [facility] Oncology and Hematology - Tre 222Jessica Lara [address] [place] [phone] Adrian Rothman MD Malignant neoplasm of colon, unspecified part of colon (CMS/HCC) 01/08/2024 External Device Data STL ABSTRACTION Provider, Abstract 01/07/2024 Telephone [facility] Oncology and Hematology - Tre Jessica Lara [address] [place] [id number] Adrian Rothman MD Port Replacement 01/07/2024 Orders Only [facility] Oncology and Hematology - Tre Jessica Lara [address] [place] [phone] Adrian Rothman MD Malignant neoplasm of colon, unspecified part of colon (CMS/HCC) 01/01/2024 Orders Only [facility] Oncology and Hematology - Tre Jabier Lara [address] [place] [phone] Adrian Rothman MD from Last 3 Months Family History Medical [...] Care Team (Late st Contact Info) Description 04/08/2024 8:45 AM CHANNEL DEVELOPMENT MANAGER Office Visit [facility] Oncology and Hematology - [place] [address] [facility] [address] [place] [address] Adrian Rothman MD [address] [facility] [address] [place] [address] Health Maintenance Due Date Last [...] INJECT W FLUORO Routine 02/12/2024 1:18 PM CHANNEL DEVELOPMENT MANAGER from Last 3 Months Results * XR PORT CONTRAST INJECT W FLUORO (02/12/2024 1:18 PM CHANNEL DEVELOPMENT MANAGER) Anatomical Region Laterality Modality Other Adrian Rothman MD DIAGNOSTIC IMAGING ORDERABLES F inal Result from Last 3 [place] [address] [employer] [employer]
--- OUTSIDE RECORDS SUMMARY | 2024-04-01 00:57 | XMS_ITS | Encounter Summary ---
Author Organization [facility] ERMA Brewer [facility] Address [address] [place] [address] Care Team Providers Care Office Correspondent Name Role Phone Unavailable Primary Care Provider Unavailabl e Encounter Details Date Type Department Care Team ([facility] Contact Info) Description 03/31/2024 Orders Only [facility] Oncology and Hematology Tre [address] [place] [address] Adrian Rothman MD [address] [place] [address] [employer] [address] [place] [address] Malignant neoplasm of colon, unspecified part [...] Department Care Team (Late Contact Info) Description 04/08/2024 8:45 AM LINK AND LINK KNITTING MACHINE OPERATOR Office Visit [facility] Oncology and Hematology - Tre [address] [place] [address] Adrian Rothman MD [address] [place] [address] [employer] [address] [place] [address] documented as of this encounter Visit Diagnoses Diagnosis Malignant neoplasm of colon, unspecified part of colon (CMS/HCC) documented in this encounter
[2024-04-01 11:38] VITALS: BP 155/73; PULSE 92; RESP 16; TEMP 37.1; O2SAT 94
[2024-04-01 12:09] LABS: Glucose Point of Care 75 mg/dl (65-105)
[2024-04-01] MEDS: LACTATED RINGERS 1,000 ML 30 ML IV CONT (12:30)
--- NOTE | 2024-04-01 13:43 | P.PNAN_ITS ---
Anes - Initial Pre Proc Eval Procedure: Operation Date: 04/01/24 13:30 Proposed Procedures p Removal of Nilesh Catheter - Jona Thurman MD s Insertion Nilesh Catheter - Jona Thurman MD Date/Time: 04/01/24 13:43 Surgeon: Jona Thurman MD Pre Op Diagnosis: malignant neoplasm of colon, malfunction port cath Patient Data Age: 73 Gender: F Height: 1.52 m Weight: 71 kg Last Vital Signs Temp 98.8 F 04/01/24 11:38 Pulse 92 04/01/24 11:38 Resp 16 04/01/24 11:38 BP 155/73 H 04/01/24 11:38 Pulse Ox 94 04/01/24 11:38 O2 Del Method Room Air 04/01/24 11:38 Allergies Allergy/AdvReac Type Severity Reaction Status Date / Time latex Allergy HIVES Verified 04/01/24 12:41 Home Medications ?Medication ?Instructions ?Recorded ?Confirmed ?Type amlodipine 10 mg tablet 10 mg PO DAILY 04/13/19 04/01/24 History atorvastatin 40 mg tablet 40 mg PO HS 04/13/19 04/01/24 History benztropine 1 mg tablet 1 mg PO BID 04/13/19 04/01/24 History losartan 50 mg tablet 50 mg PO DAILY 04/13/19 04/01/24 History trazodone 50 mg tablet 25 mg PO HS 04/13/19 04/01/24 History cranberry 500 mg capsule 500 mg PO BID 10/01/23 04/01/24 History ferrous sulfate 325 mg (65 mg 325 mg PO BID 10/01/23 04/01/24 History iron) tablet insulin glargine 100 unit/mL 40 unit subcut HS 10/01/23 04/01/24 History subcutaneous solution (Lantus U-100 Insulin) insulin glargine 100 unit/mL See Rx Instructions subcut QPM 10/01/23 04/01/24 History subcutaneous solution (Lantus U-100 Insulin) levetiracetam 500 mg tablet 500 mg PO BID 10/01/23 04/01/24 History (Keppra) meloxicam 7.5 mg tablet 7.5 mg PO DAILY 10/01/23 04/01/24 History mirtazapine 7.5 mg tablet 7.5 mg PO DAILY 10/01/23 04/01/24 History polyethylene glycol 3350 17 gram 17 g PO DAILY PRN Constipation 10/01/23 04/01/24 History oral powder packet (Miralax) risperidone 1 mg tablet (Risperdal) 1 mg PO BID 10/01/23 04/01/24 History venlafaxine 75 mg capsule,extended 225 mg PO DAILY 10/01/23 04/01/24 History release 24 hr (Effexor XR) lidocaine-prilocaine 2.5 %-2.5 % 1 applic topical ONCE 01/17/24 03/19/24 History topical kit (Anodyne LPT) metformin 1,000 mg tablet 1,000 mg PO BID 01/17/24 04/01/24 History ondansetron 8 mg disintegrating 8 mg PO Q8H PRN nausea and vomiting 01/17/24 03/19/24 History tablet potassium chloride 10 mEq 30 meq PO DAILY 01/17/24 04/01/24 History tablet,extended release benzonatate 100 mg capsule 100 mg PO TID PRN cough #30 caps 03/04/24 03/19/24 Rx acetaminophen 325 mg capsule 650 mg PO .Q8 PRN pain 03/19/24 03/19/24 History cholecalciferol (vitamin D3) 50 2,000 unit PO DAILY 03/19/24 04/01/24 History mcg (2,000 unit) capsule dextrose 40 % oral gel (Glucose 10 g PO Q15M PRN hypoglycemia 03/19/24 03/19/24 History Gel) docusate sodium 100 mg capsule 100 mg PO BID PRN constipation 03/19/24 04/01/24 History (Colace) glucagon 1 mg/0.2 mL subcutaneous 1 mg subcut ONCE PRN hypoglycemia 03/19/24 03/19/24 History auto-injector Laboratory Tests 04/01/24 12:07 POC Capillary Glucose 75 mg/dl (65-105) Patient hx anesthesia problems: none Family hx anesthesia problems: none Results Review: All pre-operative results and documents have been reviewed as part of the pre- operative evaluation. [facility] Past Medical History Medical History Wheelchair dependence Chronic anemia History of DVT (deep vein thrombosis) Insulin dependent type 2 diabetes mellitus Polio Patient had polio as a child that is left her with left lower leg weakness. 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 Surgical History Surgical History No history of previous surgery Family History Family History Other Acute myocardial infarction Congestive heart failure Diabetes mellitus Hypertension Social History Social History Social History: Apparently she is currently at a skilled nursing. She ambulates with a walker. No alcohol, tobacco, or drug abuse. Daughter Portia Altman is her emergency contact and she is listed as a full code. Smoking status: Never smoker Alcohol intake: former Alcohol use details: HEAVY DRINKER IN PAST/QUIT 2015 Substance use: never Do You Feel Safe in your Home?: Yes Lack of Transportation: No Lack of Food: Never True Current Housing: I Have Housing Concerned About Future Housing: YES Difficulty Paying Gas/Electric Bills: No Difficulty Paying for Meds: YES Currently Unemployed: YES Education: High School Diploma/GED Difficulty w/ Childcare or Family Care: YES Living arrangements: skilled nursing Additional living arrangements comments: [facility] last few months Rebeca MCCLENDON n [phone] Gender identity (if verbalized by the patient): Female Spiritual care concerns: No Agree to blood products: Yes Anes - Eval Final PreProcedure Day of Procedure 04/01/24 13:43 Patient weight: obese Lungs: normal air movement Airway: Mallampati scale class II Neurological: confused Last oral intake: >/= 8 hours ASA classification: IV Emergent: no Anesthetic plan: proceed Anesthesia type and monitoring: general GIVS and standard monitoring Results Review: All pre-operative results and documents have been reviewed as part of the pre- operative evaluation. HTN, hyperlipidemia, obesity, RODY, GERD, DM, polio, CVA w dementia/schizophrenia, hx colon ca, now for portacath for treatment of colon ca. Discussed w pt and daughter at bedside. Informed Consent: The patient's anesthetic plan and its attendant risks and benefits were discussed with the patient/family/POA. Questions were solicited and answers provided to the satisfaction of the patient/family/POA.
--- NOTE | 2024-04-01 13:49 | P.HP_ITS ---
H&P: HPI History of Present Illness Date/Time: 04/01/24 13:49 Chief Complaint: Malfunctioning portacatheter, Colon CA Narrative: Pt s/p resection of colon CA but need 5-FU infusion for chemotx. Prior ports placed have not been functional due to malposition of the catheters. Will place port today and for now, leave right side malfunctioning port in place as it is not functional but not infected or otherwise causing any issues. Review of Systems Review of Systems: The remainder of the review of systems to include constitutional, HEENT, cardiovascular, respiratory, GI, , integumentary, musculoskeletal, endocrine, immunologic, hematologic, psychiatric, and neurologic are all negative except for which is mentioned above in the HPI. [facility] Past Medical History Medical History Wheelchair dependence Chronic anemia History of DVT (deep vein thrombosis) Insulin dependent type 2 diabetes mellitus Polio Patient had polio as a child that is left her with left lower leg weakness. 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 Surgical History Surgical History No history of previous surgery Family History Family History Other Acute myocardial infarction Congestive heart failure Diabetes mellitus Hypertension Social History Social History Social History: Apparently she is currently at a long-term. She ambulates with a walker. No alcohol, tobacco, or drug abuse. Daughter Portia Altman is her emergency contact and she is listed as a full code. Smoking status: Never smoker Alcohol intake: former Alcohol use details: HEAVY DRINKER IN PAST/QUIT 2015 Substance use: never Do You Feel Safe in your Home?: Yes Lack of Transportation: No Lack of Food: Never True Current Housing: I Have Housing Concerned About Future Housing: YES Difficulty Paying Gas/Electric Bills: No Difficulty Paying for Meds: YES Currently Unemployed: YES Education: High School Diploma/GED Difficulty w/ Childcare or Family Care: YES Living arrangements: long-term Additional living arrangements comments: [facility] last few months Rebeca MCCLENDON phn [phone] Gender identity (if verbalized by the patient): Female Spiritual care concerns: No Agree to blood products: Yes Meds Home Medications and Allergies Home Medications ?Medication ?Instructions ?Recorded ?Confirmed ?Type amlodipine 10 mg tablet 10 mg PO DAILY 04/13/19 04/01/24 History atorvastatin 40 mg tablet 40 mg PO HS 04/13/19 04/01/24 History benztropine 1 mg tablet 1 mg PO BID 04/13/19 04/01/24 History losartan 50 mg tablet 50 mg PO DAILY 04/13/19 04/01/24 History trazodone 50 mg tablet 25 mg PO HS 04/13/19 04/01/24 History cranberry 500 mg capsule 500 mg PO BID 10/01/23 04/01/24 History ferrous sulfate 325 mg (65 mg 325 mg PO BID 10/01/23 04/01/24 History iron) tablet insulin glargine 100 unit/mL 40 unit subcut HS 10/01/23 04/01/24 History subcutaneous solution (Lantus U-100 Insulin) insulin glargine 100 unit/mL See Rx Instructions subcut QPM 10/01/23 04/01/24 History subcutaneous solution (Lantus U-100 Insulin) levetiracetam 500 mg tablet 500 mg PO BID 10/01/23 04/01/24 History (Keppra) meloxicam 7.5 mg tablet 7.5 mg PO DAILY 10/01/23 04/01/24 History mirtazapine 7.5 mg tablet 7.5 mg PO DAILY 10/01/23 04/01/24 History polyethylene glycol 3350 17 gram 17 g PO DAILY PRN Constipation 10/01/23 04/01/24 History oral powder packet (Miralax) risperidone 1 mg tablet (Risperdal) 1 mg PO BID 10/01/23 04/01/24 History venlafaxine 75 mg capsule,extended 225 mg PO DAILY 10/01/23 04/01/24 History release 24 hr (Effexor XR) lidocaine-prilocaine 2.5 %-2.5 % 1 applic topical ONCE 01/17/24 03/19/24 History topical kit (Anodyne LPT) metformin 1,000 mg tablet 1,000 mg PO BID 01/17/24 04/01/24 History ondansetron 8 mg disintegrating 8 mg PO Q8H PRN nausea and vomiting 01/17/24 03/19/24 History tablet potassium chloride 10 mEq 30 meq PO DAILY 01/17/24 04/01/24 History tablet,extended release benzonatate 100 mg capsule 100 mg PO TID PRN cough #30 caps 03/04/24 03/19/24 Rx acetaminophen 325 mg capsule 650 mg PO .Q8 PRN pain 03/19/24 03/19/24 History cholecalciferol (vitamin D3) 50 2,000 unit PO DAILY 03/19/24 04/01/24 History mcg (2,000 unit) capsule dextrose 40 % oral gel (Glucose 10 g PO Q15M PRN hypoglycemia 03/19/24 03/19/24 History Gel) docusate sodium 100 mg capsule 100 mg PO BID PRN constipation 03/19/24 04/01/24 History (Colace) glucagon 1 mg/0.2 mL subcutaneous 1 mg subcut ONCE PRN hypoglycemia 03/19/24 03/19/24 History auto-injector Allergies Allergy/AdvReac Type Severity Reaction Status Date / Time latex Allergy HIVES Verified 04/01/24 12:41 Vital Signs Vital Signs - 24 hr 04/01/24 11:38 Temperature 37.1 C Pulse Rate 92 Respiratory Rate 16 Blood Pressure 155/73 H Pulse Oximetry 94 Oxygen Delivery Room Air Exam Const: General: comfortable and no acute distress HENMT: Ears: TM's normal bilaterally Face/Nose/Sinus: Normal nares present Mouth: Yes moist mucous membranes Eyes: General: appearance normal, both eyes and all related structures Sclera: sclerae normal Pupils: Equal, round and reactive pupils present EOM: EOMs intact bilaterally Neck: Neck: supple and no JVD Chest: Other: Right anterior chest wall port in place. No redeness or swelling. No left chest skin rash. Resp: Effort & Inspection: normal respiratory effort Auscultation: clear to auscultation bilaterally Cardio: Rate: regular rate Rhythm: regular rhythm GI: GI Palp: Yes Soft to palpation, No Firmness to palpation present (GI), No Tenderness to palpation present (GI), No Guarding due to palpation present (GI) and No Hernia present Skin: General skin exam: normal color and no rashes or lesions noted Neuro: General: gait normal Speech: normal speech Extrem: General: normal to inspection Psych: Mental Status: mental status grossly normal Affect: normal affect Assessment and Plan Assessment and plan (1) Port-A-Cath in place: Code(s): Z95.828 - Presence of other vascular implants and grafts Status: Acute Assessment and Plan: Current right side port not functioning. Will place left side port today. Risks to include bleeding and infection and pneumothorax discussed. Pt agrees to proceed. (2) Colon cancer: Code(s): C18.9 - Malignant neoplasm of colon, unspecified Status: Acute
--- NOTE | 2024-04-01 13:54 | WPDHPUPDATE1 ---
History and Physical Update Update Date/Time: 04/01/24 13:54 History and Physical has been reviewed, including an updated exam of the patient. There are NO changes in the patient's condition. Risks, benefits, and alternatives have been discussed and questions answered. Patient agrees to proceed with procedure.
[2024-04-01] MEDS: ceFAZolin 2 GM/D5W 50 ML 2 GM/50 ML BAG IVPB (14:05)
[2024-04-01] MEDS: BUPivacaine HCL 0.5% 10 ML AMP 20 ML INFILTRATE (14:12)
[2024-04-01] MEDS: LIDO 1%/EPINEPHRINE 1:100,000 20 ML VIAL INFILTRATE (14:12)
[2024-04-01] MEDS: HEPARIN SODIUM 5,000 UNITS/ML VIAL 5000 UNITS IV PUSH (14:13)
[2024-04-01] MEDS: HEPARIN SODIUM 1,000 UNITS/ML VIAL 1000 UNITS IV PUSH (14:13)
[2024-04-01 15:08] VITALS: BP 144/75; PULSE 93; RESP 16; O2SAT 94
[2024-04-01 15:13] LABS: Glucose Point of Care 98 mg/dl (65-105)
--- NOTE | 2024-04-01 15:17 | P.OP_ITS ---
Procedure Note - Detailed Date of Procedure 04/01/24 Pre-op Diagnosis malignant neoplasm of colon, malfunction port cath Post-op Diagnosis Same Procedure Performed Placement of left subclavian vein single-lumen port a catheter with intrao perative fluoroscopy Surgeon Jona Thurman MD Dry Box Operator Justino Stokes CREDIT CARD INTERVIEWER Anesthesia MAC and Local Indications Patient is a 73-year-old female who had a colon resection for colon cancer. She is to receive 5-FU infusions for chemotherapy treatments. She had a left-sided grisel catheter placed which was not functioning because about positioning of the tip of the catheter. She then underwent removal of the catheter with placement of a new right-sided grisel catheter. Unfortunate the right-sided grisel catheter was not working either because about positioning of the tip of the catheter. She now presents for placement of another port catheter via left-sided central vein to begin chemotherapy treatments. Findings None significant Description of Procedure After informed consent was obtained patient brought to the operating room placed supine position and then IV sedation was made anesthesia. Bilateral upper anterior neck and chest was then prepped and draped usual sterile fashion. Time-out was then performed correctly identifying the patient as well as procedure to be performed. She was given perioperative IV antibiotics. I 1st started by anesthetizing the area the old scar in the left upper anterior chest region. This done with 0.5% Marcaine mixed with 1% lidocaine. I then excised out the old scar in the left upper anterior chest region with a scalpel electrocautery. I then dissected down through the subcu tissue electrocautery to the anterior pectoralis fascia on the left side. Then with the patient head- down Trendelenburg position I then used a long 18gauge spinal needle to cannulate the left subclavian vein on the 1st pass any difficulty. There was prompt return of dark venous appearing blood. A guidewire was advanced through the needle into left subclavian vein subsequent down into the superior vena cava. Intraoperative fluoroscopy was then used to visualize the tip of the guidewire which showed to be in proper position. I then created a subcutaneous port pocket below the left upper anterior chest incision utilizing electrocautery. Once this was done I then advanced a dilator and breakaway sheath over the guidewire. The guidewire and dilator removed leaving the sheath in place. A 9.6 Kittitian silastic single-lumen catheter was advanced through the sheath into the left subclavian vein subsequent down into the right atrium of the heart. The sheath was then torn away leaving the catheter in place. There was intraoperative fluoroscopy I visualized the tip of the catheter and then pulled the catheter externals the chest wall until the tip of the catheter was in the distal superior vena cava. The catheter was then cut to the appropriate length at the skin level and attached to the titanium Smart Port. The port was then secured the subcutaneous port pocket on 3 sides utilizing 3-0 Prolene sutures. Incision was then irrigated sterile saline solution hemostasis was good. I then accessed the port with a Vasques needle and aspirated blood easily. It was then flushed with heparinized saline solution. I then close incision utilizing interrupted 3-0 Vicryl sutures the subcutaneous tissues. The skin edges were then approximated utilizing a running subcuticular 4 Monocryl suture. The port was then accessed percutaneously with a Vasques needle 1 last time. Again aspirated blood easily and was flushed with 5000units of heparinized saline solution. Incision was then cleaned the skin glue was applied. The patient tolerated the procedure well no complications. All sponges, needles, and instrument counts were correct at the end procedure. EBL was _20__cc. The patient was awakened and taken to recovery in stable and satisfactory condition. Implants 9.6 [place] silastic single-lumen catheter attached to titanium Smart Port via left subclavian vein Estimated Blood Loss 20 Drains No Packing No Pathology None sent Complications No immediate complications Condition Stable Disposition PACU [facility] Billing Surgery - Charge Forward: Surgery Billing
[2024-04-01 15:38] VITALS: BP 159/95; PULSE 90; RESP 16
[2024-04-01 16:08] VITALS: BP 153/70; PULSE 81; RESP 16
--- NOTE | 2024-04-01 16:25 | SUR.PHASEII ---
Patient meets discharge criteria at this time. Patient waiting for ride to arrive. Patient will wait in outpatient room until ride arrives.
== END 2024-04-01 16:36 | disposition home or self-care (01) ==
PROVIDERS: PCP Internal Medicine; Visit Provider Surgery
PROC: (CPT 36561; 2024-04-01 13:30)
DX: C18.9 Malignant neoplasm of colon, unspecified (principal); E78.5 Hyperlipidemia, unspecified; I10 Essential (primary) hypertension; D64.9 Anemia, unspecified; K21.9 Gastro-esophageal reflux disease without esophagitis; F31.9 Bipolar disorder, unspecified; F41.9 Anxiety disorder, unspecified; M19.90 Unspecified osteoarthritis, unspecified site; E66.9 Obesity, unspecified; Z68.30 Body mass index [BMI] 30.0-30.9, adult; Z79.4 Long term (current) use of insulin; Z79.84 Long term (current) use of oral hypoglycemic drugs; Z99.3 Dependence on wheelchair; Z98.890 Other specified postprocedural states; Z95.828 Presence of other vascular implants and grafts; Z90.49 Acquired absence of other specified parts of digestive tract; Z86.718 Personal history of other venous thrombosis and embolism; Z86.79 Personal history of other diseases of the circulatory system; Z82.49 Family history of ischemic heart disease and other diseases of the circulatory system
CPT/HCPCS: 36561; 77001; 82948; C1788; J0690; J1644; J2003; J2004; J2405; J2704; J3010; J7030; J7120

== ENCOUNTER 2024-08-19 12:36 | Emergency (ER) | payer OTHER, SELFPAY ==
--- NOTE | 2024-08-19 12:43 | ED_ITS ---
HPI - Extremity Problem General Chief complaint: Extremity Injury, Lower Stated complaint: Toe Pain Time Seen by Provider: 08/19/24 12:58 Source: patient and RN notes reviewed Mode of arrival: ambulatory Limitations: no limitations History of Present Illness HPI Narrative: 73-year-old female presents with concern for pain to the 1st digit of the right foot. Her daughter reports she lives in a senior living, she picked her up today and her mother was complaining of pain in she noticed drainage, swelling around the nail bed of the 1st digit of the right foot. Daughter reports she went home and cleaned it up and soaked it in Epson salt warm water. She was not given any reports that her mother had any fever, general malaise at the senior living. MD Complaint: extremity pain Related Data Home Medications ?Medication ?Instructions ?Recorded ?Confirmed ?Last Taken ?Type amlodipine 10 mg tablet 10 mg PO DAILY 04/13/19 04/01/24 03/31/24 History atorvastatin 40 mg tablet 40 mg PO HS 04/13/19 04/01/24 03/31/24 History benztropine 1 mg tablet 1 mg PO BID 04/13/19 04/01/24 03/31/24 History losartan 50 mg tablet 50 mg PO DAILY 04/13/19 04/01/24 03/31/24 History trazodone 50 mg tablet 25 mg PO HS 04/13/19 04/01/24 03/31/24 History cranberry 500 mg capsule 500 mg PO BID 10/01/23 04/01/24 03/28/24 History ferrous sulfate 325 mg (65 mg 325 mg PO BID 10/01/23 04/01/24 03/28/24 History iron) tablet insulin glargine 100 unit/mL 40 unit subcut HS 10/01/23 04/01/24 03/31/24 History subcutaneous solution (Lantus U-100 Insulin) insulin glargine 100 unit/mL See Rx Instructions subcut QPM 10/01/23 04/01/24 03/31/24 History subcutaneous solution (Lantus U-100 Insulin) levetiracetam 500 mg tablet 500 mg PO BID 10/01/23 04/01/24 03/31/24 History (Keppra) meloxicam 7.5 mg tablet 7.5 mg PO DAILY 10/01/23 04/01/24 03/31/24 History mirtazapine 7.5 mg tablet 7.5 mg PO DAILY 10/01/23 04/01/24 03/31/24 History polyethylene glycol 3350 17 gram 17 g PO DAILY PRN Constipation 10/01/23 04/01/24 03/31/24 History oral powder packet (Miralax) risperidone 1 mg tablet (Risperdal) 1 mg PO BID 10/01/23 04/01/24 03/31/24 History venlafaxine 75 mg capsule,extended 225 mg PO DAILY 10/01/23 04/01/24 03/31/24 History release 24 hr (Effexor XR) lidocaine-prilocaine 2.5 %-2.5 % 1 applic topical ONCE 01/17/24 04/08/24 Unknown History topical kit (Anodyne LPT) metformin 1,000 mg tablet 1,000 mg PO BID 01/17/24 04/08/24 03/31/24 History ondansetron 8 mg disintegrating 8 mg PO Q8H PRN nausea and vomiting 01/17/24 04/08/24 Unknown History tablet potassium chloride 10 mEq 30 meq PO DAILY 01/17/24 04/08/24 03/28/24 History tablet,extended release acetaminophen 325 mg capsule 650 mg PO .Q8 PRN pain 03/19/24 04/08/24 Unknown History cholecalciferol (vitamin D3) 50 2,000 unit PO DAILY 03/19/24 04/08/24 03/28/24 History mcg (2,000 unit) capsule dextrose 40 % oral gel (Glucose 10 g PO Q15M PRN hypoglycemia 03/19/24 04/08/24 Unknown History Gel) docusate sodium 100 mg capsule 100 mg PO BID PRN constipation 03/19/24 04/08/24 Unknown History (Colace) glucagon 1 mg/0.2 mL subcutaneous 1 mg subcut ONCE PRN hypoglycemia 03/19/24 04/08/24 Unknown History auto-injector Allergies Allergy/AdvReac Type Severity Reaction Status Date / Time latex Allergy HIVES Verified 08/19/24 12:56 Review of Systems Review of Systems: CONSTITUTIONAL: Denies malaise, chills, sweats, or fever. CARDIOVASCULAR: Denies chest pain, palpitations, or edema. RESPIRATORY: Denies cough or dyspnea. SKIN: Denies rash or itching, bruising. Reports redness, swelling, tenderness around the nail bed of the 1st digit of the right foot with purulent drainage. MUSCULOSKELETAL: Reports pain to the 1st digit of the right foot NEUROLOGIC: Denies numbness, weakness All systems reviewed & are unremarkable except as noted in HPI and below PMFSH Past Medical History Medical History Wheelchair dependence Chronic anemia History of DVT (deep vein thrombosis) Insulin dependent type 2 diabetes mellitus Polio Patient had polio as a child that is left her with left lower leg weakness. 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 Surgical History Surgical History No history of previous surgery Family History Family History Other Acute myocardial infarction Congestive heart failure Diabetes mellitus Hypertension Social History Social History Social History: Apparently she is currently at a senior living. She ambulates with a walker. No alcohol, tobacco, or drug abuse. Daughter Portia Altman is her emergency contact and she is listed as a full code. Smoking status: Never smoker Alcohol intake: former Alcohol use details: HEAVY DRINKER IN PAST/QUIT 2015 Substance use: never Do You Feel Safe in your Home?: Yes Lack of Transportation: No Lack of Food: Never True Current Housing: I Have Housing Concerned About Future Housing: YES Difficulty Paying Gas/Electric Bills: No Difficulty Paying for Meds: YES Currently Unemployed: YES Education: High School Diploma/GED Difficulty w/ Childcare or Family Care: YES Living arrangements: senior living Additional living arrangements comments: [facility] last few months Rebeca MCCLENDON phn [phone] Gender identity (if verbalized by the patient): Female Spiritual care concerns: No Agree to blood products: Yes Comments At time of signature, agree with nursing past medical, surgical, social and family history. There is no relevant family history pertinent to the presenting complaint Exam Narrative: GENERAL: Well-appearing, well-nourished, and in no acute distress. HEAD: Normocephalic, atraumatic. EYES: PERRLA, conjunctivae clear ENT: Mucous membranes moist. NECK: Supple. No lymphadenopathy CHEST: Clear to auscultation. No respiratory distress. HEART: Regular rate and rhythm. SKIN: Warm, dry. Excoriated tissue, erythema, edema noted to 3 of the 4 size of the nail bed of the 1st digit of the right foot. NEURO: Alert and oriented x3. PSYCH: Normal mood and affect Course Course Emergency Course: Patient is aware of diagnosis, understands and agrees to treatment plan. Anticipatory guidance given. Patient agrees to follow-up as directed and is aware of reasons to seek care at the emergency department. Portions of this record may have been created with voice recognition software Level of Care: Express Care Visit Vital Signs Vital signs: Reviewed. MDM - Extremity (Nontraumatic) MDM Narrative Medical decision making narrative: I evaluated this patient in the express care. History is obtained from patient who is an independent historian and physical exam was performed.? Available medical records were reviewed. ? Exam findings show no acute concerns or changes; patient is non-toxic appearing and is in no distress. ? Differential diagnosis and treatment plan were discussed with the patient. Patient agrees with discussion and after shared medical decision making agrees with plan of care. All questions were answered to the patient's satisfaction. Patient is appropriate for outpatient treatment and follow-up. Critical Care Time Critical Care Time Critical Care Time: No Discharge Plan Discharge Clinical Impression: Paronychia Patient Disposition: Home Condition: Stable Instructions: Antibiotic Form, Paronychia (ED) Additional Instructions: Take antibiotic as prescribed Soak your nail: Soak your nail in a mixture of equal parts vinegar and water 3 or 4 times each day. This will help decrease inflammation. Apply a warm compress: Soak a washcloth in warm water and place it on your nail. This will help decrease inflammation. Elevate: Raise your nail above the level of your heart as often as you can. This will help decrease swelling and pain. Prop your nail on pillows or blankets to keep it elevated comfortably. Use lotion: Apply lotion after you wash your hands. This will prevent your skin from becoming too dry. Please follow-up with your primary care doctor in the next 1-2 days. If you cannot follow-up with your primary care doctor please go to the ED for any urge nt issues. 2) If you have any worsening of symptoms or any other concerns please go to the ED immediately. 3) Please take medications as prescribed andcontinue taking your home medications as usual. Patient Language: Azeri Prescriptions: New clindamycin HCl 300 mg capsule 300 mg PO Q8H 7 Days Qty: 21 0RF No Action losartan 50 mg Tablet 50 mg PO DAILY Patient Comments: QAM atorvastatin 40 mg Tablet 40 mg PO HS Patient Comments: . amlodipine 10 mg Tablet 10 mg PO DAILY Patient Comments: QAM benztropine 1 mg Tablet 1 mg PO BID Patient Comments: . trazodone 50 mg Tablet 25 mg PO HS cranberry 500 mg Capsule 500 mg PO BID Rx Instructions: administer with meals insulin glargine [Lantus U-100 Insulin] 100 unit/mL Solution 40 unit SUBCUT HS insulin glargine [Lantus U-100 Insulin] 100 unit/mL Solution See Rx Instructions SUBCUT QPM Rx Instructions: 42 UNITS SQ IN AM 40 UNITS subcutaneously every evening venlafaxine [Effexor XR] 75 mg Capsule,Extended Release 24hr 225 mg PO DAILY levetiracetam [Keppra] 500 mg Tablet 500 mg PO BID ferrous sulfate 325 mg (65 mg iron) Tablet 325 mg PO BID meloxicam 7.5 mg tablet 7.5 mg PO DAILY polyethylene glycol 3350 [Miralax] 17 gram Powder In Packet 17 g PO DAILY PRN (Reason: Constipation) risperidone [Risperdal] 1 mg Tablet 1 mg PO BID mirtazapine 7.5 mg Tablet 7.5 mg PO DAILY Patient Comments: HS potassium chloride 10 mEq tablet extended release 30 meq PO DAILY metformin 1,000 mg tablet 1,000 mg PO BID ondansetron 8 mg tablet,disintegrating 8 mg PO Q8H PRN (Reason: nausea and vomiting) lidocaine-prilocaine [Anodyne LPT] 2.5-2.5 % kit 1 applic topical ONCE Patient Comments: APPLY TOPICALLY TO PORT SITE 30 MINUTES BEFORE ACCESS Rx Instructions: as a single dose docusate sodium [Colace] 100 mg capsule 100 mg PO BID PRN (Reason: constipation) glucagon 1 mg/0.2 mL auto-injector 1 mg subcut ONCE PRN (Reason: hypoglycemia) Rx Instructions: as a single dose; may repeat once after 15 minutes if no response dextrose [Glucose Gel] 40 % gel 10 g PO Q15M PRN (Reason: hypoglycemia) Rx Instructions: until symptoms of low blood sugar are controlled cholecalciferol (vitamin D3) 50 mcg (2,000 unit) capsule 2,000 unit PO DAILY Patient Comments: ... acetaminophen 325 mg capsule 650 mg PO .Q8 PRN (Reason: pain) Patient Comments: . benzonatate 100 mg capsule 100 mg PO TID PRN (Reason: cough) Qty: 30 0RF Patient Comments: . Follow-up/Referrals: PHYSICIAN,SENIOR ANALYST [employer] [Primary Care Provider] - Time of Disposition: 13:07
[2024-08-19 12:45] VITALS: BP 132/80; PULSE 85; RESP 17; TEMP 36.1; O2SAT 100
== END 2024-08-19 13:15 | disposition home or self-care (01) ==
PROVIDERS: Emergency Provider Nurse Practitioner
DX: L03.031 Cellulitis of right toe (principal); E11.9 Type 2 diabetes mellitus without complications; Z79.4 Long term (current) use of insulin; Z79.84 Long term (current) use of oral hypoglycemic drugs; M19.90 Unspecified osteoarthritis, unspecified site; K21.9 Gastro-esophageal reflux disease without esophagitis; E78.5 Hyperlipidemia, unspecified; I10 Essential (primary) hypertension; I69.351 Hemiplegia and hemiparesis following cerebral infarction affecting right dominant side; Z86.718 Personal history of other venous thrombosis and embolism; F41.9 Anxiety disorder, unspecified; F31.9 Bipolar disorder, unspecified
CPT/HCPCS: 99213; G0463

== ENCOUNTER 2024-09-07 18:16 | Emergency (ER) | payer OTHER, SELFPAY ==
--- NOTE | ~2024-09-07 | XR_ITS ---
EXAMINATION: XR chest 1V Exam Date/Time: 09/07/2024 19:21 CDT HISTORY: CHEST PAIN Comparison: 04/01/2024. CT cap 03/11/2024 RESULT: Lines, tubes, and devices: Jewelry over the lower neck. Left chest implanted port, tip terminating a t the cavoatrial junction. Right chest implanted port, tip terminates medially along the mediastinum. Lungs and pleura: Clear. Cardiomediastinal silhouette: Stable. Other: No acute osseous or upper abdominal finding. Old left clavicular fracture healed in mild defo rmity IMPRESSION: No acute cardiopulmonary process. Right implanted port terminates in the pleural space, a chronic finding and confirmed by prior CT. Reviewed, dictated and finalized at location K. IMPRESSION: No acute cardiopulmonary process. Right implanted port terminates in the pleural space, a chronic finding and con firmed by prior CT.
--- NOTE | ~2024-09-07 | CT_ITS ---
Clinical Indication: Chest pain, history of cancer, elevated d-dimer CT Scan of the Chest with Contrast: Technique: Contiguous sections were acquired throughout the chest after intravenous administration of 100 cc of Omnipaque 350. Dose reduction technique was used on this scan by utilizing automated expos ure control and iterative reconstruction technique. The dose-length product (DLP) was 513.14 mGy-cm. COMPARISON: 03/11/2024 Findings: There is no evidence of any significant mediastinal, hilar or axillary lymphadenopathy. There is no f illing defect in the pulmonary arterial tree to suggest pulmonary embolus. There is no evidence of ao rtic dissection or aneurysm. There is no evidence of pleural or pericardial effusion. Stable 1.2 cm nodule probably in the superior segment of the left lower lobe (axial image 38). There are mild dependent atelectatic changes the lung bases. Images through the upper abdomen reveal no abnormalities. Impression: No evidence of pulmonary embolus, aortic dissection, or aortic aneurysm. Stable 1.2 cm nodule in the superior segment left lower lobe. Reviewed, dictated and finalized at [facility]. Impression: No evidence of pulmonary embolus, aortic dissection, or aortic aneurysm. Stable 1.2 cm nodule in the superior segment left lower lobe.
--- NOTE | 2024-09-07 18:19 | ECG_ITS ---
Test Date: 2024-09-07 18:31:11 Measurements Intervals [place] Rate: 89 P: 66 FL: 132 QRS: 6 QRSD: 85 T: 71 QT: 350 QTc: 426 Interpretive Statements SINUS RHYTHM EARLY PRECORDIAL R/S TRANSITION NONSPECIFIC ST-T WAVE ABNORMALITY- ANTEROLAT/HIGH LAT LEADS BASELINE ARTIFACT- II, AVR, V4-V6 BORDERLINE ECG Compared to ECG 03/10/2024 17:08:03 HEART RATE HAS DECREASED Electronically Signed On 09-07-2024 20:26:43 CDT by Skinny Dumont D.O.
[2024-09-07 18:21] VITALS: BP 136/75; PULSE 90; RESP 17; TEMP 36.6; O2SAT 97
[2024-09-07 18:36] VITALS: PULSE 94; O2SAT 100
--- NOTE | 2024-09-07 18:39 | PC.NURSE ---
RN unable to obtain labs or IV access, EDP aware
--- NOTE | 2024-09-07 19:00 | PC.NURSE ---
Pt informed EDP that pt has port in chest
--- NOTE | 2024-09-07 19:02 | ED.CHESTPAIN ---
HPI - Chest Pain General Chief Complaint: Chest Pain <Javier Badillo MD - Last Filed: 09/07/24 20:05> Stated Complaint: Chest Pain <Javier Badillo MD - Last Filed: 09/07/24 20:05> Time Seen by Provider: 09/07/24 18:25 <Javier Badillo MD - Last Filed: 09/07/24 20:05> History of Present Illness HPI narrative: 73-year-old female with a past medical history including colon cancer status post resection with current active chemotherapy use. She has a left-sided port a catheter placed by General surgery in March of this year. Patient presents to the emergency depart with left-sided chest discomfort. She describes as intermittent in nature for last few days and has happened to her previously. Describes a sharp pain and sometimes describes as her GERD. Has not tried anything for the pain at home at her nursing facility. No associated shortness of breath, nausea, vomiting, fever, chills, traumatic injuries. No leg swelling or history of DVT. She is not on any anticoagulation. <Javier Badillo MD - Last Filed: 09/07/24 20:05> Related Data Home Medications: Home Medications ?Medication ?Instructions ?Recorded ?Confirmed ?Last Taken ?Type amlodipine 10 mg tablet 10 mg PO DAILY 04/13/19 04/01/24 03/31/24 History atorvastatin 40 mg tablet 40 mg PO HS 04/13/19 04/01/24 03/31/24 History benztropine 1 mg tablet 1 mg PO BID 04/13/19 04/01/24 03/31/24 History losartan 50 mg tablet 50 mg PO DAILY 04/13/19 04/01/24 03/31/24 History trazodone 50 mg tablet 25 mg PO HS 04/13/19 04/01/24 03/31/24 History cranberry 500 mg capsule 500 mg PO BID 10/01/23 04/01/24 03/28/24 History ferrous sulfate 325 mg (65 mg 325 mg PO BID 10/01/23 04/01/24 03/28/24 History iron) tablet insulin glargine 100 unit/mL 40 unit subcut HS 10/01/23 04/01/24 03/31/24 History subcutaneous solution (Lantus U-100 Insulin) insulin glargine 100 unit/mL See Rx Instructions subcut QPM 10/01/23 04/01/24 03/31/24 History subcutaneous solution (Lantus U-100 Insulin) levetiracetam 500 mg tablet 500 mg PO BID 10/01/23 04/01/24 03/31/24 History (Keppra) meloxicam 7.5 mg tablet 7.5 mg PO DAILY 10/01/23 04/01/24 03/31/24 History mirtazapine 7.5 mg tablet 7.5 mg PO DAILY 10/01/23 04/01/24 03/31/24 History polyethylene glycol 3350 17 gram 17 g PO DAILY PRN Constipation 10/01/23 04/01/24 03/31/24 History oral powder packet (Miralax) risperidone 1 mg tablet (Risperdal) 1 mg PO BID 10/01/23 04/01/24 03/31/24 History venlafaxine 75 mg capsule,extended 225 mg PO DAILY 10/01/23 04/01/24 03/31/24 History release 24 hr (Effexor XR) lidocaine-prilocaine 2.5 %-2.5 % 1 applic topical ONCE 01/17/24 04/08/24 Unknown History topical kit (Anodyne LPT) metformin 1,000 mg tablet 1,000 mg PO BID 01/17/24 04/08/24 03/31/24 History ondansetron 8 mg disintegrating 8 mg PO Q8H PRN nausea and vomiting 01/17/24 04/08/24 Unknown History tablet potassium chloride 10 mEq 30 meq PO DAILY 01/17/24 04/08/24 03/28/24 History tablet,extended release acetaminophen 325 mg capsule 650 mg PO .Q8 PRN pain 03/19/24 04/08/24 Unknown History cholecalciferol (vitamin D3) 50 2,000 unit PO DAILY 03/19/24 04/08/24 03/28/24 History mcg (2,000 unit) capsule dextrose 40 % oral gel (Glucose 10 g PO Q15M PRN hypoglycemia 03/19/24 04/08/24 Unknown History Gel) docusate sodium 100 mg capsule 100 mg PO BID PRN constipation 03/19/24 04/08/24 Unknown History (Colace) glucagon 1 mg/0.2 mL subcutaneous 1 mg subcut ONCE PRN hypoglycemia 03/19/24 04/08/24 Unknown History auto-injector <Javier Badillo MD - Last Filed: 09/07/24 20:05> Allergies/Adverse Reactions: Allergies Allergy/AdvReac Type Severity Reaction Status Date / Time latex Allergy HIVES Verified 08/26/24 09:02 <Javier Badillo MD - Last Filed: 09/07/24 20:05> Review of Systems Review of Systems: As reviewed above in HPI <Javier Badillo MD - Last Filed: 09/07/24 20:05> [facility] Past Medical History Medical History: Medical History Wheelchair dependence Chronic anemia History of DVT (deep vein thrombosis) Insulin dependent type 2 diabetes mellitus Polio Patient had polio as a child that is left her with left lower leg weakness. 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 <Javier Badillo MD - Last Filed: 09/07/24 20:05> Surgical History Surgical History: Surgical History No history of previous surgery <Javier Badillo MD - Last Filed: 09/07/24 20:05> Family History Family History: Family History Other Acute myocardial infarction Congestive heart failure Diabetes mellitus Hypertension <Javier Badillo MD - Last Filed: 09/07/24 20:05> Social History Social History: Social History Social History: Apparently she is currently at a jail. She ambulates with a walker. No alcohol, tobacco, or drug abuse. Daughter Portia Altman is her emergency contact and she is listed as a full code. Smoking status: Never smoker Alcohol intake: former Alcohol use details: HEAVY DRINKER IN PAST/QUIT 2016 Substance use: never Do You Feel Safe in your Home?: Yes Lack of Transportation: No Lack of Food: Never True Current Housing: I Have Housing Concerned About Future Housing: YES Difficulty Paying Gas/Electric Bills: No Difficulty Paying for Meds: YES Currently Unemployed: YES Education: High School Diploma/GED Difficulty w/ Childcare or Family Care: YES Living arrangements: jail Additional living arrangements comments: [facility] last few months Rebeca MCCLENDON phn [phone] Gender identity (if verbalized by the patient): Female Spiritual care concerns: No Agree to blood products: Yes <Javier Badillo MD - Last Filed: 09/07/24 20:05> Exam Narrative: GENERAL: [Well-appearing, well-nourished, and in no acute distress.] HEAD: [Normocephalic, atraumatic.] EYES: [PERRLA and EOMI.] ENT: Nares clear, no rhinorrhea or epistaxis. Mucous membranes moist. Poor dentition NECK: Supple. CHEST: [Clear to auscultation. No respiratory distress.] Left-sided Port-A-Cath with no overlying erythema or signs of infection/cellulitis HEART: [Regular rate and rhythm]. No murmur heard. [Normal peripheral pulses.] ABDOMEN: [Soft, nondistended], [nontender], [No rigidity or guarding] EXTREMITIES: Normal range of motion. [No edema.] SKIN: Warm, dry, no rash. NEURO: [No focal deficits]. Alert and oriented [x3.] PSYCH: [Normal mood and affect.] <Javier Badillo MD - Last Filed: 09/07/24 20:05> Course Course Emergency Course: Patient signed out to me pending her workup. Normal renal function and lipase. Normocytic anemia, stable from previous. Initial troponin normal. Dimer greater than 1. Will proceed with CTA PE study. Repeat troponin normal. Received a phone call from [employer] noting that the right Port-A-Cath was in the pleural space. I did go to patient's bedside in assess her. She is resting comfortably. She is asking for ice cream and otherwise would like to go home. When asked when the right Port-A-Cath was placed she initially states a few days ago but then says that she does not know but her daughter might. She says she thinks it was placed in [facility] versus [facility] but she does not think it was at [place]. Has a well healed scar superior to R breast with a palpable port but nothing along lateral aspect of chest and otherwise without overlying erythema/edema/induration. NOn tender to palpation. Called and discussed with her daughter / next of kin Cher who confirms that the right-sided Port-A-Cath was placed in February but did not work as it could not be pulled from. They tried to place another 1 but it was also reported that this 1 also went too deep and was not in the correct place. She notes that this is when they placed the one on the left which is being used and there had been discussion if there were issues and chemo needed to be stopped/paused, there might be future discussion with a cardiothoracic surgeon. In other words, this is not new and family is already aware of this and it is being managed. Vital signs otherwise stable. Patient stable for discharge. <Lexi Rios MD - Last Filed: 09/07/24 23:20> Vital Signs Vital signs: Vital Signs Temperature 98 F 09/07/24 18:21 Pulse Rate 90 09/07/24 18:21 Respiratory Rate 17 09/07/24 18:21 Blood Pressure 136/75 09/07/24 18:21 Pulse Oximetry 97 09/07/24 18:21 Oxygen Delivery Room Air 09/07/24 18:21 Temperature 98 F 09/07/24 18:21 Pulse Rate 95 09/07/24 22:36 Respiratory Rate 18 09/07/24 22:36 Blood Pressure 122/63 09/07/24 22:36 Pulse Oximetry 99 09/07/24 22:36 Oxygen Delivery Room Air 09/07/24 18:36 <Javier Badillo MD - Last Filed: 09/07/24 20:05> Vital Signs Temperature 98 F 09/07/24 18:21 Pulse Rate 90 09/07/24 18:21 Respiratory Rate 17 09/07/24 18:21 Blood Pressure 136/75 09/07/24 18:21 Pulse Oximetry 97 09/07/24 18:21 Oxygen Delivery Room Air 09/07/24 18:21 Temperature 98 F 09/07/24 18:21 Pulse Rate 95 09/07/24 22:36 Respiratory Rate 18 09/07/24 22:36 Blood Pressure 122/63 09/07/24 22:36 Pulse Oximetry 99 09/07/24 22:36 Oxygen Delivery Room Air 09/07/24 18:36 <Lexi Rios MD - Last Filed: 09/07/24 23:20> MDM - Chest Pain MDM Narrative Medical decision making narrative: 73-year-old female with a past medical history including colon cancer status post resection with current active chemotherapy use. She has a left-sided port a catheter placed by General surgery in March of this year. Patient presents to the emergency depart with left-sided chest discomfort. She describes as intermittent in nature for last few days and has happened to her previously. Describes a sharp pain and sometimes describes as her GERD. Has not tried anything for the pain at home at her nursing facility. No associated shortness of breath, nausea, vomiting, fever, chills, traumatic injuries. No leg swelling or history of DVT. She is not on any anticoagulation. Patient is not any acute distress with normal vital signs here. No tachycardia, fever, hypoxia blood pressure concerns. Patient does have elevated risk factors for thromboembolic disease such as her colon cancer currently active with chemotherapy infusion. No history of DVT and she had negative CT angiography several months ago but this was previous to recent surgical procedure so she is again moderate risk. Other differential includes ACS, angina, GERD, musculoskeletal chest discomfort, pneumonia or pneumothorax. Cardiac workup underway with serial troponins, EKG, chest x-ray, D-dimer given her moderate risk. Port-A-Cath was accessed for blood draw and medications as needed. Patient's workup is pending at this time. Signed out to oncoming ER physician pending completion of workup and final disposition based on results. <Javier Badillo MD - Last Filed: 09/07/24 20:05> Medical Records Data Attestation: I reviewed the patient's medical records. <Javier Badillo MD - Last Filed: 09/07/24 20:05> Lab Data Attestation: I reviewed the patient's lab results. <Javier Badillo MD - Last Filed: 09/07/24 20:05> Result diagrams: 09/07/24 19:57 09/07/24 19:56 <Javier Badillo MD - Last Filed: 09/07/24 20:05> Labs: Lab Results 09/07/24 09/07/24 09/07/24 Range/Units 19:56 19:57 21:29 WBC 6.0 (4.5-10.0) K/mm3 RBC 3.49 L (4.2-5.4) M/mm3 Hgb 9.9 L (12.0-15.0) g/dL Hct 33.3 L (37.0-47.0) % MCV 95.4 (80-100) fl MCH 28.4 (26-34) pg MCHC 29.7 L (32-36) g/dl RDW 14.4 (11.5-14.5) % Plt Count 173 (150-375) k/mm3 MPV 10.3 (7.4-10.4) fl Immature Gran % (Auto) 0.7 H (0-0.5) % Neut % (Auto) 36.4 L (45.5-73.1) % Lymph % (Auto) 43.9 (18.3-44.2) % [place] % (Auto) 11.0 H (2.6-8.5) % Eos % (Auto) 7.2 H (0-4.4) % Baso % (Auto) 0.8 (0.2-1.2) % Lymph # (Auto) 2.63 (0.9-3.2) K/mm3 [place] # (Auto) 0.7 H (0.1-0.6) K/mm3 Eos # (Auto) 0.4 H (0-0.3) K/mm3 Baso # (Auto) 0.1 (0.0-0.1) K/mm3 Abs Immat Gran (auto) 0.04 H (0.00-0.031) K/mm3 Absolute Neuts (auto) 2.2 (1.3-6.7) K/mm3 Absolute Nucleated RBC 0.000 (0.0-0.012) K/mm3 Nucleated RBC % 0.0 (0.0-0.2) % PT 13.8 (11.1-14.7) Seconds INR 1.0 APTT 28.0 (22.3-36.8) Seconds D-Dimer 1.66 H (<0.48) ug/mL Sodium 140 (137-145) mmol/L Potassium 4.8 (3.4-5.0) mmol/L Chloride 109 H (98-107) mmol/L Carbon Dioxide 22 (22-30) mmol/L Anion Gap 9 (4-12) mmol/L BUN 11 (7-17) mg/dL Creatinine 0.62 L (0.7-1.0) mg/dL Estim Creat Clear Calc 55 ml/min Estimated GFR > 60 (59 - ) Glucose 135 H (65-110) mg/dL Calcium 9.5 (8.4-10.2) mg/dL Total Bilirubin 0.1 L (0.2-1.3) mg/dL AST 35 (14-36) U/L ALT 23 (6-35) U/L Alkaline Phosphatase 93 (38-126) U/L Troponin I < 0.012 < 0.012 (0.000-0.034) ng/mL Total Protein 7.4 (6.3-8.2) g/dL Albumin 3.8 (3.5-5.1) g/dL Lipase 51 (23-300) U/L <Javier Badillo MD - Last Filed: 09/07/24 20:05> Lab Results 09/07/24 09/07/24 09/07/24 Range/Units 19:56 19:57 21:29 WBC 6.0 (4.5-10.0) K/mm3 RBC 3.49 L (4.2-5.4) M/mm3 Hgb 9.9 L (12.0-15.0) g/dL Hct 33.3 L (37.0-47.0) % MCV 95.4 (80-100) fl MCH 28.4 (26-34) pg MCHC 29.7 L (32-36) g/dl RDW 14.4 (11.5-14.5) % Plt Count 173 (150-375) k/mm3 MPV 10.3 (7.4-10.4) fl Immature Gran % (Auto) 0.7 H (0-0.5) % Neut % (Auto) 36.4 L (45.5-73.1) % Lymph % (Auto) 43.9 (18.3-44.2) % [place] % (Auto) 11.0 H (2.6-8.5) % Eos % (Auto) 7.2 H (0-4.4) % Baso % (Auto) 0.8 (0.2-1.2) % Lymph # (Auto) 2.63 (0.9-3.2) K/mm3 [place] # (Auto) 0.7 H (0.1-0.6) K/mm3 Eos # (Auto) 0.4 H (0-0.3) K/mm3 Baso # (Auto) 0.1 (0.0-0.1) K/mm3 Abs Immat Gran (auto) 0.04 H (0.00-0.031) K/mm3 Absolute Neuts (auto) 2.2 (1.3-6.7) K/mm3 Absolute Nucleated RBC 0.000 (0.0-0.012) K/mm3 Nucleated RBC % 0.0 (0.0-0.2) % PT 13.8 (11.1-14.7) Seconds INR 1.0 APTT 28.0 (22.3-36.8) Seconds D-Dimer 1.66 H (<0.48) ug/mL Sodium 140 (137-145) mmol/L Potassium 4.8 (3.4-5.0) mmol/L Chloride 109 H (98-107) mmol/L Carbon Dioxide 22 (22-30) mmol/L Anion Gap 9 (4-12) mmol/L BUN 11 (7-17) mg/dL Creatinine 0.62 L (0.7-1.0) mg/dL Estim Creat Clear Calc 55 ml/min Estimated GFR > 60 (59 - ) Glucose 135 H (65-110) mg/dL Calcium 9.5 (8.4-10.2) mg/dL Total Bilirubin 0.1 L (0.2-1.3) mg/dL AST 35 (14-36) U/L ALT 23 (6-35) U/L Alkaline Phosphatase 93 (38-126) U/L Troponin I < 0.012 < 0.012 (0.000-0.034) ng/mL Total Protein 7.4 (6.3-8.2) g/dL Albumin 3.8 (3.5-5.1) g/dL Lipase 51 (23-300) U/L <Lexi Rios MD - Last Filed: 09/07/24 23:20> Imaging Data Radiologist's impression: Stat Rad CTA Chest: No acute pulmonary embolism. Right Port-A-Cath terminates in the right pleural space. (Left Port A Cath terminates in the SVC) <Lexi Rios MD - Last Filed: 09/07/24 23:20> Discharge Plan Discharge Clinical Impression: Chest pain, Colon cancer, Normocytic anemia <Javier Badillo MD - Last Filed: 09/07/24 20:05> Patient Disposition: NH Residential/Asst Living <Javier Badillo MD - Last Filed: 09/07/24 20:05> Condition: Stable <Javier Badillo MD - Last Filed: 09/07/24 20:05> Instructions: Antibiotic Form, Chest Pain (DC), Colorectal Cancer (DC), Anemia (ED) <Javier Badillo MD - Last Filed: 09/07/24 20:05> Additional Instructions: As discussed with patient and family member Kendra, there was notion that the R port a cath is improperly placed but this was already known about previously. 2 negative troponins (cardiac enzymes) and no evidence of blood clot in lungs (no pulmonary embolism) on CT scan. Continue taking medications as prescribed and follow-up with your care team including primary care physician, oncologist, etc. return to the emergency department with any new or worsening symptoms. If you do not have a linux kernel developer and need to follow-up with 1 for further outpatient workup, the name of the doctors listed below. <Javier Badillo MD - Last Filed: 09/07/24 20:05> Patient Language: Portuguese <Javier Badillo MD - Last Filed: 09/07/24 20:05> Prescriptions: No Action clindamycin HCl 300 mg capsule 300 mg PO Q8H 7 Days Qty: 21 0RF losartan 50 mg Tablet 50 mg PO DAILY Patient Comments: QAM atorvastatin 40 mg Tablet 40 mg PO HS Patient Comments: . amlodipine 10 mg Tablet 10 mg PO DAILY Patient Comments: QAM benztropine 1 mg Tablet 1 mg PO BID Patient Comments: . trazodone 50 mg Tablet 25 mg PO HS cranberry 500 mg Capsule 500 mg PO BID Rx Instructions: administer with meals insulin glargine [Lantus U-100 Insulin] 100 unit/mL Solution 40 unit SUBCUT HS insulin glargine [Lantus U-100 Insulin] 100 unit/mL Solution See Rx Instructions SUBCUT QPM Rx Instructions: 42 UNITS SQ IN AM 40 UNITS subcutaneously every evening venlafaxine [Effexor XR] 75 mg Capsule,Extended Release 24hr 225 mg PO DAILY levetiracetam [Keppra] 500 mg Tablet 500 mg PO BID ferrous sulfate 325 mg (65 mg iron) Tablet 325 mg PO BID meloxicam 7.5 mg tablet 7.5 mg PO DAILY polyethylene glycol 3350 [Miralax] 17 gram Powder In Packet 17 g PO DAILY PRN (Reason: Constipation) risperidone [Risperdal] 1 mg Tablet 1 mg PO BID mirtazapine 7.5 mg Tablet 7.5 mg PO DAILY Patient Comments: HS potassium chloride 10 mEq tablet extended release 30 meq PO DAILY metformin 1,000 mg tablet 1,000 mg PO BID ondansetron 8 mg tablet,disintegrating 8 mg PO Q8H PRN (Reason: nausea and vomiting) lidocaine-prilocaine [Anodyne LPT] 2.5-2.5 % kit 1 applic topical ONCE Patient Comments: APPLY TOPICALLY TO PORT SITE 30 MINUTES BEFORE ACCESS Rx Instructions: as a single dose docusate sodium [Colace] 100 mg capsule 100 mg PO BID PRN (Reason: constipation) glucagon 1 mg/0.2 mL auto-injector 1 mg subcut ONCE PRN (Reason: hypoglycemia) Rx Instructions: as a single dose; may repeat once after 15 minutes if no response dextrose [Glucose Gel] 40 % gel 10 g PO Q15M PRN (Reason: hypoglycemia) Rx Instructions: until symptoms of low blood sugar are controlled cholecalciferol (vitamin D3) 50 mcg (2,000 unit) capsule 2,000 unit PO DAILY Patient Comments: ... acetaminophen 325 mg capsule 650 mg PO .Q8 PRN (Reason: pain) Patient Comments: .. benzonatate 100 mg capsule 100 mg PO TID PRN (Reason: cough) Qty: 30 0RF Patient Comments: . <Javier Badillo MD - Last Filed: 09/07/24 20:05> Follow-up/Referrals: PHYSICIAN,MORTGAGE FUNDER [Primary Care Provider] - Dakotah Cowan MD [Physician] - <Javier Badillo MD - Last Filed: 09/07/24 20:05> Stand Alone Forms: Shelter Discharge <Javier Badillo MD - Last Filed: 09/07/24 20:05> Time of Disposition: 23:18 <Javier Badillo MD - Last Filed: 09/07/24 20:05> 23:18 <Lexi Rios MD - Last Filed: 09/07/24 23:20>
[2024-09-07 19:46] VITALS: BP 136/66; PULSE 92; RESP 25; O2SAT 97
[2024-09-07] MEDS: FAMOTIDINE 20 MG/2 ML VIAL IV PUSH (20:01)
--- OUTSIDE RECORDS SUMMARY | 2024-09-07 20:10 | XMS_ITS | Clinical Summary ---
Author Organization [facility] [place] Cata Jameson Address [address] [place] [address] Care Team Providers Care Artifacts Conservator Name Role Phone Unavailable Primary Care Provider [...] Encounters Date Type Department Care Team Description 09/01/2024 Orders Only [facility] [place] [facility] - Tre [address] Adrian Rothman MD Malignant neoplasm of colon, unspecified part of colon (CMS/HCC) 08/20/2024 External Device Data STL ABSTRACTION Provider, Abstract 08/20/2024 External Device Data STL ABSTRACTION Provider, Abstract 08/19/2024 9:45 AM CDT Office Visit [facility] [place] [facility] - Tre [address] [place] [id number] Adrian Rothman MD Malignant neoplasm of colon, unspecified part of colon (CMS/HCC) (Primary Dx) 08/18/2024 Orders Only [facility] [place] [facility] - Tre J[address]ier [address] [place] [id number] Adrian Rothman MD Malignant neoplasm of colon, unspecified part of colon (CMS/HCC) 08/06/2024 Orders Only [facility] [place] [facility] - Tre Jessica [address] [place] [id number] Adrian Rothman MD 08/05/2024 9:00 AM CDT Office Visit [facility] [place] [facility] - Tre [address] [place] [phone] Adrian Rothman MD Malignant neoplasm of colon, unspecified part of colon (CMS/HCC) (Primary Dx) 08/05/2024 Orders Only [facility] [place] [facility] - Tre [address] [place] [phone] Adrian Rothman MD 08/04/2024 Orders Only [facility] [place] [facility] - Tre [address]ier [address] [place] [id number] Adrian Rothman MD Malignant neoplasm of colon, unspecified part of colon (CMS/HCC) 07/29/2024 External Device Data STL ABSTRACTION Provider, Abstract 07/29/2024 Orders Only [facility] [place] [facility] - Tre [address] [place] [phone] Adrian Rothman MD 07/23/2024 9:30 AM CDT Office Visit [facility] [place] [facility] - Tre [address] [place] [address] Adrian Rothman MD Malignant neoplasm of colon, unspecified part of colon (CMS/HCC) (Primary Dx) 07/22/2024 External Device Data STL ABSTRACTION Provider, Abstract 07/21/2024 Orders Only [facility] [place] [facility] - Tre [address] [place] [address] Adrian Rothman MD Malignant neoplasm of colon, unspecified part of colon (CMS/HCC) 07/09/2024 Orders Only [facility] [place] [facility] - Tre [address] [place] [address] Adrian Rothman MD 07/07/2024 Orders Only [facility] [place] [facility] - Tre [address] [place] [phone] Adrian Rothman MD Malignant neoplasm of colon, unspecified part of colon (CMS/HCC) 06/26/2024 External Device Data STL ABSTRACTION Provider, Abstract 06/25/2024 External Device Data STL ABSTRACTION Provider, Abstract 06/25/2024 External Device Data STL ABSTRACTION Provider, Abstract 06/23/2024 Orders Only [facility] [place] [facility] - Tre [address] [place] [address] Adrian Rothman MD Malignant neoplasm of colon, unspecified part of colon (CMS/HCC) 06/09/2024 Orders Only [facility] [place] [facility] - Tre [address] [place] [address] Adrian Rothman MD Malignant neoplasm of colon, unspecified part of colon (CMS/HCC) from Last 3 Months Family History Medical [...] Sign Reading Time Taken Comments Blood Pressure 153/82 08/19/2024 10:07 AM CDT Pulse 91 08/19/2024 10:03 AM CDT Temperature 36.1 C (96.9 F) 08/19/2024 10:03 AM CDT Respiratory Rate 15 08/19/2024 10:0 3 AM CDT Oxygen Saturation 95% 08/19/2024 10: 03 AM CDT Inhaled Oxygen Concentration - - Weight 60.7 kg (133 lb 12.8 oz) 025 10:03 AM CDT Height 152.4 cm (5') 11/15/2023 2:54 PM CDT Body Mass Index 26.13 11/15/2023 2:54 PM CDT Plan of Treatment Upcoming Encounters Date Type Department Care Team (Late st Contact Info) Description 09/09/2024 8:30 AM CDT Office Visit [facility] [place] [facility] - [address] [place] [address] Adrian Rothman MD [address] [place] [address] Health Maintenance Due Date Last Done Comments DIABETES ANNUAL FOOT EXAM 1966 DIABETES ANNUAL RETINAL EXAM 1966 DIABETES MICROALBUMIN ANNUAL SCREEN 1966 LDL CHOLESTEROL ANNUAL 1966 DTAP/TDAP/TD VACCINES (1 - Tdap) 12/27/1967 PNEUMOCOCCAL VACCINE 50+ YEARS (1 of 2 - PCV) 12/26/18 68 ZOSTER VACCINE (1 of 2) 1998 OSTEOPOROSIS SCREENING 2013 DIABETES HBA1C Q 6 MONTHS 05/12/2022 11/11/2021 RSV VACCINE (60+ or ) (1 - 1-dose 75+ series) 12/27/2023 INFLUENZA VACCINE (#1) 2024 01/10/2018 Procedures Procedure Name Priority Date/Time Associated Diagnosis Comments COMPREHENSIVE METABOLIC PANEL Routine 08/05/2024 5:36 PM CDT BASIC METABOLIC PANEL Routine 08/05/2024 7:38 AM CDT BASIC METABOLIC PANEL Routine 07/23/2024 5:13 PM CDT COMPREHENSIVE METABOLIC PANEL Routine 07/23/2024 5:10 PM CDT COMPREHENSIVE METABOLIC PANEL Routine 07/08/2024 11:30 AM CDT BASIC METABOLIC PANEL Routine 07/08/2024 9:42 AM CDT CBC WITH DIFFERENTIAL Routine 07/08/2024 8:04 AM CDT from Last 3 Months Results * COMPREHENSIVE METABOLIC PANEL (08/05/2024 5:36 PM CDT) Only the most recent of3 resultswithin the time period is included. Blood us Adrian Rothman MD CHEMISTRY ORDERABLES Final Resu lt * BASIC METABOLIC PANEL (08/05/2024 7:38 AM CDT) Only the most recent of3 resultswithin the time period is included. Blood us Adrian Rothman MD CHEMISTRY ORDERABLES Final Resu lt * CBC WITH DIFFERENTIAL (07/08/2024 8:04 AM CDT) Blood us Adrian Rothman MD HEMATOLOGY ORDERABLES Final Res ult from Last 3 Months Insurance [employer] [place]
--- OUTSIDE RECORDS SUMMARY | 2024-09-07 20:10 | XMS_ITS ---
Author Organization [facility] jaye Care Team Providers Care Pantograph Transferrer Name Role Phone Paz Pimentel Unavailable Unavailable Trisha Oneal Unavailable Unavailable Nikolas, Crystal Unavailable Unavailable Elayyan, Thompson Unavailable Unavailable Roxana Sandy (Oanh) Unavailable Unavailable Roxana Tao (Oanh) Jana Unavailable Unavailable [place], Aminata Unavailable Unavailable Allergies and adverse reactions Code CodeSystem Substance Reaction Severity StartDate Concern Status Ambien Mild 12/21/2017 active Care Team Name Role Address Phone Organization Dates Paz Pimentel PCP [address] [place], [place], [facility] [place] (Office): : : [facility] [place] 12/21/2017 - 03/01/2018 Trisha Oneal [address] [place], [place], [facility], [facility] (Office): : [facility] [place] 12/21/2017 - 03/01/2018 Crystal [place] [address] [place], [address], [facility] ([facility] 12/21/2017 - 03/01/2018 Jay Tolentino [address] [place], [place], [facility], [facility] (Office): : : [facility] [place] 12/21/2017 - 03/01/2018 Roxana Austin) [address] [place], [place], [facility], [facility] (Office): [facility] 12/21/2017 - 03/01/2018 Roxana Locke (Katie)erineduardo Tao [address] [place], [place], [facility], [place] (Office): : : [facility] 12/21/2017 - 03/01/2018 Aminata [place] [address] [place], [place], [facility], [facility] (Office): : : [facility] 12/21/2017 - 03/01/2018 Immunizations Immunization Status Vaccine Details Vaccine Code CodeSystem Date Notes Influenza completed Influenza, split virus, trivalent, injectable, contains preservative lotNumber: [id number] expiry: 08/04/2018 Mfg: Seqiris Given 0.5 ml Right Deltoid intramuscularly 141 CVX created date: 01/10/2018 consent date: 01/10/2018 administer ed date: 01/10/2018 Educated by Dong Erickson on 01/10/2018 TB 2 Step Mantoux Skin Test completed tuberculin skin test; unspecified formulation lotNumber: [id number] expiry: 04/04/2019 Mfg: PAR [employer]am[employer] Given 0.1 ml Left Forearm intradermally Step 2 of Multi-step with next step required 98 CVX created date: 01/08/2018 consent date: 01/08/2018 administer ed date: 01/08/2018 TB 2 Step Mantoux Skin Test completed tuberculin skin test; unspecified formulation lotNumber: [id number] expiry: 08/04/2018 Mfg: PAR [employer]amaceutical Given 0.1 ml Right Forearm intradermally Step 1 of Multi-step with next step required 98 CVX created date: 12/21/2017 consent date: 12/21/2017 administer ed date: 12/21/2017 Pneumovax 23 cancelled pneumococcal polysaccharide vaccine, 23 valent 33 CVX created date: 01/08/2018 consent date: 01/08/2018 Educated by Dong Erickson on 01/08/2018 Prevnar 13 cancelled pneumococcal conjugate vaccine, 13 valent 133 CVX created date: 01/08/2018 consent date: 01/08/2018 Educated by Dong Erickson on 01/08/2018 Mental Status Section Date Assessment Total Score Description 03/01/2018 BIMS 10 moderate cognit rachna impairment CAM 0 No delirium ind icated PHQ-9 00 01/01/2018 BIMS 10 moderate cognit rachna impairment CAM 0 No delirium ind icated PHQ-9 00 Problems Problem # Description Date of onset Resolved Date Code CodeSystem Concern Status 1 GENERALIZED ANXIETY DISORDER [address] active 2 ADJUSTMENT DISORDER WITH MIXED DISTURBANCE OF EMOTIONS AND CONDUCT [address] active 3 CEREBRAL INFARCTION, UNSPECIFIED [address] active 4 ESSENTIAL (PRIMARY) HYPERTENSION [address] active 5 GASTRO-ESOPHAGEAL REFLUX DISEASE WITHOUT ESOPHAGITIS [address] active 6 HYPERLIPIDEMIA, UNSPECIFIED [address] active 7 INSOMNIA, UNSPECIFIED [address] active 8 MAJOR DEPRESSIVE DISORDER, SINGLE EPISODE, UNSPECIFIED [address] active 9 MUSCLE WEAKNESS (GENERALIZED) [address] active 10 OTHER SEASONAL ALLERGIC RHINITIS [address] active 11 PERSONAL HISTORY OF POLIOMYELITIS [address] active 12 STRESS INCONTINENCE (FEMALE) (MALE) [address] active 13 TINNITUS, BILATERAL [address] active 14 TYPE 2 DIABETES MELLITUS WITHOUT COMPLICATIONS [address] active 15 UNSPECIFIED DEMENTIA WITH BEHAVIORAL DISTURBANCE [address] active 16 UNSPECIFIED URINARY INCONTINENCE [address] active Reason for Referral No Reasons for Referral Entered Social History Social History Observation Description Start Date End Date Code Code System Current Smoking Status Tobacco smoking consumption unknown 294256041 SNOMED CT Sex Assigned At Female 1950 35848-6 [facility] Gender Identity Vital Signs Code Code System Vitals Name Values and Units Timing Information 2339-0 [facility] Blood Sugar Value=1.0 Units=mg/dL 22856-3 [facility] Weight Mjboa=794.4 Units=Lbs 06/2018 9279-1 [facility] Respiratory Rate Value=20.0 Units=/m in 02/08/2018 8867-4 INC Heart rate Value=74.0 Units=/min 05/2018 8310-5 [facility] Body Temperature Value=98.7 Units= F 02/08/2018 8462-4 [facility] Blood Pressure-Diastolic Value=64 Un its=mmHg 02/08/2018 8480-6 [facility] Blood Pressure-Systolic Ceobd=862 Un its=mmHg 02/08/2018 8302-2 [facility] Height Value=60.0 Units=Inches 12/21/2017 69949-8 [facility] Pain Level Value=0.0 12/21/2017
--- OUTSIDE RECORDS SUMMARY | 2024-09-07 20:10 | XMS_ITS | Patient Health Record ---
Author Organization [facility] As Informaat Address [address] [facility] [address] [place] [address] Care Team Providers Care Child Support Agent Name Role Phone Maldonado Gould Unavailable [phone] Reason For Referral No Information Medications Medication SIG (Take, Route, Frequency, Duration) Notes Start Date End Date Status Divalproex Sodium 125 MG Oral Active amLODIPine Besylate 10 MG Oral Active Melatonin 5 MG Oral Activ e Plan Of Treatment No Information Insurance Providers Payer Name Payer Address Payer Phone Subscriber Number Group Number Insured Name Patient Relationship to Insured Coverage Start Date Coverage End Date [place] [address] [address] [place] [address] [id number] KAIT MOSLEY Self - patient is the insured
[2024-09-07 20:33] LABS: Hematocrit 33.3 % (37.0-47.0); Hemoglobin 9.9 g/dL (12.0-15.0); Immature Granulocyte Percent A 0.7 % (0-0.5); Lymphocytes Absolute Auto 2.63 K/mm3 (0.9-3.2); Mean Corpuscular HGB Conc 29.7 g/dl (32-36); Mean Corpuscular Hemoglobin 28.4 pg (26-34); Mean Corpuscular Volume 95.4 fl (80-100); Nucleated Red Blood Cells Absolute Auto 0.000 K/mm3 (0.0-0.012); Nucleated Red Blood Cells Perc 0.0 % (0.0-0.2); Platelet Count Result 173 k/mm3 (150-375); Red Blood Count 3.49 M/mm3 (4.2-5.4); White Blood Count 6.0 K/mm3 (4.5-10.0)
[2024-09-07 20:45] LABS: Alanine Aminotransferase 23 U/L (6-35); Albumin Level 3.8 g/dL (3.5-5.1); Alkaline Phosphatase 93 U/L (38-126); Anion Gap 9 mmol/L (4-12); Aspartate Amino Transferase 35 U/L (14-36); Bilirubin,Total 0.1 mg/dL (0.2-1.3); Blood Urea Nitrogen 11 mg/dL (7-17); Calcium 9.5 mg/dL (8.4-10.2); Carbon Dioxide 22 mmol/L (22-30); Chloride 109 mmol/L (98-107); Estimated CRCL calculation 55 ml/min; Estimated Glomerular Filt Rate > 60; Glucose 135 mg/dL (65-110); Lipase 51 U/L (23-300); Potassium 4.8 mmol/L (3.4-5.0); Sodium 140 mmol/L (137-145); Total Protein 7.4 g/dL (6.3-8.2)
[2024-09-07 20:52] LABS: INR 1.0; Partial Thromboplastin Time 28.0 Seconds (22.3-36.8); Prothrombin Time 13.8 Seconds (11.1-14.7)
[2024-09-07 20:56] LABS: Troponin I < 0.012 ng/mL (0.000-0.034)
[2024-09-07 22:00] LABS: Troponin I < 0.012 ng/mL (0.000-0.034)
[2024-09-07 22:36] VITALS: BP 122/63; PULSE 95; RESP 18; O2SAT 99
[2024-09-08 01:02] VITALS: BP 122/71; PULSE 79; RESP 18; O2SAT 99
[2024-09-08] MEDS: HEPARIN SODIUM LOCK FLUSH 500 UNITS/5 ML SYRINGE IV PUSH (03:09)
== END 2024-09-08 03:59 ==
PROVIDERS: Emergency Medicine; Emergency Provider Student in an Organized Health Care Education/Training Program
DX: R07.89 Other chest pain (principal); C18.9 Malignant neoplasm of colon, unspecified; D64.9 Anemia, unspecified; Z86.718 Personal history of other venous thrombosis and embolism; E11.9 Type 2 diabetes mellitus without complications; Z79.4 Long term (current) use of insulin; Z86.12 Personal history of poliomyelitis; F31.9 Bipolar disorder, unspecified; K21.9 Gastro-esophageal reflux disease without esophagitis; E78.5 Hyperlipidemia, unspecified; I10 Essential (primary) hypertension; I69.392 Facial weakness following cerebral infarction; I69.398 Other sequelae of cerebral infarction; I69.351 Hemiplegia and hemiparesis following cerebral infarction affecting right dominant side; R26.89 Other abnormalities of gait and mobility; Z79.899 Other long term (current) drug therapy
CPT/HCPCS: 36415; 71045; 71275; 80053; 83690; 84484; 85025; 85380; 85610; 85730; 93005; 96374; 99284; Q9967

== ENCOUNTER 2024-11-27 17:39 | Emergency (ER) | payer OTHER, SELFPAY ==
--- NOTE | ~2024-11-27 | CT_ITS ---
CT brain wo con HISTORY:aggressive behavior COMPARISON: None. TECHNIQUE: Axial images were obtained of the head without intravenous contrast. FINDINGS: No acute intracranial hemorrhage, mass effect or midline shift. No extra-axial fluid collections. There is generalized atrophy and chronic white matter microangiopathic changes. The calvarium is intact. Visualized paranasal sinuses and mastoid air cells are clear. IMPRESSION: No acute intracranial hemorrhage or extra axial fluid collections. All CT scans at this facility are performed using low dose modulation techniques as appropriate to perform exam including the following: automated exposure control; use of iterative reconstruction technique; adjustment of the mA and/or kV according to patient size (this includes techniques or standardized protocols for targeted exams where dose is matched to indication/reason for exam). Reviewed, dictated and finalized at location S. IMPRESSION: No acute intracranial hemorrhage or extra axial fluid collections. All CT scans at this facility are performed using low dose modulation techniqu es as appropriate to perform exam including the following: automated exposure c ontrol; use of iterative reconstruction technique; adjustment of the mA and/or kV according to patient size (this includes techniques or standardized protocol s for targeted exams where dose is matched to indication/reason for exam).
[2024-11-27 17:45] VITALS: BP 159/75; PULSE 103; RESP 20; TEMP 37.2; O2SAT 100
--- NOTE | 2024-11-27 17:58 | ED.GENADULT ---
HPI - General Adult General Chief complaint: Unspecified Stated complaint: aggressive at [place] Time Seen by Provider: 11/27/24 17:41 Source: patient and old records reviewed Mode of arrival: EMS Limitations: no limitations History of Present Illness HPI narrative: Patient is a 73 y/o female, with PMH of bipolar disorder, colon CA on active chemotherapy, who presents to the ED via EMS with report of aggressive behavior. Patient is a resident of [facility]. Per long-term report, patient had a verbal altercation with another resident today and exhibited aggressive behavior. She was sent here for further evaluation. Patient reports the other resident was picking on her. There was no physical altercation. Patient denies any acute complaints or pain. Is resting calm and comfortably. Related Data Home Medications ?Medication ?Instructions ?Recorded ?Confirmed ?Last Taken ?Type amlodipine 10 mg tablet 10 mg PO DAILY 04/13/19 04/01/24 03/31/24 History atorvastatin 40 mg tablet 40 mg PO HS 04/13/19 04/01/24 03/31/24 History benztropine 1 mg tablet 1 mg PO BID 04/13/19 04/01/24 03/31/24 History losartan 50 mg tablet 50 mg PO DAILY 04/13/19 04/01/24 03/31/24 History trazodone 50 mg tablet 25 mg PO HS 04/13/19 04/01/24 03/31/24 History cranberry 500 mg capsule 500 mg PO BID 10/01/23 04/01/24 03/28/24 History ferrous sulfate 325 mg (65 mg 325 mg PO BID 10/01/23 04/01/24 03/28/24 History iron) tablet insulin glargine 100 unit/mL 40 unit subcut HS 10/01/23 04/01/24 03/31/24 History subcutaneous solution (Lantus U-100 Insulin) insulin glargine 100 unit/mL See Rx Instructions subcut QPM 10/01/23 04/01/24 03/31/24 History subcutaneous solution (Lantus U-100 Insulin) levetiracetam 500 mg tablet 500 mg PO BID 10/01/23 04/01/24 03/31/24 History (Keppra) meloxicam 7.5 mg tablet 7.5 mg PO DAILY 10/01/23 04/01/24 03/31/24 History mirtazapine 7.5 mg tablet 7.5 mg PO DAILY 10/01/23 04/01/24 03/31/24 History polyethylene glycol 3350 17 gram 17 g PO DAILY PRN Constipation 10/01/23 04/01/24 03/31/24 History oral powder packet (Miralax) risperidone 1 mg tablet (Risperdal) 1 mg PO BID 10/01/23 04/01/24 03/31/24 History venlafaxine 75 mg capsule,extended 225 mg PO DAILY 10/01/23 04/01/24 03/31/24 History release 24 hr (Effexor XR) lidocaine-prilocaine 2.5 %-2.5 % 1 applic topical ONCE 01/17/24 04/08/24 Unknown History topical kit (Anodyne LPT) metformin 1,000 mg tablet 1,000 mg PO BID 01/17/24 04/08/24 03/31/24 History ondansetron 8 mg disintegrating 8 mg PO Q8H PRN nausea and vomiting 01/17/24 04/08/24 Unknown History tablet potassium chloride 10 mEq 30 meq PO DAILY 01/17/24 04/08/24 03/28/24 History tablet,extended release acetaminophen 325 mg capsule 650 mg PO .Q8 PRN pain 03/19/24 04/08/24 Unknown History cholecalciferol (vitamin D3) 50 2,000 unit PO DAILY 03/19/24 04/08/24 03/28/24 History mcg (2,000 unit) capsule dextrose 40 % oral gel (Glucose 10 g PO Q15M PRN hypoglycemia 03/19/24 04/08/24 Unknown History Gel) docusate sodium 100 mg capsule 100 mg PO BID PRN constipation 03/19/24 04/08/24 Unknown History (Colace) glucagon 1 mg/0.2 mL subcutaneous 1 mg subcut ONCE PRN hypoglycemia 03/19/24 04/08/24 Unknown History auto-injector Allergies Allergy/AdvReac Type Severity Reaction Status Date / Time latex Allergy HIVES Verified 11/26/24 08:32 Review of Systems Review of Systems: All systems reviewed & are unremarkable except as noted in HPI. All systems reviewed & are unremarkable except as noted in HPI and below PMFSH Past Medical History Medical History Wheelchair dependence Chronic anemia History of DVT (deep vein thrombosis) Insulin dependent type 2 diabetes mellitus Polio Patient had polio as a child that is left her with left lower leg weakness. 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 Surgical History Surgical History No history of previous surgery Family History Family History Other Acute myocardial infarction Congestive heart failure Diabetes mellitus Hypertension Social History Social History Social History: Apparently she is currently at a long-term. She ambulates with a walker. No alcohol, tobacco, or drug abuse. Daughter Portia Altman is her emergency contact and she is listed as a full code. Smoking status: Never smoker Alcohol intake: former Alcohol use details: HEAVY DRINKER IN PAST/QUIT 2015 Substance use: never Do You Feel Safe in your Home?: Yes Lack of Transportation: No Lack of Food: Never True Current Housing: I Have Housing Concerned About Future Housing: YES Difficulty Paying Gas/Electric Bills: No Difficulty Paying for Meds: YES Currently Unemployed: YES Education: High School Diploma/GED Difficulty w/ Childcare or Family Care: YES Living arrangements: long-term Additional living arrangements comments: [facility] last few months Rebeca MCCLENDON phn [phone] Gender identity (if verbalized by the patient): Female Spiritual care concerns: No Agree to blood products: Yes Exam Narrative: GENERAL: Well appearing, well-nourished, non-toxic, in no acute distress. HEAD: Normocephalic, atraumatic. RESPIRATORY: Airway patent, respirations nonlabored. Clear to auscultation bilaterally, no rales, rhonchi, wheezing. CARDIOVASCULAR: Regular rate and rhythm without murmurs, rubs, or gallops. MUSCULOSKELETAL: Moves all extremities. No gross deformities. SKIN: Warm, dry, normal color. NEURO: A&O X2. Speech clear. Cranial nerves II-XII grossly intact. Steady gait. No ataxic movements. No focal deficits. PSYCHIATRIC: Appropriate mood and affect. Normal interaction. Course Vital Signs Vital signs: Vital Signs Temperature 98.9 F 11/27/24 17:45 Pulse Rate 103 H 11/27/24 17:45 Respiratory Rate 20 11/27/24 17:45 Blood Pressure 159/75 H 11/27/24 17:45 Pulse Oximetry 100 11/27/24 17:45 Temperature 98.9 F 11/27/24 17:45 Pulse Rate 103 H 11/27/24 17:45 Respiratory Rate 20 11/27/24 17:45 Blood Pressure 159/75 H 11/27/24 17:45 Pulse Oximetry 100 11/27/24 17:45 Medical Decision Making MDM Narrative Medical decision making narrative: Patient presented to ED with verbal altercation with another resident of local long-term, report of aggressive behavior. Vital signs stable upon arrival. Patient in no acute distress. Denies any acute complaints. States the other resident was picking on her. She is neurologically intact upon my evaluation. No focal deficits. Patient had laboratory studies performed yesterday which I am able to view in the computer. They appear at her baseline. No indication to repeat today. Patient has no acute complaints. CT brain without acute findings UA with possible infection, 3+ leuk esterase, 6-10 WBC, 2+ urine bacteria. No squamous cells seen. Sent for culture. Will treat given possibility of this contributing to patient's new aggressive behavior. Given 1st dose of Keflex in the ED. patient has been calm and cooperative throughout ED stay. Remains at her baseline. She is otherwise safe for return back to the long-term. It sounds like this was a simple verbal altercation between 2 residents that do not get along. No other concerning etiology to suggest aggression at this time. Given return precautions. Discharged in stable condition Medical Records Medical records reviewed: Yes I reviewed the external patient's medical records. Vital Signs Vital Signs: Vital Signs Temperature 98.9 F 11/27/24 17:45 Pulse Rate 103 H 11/27/24 17:45 Respiratory Rate 20 11/27/24 17:45 Blood Pressure 159/75 H 11/27/24 17:45 Pulse Oximetry 100 11/27/24 17:45 Temperature 98.9 F 11/27/24 17:45 Pulse Rate 103 H 11/27/24 17:45 Respiratory Rate 20 11/27/24 17:45 Blood Pressure 159/75 H 11/27/24 17:45 Pulse Oximetry 100 11/27/24 17:45 Lab Data Lab results reviewed: Yes I reviewed the patient's lab results. Labs: Lab Results 11/27/24 Range/Units 19:34 Urine Color Yellow (Yellow) Urine Appearance Clear (Clear) Urine pH 7.0 (5.0-9.0) Ur Specific [place] 1.006 (1.001-1.035) Urine Protein Negative (Negative) mg/dL Urine Glucose (UA) Trace H (Negative) mg/dL Urine Ketones Negative (Negative) mg/dL Ur Blood (Man) Negative (Negative) Urine Nitrate Negative (Negative) Urine Bilirubin Negative (Negative) Urine Urobilinogen 1.0 (<2.0) mg/dL Leukocyte Esterase Rfl 3+ H (Negative) HARRISON/UL Urine RBC 3-5 H (0-2) /hpf Urine WBC 6-10 H (0-3) /hpf Ur Squamous Epith Cells None seen (Few) /hpf Urine Bacteria 2+ H /hpf Urine Casts 0-2 Imaging Data Attestation: I personally reviewed and interpreted this imaging study as follows: Radiologist's impression: ITS Impressions Head CT 11/27/24 18:35 IMPRESSION: No acute intracranial hemorrhage or extra axial fluid collections. All CT scans at this facility are performed using low dose modulation techniques as appropriate to perform exam including the following: automated exposure control; use of iterative reconstruction technique; adjustment of the mA and/or kV according to patient size (this includes techniques or standardized protocols for targeted exams where dose is matched to indication/reason for exam). Discharge Plan Discharge Clinical Impression: Aggressive behavior, Abnormal urinalysis Patient Disposition: NH Correction/Asst Living Condition: Stable Instructions: Antibiotic Form, Urinary Tract Infection in Older Adults (ED) Additional Instructions: Patient's urine here showed signs of possible infection. Take antibiotics as prescribed. Follow-up with primary care doctor for urine culture results. Return to the ED for new or worsening concerns. Patient Language: Citizen Of [place] Prescriptions: New cephalexin 500 mg capsule 500 mg PO Q12H 7 Days Qty: 14 0RF No Action losartan 50 mg Tablet 50 mg PO DAILY Patient Comments: QAM atorvastatin 40 mg Tablet 40 mg PO HS Patient Comments: . amlodipine 10 mg Tablet 10 mg PO DAILY Patient Comments: QAM benztropine 1 mg Tablet 1 mg PO BID Patient Comments: . trazodone 50 mg Tablet 25 mg PO HS cranberry 500 mg Capsule 500 mg PO BID Patient Comments: . Rx Instructions: administer with meals insulin glargine [Lantus U-100 Insulin] 100 unit/mL Solution 40 unit SUBCUT HS insulin glargine [Lantus U-100 Insulin] 100 unit/mL Solution See Rx Instructions SUBCUT QPM Rx Instructions: 42 UNITS SQ IN AM 40 UNITS subcutaneously every evening venlafaxine [Effexor XR] 75 mg Capsule,Extended Release 24hr 225 mg PO DAILY levetiracetam [Keppra] 500 mg Tablet 500 mg PO BID ferrous sulfate 325 mg (65 mg iron) Tablet 325 mg PO BID meloxicam 7.5 mg tablet 7.5 mg PO DAILY polyethylene glycol 3350 [Miralax] 17 gram Powder In Packet 17 g PO DAILY PRN (Reason: Constipation) risperidone [Risperdal] 1 mg Tablet 1 mg PO BID mirtazapine 7.5 mg Tablet 7.5 mg PO DAILY Patient Comments: HS potassium chloride 10 mEq tablet extended release 30 meq PO DAILY metformin 1,000 mg tablet 1,000 mg PO BID ondansetron 8 mg tablet,disintegrating 8 mg PO Q8H PRN (Reason: nausea and vomiting) lidocaine-prilocaine [Anodyne LPT] 2.5-2.5 % kit 1 applic topical ONCE Patient Comments: APPLY TOPICALLY TO PORT SITE 30 MINUTES BEFORE ACCESS Rx Instructions: as a single dose docusate sodium [Colace] 100 mg capsule 100 mg PO BID PRN (Reason: constipation) glucagon 1 mg/0.2 mL auto-injector 1 mg subcut ONCE PRN (Reason: hypoglycemia) Rx Instructions: as a single dose; may repeat once after 15 minutes if no response dextrose [Glucose Gel] 40 % gel 10 g PO Q15M PRN (Reason: hypoglycemia) Patient Comments: . Rx Instructions: until symptoms of low blood sugar are controlled cholecalciferol (vitamin D3) 50 mcg (2,000 unit) capsule 2,000 unit PO DAILY Patient Comments: ... acetaminophen 325 mg capsule 650 mg PO .Q8 PRN (Reason: pain) Patient Comments: ...... benzonatate 100 mg capsule 100 mg PO TID PRN (Reason: cough) Qty: 30 0RF Patient Comments: . Follow-up/Referrals: PHYSICIAN,RESEARCH AND INSIGHTS EXECUTIVE [Non-Staff, Internal Medicine] Time of Disposition: 19:53
[2024-11-27 19:44] LABS: Add Urine Microscopic? YES; Appearance Urine Clear (Clear); Glucose Urine UA Trace mg/dL (Negative); Leukocyte Esterase Ur 3+ LEU/UL (Negative); Nitrate Urine Negative (Negative); Non Pathogenic Casts 0-2; Specific Grav Ur 1.006 (1.001-1.035)
[2024-11-27] MEDS: CEPHALEXIN 500 MG CAPSULE PO (20:09)
--- NOTE | 2024-11-27 21:01 | PC.NURSE ---
RN attempted to call facility twice and no answer.
== END 2024-11-27 21:03 ==
PROVIDERS: Emergency Provider Physician Assistant; PCP Internal Medicine
DX: R45.6 Violent behavior (principal); R82.998 Other abnormal findings in urine; C18.9 Malignant neoplasm of colon, unspecified; I10 Essential (primary) hypertension; I69.951 Hemiplegia and hemiparesis following unspecified cerebrovascular disease affecting right dominant side; I69.992 Facial weakness following unspecified cerebrovascular disease; I69.998 Other sequelae following unspecified cerebrovascular disease; R26.89 Other abnormalities of gait and mobility; E11.9 Type 2 diabetes mellitus without complications; E78.5 Hyperlipidemia, unspecified; D64.9 Anemia, unspecified; K21.9 Gastro-esophageal reflux disease without esophagitis; F31.9 Bipolar disorder, unspecified; F41.9 Anxiety disorder, unspecified; Z99.3 Dependence on wheelchair; Z86.718 Personal history of other venous thrombosis and embolism; Z86.12 Personal history of poliomyelitis; Z79.60 Long term (current) use of unspecified immunomodulators and immunosuppressants; Z79.899 Other long term (current) drug therapy; Z79.4 Long term (current) use of insulin; Z79.84 Long term (current) use of oral hypoglycemic drugs
CPT/HCPCS: 70450; 81001; 87086; 87186; 99284; A9270

== ENCOUNTER 2024-12-10 14:13 | Outpatient (CLI) | payer OTHER, SELFPAY ==
--- NOTE | ~2024-12-10 | CT_ITS ---
CT chest abdomen pelvis w con HISTORY: Mal lamine of colon . Staging COMPARISON: 03/11/2024 TECHNIQUE: Axial images of the chest, abdomen and pelvis were obtained without and with infusion of 100 Isovue 300. FINDINGS: CT CHEST: The examination demonstrates no new pulmonary nodules, infiltrates and/or effusions. 12 mm pulmonary nodule within the superior segment of the left lower lobe is stable.No pathologically enlarged hilar or mediastinal lymphadenopathy is seen. Cardiac size and mediastinal configuration are normal in appearance. The pulmonary artery and thoracic aorta are normal in caliber and patency. Osseous structures are intact. The visualized organs of the upper abdomen are unremarkable. IMPRESSION: 12 mm pulmonary nodule within the left lower lobe is stable. No Acute cardiopulmonary process. No pathologic enhancement is noted. No pathologically enlarged mediastinal lymphadenopathy is noted. CT abdomen and pelvis with contrast: Fatty infiltration of the liver is noted. No intrahepatic mass or ductal dilatation is evident. The gallbladder is unremarkable. The pancreas and spleen are normal in appearance. The adrenal glands are symmetric in size. The kidneys demonstrate symmetric uptake and excretion of contrast. No cystic mass is evident. There is no solid mass. There is no hydronephrosis. The stomach and bowel loops are unremarkable. Right hemicolectomy is again noted. Chronic bladder wall thickening is noted. No free intraperitoneal fluid or air is evident. There is no significant retroperitoneal lymphadenopathy. The aorta, visceral vessels and renal arteries demonstrate normal caliber and patency. The lower thoracic and lumbar vertebrae are in normal alignment. IMPRESSION: 12 mm pulmonary nodule within the left lower lobe is stable. There are no acute abnormality seen in the chest abdomen and pelvis. All CT scans at this facility are performed using low dose modulation techniques as appropriate to perform exam including the following: automated exposure control; use of iterative reconstruction technique; adjustment of the mA and/or kV according to patient size (this includes techniques or standardized protocols for targeted exams where dose is matched to indication/reason for exam) Reviewed, dictated and finalized at location S. ROL AREA OPERATOR IMPRESSION: 12 mm pulmonary nodule within the left lower lobe is stable. No Acute cardiopulmonary process. No pathologic enhancement is noted. No pathologically enlarged mediastinal lymphadenopathy is noted. CT abdomen and pelvis with contrast: Fatty infiltration of the liver is noted. No intrahepatic mass or ductal dilata tion is evident. The gallbladder is unremarkable. The pancreas and spleen are n ormal in appearance. The adrenal glands are symmetric in size. The kidneys demonstrate symmetric uptake and excretion of contrast. No cystic m ass is evident. There is no solid mass. There is no hydronephrosis. The stomach and bowel loops are unremarkable. Right hemicolectomy is again note d. Chronic bladder wall thickening is noted. No free intraperitoneal fluid or air is evident. There is no significant retroperitoneal lymphadenopathy. The aorta, visceral vessels and renal arteries demonstrate normal caliber and p atency. The lower thoracic and lumbar vertebrae are in normal alignment. IMPRESSION: 12 mm pulmonary nodule within the left lower lobe is stable. There are no acute abnormality seen in the chest abdomen and pelvis. All CT scans at this facility are performed using low dose modulation techniqu es as appropriate to perform exam including the following: automated exposure c ontrol; use of iterative reconstruction technique; adjustment of the mA and/or kV according to patient size (this includes techniques or standardized protocol s for targeted exams where dose is matched to indication/reason for exam)
--- OUTSIDE RECORDS SUMMARY | 2024-12-11 13:49 | XMS_ITS | Encounter Summary ---
Author Organization [facility] [employer] [facility] Address [address] [place] [address] Care Team Providers Care Government Employee Name Role Phone Unavailable Primary Care Provider Unavailabl e Encounter Details Date Type Department Care Team (Late st Contact Info) Description 12/08/2024 Orders Only [facility] Oncology and Hematology - Tre [address] [facility] [address] [place] [address] Adrian Rothman MD [address] [facility] [address] [place] [address] Malignant neoplasm of colon, unspecified [...] as of this encounter Plan of Treatment Not on file documented as of this encounter Visit Diagnoses Diagnosis Malignant neoplasm of colon, unspecified part of colon (CMS/HCC) documented in this encounter
--- OUTSIDE RECORDS SUMMARY | 2024-12-11 13:49 | XMS_ITS | Patient Health Record ---
Author Organization [facility] [employer] Address [address] [facility] [address] [place] [address] Care Team Providers Care Steel Heater Name Role Phone Maldonado Gould Unavailable [phone] Reason For Referral No Information Medications Medication SIG (Take, Route, Frequency, Duration) Notes Start Date End Date Status Divalproex Sodium 125 MG Capsule Delayed Release Sprinkle Oral Active amLODIPine Besylate 10 MG Tablet Oral Active Melatonin 5 MG Tablet Oral Active Plan Of Treatment No Information Insurance Providers Payer Name Payer Address Payer Phone Subscriber Number Group Number Insured Name Patient Relationship to Insured Coverage Start Date Coverage End Date Medicaid-[place] l Medicaid [address] [address] [place] [address] [id number] KAIT MOSLEY Self - patient is the insured
--- OUTSIDE RECORDS SUMMARY | 2024-12-11 13:49 | XMS_ITS | Encounter Summary ---
Author Organization [facility] [employer] [facility] Address [address] [place] [address] Care Team Providers Care Communications Director Name Role Phone Unavailable Primary Care Provider Unavailabl e Encounter Details Date Type Department Care Team (Late st Contact Info) Description 12/11/2024 Orders Only [facility] Oncology and Hematology - Tre [address] [facility] [address] [place] [address] Adrian Rothman MD [address] [facility] [address] [place] [address] Social History Tobacco Use Types Packs/Day [...] on file documented as of this encounter Procedures Procedure Name Priority Date/Time Associated Diagnosis Comments CT CHEST ABDOMEN PELVIS W CONT Routine 12/10/2024 12:37 PM TOOL GRINDER OPERATOR documented in this encounter Results * CT CHEST ABDOMEN PELVIS W CONT (12/10/2024 12:37 PM TOOL GRINDER OPERATOR) Anatomical Region Laterality Modality Chest Computed Tomogra phy Adrian Rothman MD CT ORDERABLES Final Result documented in this encounter Visit Diagnoses Not on filedocumented in this encounter
--- OUTSIDE RECORDS SUMMARY | 2024-12-11 13:49 | XMS_ITS | Clinical Summary ---
Author Organization [facility] Address [address] [place] [address] Care Team Providers Care Director Safety Council Name Role Phone Unavailable Primary Care Provider [...] 250 mg by mouth 2 times daily. 4 Active insulin lispro (HumaLOG,ADMELO G) 100 unit/mL pen syringe 4 Active losartan (COZAAR) 25 mg tablet 4 Active metFORMIN (GLUCOPHAGE) 500 mg tablet Take 500 mg by mouth daily with breakfast. 4 Active mirtazapine (REMERON) 7.5 mg tablet Take 7.5 mg by mouth daily at bedtime. 4 Active potassium chloride (KLOR-CON) 10 mEq Extended Release tablet Take 10 mEq by mouth one time only. 4 Active risperiDONE (RisperDAL) 0.5 mg tablet Take 0.5 mg by mouth 2 times daily. 4 Active venlafaxine (EFFEXOR XR) 150 mg Extended Release 24 hour capsule Take 150 mg by mouth daily. Active ondansetron (ZOFRAN ODT) 8 mg Tablet, Rapid Dissolve Dissolve 1 tablet on top of tongue then swallow with saliva every 8 hours as needed for nausea or vomiting 30 Tablet 1 11/07/202 4 Active lidocaine-prilo earl (EMLA) 2.5-2.5 % Cream Apply to port site 30 minutes before access. 30 Gram 1 4 Active pegfilgrastim (Neulasta) 6 mg/0.6mL Syringe Inject 0.6 mL (6 mg) by subcutaneous injection the day after chemotherapy pump is removed, repeat with every cycle. 0.6 mL 5 5 Active Active Problems Problem Noted Date Diagnosed Date Malignant neoplasm of colon 10/14/2024 Chronic anemia 10/14/2024 Encounters Date Type Department Care Team Description 12/11/2024 Orders Only [facility] Oncology [facility] Hematology [facility] [address] [place] [id number] Adrian Rothman MD 12/09/2024 Abstract [facility] Oncology [facility] Hematology [facility] [address] [place] [address] Adrian Rothman MD 12/08/2024 Orders Only [facility] Oncology and Hematology [facility] [address] [place] [address] Adrian Rothman MD Malignant neoplasm of colon, unspecified part of colon (CMS/HCC) 11/26/2024 8:45 AM CDT Office Visit [facility] Oncology [facility] Hematology [facility] [address] [place] [phone] Adrian Rothman MD Malignant neoplasm of colon, unspecified part of colon (CMS/HCC) (Primary Dx) 11/26/2024 Orders Only [facility] Oncology and Hematology [facility] [address] [place] [address] Adrian Rothman MD 11/24/2024 Orders Only [facility] Oncology and Hematology [facility] [address] [place] [phone] Adrian Rothman MD Malignant neoplasm of colon, unspecified part of colon (CMS/HCC) 11/20/2024 Abstract [facility] Oncology and Hematology - [facility] [address] [place] [phone] Adrian Rothman MD 11/10/2024 Orders Only [facility] Oncology and Hematology - [facility] [address] [place] [phone] Adrian Rothman MD Malignant neoplasm of colon, unspecified part of colon (CMS/HCC) 11/07/2024 Orders Only [facility] Oncology and Hematology - [facility] [address] [place] [phone] Adrian Rothman MD 10/30/2024 Refill [facility] Oncology and Hematology - [facility] [address] [place] [id number] Adrian Rothman MD 10/29/2024 Orders Only [facility] Oncology and Hematology - [place] [address] [place] [phone] Adrian Rothman MD 10/28/2024 8:45 AM CDT Office Visit [facility] Oncology and Hematology [facility] [address] [place] [address] Adrian Rothman MD Malignant neoplasm of colon, unspecified part of colon (CMS/HCC) (Primary Dx) 10/27/2024 Orders Only [facility] Oncology and Hematology - [place] [address] [place] [phone] Adrian Rothman MD Malignant neoplasm of colon, unspecified part of colon (CMS/HCC) 10/22/2024 External Device Data ST[facility] ABSTRACTION Provider, Abstract 10/21/2024 External Device Data [facility] ABSTRACTION Provider, Abstract 10/21/2024 External Device Data [facility] ABSTRACTION Provider, Abstract 10/14/2024 8:30 AM CDT Office Visit [facility] Oncology and Hematology - [address] [place] [phone] Judith Bean MD Malignant neoplasm of colon, unspecified part of colon (CMS/HCC) (Primary Dx); Chronic anemia 10/14/2024 Orders Only [facility] Oncology and Hematology - [address] [place] [phone] Adrian Rothman MD 10/13/2024 Orders Only [facility] Oncology and Hematology - [address] [place] [phone] Adrian Rothman MD Malignant neoplasm of colon, unspecified part of colon (CMS/HCC) 09/29/2024 Orders Only [facility] Oncology and Hematology - [facility] [address] [place] [phone] Adrian Rothman MD Malignant neoplasm of colon, unspecified part of colon (CMS/HCC) 09/24/2024 External Device Data ST[facility] ABSTRACTION Provider, Abstract 09/15/2024 Orders Only [facility] Oncology and Hematology - [address] [place] [phone] Adrian Rothman MD Malignant neoplasm of colon, [...] Sign Reading Time Taken Comments Blood Pressure 146/74 11/26/2024 8:40 AM CDT Pulse 107 11/26/2024 8:38 AM CDT Temperature 36.3 C (97.4 F) 11/26/2024 8:38 AM CDT Respiratory Rate 16 11/26/2024 8:38 AM CDT Oxygen Saturation 93% 11/26/2024 8:38 AM CDT Inhaled Oxygen Concentration - - Weight 60.7 kg (133 lb 12.8 oz) 025 10:03 AM CDT Height 152.4 cm (5') 11/15/2023 2:54 PM CDT Body Mass Index 26.13 11/15/2023 2:54 PM CDT Plan of Treatment Health Maintenance Due Date Last Done Comments [...] PELVIS W CONT Routine 12/10/2024 12:37 PM PRETZEL COOKER COMPREHENSIVE METABOLIC PANEL Routine 11/26/2024 12:49 PM CDT COMPREHENSIVE METABOLIC PANEL Routine 11/05/2024 11:09 AM CDT COMPREHENSIVE METABOLIC PANEL Routine 10/28/2024 1:00 PM CDT COMPREHENSIVE METABOLIC PANEL Routine 10/14/2024 3:45 PM CDT BASIC METABOLIC PANEL Routine 10/14/2024 3:26 PM CDT CBC WITH AUTODIFFERENTIAL Routine 2024 3:24 PM CDT from Last 3 Months Results * CT CHEST ABDOMEN PELVIS W CONT (12/10/2024 12:37 PM PRETZEL COOKER) Anatomical Region Laterality Modality Chest Computed Tomogra phy Adrian Rothman MD CT ORDERABLES Final Result * COMPREHENSIVE METABOLIC PANEL (11/26/2024 12:49 PM CDT) Only the most recent of4 resultswithin the time period is included. Blood us Adrian Rothman MD CHEMISTRY ORDERABLES Final Resu lt * BASIC METABOLIC PANEL (10/14/2024 3:26 PM CDT) Blood us Adrian Rothman MD CHEMISTRY ORDERABLES Final Resu lt * CBC WITH AUTODIFFERENTIAL (10/13/2024 3:24 PM CDT) Blood us Adrian Rothman MD HEMATOLOGY ORDERABLES Final Res ult from Last 3 Months Insurance [employer] [place]
== END 2024-12-10 14:14 | disposition home or self-care (01) ==
PROVIDERS: Visit Provider Internal Medicine Hematology & Oncology
DX: C18.9 Malignant neoplasm of colon, unspecified (principal); R91.1 Solitary pulmonary nodule
CPT/HCPCS: 71260; 74177; Q9967